=== PATIENT | female | born 1960 | race Caucasian/White ===

== ENCOUNTER 2016-12-10 00:23 | Inpatient (IN) | payer OTHER ==
[2016-12-10] MEDS ORDERED: MORPHINE SULFATE 4 MG/ML SYRINGE IV STA (00:54)
[2016-12-10] MEDS ORDERED: NITROGLYCERIN OINT 1 INCH/GM PACKET TOPICAL STA (00:54)
[2016-12-10] MEDS ORDERED: ONDANSETRON 4 MG/2 ML VIAL IVP STA (00:54)
[2016-12-10] MEDS ORDERED: RX INFO: IV CONTRAST WAS GIVEN 1 EACH MISC MISCELLANE PRN (00:54)
[2016-12-10] MEDS ORDERED: SODIUM CHLORIDE 0.9% 1,000 ML IV STA (00:54)
[2016-12-10] MEDS ORDERED: LABETALOL SYRINGE 5 MG/ML IVP STA (00:55)
[2016-12-10 01:00] LABS: CH 30.4; CHCM 33.7; HCT 45.7 % (34.0-46.0); HGB 14.8 gm/dL (11.4-16.0); MCH 29.3 pg (25.0-35.0); MCHC 32.4 g/dL (31.0-37.0); MCV 90.4 fL (80.0-100.0); RBC 5.05 m/uL (3.80-5.40); RDW 13.4 % (11.5-15.5); WBC 6.1 k/uL (3.8-10.6); WBC (Perox) 5.93
[2016-12-10] MEDS ORDERED: LABETALOL SYRINGE 5 MG/ML IVP SCH (01:00)
[2016-12-10 01:01] LABS: Basophils % (A) 1 %; Eosinophils # (A) 0.3 k/uL (0-0.7); Eosinophils % (A) 5 %; Luc # (Auto) 0.14; Luc % (Auto) 2; Lymphocytes # (A) 1.1 k/uL (1.0-4.8); Lymphocytes % (A) 18 %; Mean Platelet Volume 8.1; Monocytes # (A) 0.2 k/uL (0-1.0); Monocytes % (A) 4 %; Neutrophils # (A) 4.3 k/uL (1.3-7.7); Neutrophils % (A) 70 %
--- NOTE | 2016-12-10 01:02 | ED ---
Chest Pain HPI - General Chief Complaint: Chest Pain Stated Complaint: chest pain x3 days Time Seen by Provider: 12/10/16 00:45 Source: patient, family Mode of arrival: ambulatory Limitations: no limitations - History of Present Illness Initial Comments: Here for chest pain, she had a chest pain ongoing for 3 days, she has a history of hypertension and high blood pressure is quite high blood pressure is 250 / 150 also complaining about the headache and the chest pain radiates towards her back complaining about shortness of breath and chest pain gets worse with deep breaths no abdominal pain no frequency urgency dysuria no signs or symptoms of TIA or CVA. She stopped taking her blood pressure medication about a week ago she had those medications even in the containers when I examine her medication back. Her pain is in the chest and radiated towards the area between the shoulder blades she stating is 10 over 10 it's also radiating towards the epigastric area. She denies any history of aneurysms ascending or descending, this time she describes the pain as tearing excruciating. She stated that she has only 1 kidney working - Related Data Home Medications Medication Instructions Recorded Confirmed Allopurinol [Zyloprim] 300 mg PO DAILY 06/23/14 12/10/16 Aspirin EC [Ecotrin] 325 mg PO DAILY 06/23/14 12/10/16 Atenolol [Tenormin] 25 mg PO DAILY 06/23/14 12/10/16 Baclofen [Lioresal] 10 mg PO QID 06/23/14 12/10/16 Lisinopril-Hctz 20-12.5 mg 1 each PO BID 06/23/14 12/10/16 [Zestoretic 20-12.5] Pravastatin Sodium [Pravachol] 20 mg PO DAILY 06/23/14 12/10/16 clonazePAM [KlonoPIN] 0.5 mg PO HS 06/23/14 12/10/16 rOPINIRole HCL [Requip] 0.5 mg PO HS 06/23/14 12/10/16 Previous Rx's Medication Instructions Recorded traMADol HCl [Ultram] 50 mg PO Q4H PRN #20 tab 06/23/14 Albuterol Inhaler [Ventolin Hfa 2 puff INHALATION Q4HR PRN #1 02/03/16 Inhaler] inhaler Albuterol Nebulized [Ventolin 2.5 mg INHALATION Q4H #50 nebu 02/03/16 Nebulized] Azithromycin [Zithromax Z-pack] 250 mg PO DIRECTED #6 tab 02/03/16 predniSONE 50 mg PO DAILY #5 tab 02/03/16 Allergies Allergy/AdvReac Type Severity Reaction Status Date / Time No Known Allergies Allergy Verified 12/10/16 00:34 Review of Systems ROS Statement: Those systems with pertinent positive or pertinent negative responses have been documented in the HPI. ROS Other: All systems not noted in ROS Statement are negative. EKG Findings - EKG Comments: EKG Findings:: EKG is a normal sinus rhythm ventricular rate is 65 CT interval is 156 QRS duration is 80 QT/QTc is 460/432 review of this EKG did not reveal any ST elevation or ST depression Past Medical History Past Medical History: Hyperlipidemia, Hypertension Additional Past Medical History / Comment(s): kidney stones History of Any Multi-Drug Resistant Organisms: None Reported Past Surgical History: Section, Hysterectomy, Tonsillectomy Past Psychological History: No Psychological Hx Reported Smoking Status: Never smoker Past Alcohol Use History: Rare Past Drug Use History: None Reported General Exam - General Exam Comments Initial Comments: General: The patient is awake and alert, in no distress, and does not appear acutely ill. GCS is 15 Skin: Skin is warm and dry and no rashes or lesions are noted. Eye: Pupils are equal, round and reactive to light, extra-ocular movements are intact; there is normal conjunctiva bilaterally. Ears, nose, mouth and throat: There are moist mucous membranes and no oral lesions. Neck: The neck is supple, there is no tenderness or JVD. Cardiovascular: There is a regular rate and rhythm. No murmur, rub or gallop is appreciated. Respiratory: To auscultation bilateral, no wheezing no rhonchi no distress respiratory mack noticed Gastrointestinal: Soft, non-distended, non-tender abdomen without masses or organomegaly noted. There is no rebound or guarding present. Bowel sounds are unremarkable. Back: There is no tenderness to palpation in the midline. There is no obvious deformity. Musculoskeletal: Normal ROM, no tenderness, There is no pedal edema. There is no calf tenderness or swelling. No cords were appreciated. Neurological: CN II-XII intact, Cranial nerves III through XII are intact. There are no obvious motor or sensory deficits. Coordination appears grossly intact. Speech is normal. Psychiatric: Cooperative, appropriate mood & affect, normal judgment. Limitations: no limitations Course Vital Signs 12/10/16 12/10/16 12/10/16 00:29 00:51 01:30 Temperature 97.7 F Pulse Rate 74 45 L Pulse Rate [ 58 L [employer] ] Respiratory 18 18 Rate Blood Pressure 259/150 201/110 O2 Sat by Pulse 97 98 Oximetry 12/10/16 12/10/16 02:02 03:00 Temperature Pulse Rate 61 54 L Pulse Rate [ [employer] ] Respiratory 18 16 Rate Blood Pressure 215/110 151/89 O2 Sat by Pulse 97 Oximetry Critical Care Time Total Critical Care Time: 40 Critical Care Time: He came in with a very high blood pressure, it was 259/150, chest pain was 10 over 10 radiating towards the back towards the shoulders and then she had this pain radiating down to the epigastric area. She was given labetalol 20 mg milligram IV blood pressure stayed high but then she developed bradycardia, morphine and nitro were given in the L4 to address see her blood pressure as well as chest pain. It took almost 45 minutes to get the blood pressure down to [address] brain was done to rule out any bleed considering blood pressure was very high and she had a headache and CT angiogram chest was done to rule out any PE since she had a history of pleuritic chest pain and the same time since pain was going towards the back ,to rule out aortic dissection. I am aware that she has only one functioning kidney and creatinine was 1.20. His creatinine she had the done in our ER that was 1.26 but wanted make sure that if there is a daily dissection or aortic pathology that could be addressed in a timely manner Disposition Clinical Impression: Hypertension, Chest pain, Headache Disposition: ADMITTED IP TO THIS HOSP Condition: Good
[2016-12-10 01:13] LABS: Calcium 9.7 mg/dL (8.4-10.2); Potassium 4.2 mmol/L (3.5-5.1); Total Bilirubin 0.6 mg/dL (0.2-1.3); Total Protein 6.9 g/dL (6.3-8.2)
[2016-12-10 01:16] LABS: INR 0.9 (<1.1); Partial Thromboplastin Time 23.3 sec (22.0-30.0); Prothrombin Time 9.4 sec (9.0-12.0)
[2016-12-10 01:24] LABS: Creatine Kinase 47 U/L (30-135)
[2016-12-10 01:37] LABS: Creatine Kinase MB 0.7 ng/mL (0.0-2.4); Troponin I <0.012 ng/mL (0.000-0.034)
[2016-12-10] MEDS ORDERED: MORPHINE SULFATE 4 MG/ML SYRINGE IVP STA (01:43)
--- NOTE | 2016-12-10 02:41 | CT ---
EXAMINATION TYPE: CT angio chest DATE OF EXAM: 12/10/2016 2:24 AM COMPARISON: NONE HISTORY: Chest pain, R/O PE, Hypertension CT DLP: 3660 mGycm Automated exposure control for dose reduction was used. CONTRAST: CTA scan of the thorax is performed with IV Contrast, patient injected with 80 mL of Visipaque 320, p ulmonary embolism protocol. MIP images are created and reviewed. 3D reconstructed images are create d on an independent workstation and reviewed. FINDINGS: There is subpleural groundglass interstitial infiltrate in the mid and lower lung pickard. There is no evidence of a pulmonary mass. There is no pericardial effusion. There is no pleural effusion. There is normal contrast opacification of the pulmonary arteries. I see no filling defects. There is no evidence of aortic aneurysm or dissection. There is no mediastinal adenopathy. There are no hilar masses. IMPRESSION: NO EVIDENCE OF PULMONARY EMBOLISM. MILD INTERSTITIAL INFILTRATES COULD RELATE TO PULMONARY FIBROSIS.
--- NOTE | 2016-12-10 02:43 | CT ---
EXAMINATION TYPE: CT brain wo con DATE OF EXAM: 12/10/2016 2:24 AM COMPARISON: 06/23/2014 HISTORY: Headache CT DLP: 3660 mGycm Automated exposure control for dose reduction was used. FINDINGS: Ventricles have normal size. There is no mass effect nor midline shift. There is no sign of intracran ial hemorrhage. The calvarium is intact. IMPRESSION: Negative unenhanced head CT scan. No change.
--- NOTE | 2016-12-10 02:49 | CT ---
EXAMINATION TYPE: CT abdomen pelvis w con DATE OF EXAM: 12/10/2016 2:24 AM COMPARISON: NONE HISTORY: Hypertension, R/O AAA CT DLP: 3660 mGycm Automated exposure control for dose reduction was used. TECHNIQUE: Helical acquisition of images was performed from the lung bases through the pelvis. CONTRAST: Performed without Oral Contrast and with IV Contrast, patient injected with 80 mL of Visipaque 320. FINDINGS: Lung bases are clear of consolidation. There is no pleural effusion. Liver spleen pancreas appear normal. There are clips from cholecystectomy. Bile ducts are not dilated . There is no adrenal mass. There are numerous left renal parapelvic cysts. The right kidney is very small. There is no hydronephrosis. Ureters are not dilated. There is no retroperitoneal adenopathy. There is no ascites. There is no evidence of appendicitis. I see no intestinal wall thickening. There are no dilated loops. There is no ascites. Bladder distends smoothly. Abdominal aorta appears normal. The celiac artery and superior mesenteric artery are widely patent. T he renal arteries are patent. Iliac arteries are widely patent. Bony structures are intact. IMPRESSION: HYPOPLASTIC RIGHT KIDNEY. NUMEROUS LEFT RENAL PARAPELVIC CYSTS. NO VASCULAR ABNORMALITY SEEN. NO RACHAEL DENCE OF AORTIC ANEURYSM OR DISSECTION.
[2016-12-10] MEDS ORDERED: amLODIPine 5 MG TAB PO STA (03:32)
[2016-12-10] MEDS ORDERED: ACETAMINOPHEN TAB 325 MG TAB PO PRN (03:34)
[2016-12-10] MEDS ORDERED: HEPARIN SODIUM,PORCINE 5,000 UNIT/ML 1 ML VIAL IV ONE (03:34)
[2016-12-10] MEDS ORDERED: NITROGLYCERIN SL TABS 0.4 MG TAB SUBLINGUAL PRN (03:34)
[2016-12-10] MEDS ORDERED: MORPHINE SULFATE 4 MG/ML SYRINGE IV PRN (03:34)
[2016-12-10] MEDS ORDERED: traMADol 50 MG TAB PO PRN (03:41)
[2016-12-10] MEDS ORDERED: ALBUTEROL NEBULIZED 2.5 MG/3 ML INHALATION PRN (03:41)
[2016-12-10] MEDS: HEPARIN SODIUM,PORCINE/D5W PMX 25,000 UNIT in DEXTROSE/WATER 1 500ML.BAG IV SCH ×2 (04:59→23:40)
[2016-12-10] MEDS ORDERED: ONDANSETRON 4 MG/2 ML VIAL IVP PRN (07:29)
[2016-12-10] MEDS ORDERED: ALBUTEROL NEBULIZED 2.5 MG/3 ML INHALATION SCH (08:00)
[2016-12-10 08:05] LABS: Creatine Kinase 37 U/L (30-135)
[2016-12-10 08:18] LABS: Creatine Kinase MB 0.6 ng/mL (0.0-2.4); Troponin I <0.012 ng/mL (0.000-0.034)
[2016-12-10] MEDS ORDERED: NON-FORMULARY DRUG (Aspirin Ec 325 MG) PO SCH (09:00)
--- NOTE | 2016-12-10 10:01 | P.CRDCN ---
History of Present Illness Consult date: 12/10/16 Chief complaint: Chest pain History of present illness: This is a pleasant 56-year-old female patient who sees Dr. VC Sepulveda as an outpatient with a past medical history significant for hypertension and dyslipidemia and obesity presented to the emergency room complaining of chest discomfort. She describes intermittent episodes of chest discomfort, as a pressure across the chest, with radiation to the back and without any associated symptoms. Unfortunately the patient stopped taking her blood pressure medications. Upon presentation to the ER her pressure was more than 200 mmHg systolic and the patient was restarted on her home medications with significant improvement in the blood pressure and significant improvement of the chest pain as well. The EKG showed sinus mechanism without any significant ST or T-wave abnormalities. The cardiac enzymes came in to be unremarkable. I will continue the current medical treatment. Obtaining an echocardiogram was Doppler. The patient need to have a stress test done either as inpatient or outpatient. The chest discomfort is likely secondary to the hypertension emergency. Past Medical History Past Medical History: Asthma, Cancer, Chest Pain / Angina, Hyperlipidemia, Hypertension, Osteoarthritis (OA), Renal Disease Additional Past Medical History / Comment(s): kidney stones-only one kidney functions (pt unsure laterallity), R breast cancer with surgery, migraines, RLS , gout bilateral feet, chronic back pain History of Any Multi-Drug Resistant Organisms: None Reported Past Surgical History: Breast Surgery, Section, Heart Catheterization, Hysterectomy, Orthopedic Surgery, Tonsillectomy Additional Past Surgical History / Comment(s): R breast lumpectomy, R foot spurs removed Past Anesthesia/Blood Transfusion Reactions: Postoperative Nausea & Vomiting ( PONV) Past Psychological History: Anxiety, Depression Additional Psychological History / Comment(s): PT resides with sone and daughter. Pt uses no devices. She drives. She has a nebulizer. Smoking Status: Never smoker Past Alcohol Use History: Rare Past Drug Use History: None Reported - Past Family History Father Family Medical History: CVA/TIA, Renal Disease Additional Family Medical History / Comment(s): Father had a CVA then went into kidney failure and . Mother Family Medical History: Hypertension Medications and Allergies Home Medications Medication Instructions Recorded Confirmed Type Allopurinol [Zyloprim] 300 mg PO DAILY 06/23/14 12/10/16 History Aspirin EC [Ecotrin] 325 mg PO DAILY 06/23/14 12/10/16 History Atenolol [Tenormin] 25 mg PO DAILY 06/23/14 12/10/16 History Baclofen [Lioresal] 10 mg PO QID 06/23/14 12/10/16 History Lisinopril-Hctz 20-12.5 mg 1 tab PO BID 06/23/14 12/10/16 History [Zestoretic 20-12.5] Pravastatin Sodium [Pravachol] 20 mg PO DAILY 06/23/14 12/10/16 History clonazePAM [KlonoPIN] 0.5 mg PO HS 06/23/14 12/10/16 History rOPINIRole HCL [Requip] 0.5 mg PO HS 06/23/14 12/10/16 History Albuterol Inhaler [Ventolin Hfa 2 puff INHALATION RT-Q6H PRN 12/10/16 12/10/16 History Inhaler] Albuterol Nebulized [Ventolin 2.5 mg INHALATION RT-Q4H PRN 12/10/16 12/10/16 History Nebulized] Nitroglycerin Sl Tabs [Nitrostat] 0.4 mg SUBLINGUAL Q5M PRN 12/10/16 12/10/16 History Allergies Allergy/AdvReac Type Severity Reaction Status Date / Time No Known Allergies Allergy Verified 12/10/16 00:34 Physical Exam Vitals: Vital Signs Pulse Resp BP Pulse Ox 12/10/16 08:50 56 L 18 140/70 96 12/10/16 08:00 59 L 17 164/79 97 12/10/16 07:00 61 17 121/72 96 12/10/16 06:47 57 L 16 121/72 94 L 12/10/16 05:36 64 16 129/67 97 12/10/16 04:41 58 L 16 145/86 97 - Constitutional General appearance: no acute distress - Respiratory Respiratory: bilateral: CTA - Cardiovascular Rhythm: regular Heart sounds: normal: S1, S2 Results 12/10/16 00:51 12/10/16 00:51 Cardiac Enzymes 12/10/16 Range/Units 07:10 CK-MB (CK-2) 0.6 (0.0-2.4) ng/mL Troponin I <0.012 (0.000-0.034) ng/mL Current Medications Generic Name Dose Route Start Last Admin Trade Name Freq PRN Reason Stop Dose Admin Acetaminophen 650 mg 12/10/16 03:34 Tylenol Tab PO Q4HR PRN Mild Pain Albuterol Sulfate 2.5 mg 12/10/16 03:41 Ventolin Nebulized INHALATION Q4HR PRN Wheezing Aspirin 325 mg 12/11/16 09:00 Aspirin PO DAILY [facility] Atorvastatin Calcium 40 mg 12/10/16 21:00 Lipitor PO HS [facility] Clonazepam 0.5 mg 12/10/16 21:00 Klonopin PO HS THIERRY Sodium Chloride 1,000 mls @ 50 mls/hr 12/10/16 00:54 12/10/16 01:12 Saline 0.9% IV 12/10/16 20:53 50 mls/hr .Q20H STA Administration Heparin Sodium/Dextrose 25,000 500 mls @ 20.13 mls/hr 12/10/16 03:45 04:59 unit/ IV Solution IV 11.1 units/kg/hr .Q24H THIERRY 20.13 mls/hr Protocol Administration 11.1 UNITS/KG/HR Lisinopril 10 mg 12/10/16 09:00 Zestril PO DAILY [facility] Metoprolol Tartrate 50 mg 12/10/16 09:00 Lopressor PO BID [facility] Miscellaneous Information 1 each 12/10/16 00:54 12/10/16 02:15 Rx Info: Iv Contrast Was Given MISCELLANE 12/12/16 00:54 1 each DAILY PRN Administration Per Protocol Morphine Sulfate 4 mg 12/10/16 03:34 Morphine Sulfate (Inj) IV Q5M PRN Chest Pain Nitroglycerin 0.4 mg 12/10/16 03:34 Nitrostat SUBLINGUAL Q5M PRN Chest Pain Ondansetron HCl 4 mg 12/10/16 07:29 Zofran IVP Q6HR PRN Nausea And Vomiting Ropinirole HCl 0.5 mg 12/10/16 21:00 Requip PO HS [facility] Tramadol HCl 50 mg 12/10/16 03:41 Ultram PO Q4H PRN Moderate Pain Assessment and Plan Plan: Assessment #1 hypertension emergency #2 noncompliance with medication #3 systemic hypertension #4 obesity pneumograph Plan #1 the patient was restarted on the blood pressure medications #2 I will obtain an echocardiogram with Doppler #3 follow-up with the patient
[2016-12-10] MEDS: LISINOPRIL 10 MG TAB PO SCH (12:37)
[2016-12-10] MEDS: METOPROLOL TARTRATE 50 MG TAB PO SCH ×2 (12:37→21:52)
--- NOTE | 2016-12-10 13:15 | ECHOF ---
Referral Reason:chest pain MEASUREMENTS -------- HEIGHT: 127.0 cm WEIGHT: 90.7 kg BP: 158/85 RVIDd: 2.8 cm (< 3.3) IVSd: 1.6 cm (0.6 - 1.1) LVIDd: 4.1 cm (3.9 - 5.3) LVPWd: 1.3 cm (0.6 - 1.1) IVSs: 1.7 cm LVIDs: 2.7 cm LVPWs: 1.1 cm LA Diam: 4.2 cm (2.7 - 3.8) LAESV Index (A-L): 51.81 ml/m Ao Diam: 3.1 cm (2.0 - 3.7) AV Cusp: 1.2 cm (1.5 - 2.6) LA Diam: 4.5 cm (2.7 - 3.8) MV EXCURSION: 11.800 mm (> 18.000) MV EF SLOPE: 20 mm/s (70 - 150) EPSS: 0.0 cm MV E [place]: 0.48 m/s MV DecT: 506 ms MV A [place]: 0.82 m/s MV E/A Ratio: 0.58 RAP: 5.00 mmHg RVSP: 35.32 mmHg FINDINGS -------- Sinus rhythm. This was a technically adequate study. There is moderate concentric left ventricular hypertrophy. Overall left ventricular systolic function is normal with, an EF between 55 - 60 %. The right ventricle is normal in size. LA is severely dilated >40 ml/m2 The right atrial size is normal. There is mild aortic valve sclerosis. There is no evidence of aortic regurgitation. Mild mitral annular calcification present. Mild mitral regurgitation is present. Mild tricuspid regurgitation present. There is no evidence of pulmonary hypertension. The right ventricular systolic pressure, as measured by Doppler, is 35.32mmHg. There is no pulmonic regurgitation present. The aortic root size is normal. There is no pericardial effusion. CONCLUSIONS -------- 1. There is moderate concentric left ventricular hypertrophy. 2. Overall left ventricular systolic function is normal with, an EF between 55 - 60 %. 3. LA is severely dilated >40 ml/m2 4. There is mild aortic valve sclerosis. 5. Mild mitral annular calcification present. 6. Mild mitral regurgitation is present. 7. Mild tricuspid regurgitation present. 8. There is no evidence of pulmonary hypertension. 9. The right ventricular systolic pressure, as measured by Doppler, is 35.32mmHg. [employer] CHAIR: Cuca Merida RDCS
[2016-12-10 14:00] LABS: Creatine Kinase 44 U/L (30-135)
[2016-12-10 14:12] LABS: Creatine Kinase MB 0.6 ng/mL (0.0-2.4); Troponin I <0.012 ng/mL (0.000-0.034)
[2016-12-10] MEDS ORDERED: HEPARIN SODIUM,PORCINE 5,000 UNIT/ML 1 ML VIAL IV STA (16:15)
--- NOTE | 2016-12-10 18:33 | P.HPIM ---
History of Present Illness H&P Date: 12/10/16 Chief Complaint: Chest pain Patient is a 56-year-old female was known history of hypertension hyperlipidemia and morbid obesity, patient stopped taking all her medications she was experiencing some chest pain she came to emergency room she had evidence of hypertensive emergency with systolic blood pressure in excess of 200 admitted to telemetry floor she was restarted on blood pressure medication cardiology consultation was requested Past Medical History Past Medical History: Asthma, Cancer, Chest Pain / Angina, Hyperlipidemia, Hypertension, Osteoarthritis (OA), Renal Disease Additional Past Medical History / Comment(s): kidney stones-only one kidney functions (pt unsure laterallity), R breast cancer with surgery, migraines, RLS , gout bilateral feet, chronic back pain History of Any Multi-Drug Resistant Organisms: None Reported Past Surgical History: Breast Surgery, Section, Heart Catheterization, Hysterectomy, Orthopedic Surgery, Tonsillectomy Additional Past Surgical History / Comment(s): R breast lumpectomy, R foot spurs removed Past Anesthesia/Blood Transfusion Reactions: Postoperative Nausea & Vomiting ( PONV) Past Psychological History: Anxiety, Depression Additional Psychological History / Comment(s): PT resides with sone and daughter. Pt uses no devices. She drives. She has a nebulizer. Smoking Status: Never smoker Past Alcohol Use History: Rare Past Drug Use History: None Reported - Past Family History Father Family Medical History: CVA/TIA, Renal Disease Additional Family Medical History / Comment(s): Father had a CVA then went into kidney failure and . Mother Family Medical History: Hypertension Medications and Allergies Home Medications Medication Instructions Recorded Confirmed Type Allopurinol [Zyloprim] 300 mg PO DAILY 06/23/14 12/10/16 History Aspirin EC [Ecotrin] 325 mg PO DAILY 06/23/14 12/10/16 History Atenolol [Tenormin] 25 mg PO DAILY 06/23/14 12/10/16 History Baclofen [Lioresal] 10 mg PO QID 06/23/14 12/10/16 History Lisinopril-Hctz 20-12.5 mg 1 tab PO BID 06/23/14 12/10/16 History [Zestoretic 20-12.5] Pravastatin Sodium [Pravachol] 20 mg PO DAILY 06/23/14 12/10/16 History clonazePAM [KlonoPIN] 0.5 mg PO HS 06/23/14 12/10/16 History rOPINIRole HCL [Requip] 0.5 mg PO HS 06/23/14 12/10/16 History Albuterol Inhaler [Ventolin Hfa 2 puff INHALATION RT-Q6H PRN 12/10/16 12/10/16 History Inhaler] Albuterol Nebulized [Ventolin 2.5 mg INHALATION RT-Q4H PRN 12/10/16 12/10/16 History Nebulized] Nitroglycerin Sl Tabs [Nitrostat] 0.4 mg SUBLINGUAL Q5M PRN 12/10/16 12/10/16 History Allergies Allergy/AdvReac Type Severity Reaction Status Date / Time No Known Allergies Allergy Verified 12/10/16 00:34 Physical Exam Vitals: Vital Signs Temp Pulse Pulse Resp BP BP Pulse Ox 12/10/16 14:57 66 17 12/10/16 14:56 97 F L 66 17 160/90 12/10/16 12:00 64 148/100 12/10/16 11:19 58 L 18 113/57 96 12/10/16 09:50 55 L 18 158/85 97 12/10/16 08:50 56 L 18 140/70 96 12/10/16 08:00 59 L 17 164/79 97 12/10/16 07:00 61 17 121/72 96 12/10/16 06:47 57 L 16 121/72 94 L 12/10/16 05:36 64 16 129/67 97 12/10/16 04:41 58 L 16 145/86 97 Intake and Output 12/10/16 12/10/16 12/10/16 06:59 14:59 22:59 Intake Total 227.133 Balance 227.133 Intake: Intake, IV Titration 227.133 Amount Heparin Sodium,Porcine/ 227.133 D5w Pmx 25,000 unit In Dextrose/Water 1 500ml. bag @ 11.1 UNITS/KG/HR 20 .13 mls/hr IV .Q24H [facility] Rx#:[id number] In general patient is alert and oriented 3 in no apparent distress HEENT head normocephalic and atraumatic Neck is supple no JVD no goiter no lymphadenopathy Chest exam reveals a few scattered crackles no wheezing Cardiac exam reveals regular heart sounds no gallops no murmurs Abdomen is soft nontender no organomegaly Extremity exam reveals no edema no cyanosis or clubbing Results CBC & Chem 7: 12/10/16 00:51 12/10/16 00:51 Thrombosis Risk Factor Assmnt - Choose All That Apply Any of the Below Risk Factors Present?: Yes Each Factor Represents 1 point: Age 41-60 years, Obesity (BMI >25) Other Risk Factors: Yes Each Risk Factor Represents 2 Points: Malignancy Other congenital or acquired thrombophilia - If yes, enter type in comment: No Thrombosis Risk Factor Assessment Total Risk Factor Score: 4 Thrombosis Risk Factor Assessment Level: Moderate Risk Assessment and Plan Plan: #1 episode of chest pain likely related to severe hypertensive emergency, cardiac enzymes are negative cardiology consult was requested #2 hypertensive emergency blood pressure is better controlled at this time will monitor #3 medication noncompliance patient was counseled in length in regard of taking medication regularly #4 underlying history of hyperlipidemia #5 acute versus chronic renal failure will review office data reactive and at this time is 1.2 Will monitor
[2016-12-10] MEDS: clonazePAM 0.5 MG TAB PO SCH (21:52)
[2016-12-10] MEDS: ATORVASTATIN 40 MG TAB PO SCH (21:53)
[2016-12-10 23:29] VITALS: RESP 18
[2016-12-11 07:46] LABS: Cholesterol 205 mg/dL (<200); HDL Cholesterol 70 mg/dL (40-60); Triglycerides 123 mg/dL (<150)
[2016-12-11] MEDS ORDERED: ASPIRIN 325 MG TAB PO SCH (09:00)
[2016-12-11] MEDS: LISINOPRIL 10 MG TAB PO SCH (09:43)
[2016-12-11] MEDS: METOPROLOL TARTRATE 50 MG TAB PO SCH (09:43)
--- NOTE | 2016-12-11 12:15 | P.PN ---
Subjective Principal diagnosis: Hypertensive urgency This is a pleasant 56-year-old female patient who sees Dr. VC Sepulveda as an outpatient with a past medical history significant for hypertension and dyslipidemia and obesity presented to the emergency room complaining of chest discomfort.She describes intermittent episodes of chest discomfort, as a pressure across the chest, with radiation to the back and without any associated symptoms. Unfortunately the patient stopped taking her blood pressure medications. Upon presentation to the ER her pressure was more than 200 mmHg systolic and the patient was restarted on her home medications with significant improvement in the blood pressure and significant improvement of the chest pain as well.The EKG showed sinus mechanism without any significant ST or T-wave abnormalities. The cardiac enzymes came in to be unremarkable. Blood pressure today 132/86, echocardiogram with Doppler study was performed which revealed an ejection fraction of 50-55%. Patient denies any further chest discomfort. Objective - Vital Signs Vital signs: Vital Signs Temp 97.1 F L 12/11/16 08:00 Pulse 66 12/11/16 08:00 Resp 18 12/11/16 08:00 BP 124/68 12/11/16 08:00 Pulse Ox 91 L 12/11/16 08:00 Intake & Output 12/10/16 12/11/16 12/11/16 18:59 06:59 18:59 Intake Total 227.133 439.292 218.101 Balance 227.133 439.292 218.101 Weight 101.7 kg Intake: Intake, IV Titration 227.133 189.292 218.101 Amount Heparin Sodium,Porcine/ 227.133 189.292 218.101 D5w Pmx 25,000 unit In Dextrose/Water 1 500ml. bag @ 11.1 UNITS/KG/HR 20 .13 mls/hr IV .Q24H THIERRY Rx#:[id number] Oral 250 Other: Voiding Method Toilet # Voids 1 - Exam PHYSICAL EXAMINATION: HEENT: Head is atraumatic, normocephalic. Pupils equal, round. Neck is supple. There is no elevated jugular venous pressure. HEART EXAMINATION: Heart S1, S2 normal. No murmur or gallop heard. CHEST EXAMINATION: Lungs are clear to auscultation and precussion. No chest wall tenderness is noted on palpation or with deep breathing. ABDOMEN: Soft, nontender. Bowel sounds are heard. No organomegaly noted. EXTREMITIES: 2+ peripheral pulses with no evidence of peripheral edema and no calf tenderness noted. NEUROLOGIC patient is awake, alert and oriented -3. . - Labs CBC & Chem 7: 12/10/16 00:51 12/10/16 00:51 Labs: Abnormal Lab Results - Last 24 Hours (Table) 12/10/16 12/11/16 12/11/16 Range/Units 22:13 06:06 06:06 APTT 44.3 H 45.1 H (22.0-30.0) sec Cholesterol 205 H (<200) mg/dL LDL Cholesterol, Calc 110 H (0-99) mg/dL HDL Cholesterol 70 H (40-60) mg/dL Assessment and Plan (1) Hypertensive urgency Status: Acute (2) Hypertensive urgency Status: Acute (3) Atypical chest pain Status: Acute (4) Hyperlipemia Status: Acute (5) Hypertension Status: Acute Plan: From cardiology's perspective, we will decrease the aspirin 81 mg, continue Lipitor, lisinopril 10 mg daily, metoprolol tartrate 50 mg one tablet by mouth twice a day, patient has been encouraged regarding the importance of taking her medications regularly. We will also discontinue the IV heparin. As an outpatient, patient will be scheduled for stress test. Consider discharge within the next 24 hours. A follow-up appointment will be made with Dr. VC Sepulveda in the office at that time. DNP note has been reviewed, I agree with a documented findings and plan of care. Patient was seen and examined.
--- NOTE | 2016-12-11 17:23 | P.PN ---
Subjective Principal diagnosis: Hypertensive emergency and chest pain Patient is a 56-year-old female admitted with chest pain patient had stopped all her medications at home she had a hypertensive emergency on presentation blood pressure was controlled in the emergency room and she was admitted to telemetry floor currently blood pressure is well-controlled and she is chest pain-free she was evaluated by cardiology during this admission cardiac enzymes are negative Objective - Vital Signs Vital signs: Vital Signs Temp 97.1 F L 12/11/16 08:00 Pulse 66 12/11/16 15:44 Resp 18 12/11/16 15:44 BP 127/72 12/11/16 15:44 Pulse Ox 96 12/11/16 15:44 Intake & Output 12/10/16 12/11/16 12/11/16 18:59 06:59 18:59 Intake Total 227.133 439.292 718.101 Output Total 360 Balance 227.133 439.292 358.101 Weight 101.7 kg Intake: Intake, IV Titration 227.133 189.292 218.101 Amount Heparin Sodium,Porcine/ 227.133 189.292 218.101 D5w Pmx 25,000 unit In Dextrose/Water 1 500ml. bag @ 11.1 UNITS/KG/HR 20 .13 mls/hr IV .Q24H [facility] Rx#:[id number] Oral 250 500 Output: Urine 360 Other: Voiding Method Toilet # Voids 1 - Exam HEENT head normocephalic and atraumatic Neck is supple no JVD no goiter no lymphadenopathy Chest exam is clear to auscultation no wheezing Cardiac exam reveals regular heart sounds no murmurs abdomen is soft nontender no organomegaly Extremity exam reveals no edema no cyanosis or clubbing - Labs CBC & Chem 7: 12/10/16 00:51 12/10/16 00:51 Labs: Abnormal Lab Results - Last 24 Hours (Table) 12/10/16 12/11/16 12/11/16 Range/Units 22:13 06:06 06:06 APTT 44.3 H 45.1 H (22.0-30.0) sec Cholesterol 205 H (<200) mg/dL LDL Cholesterol, Calc 110 H (0-99) mg/dL HDL Cholesterol 70 H (40-60) mg/dL 12/11/16 Range/Units 12:42 APTT 47.5 H (22.0-30.0) sec Cholesterol (<200) mg/dL LDL Cholesterol, Calc (0-99) mg/dL HDL Cholesterol (40-60) mg/dL Assessment and Plan Plan: #1 episode of chest pain likely related to severe hypertensive emergency, cardiac enzymes are negative cardiology consult was requested #2 hypertensive emergency blood pressure is better controlled at this time will monitor #3 medication noncompliance patient was counseled in length in regard of taking medication regularly #4 underlying history of hyperlipidemia #5 acute versus chronic renal failure will review office data reactive and at this time is 1.2 Will monitor Patient had prolonged counseling again in regard to taking all her medication on a regular basis Plan for discharge tomorrow in a.m. if stable
[2016-12-11] MEDS: ATORVASTATIN 40 MG TAB PO SCH (21:00)
[2016-12-11] MEDS: clonazePAM 0.5 MG TAB PO SCH (21:00)
[2016-12-12] MEDS: METOPROLOL TARTRATE 50 MG TAB PO SCH ×2 (01:55→11:17)
[2016-12-12] MEDS ORDERED: ASPIRIN 81 MG CHEW PO SCH (09:00)
[2016-12-12] MEDS: LISINOPRIL 10 MG TAB PO SCH (09:21)
[2016-12-12 09:22] VITALS: PULSE 65; TEMP 97.4
[2016-12-12 09:27] LABS: Basophils % (A) 1 %; CH 29.8; CHCM 32.1; Eosinophils # (A) 0.2 k/uL (0-0.7); Eosinophils % (A) 5 %; HCT 39.4 % (34.0-46.0); HGB 12.7 gm/dL (11.4-16.0); Luc # (Auto) 0.09; Luc % (Auto) 2; Lymphocytes # (A) 0.6 k/uL (1.0-4.8); Lymphocytes % (A) 13 %; MCHC 32.2 g/dL (31.0-37.0); MCV 93.3 fL (80.0-100.0); Mean Platelet Volume 8.1; Monocytes # (A) 0.2 k/uL (0-1.0); Monocytes % (A) 5 %; Neutrophils # (A) 3.4 k/uL (1.3-7.7); Neutrophils % (A) 74 %; RBC 4.23 m/uL (3.80-5.40); RDW 13.2 % (11.5-15.5); WBC 4.6 k/uL (3.8-10.6); WBC (Perox) 5.08
[2016-12-12 09:40] LABS: Calcium 9.4 mg/dL (8.4-10.2); Potassium 4.1 mmol/L (3.5-5.1); Total Bilirubin 0.6 mg/dL (0.2-1.3); Total Protein 5.6 g/dL (6.3-8.2)
[2016-12-12 12:57] VITALS: BP 140/80
--- NOTE | 2016-12-12 14:07 | P.DS ---
Providers Date of admission: 12/10/16 03:33 Expected date of discharge: 12/12/16 Attending physician: Brian Chanel Consults: 12/10/16 03:34 Consult Physician Urgent Consulting Provider: Kriss Herring Consult Reason/Comments: Chest pain Do you want consulting provider notified?: Yes Primary care physician: Brian Chanel Hospital Course: Discharge diagnosis #1 episode of chest pain likely related to severe hypertensive emergency, cardiac enzymes are negative cardiology evaluated patient and adjusted blood pressure medications #2 hypertensive emergency blood pressure is better controlled at this time will monitor #3 medication noncompliance patient was counseled in length in regard of taking medication regularly #4 underlying history of hyperlipidemia #5 acute versus chronic renal failure will review office data and have patient follow-up in the office. Hospital course Patient is a 56-year-old female admitted with chest pain patient had stopped all her medications at home she had a hypertensive emergency on presentation blood pressure was controlled in the emergency room and she was admitted to telemetry floor currently blood pressure is well-controlled and she is chest pain-free she was evaluated by cardiology during this admission cardiac enzymes are negative. Cardiology had increased her metoprolol to 50 mg twice a day and she had some bradycardia with a heart rate in the 40s yesterday. Her evening dose of metoprolol was held. Heart rate has improved. Cardiology is recommending to continue the metoprolol 50 mg twice a day and Zestril 10 mg daily. They've also written a prescription for Lipitor 40 mg daily. They have cleared her for discharge. And recommending that she follows up with Dr. Sepulveda in 1 week. Patient has been educated to take her medications as prescribed. And will have her follow-up with Dr. Chanel in 1 week. Patient did have a computed tomography scan of the chest which was negative for PE. Computed tomography scan of the brain was negative. Echo shows an EF of 55-60% . Patient medical stable for discharge. Please refer to chart for any further details. Patient Condition at Discharge: Stable Plan - Discharge Summary Discharge Medication List Allopurinol [Zyloprim] 300 mg PO DAILY 06/23/14 [History] Aspirin EC [Ecotrin] 325 mg PO DAILY 06/23/14 [History] Atenolol [Tenormin] 25 mg PO DAILY 06/23/14 [History] Baclofen [Lioresal] 10 mg PO QID 06/23/14 [History] Lisinopril-Hctz 20-12.5 mg [Zestoretic 20-12.5] 1 tab PO BID 06/23/14 [History] Pravastatin Sodium [Pravachol] 20 mg PO DAILY 06/23/14 [History] clonazePAM [KlonoPIN] 0.5 mg PO HS 06/23/14 [History] rOPINIRole HCL [Requip] 0.5 mg PO HS 06/23/14 [History] traMADol HCl [Ultram] 50 mg PO Q4H PRN #20 tab 06/23/14 [Rx] predniSONE 50 mg PO DAILY #5 tab 02/03/16 [Rx] Albuterol Inhaler [Ventolin Hfa Inhaler] 2 puff INHALATION RT-Q6H PRN 12/10/16 [ History] Albuterol Nebulized [Ventolin Nebulized] 2.5 mg INHALATION RT-Q4H PRN 12/10/16 [ History] Nitroglycerin Sl Tabs [Nitrostat] 0.4 mg SUBLINGUAL Q5M PRN 12/10/16 [History] Follow up Appointment(s)/Referral(s): Brian Chanel MD [Primary Care Provider] - 1-2 days
--- NOTE | 2016-12-12 15:12 | P.PN ---
Subjective Principal diagnosis: Hypertensive urgency This is a pleasant 56-year-old female patient who sees Dr. VC Sepulveda as an outpatient with a past medical history significant for hypertension and dyslipidemia and obesity presented to the emergency room complaining of chest discomfort.She describes intermittent episodes of chest discomfort, as a pressure across the chest, with radiation to the back and without any associated symptoms. Unfortunately the patient stopped taking her blood pressure medications. Upon presentation to the ER her pressure was more than 200 mmHg systolic and the patient was restarted on her home medications with significant improvement in the blood pressure and significant improvement of the chest pain as well.The EKG showed sinus mechanism without any significant ST or T-wave abnormalities. The cardiac enzymes came in to be unremarkable. Blood pressure today 132/86, echocardiogram with Doppler study was performed which revealed an ejection fraction of 50-55%. Patient denies any further chest discomfort. Heart rate in the low. 12/12/16.... Patient seen and examined today, feels well overall. We will decrease her dose of beta duke. She should be able to be discharged home today to follow-up with Dr. Sepulveda the office post discharge. She has been instructed regarding the importance of taking her medications on a regular basis. Objective - Vital Signs Vital signs: Vital Signs Temp 97.4 F L 12/12/16 08:00 Pulse 65 12/12/16 12:00 Resp 18 12/12/16 12:00 BP 140/80 12/12/16 12:00 Pulse Ox 98 12/12/16 12:00 Intake & Output 12/11/16 12/12/16 12/12/16 18:59 06:59 18:59 Intake Total 954.101 360 0 Output Total 360 500 Balance 594.101 -140 0 Weight 101.1 kg Intake: Intake, IV Titration 218.101 Amount Heparin Sodium,Porcine/ 218.101 D5w Pmx 25,000 unit In Dextrose/Water 1 500ml. bag @ 11.1 UNITS/KG/HR 20 .13 mls/hr IV .Q24H [facility] Rx#:[id number] Oral 736 360 0 Output: Urine 360 500 Other: Voiding Method Toilet # Voids 1 - Exam PHYSICAL EXAMINATION: HEENT: Head is atraumatic, normocephalic. Pupils equal, round. Neck is supple. There is no elevated jugular venous pressure. HEART EXAMINATION: Heart S1, S2 normal. No murmur or gallop heard. CHEST EXAMINATION: Lungs are clear to auscultation and precussion. No chest wall tenderness is noted on palpation or with deep breathing. ABDOMEN: Soft, nontender. Bowel sounds are heard. No organomegaly noted. EXTREMITIES: 2+ peripheral pulses with no evidence of peripheral edema and no calf tenderness noted. NEUROLOGIC patient is awake, alert and oriented -3. . - Labs CBC & Chem 7: 12/12/16 09:07 12/12/16 09:05 Labs: Abnormal Lab Results - Last 24 Hours (Table) 12/12/16 12/12/16 Range/Units 09:05 09:07 Lymphocytes # 0.6 L (1.0-4.8) k/uL Chloride 108 H (98-107) mmol/L Creatinine 1.24 H (0.52-1.04) mg/dL Glucose 115 H (74-99) mg/dL Total Protein 5.6 L (6.3-8.2) g/dL Albumin 3.0 L (3.5-5.0) g/dL Assessment and Plan (1) Hypertensive urgency Status: Acute (2) Hypertensive urgency Status: Acute (3) Atypical chest pain Status: Acute (4) Hyperlipemia Status: Acute (5) Hypertension Status: Acute Plan: From cardiology's perspective, we will decrease the aspirin 81 mg, continue Lipitor, lisinopril 10 mg daily, metoprolol tartrate 25 mg one tablet by mouth twice a day, patient has been encouraged regarding the importance of taking her medications regularly. As an outpatient, patient will be scheduled for stress test. Discharged home today. A follow-up appointment will be made with Dr. VC Sepulveda in the office at that time. DNP note has been reviewed, I agree with a documented findings and plan of care. Patient was seen and examined.
[2016-12-12] MEDS ORDERED: METOPROLOL TARTRATE 25 MG TAB PO SCH (21:00)
== END 2016-12-12 14:36 | disposition home or self-care (01) | DRG 305 ==
LOC: EC 00:23 → 6SEL 03:33
PROVIDERS: ADMIT Internal Medicine; ATTEND Internal Medicine
DX: I16.1 Hypertensive emergency (principal); N17.8 Other acute kidney failure; R00.1 Bradycardia, unspecified; T46.5X6A Underdosing of other antihypertensive drugs, initial encounter; T44.7X5A Adverse effect of beta-adrenoreceptor antagonists, initial encounter; J45.909 Unspecified asthma, uncomplicated; I16.0 Hypertensive urgency; N28.9 Disorder of kidney and ureter, unspecified; I10 Essential (primary) hypertension; R07.89 Other chest pain; G43.909 Migraine, unspecified, not intractable, without status migrainosus; E78.5 Hyperlipidemia, unspecified; G25.81 Restless legs syndrome; M10.9 Gout, unspecified; F32.9 Major depressive disorder, single episode, unspecified; F41.9 Anxiety disorder, unspecified; G89.29 Other chronic pain; M54.9 Dorsalgia, unspecified; R06.02 Shortness of breath; M19.90 Unspecified osteoarthritis, unspecified site; Z82.49 Family history of ischemic heart disease and other diseases of the circulatory system; Z87.442 Personal history of urinary calculi; Z91.14 Patient's other noncompliance with medication regimen; Z90.11 Acquired absence of right breast and nipple; Z90.710 Acquired absence of both cervix and uterus; Z79.899 Other long term (current) drug therapy; Z79.82 Long term (current) use of aspirin; Z82.3 Family history of stroke; Z85.3 Personal history of malignant neoplasm of breast; Z84.1 Family history of disorders of kidney and ureter
CPT/HCPCS: 36415; 70450; 71275; 74177; 80053; 80061; 82550; 82553; 83735; 83880; 84484; 85025; 85379; 85610; 85730; 93005; 93306; 99291

== ENCOUNTER → 2017-03-19 | Outpatient (CLI) | payer OTHER ==
--- NOTE | 2017-03-19 17:21 | XR ---
EXAMINATION TYPE: XR lumbosacral spine min 4V DATE OF EXAM: 03/19/2017 4:58 PM COMPARISON: NONE HISTORY: Pain TECHNIQUE: 5 views FINDINGS: The lumbar vertebra have normal spacing and alignment. Posterior elements are intact. Sacro iliac joints are normal. There is no compression fracture. IMPRESSION: Normal lumbar spine exam.
== END | disposition home or self-care (01) ==
LOC: RADXRMAIN 16:38
PROVIDERS: ATTEND Internal Medicine
DX: M54.5 Low back pain (principal)
CPT/HCPCS: 72110

== ENCOUNTER 2018-02-03 18:29 | Observation (INO) | payer OTHER ==
[2018-02-03] MEDS ORDERED: ASPIRIN 81 MG PO STA (18:44)
[2018-02-03] MEDS ORDERED: ONDANSETRON 4 MG/2 ML VIAL IVP STA (19:00)
[2018-02-03] MEDS ORDERED: MORPHINE SULFATE 4 MG/ML SYRINGE IVP STA (19:00)
[2018-02-03] MEDS ORDERED: hydrALAZINE HCL 20 MG/ML 1 ML VIAL IVP STA (19:00)
[2018-02-03 19:03] LABS: Basophils % (A) 1 %; Eosinophils # (A) 0.2 k/uL (0-0.7); Eosinophils % (A) 3 %; HCT 43.7 % (34.0-46.0); HGB 14.9 gm/dL (11.4-16.0); Lymphocytes # (A) 0.8 k/uL (1.0-4.8); Lymphocytes % (A) 12 %; MCH 30.5 pg (25.0-35.0); MCHC 34.1 g/dL (31.0-37.0); MCV 89.3 fL (80.0-100.0); Mean Platelet Volume 7.8; Monocytes # (A) 0.2 k/uL (0-1.0); Monocytes % (A) 3 %; Neutrophils # (A) 5.3 k/uL (1.3-7.7); Neutrophils % (A) 82 %; Platelet Count 197 k/uL (150-450); RDW 13.4 % (11.5-15.5); WBC 6.5 k/uL (3.8-10.6)
--- NOTE | 2018-02-03 19:05 | ED ---
Chest Pain HPI - General Source: patient, RN notes reviewed Mode of arrival: wheelchair Limitations: no limitations <Nick Martin - Last Filed: 02/03/18 22:06> <Jack Rodriguez - Last Filed: 02/05/18 06:05> - General Chief Complaint: Chest Pain Stated Complaint: Chest pain Time Seen by Provider: 02/03/18 18:44 - History of Present Illness Initial Comments: 57-year-old female presents emergency Department with chief complaint of chest pressure, shortness of breath. Patient states his symptoms and worsening over the last 1 week. She states that she's having exertional shortness of breath. Patient states that she does have some underlying asthma. Patient states that last week she did have some nausea vomiting type symptoms. She has minimal cough this time no recent fever no chills. She denies headache, dizziness, blurred vision, chest wall trauma. She states taken deep inspiration does make her symptoms worse also. Patient states her primary care physician is Dr. rai. Patient has not taken any of her medications recently because she of her nausea vomiting. (Nick Martin) - Related Data Home Medications Medication Instructions Recorded Confirmed Allopurinol [Zyloprim] 300 mg PO DAILY 06/23/14 02/03/18 Albuterol Inhaler [Ventolin Hfa 2 puff INHALATION RT-Q6H PRN 12/10/16 02/03/18 Inhaler] Albuterol Nebulized [Ventolin 2.5 mg INHALATION RT-Q4H PRN 12/10/16 02/03/18 Nebulized] Nitroglycerin Sl Tabs [Nitrostat] 0.4 mg SUBLINGUAL Q5M PRN 12/10/16 02/03/18 Atenolol [Tenormin] 25 mg PO DAILY 02/03/18 02/03/18 Atorvastatin [Lipitor] 40 mg PO DAILY 02/03/18 02/03/18 Lisinopril-Hctz 20-25 mg 1 tab PO DAILY 02/03/18 02/03/18 [Zestoretic 20-25] Previous Rx's Medication Instructions Recorded Aspirin 325 mg PO DAILY tab 02/04/18 Pantoprazole [Protonix] 40 mg PO AC-[id number] tablet. 02/04/18 Allergies Allergy/AdvReac Type Severity Reaction Status Date / Time No Known Allergies Allergy Verified 02/03/18 19:37 Review of Systems ROS Other: All systems not noted in ROS Statement are negative. <Nick Martin - Last Filed: 02/03/18 22:06> ROS Other: All systems not noted in ROS Statement are negative. <JenniferJack - Last Filed: 02/05/18 06:05> ROS Statement: Those systems with pertinent positive or pertinent negative responses have been documented in the HPI. EKG Findings - EKG Comments: EKG Findings:: EKG performed at 18:46 sinus rhythm with sinus arrhythmia rate of 96 VA 158 QRS 76 QT/QTC 374/472 <Nick Martin - Last Filed: 02/03/18 22:06> Past Medical History Past Medical History: Asthma, Cancer, Chest Pain / Angina, Hyperlipidemia, Hypertension, Osteoarthritis (OA), Renal Disease Additional Past Medical History / Comment(s): kidney stones-only one kidney functions (pt unsure laterallity), R breast cancer with surgery, migraines, RLS , gout bilateral feet, chronic back pain History of Any Multi-Drug Resistant Organisms: None Reported Past Surgical History: Breast Surgery, Section, Heart Catheterization, Hysterectomy, Orthopedic Surgery, Tonsillectomy Additional Past Surgical History / Comment(s): R breast lumpectomy, R foot spurs removed Past Anesthesia/Blood Transfusion Reactions: Postoperative Nausea & Vomiting ( PONV) Past Psychological History: Anxiety, Depression Smoking Status: Never smoker Past Alcohol Use History: Rare Past Drug Use History: None Reported - Past Family History Father Family Medical History: CVA/TIA, Renal Disease Additional Family Medical History / Comment(s): Father had a CVA then went into kidney failure and . Mother Family Medical History: Hypertension <Nick Martin - Last Filed: 02/03/18 22:06> General Exam Limitations: no limitations General appearance: alert, in no apparent distress Head exam: Present: atraumatic, normocephalic, normal inspection ENT exam: Present: normal exam, normal oropharynx, mucous membranes moist, TM's normal bilaterally Neck exam: Present: normal inspection. Absent: tenderness, meningismus, lymphadenopathy Respiratory exam: Present: normal lung sounds bilaterally. Absent: respiratory distress, wheezes, rales, rhonchi, stridor, chest wall tenderness Cardiovascular Exam: Present: regular rate, normal rhythm, normal heart sounds. Absent: systolic murmur, diastolic murmur, rubs, gallop, clicks GI/Abdominal exam: Present: soft, normal bowel sounds. Absent: distended, tenderness, guarding, rebound, rigid Neurological exam: Present: alert, oriented X3, CN II-XII intact Skin exam: Present: warm, dry, intact, normal color. Absent: rash <Nick Martin - Last Filed: 02/03/18 22:06> Vital Signs 02/03/18 02/03/18 02/03/18 18:39 18:58 19:40 Temperature 99.4 F Pulse Rate 97 80 97 Respiratory 20 18 20 Rate Blood Pressure 195/108 204/119 188/98 O2 Sat by Pulse 98 96 98 Oximetry 02/03/18 02/03/18 02/03/18 20:16 21:30 22:40 Temperature 98.8 F Pulse Rate 97 93 88 Respiratory 20 18 18 Rate Blood Pressure 183/90 157/89 169/90 O2 Sat by Pulse 97 98 97 Oximetry Chest Pain MDM <Nick Martin - Last Filed: 02/03/18 22:06> <Jack Rodriguez - Last Filed: 02/05/18 06:05> - MDM I saw this patient in conjunction with the physician executive sales assistant. I performed independent history and physical exam. Agree with case management. (Jack Rodriguez) Disposition <Nick Martin - Last Filed: 02/03/18 22:06> <Jack Rodriguez - Last Filed: 02/05/18 06:05> Clinical Impression: Chest pain, Dyspnea Disposition: ADMITTED IP TO THIS [facility] Condition: Stable
[2018-02-03 19:15] LABS: Albumin 3.6 g/dL (3.5-5.0); Calcium 9.5 mg/dL (8.4-10.2); Magnesium 1.7 mg/dL (1.6-2.3); Potassium 4.3 mmol/L (3.5-5.1); Total Bilirubin 0.5 mg/dL (0.2-1.3); Total Protein 6.6 g/dL (6.3-8.2)
[2018-02-03 19:26] LABS: Creatine Kinase 55 U/L (30-135)
[2018-02-03 19:39] LABS: Creatine Kinase MB 0.7 ng/mL (0.0-2.4); INR 0.9 (<1.2); Troponin I <0.012 ng/mL (0.000-0.034)
[2018-02-03 19:40] LABS: D-Dimer 0.97 mg/L FEU (<0.60); Partial Thromboplastin Time 22.8 sec (22.0-30.0); Prothrombin Time 9.5 sec (9.0-12.0)
--- NOTE | 2018-02-03 20:00 | XR ---
EXAMINATION: XR chest 2V DATE AND TIME: 02/03/2018 7:22 PM ORDERING PROVIDER: Nick Martin CLINICAL INDICATION: Chest Pain TECHNIQUE: AP and lateral COMPARISON: 02/03/2016 DESCRIPTION: The lungs are clear. The pleural spaces are negative. The cardiac silhouette is not enlarged. The mediastinal and pleural silhouettes are unremarkable. The skeletal structures are intact without focal findings. The soft tissues are prominent. IMPRESSION: NO ACUTE PROCESS.
[2018-02-03] MEDS ORDERED: RX INFO: IV CONTRAST WAS GIVEN 1 EACH MISC MISCELLANE PRN (20:02)
--- NOTE | 2018-02-03 21:47 | CT ---
EXAMINATION TYPE: CT angio chest with contrast and with 3-D rendering DATE OF EXAM: 02/03/2018 9:00 PM COMPARISON: NONE HISTORY: Patient complains of chest pain and difficulty breathing. CT DLP: 428.3 mGycm Automated exposure control for dose reduction was used. CONTRAST: CTA scan of the thorax is performed with IV Contrast, patient injected with 65 mL of Visipa que 320, pulmonary embolism protocol. Multiple 3-D renderings were obtained.. FINDINGS: LUNGS: The lungs are grossly clear, there is no concerning parenchymal mass or nodule identified. T here is no pleural effusion or pneumothorax seen. The tracheobronchial tree is patent. MEDIASTINUM: There is satisfactory enhancement of the pulmonary artery and its branches, there is no CT evidence for pulmonary embolism. There are no greater than 1 cm hilar or mediastinal lymph nodes. No pericardial effusion is seen. OTHER: No additional significant abnormality is seen. IMPRESSION: NO ACUTE PROCESS.
[2018-02-03] MEDS ORDERED: HEPARIN SODIUM,PORCINE 5,000 UNIT/ML 1 ML VIAL IV ONE (22:06)
[2018-02-03] MEDS ORDERED: NITROGLYCERIN SL TABS 0.4 MG TAB SUBLINGUAL PRN ×2 (22:06→22:08)
[2018-02-03] MEDS ORDERED: ALBUTEROL NEBULIZED 2.5 MG/3 ML INHALATION PRN (22:08)
[2018-02-03] MEDS ORDERED: ALBUTEROL INHALER 60 PUFF/8 GM INHALER INHALATION PRN (22:08)
[2018-02-03] MEDS ORDERED: HEPARIN SOD,PORK IN 0.45% NACL 25,000 UNIT in 0.45% NACL 1 500ML.BAG IV SCH (22:15)
[2018-02-04 00:30] VITALS: BMI 47.8
[2018-02-04] MEDS ORDERED: ATENOLOL 25 MG TAB PO STA (00:52)
[2018-02-04] MEDS ORDERED: LISINOPRIL-HCTZ 20-25 MG 1 EACH TAB PO STA (00:53)
[2018-02-04] MEDS ORDERED: ACETAMINOPHEN TAB 325 MG TAB PO PRN (00:54)
[2018-02-04 02:20] LABS: Creatine Kinase MB 0.7 ng/mL (0.0-2.4); Troponin I 0.015 ng/mL (0.000-0.034)
[2018-02-04 08:07] LABS: Cholesterol 189 mg/dL (<200); HDL Cholesterol 61 mg/dL (40-60); LDL Cholesterol,Calculated 102 mg/dL (0-99); Triglycerides 130 mg/dL (<150)
[2018-02-04 08:28] LABS: Creatine Kinase MB 0.8 ng/mL (0.0-2.4); Troponin I 0.023 ng/mL (0.000-0.034)
[2018-02-04] MEDS ORDERED: LISINOPRIL-HCTZ 20-25 MG 1 EACH TAB PO SCH (09:00)
[2018-02-04] MEDS ORDERED: METOPROLOL SUCCINATE (ER) 25 MG TAB.ER.24H PO SCH (09:00)
[2018-02-04] MEDS ORDERED: ATENOLOL 25 MG TAB PO SCH (09:00)
[2018-02-04] MEDS ORDERED: ASPIRIN 325 MG TAB PO SCH (09:00)
[2018-02-04] MEDS ORDERED: ALLOPURINOL 300 MG TAB PO SCH (09:00)
[2018-02-04] MEDS ORDERED: ATORVASTATIN 40 MG TAB PO SCH (09:00)
--- NOTE | 2018-02-04 10:05 | P.HPIM ---
History of Present Illness H&P Date: 02/04/18 Chief Complaint: Chest pain Cheryl Zamorano is a 57-year-old female well known to my practice who presented to [facility] emergency room with a chief complaint of chest pain. Patient states that about 1 week prior to presentation she started having symptoms of upset stomach nausea and vomiting she stopped taking her blood pressure medications she started having episodes of chest pain and shortness of breath she was feeling tired. Patient thought that she had the flu she tried to take home remedies however her condition continued to worsen and she decided to come to emergency room. Patient was evaluated in the emergency room her blood pressure on presentation was elevated at 195/108 d-dimer was mildly elevated, she underwent CT angiogram of the chest which failed to reveal any evidence of pulmonary embolism. She underwent an EKG that did not reveal any evidence of acute ischemic changes. First troponin was 0.012. Patient was admitted to 24-hour observation for further evaluation and treatment. Cardiology consultation was requested in the emergency room. Past Medical History Past Medical History: Asthma, Cancer, Chest Pain / Angina, Hyperlipidemia, Hypertension, Osteoarthritis (OA), Renal Disease Additional Past Medical History / Comment(s): kidney stones-only one kidney functions (pt unsure laterallity), R breast cancer with surgery, migraines, RLS , gout bilateral feet, chronic back pain History of Any Multi-Drug Resistant Organisms: None Reported Past Surgical History: Breast Surgery, Section, Heart Catheterization, Hysterectomy, Orthopedic Surgery, Tonsillectomy Additional Past Surgical History / Comment(s): R breast lumpectomy, R foot spurs removed Past Anesthesia/Blood Transfusion Reactions: Postoperative Nausea & Vomiting ( PONV) Past Psychological History: Anxiety, Depression Additional Psychological History / Comment(s): PT resides with sone and daughter. Pt uses no devices. She drives. She has a nebulizer. Smoking Status: Never smoker Past Alcohol Use History: Rare Past Drug Use History: None Reported - Past Family History Father Family Medical History: CVA/TIA, Renal Disease Additional Family Medical History / Comment(s): Father had a CVA then went into kidney failure and . Mother Family Medical History: Hypertension Medications and Allergies Home Medications Medication Instructions Recorded Confirmed Type Allopurinol [Zyloprim] 300 mg PO DAILY 06/23/14 02/03/18 History Albuterol Inhaler [Ventolin Hfa 2 puff INHALATION RT-Q6H PRN 12/10/16 02/03/18 History Inhaler] Albuterol Nebulized [Ventolin 2.5 mg INHALATION RT-Q4H PRN 12/10/16 02/03/18 History Nebulized] Nitroglycerin Sl Tabs [Nitrostat] 0.4 mg SUBLINGUAL Q5M PRN 12/10/16 02/03/18 History Atenolol [Tenormin] 25 mg PO DAILY 02/03/18 02/03/18 History Atorvastatin [Lipitor] 40 mg PO DAILY 02/03/18 02/03/18 History Lisinopril-Hctz 20-25 mg 1 tab PO DAILY 02/03/18 02/03/18 History [Zestoretic 20-25] Metoprolol Succinate (ER) [Toprol 25 mg PO DAILY 02/03/18 02/03/18 History Xl] Allergies Allergy/AdvReac Type Severity Reaction Status Date / Time No Known Allergies Allergy Verified 02/03/18 19:37 Physical Exam Vitals: Vital Signs Temp Pulse Pulse Resp BP BP Pulse Ox 02/04/18 08:00 97.5 F L 51 L 18 103/65 92 L 02/04/18 04:47 97.9 F 16 109/63 94 L 02/04/18 04:00 16 02/04/18 00:01 98.0 F 16 185/123 96 02/04/18 00:00 16 02/03/18 22:40 88 18 169/90 97 02/03/18 21:30 98.8 F 93 18 157/89 98 02/03/18 20:16 97 20 183/90 97 02/03/18 19:40 97 20 188/98 98 02/03/18 18:58 80 18 204/119 96 02/03/18 18:39 99.4 F 97 20 195/108 98 Intake and Output 02/03/18 02/04/18 02/04/18 22:59 06:59 14:59 Other: Voiding Method Toilet # Voids 1 Weight 103.8 kg 103.8 kg In general patient is alert and oriented 3 in no apparent distress HEENT head normocephalic and atraumatic Neck is supple no JVD no goiter no lymphadenopathy Chest exam reveals a few scattered crackles no wheezing Cardiac exam reveals regular heart sounds no gallops no murmurs Abdomen is soft nontender no organomegaly with normal bowel sounds, there is minimal tenderness in the left groin area Extremity exam reveals minimal edema no cyanosis or clubbing Results CBC & Chem 7: 02/03/18 18:58 02/03/18 18:58 Labs: Abnormal Lab Results - Last 24 Hours (Table) 02/03/18 02/03/18 02/03/18 Range/Units 18:58 18:58 18:58 Lymphocytes # 0.8 L (1.0-4.8) k/uL APTT (22.0-30.0) sec D-Dimer 0.97 H (<0.60) mg/L FEU Chloride 109 H (98-107) mmol/L BUN 18 H (7-17) mg/dL Creatinine 1.34 H (0.52-1.04) mg/dL Glucose 140 H (74-99) mg/dL LDL Cholesterol, Calc (0-99) mg/dL HDL Cholesterol (40-60) mg/dL 02/04/18 02/04/18 Range/Units 06:53 06:53 Lymphocytes # (1.0-4.8) k/uL APTT 35.5 H (22.0-30.0) sec D-Dimer (<0.60) mg/L FEU Chloride (98-107) mmol/L BUN (7-17) mg/dL Creatinine (0.52-1.04) mg/dL Glucose (74-99) mg/dL LDL Cholesterol, Calc 102 H (0-99) mg/dL HDL Cholesterol 61 H (40-60) mg/dL Thrombosis Risk Factor Assmnt - Choose All That Apply Each Factor Represents 1 point: Age 41-60 years, Obesity (BMI >25) Thrombosis Risk Factor Assessment Total Risk Factor Score: 2 Thrombosis Risk Factor Assessment Level: Low Risk Assessment and Plan Plan: #1 episodes of chest pain serial EKG and cardiac enzymes were ordered cardiology consultation was requested. Patient had previous cardiac catheterization, will try to obtain records. #2 nausea and vomiting for the last week, cause is unclear will check gallbladder ultrasound, will add Protonix to her regimen #3 underlying history of hypertension, with hypertensive emergency on presentation, patient was resumed on her home medications including atenolol and Zestoretic, blood pressure is well-controlled at this time. #4 underlying history of gout patient was resumed on allopurinol #5 previous history of kidney stones, will check urine analysis and abdomen ultrasound #6 previous history of right breast cancer with surgery with lumpectomy #7 previous history of migraine headache
[2018-02-04] MEDS ORDERED: PANTOPRAZOLE 40 MG TABLET PO SCH (10:15)
[2018-02-04 10:46] LABS: Appearance,Urine Cloudy (Clear); Bacteria,Urine Occasional /hpf; Bilirubin,Urine Negative (Negative); Blood,Urine Negative (Negative); Color,Urine Yellow; Glucose,Urine (UA) Negative (Negative); Hyaline Casts,Urine 1 /lpf (0-2); Ketones,Urine Negative (Negative); Leukocyte Esterase,Urine Trace (Negative); Nitrite,Urine Negative (Negative); PH, Urine 5.5 (5.0-8.0); Protein,Urine 1+ (Negative); RBC,Urine 2 /hpf (0-5); Specific Gravity,Urine 1.036 (1.001-1.035); Squamous Epithelial Cell,Urine 4 /hpf (0-4); Urobilinogen,Urine <2.0 mg/dL (<2.0); WBC,Urine 5 /hpf (0-5)
[2018-02-04] MEDS ORDERED: DOBUTamine DRIP for NUC MED 250 MG in DEXTROSE/WATER 1 250ML.BAG IV ONE (10:57)
--- NOTE | 2018-02-04 11:01 | P.CRDCN ---
History of Present Illness Consult date: 02/04/18 History of present illness: This is a 57-year-old female with history of hypertension, dyslipidemia and obesity who has been having some flulike symptoms. Patient came mainly to the hospital with complaints of midsternal, heavy feeling as if somebody sitting on her chest. Patient has had the symptoms in the past. Apparently had a last stress test about a year ago which was negative. Since admission patient has been feeling better. Her EKGs did not show any acute changes. Her cardiac enzymes are negative. We are going to proceed with a dobutamine echocardiogram. If that is negative patient could be discharged home. Follow- up with Dr. VC Sepulevda Past Medical History Past Medical History: Asthma, Cancer, Chest Pain / Angina, Hyperlipidemia, Hypertension, Osteoarthritis (OA), Renal Disease Additional Past Medical History / Comment(s): kidney stones-only one kidney functions (pt unsure laterallity), R breast cancer with surgery, migraines, RLS , gout bilateral feet, chronic back pain History of Any Multi-Drug Resistant Organisms: None Reported Past Surgical History: Breast Surgery, Section, Heart Catheterization, Hysterectomy, Orthopedic Surgery, Tonsillectomy Additional Past Surgical History / Comment(s): R breast lumpectomy, R foot spurs removed Past Anesthesia/Blood Transfusion Reactions: Postoperative Nausea & Vomiting ( PONV) Past Psychological History: Anxiety, Depression Additional Psychological History / Comment(s): PT resides with sone and daughter. Pt uses no devices. She drives. She has a nebulizer. Smoking Status: Never smoker Past Alcohol Use History: Rare Past Drug Use History: None Reported - Past Family History Father Family Medical History: CVA/TIA, Renal Disease Additional Family Medical History / Comment(s): Father had a CVA then went into kidney failure and . Mother Family Medical History: Hypertension Medications and Allergies Home Medications Medication Instructions Recorded Confirmed Type Allopurinol [Zyloprim] 300 mg PO DAILY 06/23/14 02/03/18 History Albuterol Inhaler [Ventolin Hfa 2 puff INHALATION RT-Q6H PRN 12/10/16 02/03/18 History Inhaler] Albuterol Nebulized [Ventolin 2.5 mg INHALATION RT-Q4H PRN 12/10/16 02/03/18 History Nebulized] Nitroglycerin Sl Tabs [Nitrostat] 0.4 mg SUBLINGUAL Q5M PRN 12/10/16 02/03/18 History Atenolol [Tenormin] 25 mg PO DAILY 02/03/18 02/03/18 History Atorvastatin [Lipitor] 40 mg PO DAILY 02/03/18 02/03/18 History Lisinopril-Hctz 20-25 mg 1 tab PO DAILY 02/03/18 02/03/18 History [Zestoretic 20-25] Metoprolol Succinate (ER) [Toprol 25 mg PO DAILY 02/03/18 02/03/18 History Xl] Allergies Allergy/AdvReac Type Severity Reaction Status Date / Time No Known Allergies Allergy Verified 02/03/18 19:37 Physical Exam Vitals: Vital Signs Temp Pulse Pulse Resp BP BP Pulse Ox 02/04/18 08:00 97.5 F L 51 L 18 103/65 92 L 02/04/18 04:47 97.9 F 16 109/63 94 L 02/04/18 04:00 16 02/04/18 00:01 98.0 F 16 185/123 96 02/04/18 00:00 16 02/03/18 22:40 88 18 169/90 97 02/03/18 21:30 98.8 F 93 18 157/89 98 02/03/18 20:16 97 20 183/90 97 02/03/18 19:40 97 20 188/98 98 02/03/18 18:58 80 18 204/119 96 02/03/18 18:39 99.4 F 97 20 195/108 98 Intake and Output 02/03/18 02/04/18 02/04/18 22:59 06:59 14:59 Other: Voiding Method Toilet Toilet # Voids 1 Weight 103.8 kg 103.8 kg GENERAL EXAM: Patient is alert and oriented and doesn't appear to be in any acute distress HEENT: Normocephalic. Normal reaction of pupils, equal size, normal range of extraocular motion. No erythema or exudates in the throat. NECK: No masses, no nuchal rigidity. CHEST: No chest wall deformity. LUNGS: Equal air entry with no crackles or wheeze. HEART: S1 and S2 normal with no audible mumurs or gallops. Regular rhythm, femorals equal on both sides.. ABDOMEN: No hepatosplenomegaly, normal bowel sounds, no guarding or rigidity. SKIN: No rashes CENTRAL NERVOUS SYSTEM: No focal deficits. EXTREMITIES: No cyanosis, clubbing or edema. Results 02/03/18 18:58 02/03/18 18:58 Cardiac Enzymes 02/03/18 02/03/18 02/04/18 Range/Units 18:58 18:58 01:07 AST 31 (14-36) U/L CK-MB (CK-2) 0.7 0.7 (0.0-2.4) ng/mL Troponin I <0.012 0.015 (0.000-0.034) ng/mL 02/04/18 Range/Units 06:53 AST (14-36) U/L CK-MB (CK-2) 0.8 (0.0-2.4) ng/mL Troponin I 0.023 (0.000-0.034) ng/mL Coagulation 18 03 Range/Units 18:58 06:53 PT 9.5 (9.0-12.0) sec APTT 22.8 35.5 H (22.0-30.0) sec Lipids 02/04/18 Range/Units 06:53 Triglycerides 130 (<150) mg/dL Cholesterol 189 (<200) mg/dL HDL Cholesterol 61 H (40-60) mg/dL CBC 02/03/18 Range/Units 18:58 WBC 6.5 (3.8-10.6) k/uL RBC 4.90 (3.80-5.40) m/uL Hgb 14.9 (11.4-16.0) gm/dL Hct 43.7 (34.0-46.0) % Plt Count 197 (150-450) k/uL Comprehensive Metabolic Panel 02/03/18 Range/Units 18:58 Sodium 140 (137-145) mmol/L Potassium 4.3 (3.5-5.1) mmol/L Chloride 109 H (98-107) mmol/L Carbon Dioxide 22 (22-30) mmol/L BUN 18 H (7-17) mg/dL Creatinine 1.34 H (0.52-1.04) mg/dL Glucose 140 H (74-99) mg/dL Calcium 9.5 (8.4-10.2) mg/dL AST 31 (14-36) U/L ALT 38 (9-52) U/L Alkaline Phosphatase 109 (38-126) U/L Total Protein 6.6 (6.3-8.2) g/dL Albumin 3.6 (3.5-5.0) g/dL Current Medications Generic Name Dose Route Start Last Admin Trade Name Freq PRN Reason Stop Dose Admin Acetaminophen 650 mg 02/04/18 00:54 02/04/18 02:32 Tylenol Tab PO 650 mg Q6HR PRN Administration Fever and/ or Pain Albuterol Sulfate 2.5 mg 02/03/18 22:08 Ventolin Nebulized INHALATION RT-Q4H PRN Shortness Of Breath Allopurinol 300 mg 02/04/18 09:00 Zyloprim PO DAILY [facility] Aspirin 325 mg 02/04/18 09:00 Aspirin PO DAILY [facility] Atenolol 25 mg 02/04/18 09:00 Tenormin PO DAILY [facility] Atorvastatin Calcium 40 mg 02/04/18 09:00 Lipitor PO DAILY [facility] Lisinopril/HCTZ 1 each 02/04/18 09:00 Zestoretic 20-25 PO DAILY [facility] Heparin Sodium/Sodium Chloride 500 mls @ 19.99 mls/hr 02/03/18 22:15 23:01 25,000 unit/ Sodium Chloride IV 11.02 units/kg/hr .Q24H THIERRY 19.99 mls/hr Protocol Administration 11.02 UNITS/KG/HR Miscellaneous Information 1 each 02/03/18 20:02 Rx Info: Iv Contrast Was Given MISCELLANE 02/05/18 20:02 DAILY PRN Per Protocol Nitroglycerin 0.4 mg 02/03/18 22:06 Nitrostat SUBLINGUAL Q5M PRN Chest Pain Pantoprazole Sodium 40 mg 02/04/18 10:15 Protonix PO AC-BRKFST THIERRY Intake and Output 02/03/18 02/04/18 02/04/18 22:59 06:59 14:59 Other: Voiding Method Toilet Toilet # Voids 1 Weight 103.8 kg 103.8 kg 02/03/18 18:58 02/03/18 18:58 EKG Interpretations (text) Sinus rhythm Assessment and Plan (1) Chest pain Current Visit: Yes Status: Acute Code(s): R07.9 - CHEST PAIN, UNSPECIFIED SNOMED Code(s): 73615174 (2) Hyperlipemia Current Visit: No Status: Acute Code(s): E78.5 - HYPERLIPIDEMIA, UNSPECIFIED SNOMED Code(s): 43618165 (3) Hypertension Current Visit: No Status: Acute Code(s): I10 - ESSENTIAL (PRIMARY) HYPERTENSION SNOMED Code(s): 19493596 Plan: Patient is admitted with atypical chest pains. Enzymes and EKGs are normal. We will proceed with a dobutamine echo. If that is negative patient will be discharged home.
[2018-02-04] MEDS ORDERED: ATROPINE SULFATE 0.1 MG/ML 10ML SYRINGE ONE (12:15)
[2018-02-04 13:02] VITALS: BP 123/92; PULSE 71; RESP 14; TEMP 98.1
--- NOTE | 2018-02-04 13:04 | US ---
EXAMINATION TYPE: US abdomen complete DATE OF EXAM: 02/04/2018 COMPARISON: CLINICAL HISTORY: vomiting. Chest pain. Nausea. Per CT, GB removed. EXAM MEASUREMENTS: Liver Length: 14.9 cm CHD: 0.4 cm Spleen: 11.6 cm Right Kidney: 6.8 x 3.1 x 3.4 cm Left Kidney: 12.3 x 5.4 x 5.6 cm Limited exam due to patient body habitus Pancreas: Obscured by bowel gas Liver: Heterogenous Gallbladder: Surgically absent Evidence for sonographic Nance's sign: neg CBD: Obscured by overlying bowel gas CHD: wnl Spleen: wnl Right Kidney: Appears small in size. Possible cortical thinning. Limited visualization due to patie nt body habitus and size. Left Kidney: Moderate hydronephrosis seen. Possible microcalcifications seen throughout kidney. Upper IVC: wnl Abd Aorta: No AAA identified with portions seen IMPRESSION: 1. Heterogenous liver could be related to some mild fatty infiltration. On 2. Atrophic right kidney 3. Exam has limitation due to body habitus
--- NOTE | 2018-02-04 16:23 | P.STRESS ---
- Stress Test Note Stress Test Results/Findings: Exam Performed: dobutamine stress echo with con Exam Date: 02/04/18 Reason for Exam: cp Height: 4 ft 10 in Weight: 103.419 kg Protocol: dse Stage: IV Duration of Exercise: 12:15 Resting Heart Rate: 60 Resting Blood Pressure: 154/76 Maximum Achieved Heart Rate: 161 Maximum Achieved Blood Pressure: 162/78 85% PMHR: 100 100% PMHR: 162 METS: Technologist Comment: Stress Test Results/Findings: This is a 57-year-old female with history of hypertension, hypercholesterolemia and family history being evaluated for symptoms of chest pain and palpitations.. Baseline EKG showed a sinus rhythm with normal SD interval and QRS duration with nonspecific ST-T abnormalities. Blood pressure at rest is 154 /76 with pulse rate of 60. A standard dose of dobutamine was initiated at 10 mics and was titrated to 40 mics, achieving a maximal heart rate of 161 with blood pressure 129/53. Patient also has received atropine. EKGs taken during and after the dobutamine infusion did not reveal any changes to suggest ischemia. Patient did not experience any chest pain. Echo data: This study is done with contrast. Baseline echo images show normal wall motion and thickening. Exercise the images at low dose and high dose of dobutamine showed progressive augmentation of wall motion and thickening. Final impression: #1. Negative dobutamine stress test #2. Negative dobutamine stress echo with contrast.
--- NOTE | 2018-02-04 17:51 | P.DS ---
Providers Date of admission: 02/03/18 22:06 Expected date of discharge: 02/04/18 Attending physician: Brian Chanel Consults: 02/03/18 22:07 Consult Physician Urgent Consulting Provider: [facility] Consult Reason/Comments: chest pain Do you want consulting provider notified?: Yes Primary care physician: Brian Darío [facility] Course: Cheryl Zamorano is a 57-year-old female well known to my practice who presented to [facility] emergency room with a chief complaint of chest pain. Patient states that about 1 week prior to presentation she started having symptoms of upset stomach nausea and vomiting she stopped taking her blood pressure medications she started having episodes of chest pain and shortness of breath she was feeling tired. Patient thought that she had the flu she tried to take home remedies however her condition continued to worsen and she decided to come to emergency room. Patient was evaluated in the emergency room her blood pressure on presentation was elevated at 195/108 d-dimer was mildly elevated, she underwent CT angiogram of the chest which failed to reveal any evidence of pulmonary embolism. She underwent an EKG that did not reveal any evidence of acute ischemic changes. First troponin was 0.012. Patient was admitted to 24-hour observation for further evaluation and treatment. Cardiology consultation was requested in the emergency room. Serial EKGs and cardiac enzymes were negative patient underwent a stress test which was negative, she was evaluated by cardiology and cleared for discharge. Patient also went ultrasound of the abdomen which revealed fatty infiltration of the liver and an atrophic right kidney which is chronic otherwise no acute findings Patient was started on Protonix 40 mg by mouth daily she improved she was able to tolerate diet well there was no new episodes of vomiting patient was stable she was discharged home she will be followed in our office within 1 week. Patient Condition at Discharge: Stable Plan - Discharge Summary New Discharge Prescriptions: New Aspirin 325 mg PO DAILY tab Pantoprazole [Protonix] 40 mg PO AC-BRKFST tablet. Continue Allopurinol [Zyloprim] 300 mg PO DAILY Albuterol Inhaler [Ventolin Hfa Inhaler] 2 puff INHALATION RT-Q6H PRN PRN Reason: Shortness Of Breath Albuterol Nebulized [Ventolin Nebulized] 2.5 mg INHALATION RT-Q4H PRN PRN Reason: Shortness Of Breath Nitroglycerin Sl Tabs [Nitrostat] 0.4 mg SUBLINGUAL Q5M PRN PRN Reason: Angina Lisinopril-Hctz 20-25 mg [Zestoretic 20-25] 1 tab PO DAILY Atenolol [Tenormin] 25 mg PO DAILY Atorvastatin [Lipitor] 40 mg PO DAILY Discontinued Metoprolol Succinate (ER) [Toprol Xl] 25 mg PO DAILY Discharge Medication List Allopurinol [Zyloprim] 300 mg PO DAILY 06/23/14 [History] Albuterol Inhaler [Ventolin Hfa Inhaler] 2 puff INHALATION RT-Q6H PRN 12/10/16 [ History] Albuterol Nebulized [Ventolin Nebulized] 2.5 mg INHALATION RT-Q4H PRN 12/10/16 [ History] Nitroglycerin Sl Tabs [Nitrostat] 0.4 mg SUBLINGUAL Q5M PRN 12/10/16 [History] Atenolol [Tenormin] 25 mg PO DAILY 02/03/18 [History] Atorvastatin [Lipitor] 40 mg PO DAILY 02/03/18 [History] Lisinopril-Hctz 20-25 mg [Zestoretic 20-25] 1 tab PO DAILY 02/03/18 [History] Aspirin 325 mg PO DAILY tab 02/04/18 [Rx] Pantoprazole [Protonix] 40 mg PO AC-BRKFST tablet. 02/04/18 [Rx] Follow up Appointment(s)/Referral(s): Brian Chanel MD [Primary Care Provider] - 1-2 days
--- NOTE | 2018-02-10 10:23 | ECHOS ---
- Stress Test Note Stress Test Results/Findings: Exam Performed: dobutamine stress echo with con Exam Date: 02/04/18 Reason for Exam: cp Height: 4 ft 10 in Weight: 103.419 kg Protocol: dse Stage: IV Duration of Exercise: 12:15 Resting Heart Rate: 60 Resting Blood Pressure: 154/76 Maximum Achieved Heart Rate: 161 Maximum Achieved Blood Pressure: 162/78 85% PMHR: 100 100% PMHR: 162 METS: Technologist Comment: Stress Test Results/Findings: This is a 57-year-old female with history of hypertension, hypercholesterolemia and family history being evaluated for symptoms of chest pain and palpitations.. Baseline EKG showed a sinus rhythm with normal [place] interval and QRS duration with nonspecific ST-T abnormalities. Blood pressure at rest is 154 /76 with pulse rate of 60. A standard dose of dobutamine was initiated at 10 mics and was titrated to 40 mics, achieving a maximal heart rate of 161 with blood pressure 129/53. Patient also has received atropine. EKGs taken during and after the dobutamine infusion did not reveal any changes to suggest ischemia. Patient did not experience any chest pain. Echo data: This study is done with contrast. Baseline echo images show normal wall motion and thickening. Exercise the images at low dose and high dose of dobutamine showed progressive augmentation of wall motion and thickening. Final impression: #1. Negative dobutamine stress test #2. Negative dobutamine stress echo with contrast. [facility]
== END 2018-02-04 18:20 | disposition home or self-care (01) ==
LOC: EC 18:29 → 3OBS 22:06
PROVIDERS: ADMIT Internal Medicine; ATTEND Internal Medicine
DX: R07.89 Other chest pain (principal); I16.1 Hypertensive emergency; I12.9 Hypertensive chronic kidney disease with stage 1 through stage 4 chronic kidney disease, or unspecified chronic kidney disease; N18.9 Chronic kidney disease, unspecified; J45.909 Unspecified asthma, uncomplicated; M10.9 Gout, unspecified; G43.909 Migraine, unspecified, not intractable, without status migrainosus; E78.5 Hyperlipidemia, unspecified; R79.89 Other specified abnormal findings of blood chemistry; R11.2 Nausea with vomiting, unspecified; M19.90 Unspecified osteoarthritis, unspecified site; K76.0 Fatty (change of) liver, not elsewhere classified; G89.29 Other chronic pain; M54.9 Dorsalgia, unspecified; E66.9 Obesity, unspecified; Z68.25 Body mass index [BMI] 25.0-25.9, adult; G25.81 Restless legs syndrome; F41.9 Anxiety disorder, unspecified; F32.9 Major depressive disorder, single episode, unspecified; Z87.442 Personal history of urinary calculi; Z85.3 Personal history of malignant neoplasm of breast; Z79.899 Other long term (current) drug therapy; Z82.3 Family history of stroke; Z84.2 Family history of other diseases of the genitourinary system; Z82.49 Family history of ischemic heart disease and other diseases of the circulatory system
CPT/HCPCS: 99285 ×2; 96365 ×2; 96375 ×4; 96376 ×2; 96366; 36415; 93005; 93017; 85379; 83880; 80061; 80053; 82550 ×2; 82553 ×2; 83735; 84484 ×2; 85025; 85610; 85730 ×2; 81001; 71046; 76700; 71275; G0378 ×2; C8928; J2270; J0360; J1644 ×2; Q9967; J2405; J0461; Q9950; J1250; 93350

== ENCOUNTER → 2018-07-16 | Outpatient (CLI) | payer OTHER ==
--- NOTE | 2018-07-16 12:45 | XR ---
EXAM TYPE: LUMBAR SPINE X RAY SERIES COMPARISON: NONE HISTORY: Low back pain TECHNIQUE: 3 views are submitted. FINDINGS: Alignment is anatomic. The pedicles are intact. The transverse processes are intact. There is surg ical clips in the gallbladder fossa. There is multilevel mild to moderate degenerative change. There is a grade 1 anterolisthesis of L5 on S1 with facet arthropathy. IMPRESSION: 1. Multilevel degenerative disc disease with grade 1 anterolisthesis L5 on S1.
== END | disposition home or self-care (01) ==
LOC: RADXRMAIN 11:52
PROVIDERS: ATTEND Internal Medicine
DX: M51.36 Other intervertebral disc degeneration, lumbar region (principal); M43.17 Spondylolisthesis, lumbosacral region
CPT/HCPCS: 72100

== ENCOUNTER → 2018-12-15 | Outpatient (CLI) | payer OTHER ==
--- NOTE | 2018-12-15 15:01 | US ---
EXAMINATION TYPE: US kidneys/renal and bladder DATE OF EXAM: 12/15/2018 COMPARISON: US 2018. CT 2017. CLINICAL HISTORY: M54.59 Back Pain. Intermittent lower back pain x 1 year EXAM MEASUREMENTS: Right Kidney: 7.2 x 3.9 x 3.7 cm Left Kidney: 12.2 x 5.6 x 5.5 cm Difficult and limited study due to patient body habitus Right Kidney: small in size, no hydronephrosis or masses seen Left Kidney: moderate fullness centrally left kidney Bladder: not fully distended, appears wnl as seen Bilateral Jets seen: left jet seen, right jet not seen There is no evidence for hydronephrosis at this point in time. No nephrolithiasis is seen. No mayte s are identified. The urinary bladder is anechoic. Bilateral ureteral jets are seen. Suboptimal study due to patient's large body habitus. IMPRESSION: End-stage atrophy to right kidney redemonstrated. Favor parapelvic cysts left kidney, les s likely stable moderate to severe hydronephrosis with UPJ stricture or stenosis. Correlate clinicall y. No significant change from prior CT.
== END | disposition home or self-care (01) ==
LOC: RADUSWWP 14:08
PROVIDERS: ATTEND Internal Medicine
DX: N26.1 Atrophy of kidney (terminal) (principal)
CPT/HCPCS: 76770

== ENCOUNTER 2019-02-07 10:10 | Emergency (ER) | payer OTHER ==
[2019-02-07 10:24] VITALS: TEMP 99.1
[2019-02-07] MEDS ORDERED: SODIUM CHLORIDE 0.9% 500 ML 500 ML IV ONE (10:34)
[2019-02-07] MEDS ORDERED: LISINOPRIL-HCTZ 20-25 MG 1 EACH TAB PO STA (11:04)
--- NOTE | 2019-02-07 11:05 | ED ---
Abdominal Pain HPI - General Chief Complaint: Abdominal Pain Stated Complaint: fever Time Seen by Provider: 02/07/19 10:32 Source: patient Mode of arrival: ambulatory Limitations: no limitations - History of Present Illness Initial Comments: 58yo female with past medical history of 1 kidney, hyperlipidemia, hypertension, breast cancer in remission, asthma presents today for multiple complaints. Patient states that last night she began to develop fever chills congestion and cough. She states that there are multiple people in her home with the same symptoms. Her family member has influenza A. Patient states she also noted for the past day increased frequency of urination as well as mild dysuria. She states she also has left-sided flank pain. Patient states she has not been taking her blood pressure medications, she states people in her home or taking her medications which she hit them and didn't take them. Patient denies a chest pain, dyspnea, dyspnea or exertional, nausea, vomiting, upper abdominal pain, epigastric pain, indigestion, arm pain, jaw pain, upper extremity paresthesias, upper back pain, hematuria, oliguria or anuria. Patient states that she thinks she has what her family member has. Remaining ROS (-), upon arrival patient appears well, nontoxic. Febrile. Pt has not taken her BP medications in a week and her BP is elevated upon arrival. - Related Data Home Medications Medication Instructions Recorded Confirmed Allopurinol [Zyloprim] 300 mg PO DAILY 06/23/14 02/03/18 Albuterol Inhaler [Ventolin Hfa 2 puff INHALATION RT-Q6H PRN 12/10/16 02/03/18 Inhaler] Albuterol Nebulized [Ventolin 2.5 mg INHALATION RT-Q4H PRN 12/10/16 02/03/18 Nebulized] Nitroglycerin Sl Tabs [Nitrostat] 0.4 mg SUBLINGUAL Q5M PRN 12/10/16 02/03/18 Atenolol [Tenormin] 25 mg PO DAILY 02/03/18 02/03/18 Atorvastatin [Lipitor] 40 mg PO DAILY 02/03/18 02/03/18 Lisinopril-Hctz 20-25 mg 1 tab PO DAILY 02/03/18 02/03/18 [Zestoretic 20-25] Previous Rx's Medication Instructions Recorded Aspirin 325 mg PO DAILY tab 02/04/18 Pantoprazole [Protonix] 40 mg PO AC-[id number] tablet. 02/04/18 Allergies Allergy/AdvReac Type Severity Reaction Status Date / Time shellfish derived [Shellfish] Allergy Swelling Verified 02/07/19 10:25 sea salt Allergy Swelling Uncoded 02/07/19 10:25 seafood Allergy Swelling Uncoded 02/07/19 10:25 Review of Systems ROS Statement: Those systems with pertinent positive or pertinent negative responses have been documented in the HPI. ROS Other: All systems not noted in ROS Statement are negative. Past Medical History Past Medical History: Asthma, Cancer, Chest Pain / Angina, Hyperlipidemia, Hypertension, Osteoarthritis (OA), Renal Disease Additional Past Medical History / Comment(s): kidney stones-only one kidney functions (pt unsure laterallity), R breast cancer with surgery, migraines, RLS, gout bilateral feet, chronic back pain History of Any Multi-Drug Resistant Organisms: None Reported Past Surgical History: Breast Surgery, Section, Heart Catheterization, Hysterectomy, Orthopedic Surgery, Tonsillectomy Additional Past Surgical History / Comment(s): R breast lumpectomy, R foot spurs removed Past Anesthesia/Blood Transfusion Reactions: Postoperative Nausea & Vomiting (PONV) Past Psychological History: Anxiety, Depression Smoking Status: Never smoker Past Alcohol Use History: Rare Past Drug Use History: None Reported - Past Family History Father Family Medical History: CVA/TIA, Renal Disease Additional Family Medical History / Comment(s): Father had a CVA then went into kidney failure and . Mother Family Medical History: Hypertension General Exam - General Exam Comments Initial Comments: General: The patient is awake and alert, in no distress, and does not appear acutely ill. Eye: Pupils are equal, round and reactive to light, extra-ocular movements are intact. No nystagmus. There is normal conjunctiva bilaterally. No signs of icterus. Ears, nose, mouth and throat: There are moist mucous membranes and no oral lesions. Oropharynx nonerythematous of tonsillar enlargement or exudates or lesions. Tympanic membranes within normal limits.EAC WNL. Neck: The neck is supple, there is no tenderness or JVD. No anterior cervical lymphadenopathy Cardiovascular: There is a regular rate and rhythm. No murmur, rub or gallop is appreciated. Respiratory: Lungs are clear to auscultation, respirations are non-labored, breath sounds are equal. No wheezes, stridor, rales, or rhonchi. Gastrointestinal: No noted diaphoresis, jaundice, pallor, protecting postures or squirming. Symmetrical pigmentation of abdomen without signs of inflammation. Umbilicus mildline, inverted without swelling. No dilated veins. Abdomen contour obese, no noted abdominal distention. No visible masses. No peristalsis, aortic pulsations, or ventral hernia. Bowel sounds audible in all 4 quadrants, unremarkable. Patient has very mild tenderness to left lower quadrant on abdominal exam Liver edge, not palpable. Spleen edge, right and left kidney not palpable. Superior bladder margin non-tender. Special Testing: Negative [place], [place], [place], [place], cutaneous hyperesthesia. Negative Heel Jar test. No CVA tenderness. Digital rectal exam deferred. Negative rosas turners or cullens sign Musculoskeletal: Normal ROM, no tenderness. Strength 5/5. Sensation intact. Pulses equal bilaterally 2+. Neurological: A&O x 3. CN II-XII intact, There are no obvious motor or sensory deficits. Coordination appears grossly intact. Speech is normal. Skin: Skin is warm and dry and no rashes or lesions are noted. Psychiatric: Cooperative, appropriate mood & affect, normal judgment. Limitations: no limitations Course Vital Signs 02/07/19 02/07/19 02/07/19 10:20 12:00 13:05 Temperature 99.1 F Pulse Rate 103 H 60 Respiratory 20 20 Rate Blood Pressure 202/135 190/112 173/105 O2 Sat by Pulse 94 L 97 97 Oximetry 02/07/19 02/07/19 02/07/19 13:15 13:30 13:45 Temperature Pulse Rate 66 Respiratory 18 Rate Blood Pressure 173/105 157/102 142/84 O2 Sat by Pulse 98 98 98 Oximetry 02/07/19 02/07/19 14:00 14:31 Temperature Pulse Rate 87 Respiratory 18 Rate Blood Pressure 124/81 120/85 O2 Sat by Pulse 98 98 Oximetry Medical Decision Making - Medical Decision Making Well appearing 58-year-old female with multiple complaints. Patient is complaining of upper respiratory symptoms as well as left lower quadrant abdominal pain. Patient denies any melena hematochezia. Abdominal exam revealed mild tenderness. No rigidity or guarding no concern for acute abdomen. Patient admits to left-sided flank pain, patient does have history of [address] of abdomen wo contrast obtained for flank pain reveal no acute abnormalities. Laboratory studies unremarkable. Creatinine near baseline. Leukocyte esterase and nitrate negative. Pending culture. Patient influenza a positive. CXR (-). I feel this correlates the patient's symptoms. Patient blood pressure managed in the ER with home meds and IV hydralazine. At this time is unclear at the exact etiology patient left-sided abdominal pain however patient has benign abdominal exam with unremarkable laboratory studies. Patient be discharged with a symptomatic treatment for influenza A. patient edu cated on return parameters. Discussed the case with attending by Dr. Lay is agreeable patient's discharge and plan of care. - Lab Data Result diagrams: 02/07/19 11:12 02/07/19 11:12 Lab Results 02/07/19 02/07/19 02/07/19 Range/Units 11:12 11:12 11:12 WBC 5.3 (3.8-10.6) k/uL RBC 5.18 (3.80-5.40) m/uL Hgb 14.9 (11.4-16.0) gm/dL Hct 46.5 H (34.0-46.0) % MCV 89.9 (80.0-100.0) fL MCH 28.8 (25.0-35.0) pg MCHC 32.0 (31.0-37.0) g/dL RDW 13.8 (11.5-15.5) % Plt Count 213 (150-450) k/uL Neutrophils % 84 % Lymphocytes % 6 % Monocytes % 6 % Eosinophils % 2 % Basophils % 1 % Neutrophils # 4.4 (1.3-7.7) k/uL Lymphocytes # 0.3 L (1.0-4.8) k/uL Monocytes # 0.3 (0-1.0) k/uL Eosinophils # 0.1 (0-0.7) k/uL Basophils # 0.0 (0-0.2) k/uL Sodium 138 (137-145) mmol/L Potassium 4.6 (3.5-5.1) mmol/L Chloride 104 (98-107) mmol/L Carbon Dioxide 29 (22-30) mmol/L Anion Gap 5 mmol/L BUN 17 (7-17) mg/dL Creatinine 1.37 H (0.52-1.04) mg/dL Est GFR (CKD-EPI)AfAm 49 (>60 ml/min/1.73 sqM) Est GFR (CKD-EPI)NonAf 42 (>60 ml/min/1.73 sqM) Glucose 101 H (74-99) mg/dL Calcium 9.6 (8.4-10.2) mg/dL Total Bilirubin 0.9 (0.2-1.3) mg/dL AST 29 (14-36) U/L ALT 39 (9-52) U/L Alkaline Phosphatase 116 (38-126) U/L Total Protein 7.0 (6.3-8.2) g/dL Albumin 3.9 (3.5-5.0) g/dL Amylase 61 (30-110) U/L Lipase 61 (23-300) U/L Urine Color Yellow Urine Appearance Clear (Clear) Urine pH 7.0 (5.0-8.0) Ur Specific [place] 1.013 (1.001-1.035) Urine Protein 2+ H (Negative) Urine Glucose (UA) Negative (Negative) Urine Ketones Negative (Negative) Urine Blood Negative (Negative) Urine Nitrite Negative (Negative) Urine Bilirubin Negative (Negative) Urine Urobilinogen <2.0 (<2.0) mg/dL Ur Leukocyte Esterase Negative (Negative) Urine RBC 1 (0-5) /hpf Urine WBC 1 (0-5) /hpf Ur Squamous Epith Cells 1 (0-4) /hpf Urine Bacteria Occasional H (None) /hpf Urine Mucus Rare H (None) /hpf Influenza Type A RNA (Not Detectd) Influenza Type B (PCR) (Not Detectd) 02/07/19 Range/Units 11:12 WBC (3.8-10.6) k/uL RBC (3.80-5.40) m/uL Hgb (11.4-16.0) gm/dL Hct (34.0-46.0) % MCV (80.0-100.0) fL MCH (25.0-35.0) pg MCHC (31.0-37.0) g/dL RDW (11.5-15.5) % Plt Count (150-450) k/uL Neutrophils % % Lymphocytes % % Monocytes % % Eosinophils % % Basophils % % Neutrophils # (1.3-7.7) k/uL Lymphocytes # (1.0-4.8) k/uL Monocytes # (0-1.0) k/uL Eosinophils # (0-0.7) k/uL Basophils # (0-0.2) k/uL Sodium (137-145) mmol/L Potassium (3.5-5.1) mmol/L Chloride (98-107) mmol/L Carbon Dioxide (22-30) mmol/L Anion Gap mmol/L BUN (7-17) mg/dL Creatinine (0.52-1.04) mg/dL Est GFR (CKD-EPI)AfAm (>60 ml/min/1.73 sqM) Est GFR (CKD-EPI)NonAf (>60 ml/min/1.73 sqM) Glucose (74-99) mg/dL Calcium (8.4-10.2) mg/dL Total Bilirubin (0.2-1.3) mg/dL AST (14-36) U/L ALT (9-52) U/L Alkaline Phosphatase (38-126) U/L Total Protein (6.3-8.2) g/dL Albumin (3.5-5.0) g/dL Amylase (30-110) U/L Lipase (23-300) U/L Urine Color Urine Appearance (Clear) Urine pH (5.0-8.0) Ur Specific [place] (1.001-1.035) Urine Protein (Negative) Urine Glucose (UA) (Negative) Urine Ketones (Negative) Urine Blood (Negative) Urine Nitrite (Negative) Urine Bilirubin (Negative) Urine Urobilinogen (<2.0) mg/dL Ur Leukocyte Esterase (Negative) Urine RBC (0-5) /hpf Urine WBC (0-5) /hpf Ur Squamous Epith Cells (0-4) /hpf Urine Bacteria (None) /hpf Urine Mucus (None) /hpf Influenza Type A RNA Detected H (Not Detectd) Influenza Type B (PCR) Not Detected (Not Detectd) Disposition Clinical Impression: Influenza A, Urine frequency, Abdominal discomfort Disposition: HOME SELF-CARE Condition: Good Instructions (If sedation given, give patient instructions): Influenza (ED) Additional Instructions: Please use medication as discussed. Please follow-up with family doctor in the next 2 days. Please return to emergency room if the symptoms increase or worsen or for any other concerns. Is patient prescribed a controlled substance at d/c from ED?: No Referrals: Brian Chanel MD [Primary Care Provider] - 1-2 days Time of Disposition: 14:11
[2019-02-07 11:42] LABS: Basophils % (A) 1 %; Eosinophils # (A) 0.1 k/uL (0-0.7); Eosinophils % (A) 2 %; HCT 46.5 % (34.0-46.0); HGB 14.9 gm/dL (11.4-16.0); Lymphocytes # (A) 0.3 k/uL (1.0-4.8); Lymphocytes % (A) 6 %; MCH 28.8 pg (25.0-35.0); MCV 89.9 fL (80.0-100.0); Mean Platelet Volume 7.4; Monocytes # (A) 0.3 k/uL (0-1.0); Monocytes % (A) 6 %; Neutrophils # (A) 4.4 k/uL (1.3-7.7); Neutrophils % (A) 84 %; Platelet Count 213 k/uL (150-450); RBC 5.18 m/uL (3.80-5.40); RDW 13.8 % (11.5-15.5); WBC 5.3 k/uL (3.8-10.6)
[2019-02-07 11:45] LABS: Appearance,Urine Clear (Clear); Bacteria,Urine Occasional /hpf; Bilirubin,Urine Negative (Negative); Blood,Urine Negative (Negative); Color,Urine Yellow; Glucose,Urine (UA) Negative (Negative); Ketones,Urine Negative (Negative); Leukocyte Esterase,Urine Negative (Negative); Mucus,Urine Rare /hpf; Nitrite,Urine Negative (Negative); Protein,Urine 2+ (Negative); RBC,Urine 1 /hpf (0-5); Specific Gravity,Urine 1.013 (1.001-1.035); Squamous Epithelial Cell,Urine 1 /hpf (0-4); Urobilinogen,Urine <2.0 mg/dL (<2.0); WBC,Urine 1 /hpf (0-5)
[2019-02-07 11:50] LABS: Albumin 3.9 g/dL (3.5-5.0); Calcium 9.6 mg/dL (8.4-10.2); Potassium 4.6 mmol/L (3.5-5.1); Total Bilirubin 0.9 mg/dL (0.2-1.3)
--- NOTE | 2019-02-07 11:52 | CT ---
EXAMINATION TYPE: CT abdomen pelvis wo con DATE OF EXAM: 02/07/2019 COMPARISON: CT 12/10/2016 HISTORY: Polyuria. Difficulty holding urine CT DLP: 894.4 mGycm Automated exposure control for dose reduction was used. TECHNIQUE: Helical acquisition of images from the lung bases through the pelvis. FINDINGS: Lack of intravenous contrast could compromise sensitivity. Small pericardial effusion is no marika. Small hiatal hernia is present. There is an umbilical hernia containing fat LUNG BASES: Some peripheral areas of groundglass opacity are noted bilaterally changed somewhat in co nfiguration on prior exam. AORTA: No significant abnormality is appreciated. LIVER/GB: No significant interval change is appreciated. Patient is post cholecystectomy. Liver shows low attenuation PANCREAS: No significant abnormality is seen. SPLEEN: No significant interval change in the splenic enlargement is seen. ADRENALS: No significant abnormality is seen. KIDNEYS: No significant interval change is seen. Right kidney is atrophic. Multiple parapelvic cysts noted on the left. REPRODUCTIVE ORGANS: Uterus is not seen. Cystic change associated with the left ovary is stable. URINARY BLADDER: No significant abnormality is seen. BOWEL: No significant abnormality is seen. FREE AIR: No Free Air is visible. ASCITES: None visible. PELVIC ADENOPATHY: None visualized. RETROPERITONEAL ADENOPATHY: No Retroperitoneal Adenopathy visible. OSSEOUS STRUCTURES: No significant interval change is seen. Degenerative disc changes, facet arthrop athy noted. Curvature as on prior exam IMPRESSION: NONCONTRAST EXAM. POSTOP CHANGES. SPLENOMEGALY. Changing peripheral areas of alveolitis, consider eos inophilic pneumonia
--- NOTE | 2019-02-07 11:58 | XR ---
EXAMINATION TYPE: XR chest 2V DATE OF EXAM: 02/07/2019 COMPARISON: Prior chest x-ray 02/03/2018 HISTORY: Cough and congestion TECHNIQUE: Frontal and lateral views of the chest are obtained. FINDINGS: There is no focal air space opacity, pleural effusion, or pneumothorax seen. The cardiac silhouette size is within normal limits. The osseous structures are intact. IMPRESSION: No acute cardiopulmonary process.
[2019-02-07] MEDS ORDERED: hydrALAZINE HCL 20 MG/ML 1 ML VIAL IVP STA (12:35)
[2019-02-07 14:11] VITALS: RESP 18
[2019-02-07 14:33] VITALS: BP 120/85; PULSE 87
== END 2019-02-07 14:33 | disposition home or self-care (01) ==
LOC: EC 10:10
DX: J10.1 Influenza due to other identified influenza virus with other respiratory manifestations (principal); R35.0 Frequency of micturition; R10.32 Left lower quadrant pain; J45.909 Unspecified asthma, uncomplicated; I10 Essential (primary) hypertension; E78.5 Hyperlipidemia, unspecified; M10.9 Gout, unspecified; Z79.899 Other long term (current) drug therapy; Z91.013 Allergy to seafood; Z86.79 Personal history of other diseases of the circulatory system; Z87.442 Personal history of urinary calculi; Z85.3 Personal history of malignant neoplasm of breast; Z95.818 Presence of other cardiac implants and grafts
CPT/HCPCS: 36415; 80053; 82150; 83690; 85025; 81001; 87086; 87502; 71046; 74176; 99284; 96374; 96361 ×3; J0360

== ENCOUNTER → 2019-08-23 | Outpatient (CLI) | payer OTHER ==
--- NOTE | 2019-08-25 07:40 | MM ---
Reason for exam: screening (asymptomatic). Last mammogram was performed 3 years and 1 month ago. History: Patient is postmenopausal and has history of bilateral breast cancer at age 52. Family history of breast cancer. Malignant right breast needle localzation of both breasts, August 23, 2013. Malignant US RT VAD breast biopsy of the right breast, August 05, 2013. Physical Findings: A clinical breast exam by your physician is recommended on an annual basis and results should be correlated with mammographic findings. MG Screening Mammo w CAD Bilateral CC and MLO view(s) were taken. Prior study comparison: July 12, 2016, bilateral MG screening mammo w CAD. There are scattered fibroglandular densities. Post surgical and post therapy changes right breast. New calcifications in a linear distribution subareolar right breast. On prior CC, there seems to have been an oil cyst here. ASSESSMENT: Incomplete: need additional imaging evaluation, BI-RAD 0 RECOMMENDATION: Special view mammogram of the right breast. [facility] will attempt to contact patient to return for supplemental views.
== END | disposition home or self-care (01) ==
LOC: RADMAMWWP 13:35
PROVIDERS: ATTEND Internal Medicine
DX: Z12.31 Encounter for screening mammogram for malignant neoplasm of breast (principal)
CPT/HCPCS: 77067

== ENCOUNTER → 2019-09-02 | Outpatient (CLI) | payer OTHER ==
--- NOTE | 2019-09-03 09:13 | MM ---
Reason for exam: additional evaluation requested from abnormal screening. Last mammogram was performed less than 1 month ago. History: Patient is postmenopausal and has history of bilateral breast cancer at age 52. Family history of breast cancer. Malignant right breast needle localzation of both breasts, August 23, 2013. Malignant US RT VAD breast biopsy of the right breast, August 05, 2013. Physical Findings: Nurse did not find any significant physical abnormalities on exam. MG Work Up Mamm w CAD RT CC with magnification, LM with magnification, and LM view(s) were taken of the right breast. Prior study comparison: August 23, 2019, bilateral MG screening mammo w CAD. July 12, 2016, bilateral MG screening mammo w CAD. The breast tissue is heterogeneously dense. This may lower the sensitivity of mammography. There is a new 6mm group of calcifications in the lower outer quadrant at anterior depth. Post therapy change on the right. These results were verbally communicated with the patient and result sheet given to the patient on 09/02/19. ASSESSMENT: Suspicious, BI-RAD 4 RECOMMENDATION: Stereotactic core biopsy of the right breast. Called Dr. Chanel with mammographic findings and has scheduled an appointment for the patient for 10/18/19 at 10:[address] Phillips. Biopsy scheduled for 10/07/19 at 10:20. PRELIMINARY REPORT CALLED AND FAXED TO DR. PHILLIPS ON 09/02/19.
== END | disposition home or self-care (01) ==
LOC: RADMAMWWP 13:55
PROVIDERS: ATTEND Internal Medicine
DX: R92.8 Other abnormal and inconclusive findings on diagnostic imaging of breast (principal)
CPT/HCPCS: 77065

== ENCOUNTER → 2019-10-07 | Day surgery (SDC) | payer OTHER ==
[2019-10-07 09:54] VITALS: BP 185/105; PULSE 67; RESP 16; TEMP 97.6; BMI 39.4
== END ==
LOC: RADMAMWWP 09:17
PROVIDERS: ATTEND Student in an Organized Health Care Education/Training Program
DX: R92.8 Other abnormal and inconclusive findings on diagnostic imaging of breast (principal); Z53.8 Procedure and treatment not carried out for other reasons

== ENCOUNTER 2019-12-24 11:26 | Emergency (ER) | payer OTHER ==
[2019-12-24 11:32] VITALS: TEMP 98.2
[2019-12-24] MEDS ORDERED: ORPHENADRINE 30 MG/ML 2 ML VIAL IM STA (12:25)
[2019-12-24] MEDS ORDERED: KETOROLAC 60 MG/2 ML VIAL IM STA (12:25)
[2019-12-24] MEDS ORDERED: methylPREDNISolone SOD SUCCI 125 MG/2 ML VIAL IM ONE (12:25)
--- NOTE | 2019-12-24 12:43 | XR ---
EXAM TYPE: LUMBAR SPINE X RAY SERIES COMPARISON: NONE HISTORY: Pain TECHNIQUE: 4 views are submitted. FINDINGS: Alignment is anatomic. The pedicles are intact. The transverse processes are intact. There is surg ical clips in the right upper quadrant. Diffuse osteopenia. Arthropathy of the SI joints. Multilevel degenerative disc disease with most marked findings at L4-5 and L5-S1 with multilevel facet arthropat hy. Slight curvature the spine could be positional. IMPRESSION: 1. Diffuse osteopenia with multilevel degenerative disc disease and facet arthropathy most marked at L4-5 and L5-S1.
[2019-12-24 13:38] LABS: Appearance,Urine Cloudy (Clear); Bacteria,Urine Rare /hpf; Bilirubin,Urine Negative (Negative); Blood,Urine Negative (Negative); Color,Urine Yellow; Glucose,Urine (UA) Negative (Negative); Hyaline Casts,Urine 16 /lpf (0-2); Ketones,Urine Trace (Negative); Leukocyte Esterase,Urine Moderate (Negative); Mucus,Urine Rare /hpf; Nitrite,Urine Negative (Negative); PH, Urine 5.5 (5.0-8.0); Protein,Urine 2+ (Negative); RBC,Urine 1 /hpf (0-5); Specific Gravity,Urine 1.022 (1.001-1.035); Squamous Epithelial Cell,Urine 11 /hpf (0-4); Urobilinogen,Urine <2.0 mg/dL (<2.0); WBC,Urine 24 /hpf (0-5)
[2019-12-24 14:11] VITALS: BP 168/92; PULSE 64; RESP 20
[2019-12-24] MEDS ORDERED: CEPHALEXIN 500MG STARTER PACK 4 CAP BTL PO STA (14:11)
[2019-12-24] MEDS ORDERED: ACET/COD 300 MG/30 MG STARTER PACK 6 TAB BTL PO STA (14:11)
--- NOTE | 2019-12-24 14:12 | ED ---
Lower Extremity Injury HPI - General Chief Complaint: Extremity Injury, Lower Stated Complaint: Back and leg and pain Time Seen by Provider: 12/24/19 11:45 Source: patient, RN notes reviewed, old records reviewed Mode of arrival: ambulatory Limitations: no limitations - History of Present Illness Initial Comments: 59 year old female with CC of acute exacerbation of chronic lower back pain. Patient reports she has had worsening lower back pain and pain radiating down R leg. She also reports recent Dysuria, and concern for UTI. She denies saddle anesthesia. She reports no recent fall or trauma. She denies imaging studies on her back at this time. - Related Data Home Medications Medication Instructions Recorded Confirmed Allopurinol [Zyloprim] 300 mg PO DAILY 06/23/14 10/07/19 Albuterol Inhaler [Ventolin Hfa 2 puff INHALATION RT-Q6H PRN 12/10/16 10/07/19 Inhaler] Albuterol Nebulized [Ventolin 2.5 mg INHALATION RT-Q4H PRN 12/10/16 10/07/19 Nebulized] Nitroglycerin Sl Tabs [Nitrostat] 0.4 mg SUBLINGUAL Q5M PRN 12/10/16 10/07/19 Atenolol [Tenormin] 25 mg PO DAILY 02/03/18 10/07/19 Atorvastatin [Lipitor] 40 mg PO DAILY 02/03/18 10/07/19 Lisinopril-Hctz 20-25 mg 1 tab PO DAILY 02/03/18 10/07/19 [Zestoretic 20-25] Baclofen [Lioresal] 10 mg PO HS 09/21/19 10/07/19 rOPINIRole HCL [Requip] 0.5 mg PO HS 09/21/19 10/07/19 Previous Rx's Medication Instructions Recorded Cephalexin [Keflex] 500 mg PO Q8HR #21 cap 12/24/19 methylPREDNISolone Dose Pack 4 mg PO DIRECTED #21 package 12/24/19 [Medrol Dose Pack] Allergies Allergy/AdvReac Type Severity Reaction Status Date / Time shellfish derived [Shellfish] Allergy Swelling Verified 12/24/19 11:28 sea salt Allergy Swelling Uncoded 10/07/19 09:38 seafood Allergy Swelling Uncoded 10/07/19 09:38 Review of Systems ROS Statement: Those systems with pertinent positive or pertinent negative responses have been documented in the HPI. ROS Other: All systems not noted in ROS Statement are negative. Past Medical History Past Medical History: Asthma, Cancer, Chest Pain / Angina, Hyperlipidemia, Hypertension, Osteoarthritis (OA), Renal Disease Additional Past Medical History / Comment(s): kidney stones-only one kidney functions (pt unsure laterallity), R breast cancer with surgery, migraines, Restless Leg Syndrome, gout bilateral feet, chronic back pain History of Any Multi-Drug Resistant Organisms: None Reported Past Surgical History: Breast Surgery, Section, Heart Catheterization, Hysterectomy, Orthopedic Surgery, Tonsillectomy Additional Past Surgical History / Comment(s): R breast lumpectomy 2005? R foot bone spurs removed, total hysterectomy with bilateral oopherectomy, x2, Past Anesthesia/Blood Transfusion Reactions: Postoperative Nausea & Vomiting (PONV) Additional Past Anesthesia/Blood Transfusion Reaction / Comment(s): No blood transfusion to date Past Psychological History: Anxiety, Depression Smoking Status: Never smoker Past Alcohol Use History: Rare Past Drug Use History: None Reported - Past Family History Father Family Medical History: CVA/TIA, Renal Disease Additional Family Medical History / Comment(s): Father had a CVA then went into kidney failure and . Mother Family Medical History: Hypertension General Exam Limitations: no limitations General appearance: alert, in no apparent distress Head exam: Present: atraumatic, normocephalic, normal inspection Eye exam: Present: normal appearance, PERRL, EOMI. Absent: scleral icterus, conjunctival injection, periorbital swelling ENT exam: Present: normal exam, mucous membranes moist Neck exam: Present: normal inspection. Absent: tenderness, meningismus, lymphadenopathy Respiratory exam: Present: normal lung sounds bilaterally. Absent: respiratory distress, wheezes, rales, rhonchi, stridor Cardiovascular Exam: Present: regular rate, normal rhythm, normal heart sounds. Absent: systolic murmur, diastolic murmur, rubs, gallop, clicks GI/Abdominal exam: Present: soft, normal bowel sounds. Absent: distended, tenderness, guarding, rebound, rigid Extremities exam: Present: normal inspection, full ROM, normal capillary refill. Absent: tenderness, pedal edema, joint swelling, calf tenderness Back exam: Present: normal inspection, vertebral tenderness (lumbar vertebral tenderness) Neurological exam: Present: alert, oriented X3, CN II-XII intact Psychiatric exam: Present: normal affect Skin exam: Present: warm, dry, intact, normal color. Absent: rash Course Vital Signs 12/24/19 12/24/19 11:28 14:00 Temperature 98.2 F Pulse Rate 81 64 Respiratory 18 20 Rate Blood Pressure 213/132 168/92 O2 Sat by Pulse 96 99 Oximetry Medical Decision Making - Medical Decision Making 59 year old female with acute exacerbation of chronic lower back pain, and radiation down R leg consistent withsciatica. Given IM pain medication, toradol, norflex, and solumedrol. She also has UTI, will treat with keflex. Lumbar spine xray shows DDD and no fracture, informed patient xray shows osteopenia. Discussed follow up with PCP and ortho spine. Patient blood pressure was noted to be elevated on arrival but came down after pain medication. Discussed she needs to follow up with PCP for BP management. - Lab Data Lab Results 12/24/19 Range/Units 12:30 Urine Color Yellow Urine Appearance Cloudy H (Clear) Urine pH 5.5 (5.0-8.0) Ur Specific [place] 1.022 (1.001-1.035) Urine Protein 2+ H (Negative) Urine Glucose (UA) Negative (Negative) Urine Ketones Trace H (Negative) Urine Blood Negative (Negative) Urine Nitrite Negative (Negative) Urine Bilirubin Negative (Negative) Urine Urobilinogen <2.0 (<2.0) mg/dL Ur Leukocyte Esterase Moderate H (Negative) Urine RBC 1 (0-5) /hpf Urine WBC 24 H (0-5) /hpf Ur Squamous Epith Cells 11 H (0-4) /hpf Urine Bacteria Rare H (None) /hpf Hyaline Casts 16 H (0-2) /lpf Urine Mucus Rare H (None) /hpf - Radiology Data Radiology results: report reviewed diffuse osteopenia with multilevel dengenerative disc disease and facet arthropathy, at L4-L5 and L5- S1. Disposition Clinical Impression: UTI (urinary tract infection), DDD (degenerative disc disease), Episode of hypertension Disposition: HOME SELF-CARE Condition: Good Instructions (If sedation given, give patient instructions): Urinary Tract Infection in Women (DC), Degenerative Disc Disease (ED) Additional Instructions: Please use medication as discussed. Please follow up with family doctor if symptoms have not improved over the next two days. Please return to the emergency room if your symptoms increase or worsen or for any other concerns. Prescriptions: Cephalexin [Keflex] 500 mg PO Q8HR #21 cap methylPREDNISolone Dose Pack [Medrol Dose Pack] 4 mg PO DIRECTED #21 package Is patient prescribed a controlled substance at d/c from ED?: No Referrals: Brian Chanel MD [Primary Care Provider] - 1-2 days Time of Disposition: 14:03
== END 2019-12-24 14:20 | disposition home or self-care (01) ==
LOC: EC 11:26
DX: M51.37 Other intervertebral disc degeneration, lumbosacral region (principal); N39.0 Urinary tract infection, site not specified; I10 Essential (primary) hypertension; M85.88 Other specified disorders of bone density and structure, other site; J45.909 Unspecified asthma, uncomplicated; E78.5 Hyperlipidemia, unspecified; G25.81 Restless legs syndrome; M10.9 Gout, unspecified; Z91.013 Allergy to seafood; Z91.018 Allergy to other foods; Z79.899 Other long term (current) drug therapy; Z85.3 Personal history of malignant neoplasm of breast; Z87.448 Personal history of other diseases of urinary system; Z98.890 Other specified postprocedural states; Z82.49 Family history of ischemic heart disease and other diseases of the circulatory system
CPT/HCPCS: 81001; 87086; 72100; 99284; 96372 ×3; J2360; J2930; J1885

== ENCOUNTER → 2020-01-06 | Day surgery (SDC) | payer OTHER ==
[2020-01-06 09:50] VITALS: RESP 16
[2020-01-06 10:52] VITALS: BP 150/90; PULSE 56; TEMP 98.1
--- NOTE | 2020-01-06 11:28 | MM ---
EXAMINATION TYPE: MG stereo VAD BX RT DATE OF EXAM: 01/06/2020 COMPARISON: 09/02/2019 mammogram CLINICAL HISTORY: Right breast calcifications for which stereotactic guided biopsy was recommended TECHNIQUE: Stereotactic guided core biopsy of right breast. FINDINGS: The procedure of stereotactic guided core biopsy was explained to the patient. Benefits, alternatives, and risks were discussed. An informed consent was then obtained. The most suitable pathway for biopsy was chosen. Pathway chosen was CC from below. Preprocedural localization images were obtained and a 6 mm group of calcifications in the lower outer quadrant of the right breast were demonstrated. Coordinates were calculated. Subsequently 10 cc of lidocaine without epinephrine was utilized to anesthetize the skin and deeper subcutaneous soft tissues. The needle was advanced to the appropriate depth. Prefire images were obtained ensuring appropriate location. Postfire injection of 10 cc of lidocaine with epinephrine was utilized to anesthetize the site of biopsy. A vacuum assisted biopsy gun was used to obtain 8 core samples. The patient tolerated the procedure well without any immediate complication. The patient was kept in the radiology department for short stay after the procedure and then discharged home in stable condition. Targeted calcifications are identified in specimen mammogram. Post biopsy mammogram shows the T-shaped biopsy marker to appear in satisfactory position relative to the targeted area of concern on the preprocedure images without migration. IMPRESSION: SUCCESSFUL, UNCOMPLICATED STEREOTACTIC GUIDED CORE BIOPSY OF A 6 MM GROUP OF CALCIFICATIONS IN THE LOWER OUTER QUADRANT OF THE RIGHT BREAST WITHIN THE UPPER CENTRAL RIGHT BREAST, FULL PATHOLOGY RESULTS TO FOLLOW. Pathology Results: Benign RIGHT BREAST, CORE BIOPSY: Fat necrosis with focal fibrosis and dystrophic calcification (negative for tumor). Recommendation Follow up mammogram of the right breast in 6 months. BRYNN
== END ==
LOC: RADMAMWWP 09:00
PROVIDERS: ATTEND Internal Medicine
DX: N60.31 Fibrosclerosis of right breast (principal); N64.1 Fat necrosis of breast
CPT/HCPCS: 88305; 19081; A4648; J2001

== ENCOUNTER 2020-03-21 14:38 | Emergency (ER) | payer OTHER ==
[2020-03-21 14:49] VITALS: RESP 20; TEMP 97.8
[2020-03-21] MEDS ORDERED: CYCLOBENZAPRINE 10MG STARTER 3 TAB BTL PO STA (15:20)
[2020-03-21] MEDS ORDERED: MORPHINE SULFATE 4 MG/ML SYRINGE IM STA (15:20)
--- NOTE | 2020-03-21 15:36 | XR ---
EXAMINATION TYPE: XR lumbar spine 2 or 3V DATE OF EXAM: 03/21/2020 CLINICAL HISTORY: Low back pain for 3 weeks with no known injury TECHNIQUE: Frontal, lateral, and oblique images of the lumbar spine are obtained. COMPARISON: 12/24/2019 FINDINGS: Again there is mild diffuse osseous lesion. Mild facet arthropathy at L4-L5 and L5-S1 with intervertebral disc space narrowing. Alignment is stable and anatomic. Vertebral body heights are als o stable from the prior. No new compression deformity. Minimal dextroscoliosis of the lumbar spine ma y be positional. Sacroiliac joint sclerosis again is likely degenerative. Cholecystectomy clips are s een. IMPRESSION: No acute fracture or dislocation is seen in the lumbar spine. Mild multilevel degenerati ve disc disease also seen on the exam of 12/24/2019.
--- NOTE | 2020-03-21 15:45 | ED ---
Back Pain HPI - General Chief Complaint: Back Pain/Injury Stated Complaint: low back pain Time Seen by Provider: 03/21/20 14:55 Source: patient Limitations: no limitations - History of Present Illness Initial Comments: 59-year-old female presenting today for chief complaint of bilateral low back pain. She states this is been ongoing for 3 weeks she sutures history of chronic back pain as the previous CT. Patient states it actually has been getting better for the past few days however is instructed since she could not get into primary care office to come to the hospital if it did not subside. Patient denies any leg numbness she states the pain radiates down towards her groin and the anterior leg. Patient denies any coolness and numbness or pallor of the lower extremities as a pain with ambulation in the legs. Patient denies any swelling of the lower extremities. Patient denies any IV drug use history of cancer or recent fevers. Patient denies any falls or direct trauma to the low back. Patient denies any urinary retention loss of bowel control. - Related Data Allergies Allergy/AdvReac Type Severity Reaction Status Date / Time No Known Allergies Allergy Verified 03/21/20 14:49 Review of Systems ROS Statement: Those systems with pertinent positive or pertinent negative responses have been documented in the HPI. ROS Other: All systems not noted in ROS Statement are negative. Past Medical History Past Medical History: No Reported History History of Any Multi-Drug Resistant Organisms: None Reported Past Surgical History: Section, Hysterectomy, Orthopedic Surgery Past Psychological History: No Psychological Hx Reported Smoking Status: Never smoker Past Alcohol Use History: None Reported Past Drug Use History: None Reported General Exam - General Exam Comments Initial Comments: General: The patient is awake and alert, in no distress, ambulatory Eye: Pupils are equal, round and reactive to light, extra-ocular movements are intact. No nystagmus. There is normal conjunctiva bilaterally. No signs of icterus. Ears, nose, mouth and throat: There are moist mucous membranes and no oral lesions. Neck: The neck is supple, there is no tenderness or JVD. Cardiovascular: There is a regular rate and rhythm. No murmur, rub or gallop is appreciated. Respiratory: Lungs are clear to auscultation, respirations are non-labored, breath sounds are equal. No wheezes, stridor, rales, or rhonchi. Gastrointestinal: Soft, non-distended, non-tender abdomen without masses or organomegaly noted. There is no rebound or guarding present. Musculoskeletal: Some mild midline and paravertebral tenderness of the lumbar spine. No skin changes. Normal inspection of the cervicothoracic and lumbar spine as well as the buttocks bilaterally. Normal inspection of the groins. With strong femoral and dorsalis pedis pulses bilaterally, +2. Normal ROM, no tenderness of the LE. Strength 5/5 of the LE bilaterally. Sensation intact of the LE bilaterally including the saddle region. Radial pulses equal bilaterally 2+. Digital rectal exam: Normal sphinctor tone Neurological: A&O x 3. CN II-XII intact grossly, There are no obvious motor or sensory deficits. Coordination appears grossly intact. Speech is normal. Skin: Skin is warm and dry and no rashes or lesions are noted. Psychiatric: Cooperative, appropriate mood & affect, normal judgment. Limitations: no limitations Course Vital Signs 03/21/20 03/21/20 03/21/20 14:46 14:49 15:49 Temperature 97.8 F Pulse Rate 65 Respiratory 20 20 20 Rate Blood Pressure 175/99 O2 Sat by Pulse 99 Oximetry 03/21/20 03/21/20 16:49 17:12 Temperature Pulse Rate 69 69 Respiratory 20 20 Rate Blood Pressure 175/98 175/98 O2 Sat by Pulse 96 96 Oximetry Medical Decision Making - Medical Decision Making 59-year-old female obsese female presenting today for chief complaint of low back pain history of chronic back pain. Increasing 3 weeks with improvement over last 3 days. Patient has no physical exam findings consistent with cauda equina. No fevers no IV drug use no history of active cancer. Patient is ambulatory, patient's vascular exam is within normal limits. No leg swelling s yelena dorsalis pedis pulses. Return parameters importance of primary care follow up with discussed symptomatically treatment was discussed and patient was discharged appearing well after discussing case with attending provider. - Lab Data Lab Results 03/21/20 Range/Units 16:33 Urine Color Yellow Urine Appearance Cloudy H (Clear) Urine pH 5.5 (5.0-8.0) Ur Specific [place] 1.016 (1.001-1.035) Urine Protein 2+ H (Negative) Urine Glucose (UA) Negative (Negative) Urine Ketones Negative (Negative) Urine Blood Negative (Negative) Urine Nitrite Negative (Negative) Urine Bilirubin Negative (Negative) Urine Urobilinogen <2.0 (<2.0) mg/dL Ur Leukocyte Esterase Small H (Negative) Urine RBC 2 (0-5) /hpf Urine WBC 7 H (0-5) /hpf Ur Squamous Epith Cells 9 H (0-4) /hpf Urine Bacteria Rare H (None) /hpf Hyaline Casts 9 H (0-2) /lpf Urine Mucus Rare H (None) /hpf Urine Yeast (Budding) Occasional H (None) /hpf Disposition Clinical Impression: Lumbar radiculopathy, Chronic low back pain Disposition: HOME SELF-CARE Condition: Good Instructions (If sedation given, give patient instructions): Chronic Back Pain (DC), Lower Back Exercises (ED) Additional Instructions: Please use medication as discussed. Please follow-up with family doctor in the next 2 days. Please return to emergency room if the symptoms increase or worsen or for any other concerns. Is patient prescribed a controlled substance at d/c from ED?: No Referrals: Brian Chanel MD [Primary Care Provider] - 1-2 days Time of Disposition: 15:56
[2020-03-21 16:54] LABS: Appearance,Urine Cloudy (Clear); Bacteria,Urine Rare /hpf; Bilirubin,Urine Negative (Negative); Blood,Urine Negative (Negative); Budding Yeast,Urine Occasional /hpf; Color,Urine Yellow; Glucose,Urine (UA) Negative (Negative); Hyaline Casts,Urine 9 /lpf (0-2); Ketones,Urine Negative (Negative); Leukocyte Esterase,Urine Small (Negative); Mucus,Urine Rare /hpf; Nitrite,Urine Negative (Negative); PH, Urine 5.5 (5.0-8.0); Protein,Urine 2+ (Negative); RBC,Urine 2 /hpf (0-5); Specific Gravity,Urine 1.016 (1.001-1.035); Squamous Epithelial Cell,Urine 9 /hpf (0-4); Urobilinogen,Urine <2.0 mg/dL (<2.0); WBC,Urine 7 /hpf (0-5)
[2020-03-21 17:12] VITALS: BP 175/98; PULSE 69
== END 2020-03-21 17:13 | disposition home or self-care (01) ==
LOC: MERGE 14:38 → EC 14:38
DX: M54.16 Radiculopathy, lumbar region (principal); G89.29 Other chronic pain
CPT/HCPCS: 51798; 81001; 72100; 99284; 96372; J2270

== ENCOUNTER 2020-03-30 07:52 | Inpatient (IN) | payer OTHER ==
[2020-03-30] MEDS ORDERED: SODIUM CHLORIDE 0.9% 500 ML 500 ML IV STA (08:04)
[2020-03-30] MEDS ORDERED: KETOROLAC 30 MG/ML 1 ML VIAL IVP STA (08:04)
[2020-03-30] MEDS ORDERED: HYDROmorphone 0.5 MG/0.5 ML SYRINGE IVP STA (08:04)
--- NOTE | 2020-03-30 08:11 | ED ---
General Adult HPI - General Chief complaint: Back Pain/Injury Stated complaint: Back pain Source: patient, EMS, RN notes reviewed, old records reviewed Mode of arrival: EMS Limitations: no limitations - History of Present Illness Initial comments: This is a 59-year-old female presents emergency Department complaining of back pain radiating to her right hip. Patient states it's been ongoing for 2 weeks. Patient states she seen her primary medical care doctor. Patient states movement makes it considerably worse per patient states she was unable to get out of bed this morning the pain was so bad. Patient denies any abdominal pain she denies nausea vomiting diarrhea per patient denies any recent injury that she knows of. Patient denies any fever chills. Patient denies any pain running down her leg it just runs into the right hip and right groin area. Patient is unable currently to sit up or while onto her side. Patient denies any chest pain difficulty breathing shortness of breath. Patient denies any dysuria hematuria urinary frequency. - Related Data Home Medications Medication Instructions Recorded Confirmed Allopurinol [Zyloprim] 300 mg PO DAILY 06/23/14 01/06/20 Albuterol Inhaler (Mhu) [Ventolin 2 puff INHALATION RT-Q6H PRN 12/10/16 01/06/20 Hfa Inhaler (Mhu)] Albuterol Nebulized [Ventolin 2.5 mg INHALATION RT-Q4H PRN 12/10/16 01/06/20 Nebulized] Nitroglycerin Sl Tabs [Nitrostat] 0.4 mg SUBLINGUAL Q5M PRN 12/10/16 01/06/20 Atenolol [Tenormin] 25 mg PO DAILY 02/03/18 01/06/20 Atorvastatin [Lipitor] 40 mg PO DAILY 02/03/18 01/06/20 Lisinopril-Hctz 20-25 mg 1 tab PO DAILY 02/03/18 01/06/20 [Zestoretic 20-25] Baclofen [Lioresal] 10 mg PO HS 09/21/19 01/06/20 rOPINIRole HCL [Requip] 0.5 mg PO HS 09/21/19 01/06/20 Acetaminophen-Codeine 300-30mg 1 tab PO TID PRN 12/30/19 01/06/20 [Tylenol w/codeine #3] Chlorthalidone 50 mg PO DAILY 12/30/19 01/06/20 clonazePAM [KlonoPIN] 0.5 mg PO HS 12/30/19 01/06/20 Allergies Allergy/AdvReac Type Severity Reaction Status Date / Time shellfish derived [Shellfish] Allergy Severe Anaphylaxis Verified 03/22/20 10:08 sea salt Allergy Severe Anaphylaxis Uncoded 03/22/20 10:08 seafood Allergy Severe Anaphylaxis Uncoded 03/22/20 10:08 Review of Systems ROS Statement: Those systems with pertinent positive or pertinent negative responses have been documented in the HPI. ROS Other: All systems not noted in ROS Statement are negative. Past Medical History Past Medical History: Asthma, Cancer, Chest Pain / Angina, Hyperlipidemia, Hypertension, No Reported History, Osteoarthritis (OA), Renal Disease Additional Past Medical History / Comment(s): kidney stones-only one kidney functions (pt unsure laterallity), R breast cancer with surgery, migraines, Restless Leg Syndrome, gout bilateral feet, chronic back pain History of Any Multi-Drug Resistant Organisms: None Reported Past Surgical History: Breast Surgery, Section, Heart Catheterization, Hysterectomy, Orthopedic Surgery, Tonsillectomy Additional Past Surgical History / Comment(s): R breast lumpectomy 2005? R foot bone spurs removed, total hysterectomy with bilateral oopherectomy, x2, Past Anesthesia/Blood Transfusion Reactions: Postoperative Nausea & Vomiting (PONV) Additional Past Anesthesia/Blood Transfusion Reaction / Comment(s): No blood transfusion to date Past Psychological History: Anxiety, Depression, No Psychological Hx Reported Smoking Status: Never smoker Past Alcohol Use History: None Reported Past Drug Use History: None Reported - Past Family History Father Family Medical History: CVA/TIA, Renal Disease Additional Family Medical History / Comment(s): Father had a CVA then went into kidney failure and . Mother Family Medical History: Hypertension General Exam - General Exam Comments Initial Comments: GENERAL: Patient is well-developed and well-nourished. Patient is nontoxic and well- hydrated and is in moderate distress. Patient is much more distress if she tries to move. ENT: Neck is soft and supple. No significant lymphadenopathy is noted. Oropharynx is clear. Moist mucous membranes. Neck has full range of motion without elicit ing any pain. EYES: The sclera were anicteric and conjunctiva were pink and moist. Extraocular mo vements were intact and pupils were equal round and reactive to light. Eyelids were unremarkable. PULMONARY: Unlabored respirations. Good breath sounds bilaterally. No audible rales rhonchi or wheezing was noted. CARDIOVASCULAR: There is a regular rate and rhythm without any murmurs gallops or rubs. ABDOMEN: Soft and nontender with normal bowel sounds. SKIN: Skin is clear with no lesions or rashes and otherwise unremarkable. NEUROLOGIC: Patient is alert and oriented x3. Cranial nerves II through XII are grossly intact. Motor and sensory are also intact. Normal speech, volume and content. Symmetrical smile. MUSCULOSKELETAL: Normal extremities with adequate strength and full range of motion. No lower extremity swelling or edema. No calf tenderness. Pain is not reproducible with palpation but if I have the patient rolled or try to sit up the pain is excruciating. LYMPHATICS: No significant lymphadenopathy is noted PSYCHIATRIC: Normal psychiatric evaluation. Limitations: no limitations Course Vital Signs 03/30/20 03/30/20 03/30/20 07:55 08:03 09:03 Temperature 98.1 F Pulse Rate 61 63 Respiratory 20 20 20 Rate Blood Pressure 188/113 152/90 O2 Sat by Pulse 97 98 Oximetry Medical Decision Making - Medical Decision Making Lumbar sacral spine showed no acute abnormality. I did a CT abdomen pelvis the patient because she was unable to even sit up in bed. It showed no acute abnormality. I could not appreciate any neurologic deficit with the patient. Patient was unable to sit up or roll over in bed so she was unable to get out of bed and at this point time I spoke with Dr. Chanel he agreed to admit the patient admitted the patient wrote admitting orders - Lab Data Result diagrams: 03/30/20 08:08 03/30/20 08:08 Lab Results 03/30/20 03/30/20 03/30/20 Range/Units 08:08 08:08 08:35 WBC 6.9 (3.8-10.6) k/uL RBC 5.28 (3.80-5.40) m/uL Hgb 16.1 H (11.4-16.0) gm/dL Hct 48.8 H (34.0-46.0) % MCV 92.5 (80.0-100.0) fL MCH 30.5 (25.0-35.0) pg MCHC 33.0 (31.0-37.0) g/dL RDW 13.6 (11.5-15.5) % Plt Count 224 (150-450) k/uL Neutrophils % 69 % Lymphocytes % 21 % Monocytes % 4 % Eosinophils % 4 % Basophils % 1 % Neutrophils # 4.7 (1.3-7.7) k/uL Lymphocytes # 1.4 (1.0-4.8) k/uL Monocytes # 0.3 (0-1.0) k/uL Eosinophils # 0.3 (0-0.7) k/uL Basophils # 0.1 (0-0.2) k/uL Sodium 137 (137-145) mmol/L Potassium 4.8 (3.5-5.1) mmol/L Chloride 104 (98-107) mmol/L Carbon Dioxide 25 (22-30) mmol/L Anion Gap 8 mmol/L BUN 27 H (7-17) mg/dL Creatinine 1.45 H (0.52-1.04) mg/dL Est GFR (CKD-EPI)AfAm 45 (>60 ml/min/1.73 sqM) Est GFR (CKD-EPI)NonAf 39 (>60 ml/min/1.73 sqM) Glucose 93 (74-99) mg/dL Calcium 9.8 (8.4-10.2) mg/dL Total Bilirubin 0.6 (0.2-1.3) mg/dL AST 48 H (14-36) U/L ALT 34 (4-34) U/L Alkaline Phosphatase 128 H (38-126) U/L Total Protein 7.2 (6.3-8.2) g/dL Albumin 4.0 (3.5-5.0) g/dL Amylase 73 (30-110) U/L Lipase 98 (23-300) U/L Urine Color Yellow Urine Appearance Cloudy H (Clear) Urine pH 6.0 (5.0-8.0) Ur Specific [place] 1.020 (1.001-1.035) Urine Protein 3+ H (Negative) Urine Glucose (UA) Negative (Negative) Urine Ketones Negative (Negative) Urine Blood Negative (Negative) Urine Nitrite Negative (Negative) Urine Bilirubin Negative (Negative) Urine Urobilinogen <2.0 (<2.0) mg/dL Ur Leukocyte Esterase Moderate H (Negative) Urine WBC 28 H (0-5) /hpf Ur Squamous Epith Cells 17 H (0-4) /hpf Amorphous Sediment Rare H (None) /hpf Urine Bacteria Occasional H (None) /hpf Hyaline Casts 7 H (0-2) /lpf Urine Mucus Rare H (None) /hpf Disposition Clinical Impression: Intractable back pain Disposition: ADMITTED IP TO THIS HOSP Referrals: Brian Chanel MD [Primary Care Provider] - 1-2 days Time of Disposition: 10:58
[2020-03-30 08:29] LABS: Basophils # (A) 0.1 k/uL (0-0.2); Basophils % (A) 1 %; Eosinophils # (A) 0.3 k/uL (0-0.7); Eosinophils % (A) 4 %; HCT 48.8 % (34.0-46.0); HGB 16.1 gm/dL (11.4-16.0); Lymphocytes # (A) 1.4 k/uL (1.0-4.8); Lymphocytes % (A) 21 %; MCH 30.5 pg (25.0-35.0); MCV 92.5 fL (80.0-100.0); Mean Platelet Volume 8.7; Monocytes # (A) 0.3 k/uL (0-1.0); Monocytes % (A) 4 %; Neutrophils # (A) 4.7 k/uL (1.3-7.7); Neutrophils % (A) 69 %; Platelet Count 224 k/uL (150-450); RBC 5.28 m/uL (3.80-5.40); RDW 13.6 % (11.5-15.5); WBC 6.9 k/uL (3.8-10.6)
[2020-03-30 08:52] LABS: Calcium 9.8 mg/dL (8.4-10.2); Potassium 4.8 mmol/L (3.5-5.1); Total Bilirubin 0.6 mg/dL (0.2-1.3); Total Protein 7.2 g/dL (6.3-8.2)
--- NOTE | 2020-03-30 09:01 | XR ---
EXAMINATION TYPE: XR lumbosacral spine min 4V DATE OF EXAM: 03/30/2020 CLINICAL HISTORY: Back pain for 2 days. TECHNIQUE: Frontal, lateral, and oblique images of the lumbar spine are obtained. COMPARISON: Lumbar spine x-ray 9 days ago. FINDINGS: There are 5 lumbar type vertebral bodies redemonstrated. The lumbar spine shows satisfact ory alignment without evidence of acute fracture or dislocation. Vertebral body heights remain within normal limits. Mild disc space narrowing L4-L5 level redemonstrated. The oblique images appear with in normal limits. Facet arthropathy lower lumbar levels is present. Cholecystectomy clips overlying s oft tissue again seen. IMPRESSION: As above. No significant change from recent prior.
[2020-03-30 09:02] LABS: Amorphous Sediment,Urine Rare /hpf; Appearance,Urine Cloudy (Clear); Bacteria,Urine Occasional /hpf; Bilirubin,Urine Negative (Negative); Blood,Urine Negative (Negative); Color,Urine Yellow; Glucose,Urine (UA) Negative (Negative); Hyaline Casts,Urine 7 /lpf (0-2); Ketones,Urine Negative (Negative); Leukocyte Esterase,Urine Moderate (Negative); Mucus,Urine Rare /hpf; Nitrite,Urine Negative (Negative); Protein,Urine 3+ (Negative); Squamous Epithelial Cell,Urine 17 /hpf (0-4); Urobilinogen,Urine <2.0 mg/dL (<2.0); WBC,Urine 28 /hpf (0-5)
[2020-03-30] MEDS ORDERED: DIAZEPAM 5 MG/ML 2 ML INJ IVP STA ×2 (09:16→09:36)
--- NOTE | 2020-03-30 09:42 | CT ---
EXAMINATION TYPE: CT abdomen pelvis wo con DATE OF EXAM: 03/30/2020 HISTORY: bilateral pelvic pain CT DLP: 1263 mGycm. Automated Exposure Control for Dose Reduction was Utilized. TECHNIQUE: CT scan of the abdomen and pelvis is performed without oral or IV contrast. COMPARISON: CT abdomen and pelvis February 07, 2019 FINDINGS: Within the limitations of a non-contrast study, the following observations are made. LUNG BASES: Elevated right hemidiaphragm redemonstrated. Trace pericardial effusion diminished from p rior. Surgical clip right breast upper axial images redemonstrated. Micronodularity right lateral low er lung again seen. LIVER/GB: Cholecystectomy clips are redemonstrated. PANCREAS: No significant abnormality is seen. SPLEEN: No significant abnormality is seen. ADRENALS: Stable slightly low dense thickening to both adrenal glands favoring benign lipid rich hype rplasia. KIDNEYS: Asymmetric atrophy and diminished size to right kidney. Prominent central parapelvic cysts i n the left kidney redemonstrated. No left-sided renal calculi or hydronephrosis. Poorly distended herman dder without intraluminal calculi. BOWEL: Stomach suboptimally evaluated due to poor distention. No suspicious bowel dilatation. GENITAL ORGANS: Uterus surgically absent or markedly atrophic. Thin-walled Cystic change in the anter ior position left ovary axial image 113 is stable. LYMPH NODES: No greater than 1cm abdominal or pelvic lymph nodes are appreciated. OSSEOUS STRUCTURES: No significant abnormality is seen. OTHER: Small fat-containing umbilical hernia. Small fat-containing bilateral inguinal hernias. IMPRESSION: No significant new or acute finding on current study to account for patient's symptoms of bilateral pelvic pain.
[2020-03-30] MEDS ORDERED: SODIUM CHLORIDE 0.9% 1,000 ML IV ONE (10:58)
[2020-03-30] MEDS ORDERED: HYDROmorphone 1 MG/ML 1 ML SYRINGE IVP STA (11:00)
[2020-03-30] MEDS ORDERED: ALBUTEROL HFA INHALER INHALATION PRN (17:17)
[2020-03-30] MEDS ORDERED: NITROGLYCERIN SL TABS 0.4 MG TAB SUBLINGUAL PRN (17:17)
[2020-03-30] MEDS ORDERED: BACLOFEN 10 MG TAB PO PRN (17:17)
[2020-03-30] MEDS ORDERED: clonazePAM 0.5 MG TAB PO PRN (17:17)
[2020-03-30] MEDS: LISINOPRIL 20 MG TAB PO SCH (17:49)
[2020-03-30] MEDS: ATORVASTATIN 40 MG TAB PO SCH (17:49)
[2020-03-30] MEDS: HYDROmorphone 0.5 MG/0.5 ML SYRINGE IVP PRN (17:53)
[2020-03-30] MEDS: ATENOLOL 25 MG TAB PO SCH (21:11)
[2020-03-31] MEDS: LISINOPRIL 20 MG TAB PO SCH (07:57)
[2020-03-31] MEDS: ATENOLOL 25 MG TAB PO SCH ×2 (07:57→21:19)
[2020-03-31] MEDS: CHLORTHALIDONE 25 MG TAB PO SCH (07:57)
[2020-03-31] MEDS: ATORVASTATIN 40 MG TAB PO SCH (07:57)
[2020-03-31] MEDS: ALLOPURINOL 300 MG TAB PO SCH (07:57)
[2020-03-31] MEDS: HYDROmorphone 0.5 MG/0.5 ML SYRINGE IVP PRN ×3 (08:00→22:49)
--- NOTE | 2020-03-31 12:58 | MR ---
EXAMINATION TYPE: MR lumbar spine wo con DATE OF EXAM: 03/31/2020 COMPARISON: CT dated 03/30/[address] dated 12/10/2016 HISTORY: Intractable back pain TECHNIQUE: Multiplanar, multisequence images of the lumbar spine were acquired. FINDINGS: Numerous left renal sinus cysts are redemonstrated as seen on multiple prior exams includin g the exam of 12/10/2016. Right renal atrophy and multifocal cortical scarring are also redemonstrated . Vertebral body heights and alignment are maintained in the lumbar spine. T2/T1 hyperintense scatter ed vertebral body hemangiomas are seen. There is multilevel disc desiccation. Limited evaluation for cauda equina syndrome without contrast. L1-L2: Disc desiccation without focal disc herniation. No neural foraminal narrowing or spinal canal stenosis. L2-L3: Broad-based disc bulge and mild facet arthropathy with ligamentum flavum buckling. Minimal vu ateral neural foraminal narrowing without spinal canal stenosis. L3-L4: Facet arthropathy and ligamentum flavum buckling as well as a broad-based disc bulge are seen. Minimal bilateral neural foraminal narrowing. No significant spinal canal stenosis. L4-L5: There is a central disc herniation with 1 mm cranial subligamentous disc extrusion. There is a lso facet arthropathy and ligamentum flavum buckling resulting in mild to moderate spinal canal steno sis, mild left neural foraminal narrowing and [id number] right neural foraminal narrowing. L5-S1: Broad-based disc bulge and posterior projecting osteophytes resulting in minimal bilateral enedina ral foraminal narrowing without spinal canal stenosis. Mild facet arthropathy. IMPRESSION: 1. Central disc herniation at L4-L5 with 1 mm cranial subligamentous extrusion resulting in mild to m oderate spinal canal stenosis and right neural foraminal narrowing as well as mild left neural forami nal narrowing. 2. Mild multilevel degenerative disc disease of the remainder the lumbar spine as detailed above. 3. Chronic right renal atrophy and numerous left renal sinus cysts seen on multiple prior exams such as 2017.
--- NOTE | 2020-03-31 17:12 | P.HPIM ---
History of Present Illness H&P Date: 03/31/20 Chief Complaint: Intractable back pain Cheryl Zamorano is a 59-year-old female who presented to [facility] emergency room with a chief complaint of severe intractable back pain she stated that she was having difficulty ambulating at home. She fell at home due to severe pain and feeling that her legs buckling underneath her, she was evaluated in the emergency room, she had evidence of urinary tract infection, and had evidence of degenerative disc disease, due to her inability to stand and walk despite several hours of treatment in the emergency room, decision was made to proceed with admitting her to the medical floor. Patient was started on IV Rocephin for management of urinary tract infection, she was started on IV pain management, MRI of the lumbar spine was ordered, and consultation for pain clinic was initiated. MRI of the lumbar spine was done on 03/31/2020 and revealed multiple disc bulges, and also revealed evidence of L4-L5 central disc herniation. Past Medical History Past Medical History: Asthma, Cancer, Chest Pain / Angina, Hyperlipidemia, Hypertension, Osteoarthritis (OA), Renal Disease, Respiratory Disorder Additional Past Medical History / Comment(s): kidney stones-only one kidney functions (pt unsure laterallity), R breast cancer with surgery, migraines, Res tless Leg Syndrome, gout bilateral feet, chronic back pain History of Any Multi-Drug Resistant Organisms: None Reported Past Surgical History: Breast Surgery, Section, Heart Catheterization, Hysterectomy, Orthopedic Surgery, Tonsillectomy Additional Past Surgical History / Comment(s): R breast lumpectomy 2005? R foot bone spurs removed, total hysterectomy with bilateral oopherectomy, x2, Past Anesthesia/Blood Transfusion Reactions: Postoperative Nausea & Vomiting (PONV) Additional Past Anesthesia/Blood Transfusion Reaction / Comment(s): No blood tra nsfusion to date Smoking Status: Never smoker - Past Family History Father Family Medical History: CVA/TIA, Renal Disease Additional Family Medical History / Comment(s): Father had a CVA then went into kidney failure and . Mother Family Medical History: Hypertension Medications and Allergies Home Medications Medication Instructions Recorded Confirmed Type Allopurinol [Zyloprim] 300 mg PO DAILY 06/23/14 03/30/20 History Albuterol Inhaler (Mhu) [Ventolin 2 puff INHALATION RT-Q6H PRN 12/10/16 03/30/20 History Hfa Inhaler (Mhu)] Nitroglycerin Sl Tabs [Nitrostat] 0.4 mg SUBLINGUAL Q5M PRN 12/10/16 03/30/20 History Atenolol [Tenormin] 25 mg PO BID 02/03/18 03/30/20 History Atorvastatin [Lipitor] 40 mg PO DAILY 02/03/18 03/30/20 History Baclofen [Lioresal] 10 mg PO HS PRN 09/21/19 03/30/20 History rOPINIRole HCL [Requip] 0.5 mg PO HS PRN 09/21/19 03/30/20 History Chlorthalidone 50 mg PO DAILY 12/30/19 03/30/20 History clonazePAM [KlonoPIN] 0.5 mg PO HS PRN 12/30/19 03/30/20 History Lisinopril 40 mg PO DAILY 03/30/20 03/30/20 History Allergies Allergy/AdvReac Type Severity Reaction Status Date / Time shellfish derived [Shellfish] Allergy Severe Anaphylaxis Verified 03/30/20 11:08 sea salt Allergy Severe Anaphylaxis Uncoded 03/22/20 10:08 seafood Allergy Severe Anaphylaxis Uncoded 03/22/20 10:08 Physical Exam Vitals: Vital Signs Temp Pulse Pulse Resp BP BP Pulse Ox 03/31/20 16:40 58 L 165/92 03/31/20 12:37 98.6 F 60 18 182/106 164/125 94 L 03/31/20 04:25 98.3 F 59 L 19 178/109 92 L 03/30/20 21:00 97.9 F 62 16 140/97 95 Intake and Output 03/31/20 03/31/20 03/31/20 06:59 14:59 22:59 Intake Total 600 600 Balance 600 600 Intake: Intake, IV Titration 600 600 Amount Sodium Chloride 0.9% 1, 600 600 000 ml @ 75 mls/hr IV . [id number] ONE Rx#:[id number] Other: Voiding Method Toilet Toilet # Voids 2 In general patient is alert and oriented 3 in no apparent distress HEENT head normocephalic and atraumatic Neck is supple no JVD no goiter no lymphadenopathy Chest exam reveals a few scattered crackles no wheezing Cardiac exam reveals regular heart sounds no gallops no murmurs Abdomen is soft nontender no organomegaly Extremity exam reveals no edema no cyanosis or clubbing Results CBC & Chem 7: 03/30/20 08:08 03/30/20 08:08 Labs: Microbiology - Last 24 Hours (Table) 03/30/20 08:35 Urine Culture - Final Urine,Voided Thrombosis Risk Factor Assmnt - Choose All That Apply Each Factor Represents 1 point: Age 41-60 years, Obesity (BMI >25) Other congenital or acquired thrombophilia - If yes, enter type in comment: No Thrombosis Risk Factor Assessment Total Risk Factor Score: 2 Thrombosis Risk Factor Assessment Level: Low Risk Assessment and Plan Plan: #1 L4-L5 disc herniation #2 intractable back pain with gait disturbance #3 underlying history of hypertension #4 underlying history of hyperlipidemia. #5 underlying history of gout #6 evidence of urinary tract infection #7 underlying history of restless leg syndrome At this time patient is admitted to medical floor she was started on IV pain management and oral muscle relaxers Consultation for neurosurgery and Anesthesia for pain management were initiated Will follow closely
[2020-03-31] MEDS ORDERED: BACLOFEN 10 MG TAB PO PRN (17:14)
[2020-03-31] MEDS: GABAPENTIN 100 MG CAP PO SCH (21:19)
--- NOTE | 2020-03-31 21:32 | P.PAINCN ---
History of Present Illness - Reason for Consult Consult date: 03/31/20 - History of Present Illness This is 59 years old female with a chronic history of low back pain started 3 years ago, and she was managed as an outpatient with pain medication Tylenol 3 which was helping to some degree, over the last 3 weeks she started complaining of severe intractable low back pain with radiation to the lower extremity, associated with some numbness and tingling sensation, the pain intensity was so severe that she was not able to ambulate, and in the emergency room patient found out that she had urinary tract infection, patient reported that the pain is very severe interferes with her ability to ambulate, facial is currently on IV Dilaudid, which is providing her with some relief, Past Medical History Past Medical History: Asthma, Cancer, Chest Pain / Angina, Hyperlipidemia, Hypertension, Osteoarthritis (OA), Renal Disease, Respiratory Disorder Additional Past Medical History / Comment(s): kidney stones-only one kidney functions (pt unsure laterallity), R breast cancer with surgery, migraines, Restless Leg Syndrome, gout bilateral feet, chronic back pain History of Any Multi-Drug Resistant Organisms: None Reported Past Surgical History: Breast Surgery, Section, Heart Catheterization, Hysterectomy, Orthopedic Surgery, Tonsillectomy Additional Past Surgical History / Comment(s): R breast lumpectomy 2005? R foot bone spurs removed, total hysterectomy with bilateral oopherectomy, x2, Past Anesthesia/Blood Transfusion Reactions: Postoperative Nausea & Vomiting (PONV) Additional Past Anesthesia/Blood Transfusion Reaction / Comm: No blood transfusion to date Smoking Status: Never smoker - Past Family History Father Family Medical History: CVA/TIA, Renal Disease Additional Family Medical History / Comment(s): Father had a CVA then went into kidney failure and . Mother Family Medical History: Hypertension Medications and Allergies Home Medications Medication Instructions Recorded Confirmed Type Allopurinol [Zyloprim] 300 mg PO DAILY 06/23/14 03/30/20 History Albuterol Inhaler (Mhu) [Ventolin 2 puff INHALATION RT-Q6H PRN 12/10/16 03/30/20 History Hfa Inhaler (Mhu)] Nitroglycerin Sl Tabs [Nitrostat] 0.4 mg SUBLINGUAL Q5M PRN 12/10/16 03/30/20 History Atenolol [Tenormin] 25 mg PO BID 02/03/18 03/30/20 History Atorvastatin [Lipitor] 40 mg PO DAILY 02/03/18 03/30/20 History Baclofen [Lioresal] 10 mg PO HS PRN 09/21/19 03/30/20 History rOPINIRole HCL [Requip] 0.5 mg PO HS PRN 09/21/19 03/30/20 History Chlorthalidone 50 mg PO DAILY 12/30/19 03/30/20 History clonazePAM [KlonoPIN] 0.5 mg PO HS PRN 12/30/19 03/30/20 History Lisinopril 40 mg PO DAILY 03/30/20 03/30/20 History Allergies Allergy/AdvReac Type Severity Reaction Status Date / Time shellfish derived [Shellfish] Allergy Severe Anaphylaxis Verified 03/30/20 11:08 sea salt Allergy Severe Anaphylaxis Uncoded 03/22/20 10:08 seafood Allergy Severe Anaphylaxis Uncoded 03/22/20 10:08 Physical Exam Vitals: Vital Signs Temp Pulse Pulse Resp BP BP Pulse Ox 03/31/20 16:40 58 L 165/92 03/31/20 12:37 98.6 F 60 18 182/106 164/125 94 L 03/31/20 04:25 98.3 F 59 L 19 178/109 92 L 03/30/20 21:00 97.9 F 62 16 140/97 95 Intake and Output 03/31/20 03/31/20 03/31/20 06:59 14:59 22:59 Intake Total 600 600 Balance 600 600 Intake: Intake, IV Titration 600 600 Amount Sodium Chloride 0.9% 1, 600 600 000 ml @ 75 mls/hr IV . [id number] ONE Rx#:[id number] Other: Voiding Method Toilet Toilet # Voids 2 Physical Examinations : -Constitutiona : Cooperative , not in acute distress . -HEENT : nech : supple , no Lymphadenopathy , normal thyroid size . : eyes : no ptosis , no icterus, no photophobia . : ENT : normal of hearing , normal oropharynx , no Thrush . - Respiratory : Chest clear to auscultations Bilaterally , no wheezing , no Rhonchi . - Cardiovascula : regular rate and rhythem , S1 , S2 , no S3 , no S4. - Gastrointestina : abdomen soft no tenderness , bowel sounds , no organomegally . - Genitourinary : Defferred . - neurologic : Cranial nerve II to XII intact , no focal neurological deffecit . -psychatric : alert , oriented X 3 , appropriate affect , intact judgment and insight . -Lymphatic : no Lymphadenopathy . - musculoskeltal : Lumber spine moter stegnth lower extremities ,thigh and legs 4/5 Right side , 4/5 Left side Positive allodynia at the lower extremi ty bilaterally lumber facet Loading Test =positive Right , positive Left Range of motion of the lumbar spine Flexion 30 degrees, extension 10 degrees strait leg raising test = positive at 45 degree bilaterally Fabere test= positive Right , and positive LT . Sever tenderness over the Sacroiliac joint on the Right side , negative left side Gaenslen test= positive right ,and negative left . Seated flexion test= positive right ,and negative Left side. Results CBC & Chem 7: 03/30/20 08:08 03/30/20 08:08 Labs: Microbiology - Last 24 Hours (Table) 03/30/20 08:35 Urine Culture - Final Urine,Voided Comments: MRI of the lumbar spine done at [facility]= L2-3 and L3 4 L4 5 and L5-S1 lumbar facet arthropathy, L3 4 lumbar bulging disc disease Izzy 45 disc herniation, L5-S1 bulging disc and spinal canal stenosis at L4 5 Assessment and Plan Plan: Assessment and plan= intractable low back pain with gait disturbance secondary to multifactorial causes, lumbar herniated disc disease, lumbar degenerative disc disease and lumbar spinal stenosis, and lumbar spondylosis with lumbar facet arthropathy, and right sacroiliitis Patient currently had evidence of urinary tract infection, will try medication management recommended to continue baclofen 10 mg 3 times a day, started patient on Neurontin 200 mg 3 times a day, started patient on [place] 5/325 every 6 hours when necessary, in the future patient will be good candidate to have lumbar epidural steroid injection, and diagnostic medial branch block and possible radiofrequency ablation of the medial branch, this procedure can be done as an outpatient Time with Patient: Greater than 30 PQRS Measure Charge Sheet PQRS Narrative: Smoking Status Never smoker Do You Want the Pneumonia No Vaccine AT THIS TIME? Blood Pressure [Right Arm] 165/92 Blood Pressure [Left Arm] 182/106 Blood Pressure 129/89 Pain Intensity [Back] 9 Pain Intensity 6 Pain Scale Used Numeric (1 - 10) Scale Used Numeric (1 - 10) Home Medications: Ambulatory Orders Allopurinol [Zyloprim] 300 mg PO DAILY 06/23/14 Albuterol Inhaler (Mhu) [Ventolin Hfa Inhaler (Mhu)] 2 puff INHALATION RT-Q6H PRN 12/10/16 Nitroglycerin Sl Tabs [Nitrostat] 0.4 mg SUBLINGUAL Q5M PRN 12/10/16 Atenolol [Tenormin] 25 mg PO BID 02/03/18 Atorvastatin [Lipitor] 40 mg PO DAILY 02/03/18 Baclofen [Lioresal] 10 mg PO HS PRN 09/21/19 rOPINIRole HCL [Requip] 0.5 mg PO HS PRN 09/21/19 Chlorthalidone 50 mg PO DAILY 12/30/19 clonazePAM [KlonoPIN] 0.5 mg PO HS PRN 12/30/19 Lisinopril 40 mg PO DAILY 03/30/20
[2020-04-01] MEDS: HYDROmorphone 0.5 MG/0.5 ML SYRINGE IVP PRN (04:01)
[2020-04-01 06:44] LABS: Basophils # (A) 0.1 k/uL (0-0.2); Basophils % (A) 1 %; Eosinophils # (A) 0.3 k/uL (0-0.7); Eosinophils % (A) 5 %; HCT 45.8 % (34.0-46.0); HGB 13.9 gm/dL (11.4-16.0); Hypochromasia Slight; Lymphocytes % (A) 16 %; MCH 29.1 pg (25.0-35.0); MCHC 30.4 g/dL (31.0-37.0); MCV 95.6 fL (80.0-100.0); Mean Platelet Volume 8.7; Monocytes # (A) 0.3 k/uL (0-1.0); Monocytes % (A) 5 %; Neutrophils # (A) 4.5 k/uL (1.3-7.7); Neutrophils % (A) 71 %; Platelet Count 207 k/uL (150-450); RBC 4.79 m/uL (3.80-5.40); RDW 13.7 % (11.5-15.5); WBC 6.4 k/uL (3.8-10.6)
[2020-04-01 06:57] LABS: Albumin 3.5 g/dL (3.5-5.0); Calcium 9.3 mg/dL (8.4-10.2); Potassium 4.8 mmol/L (3.5-5.1); Total Bilirubin 0.9 mg/dL (0.2-1.3); Total Protein 6.3 g/dL (6.3-8.2)
[2020-04-01] MEDS: ALLOPURINOL 300 MG TAB PO SCH (08:50)
[2020-04-01] MEDS: LISINOPRIL 20 MG TAB PO SCH (08:50)
[2020-04-01] MEDS: ATORVASTATIN 40 MG TAB PO SCH (08:50)
[2020-04-01] MEDS: ATENOLOL 25 MG TAB PO SCH ×2 (08:50→21:17)
[2020-04-01] MEDS: GABAPENTIN 100 MG CAP PO SCH ×3 (08:50→21:18)
[2020-04-01] MEDS: CHLORTHALIDONE 25 MG TAB PO SCH (08:53)
--- NOTE | 2020-04-01 12:12 | P.CNOR ---
History of Present Illness - [facility] Consult date: 04/01/20 Requesting physician: Brian Chanel Consult reason: low back pain, other (bilateral lower extremity radiculopathy) History of present illness: Patient is a very pleasant 59-year-old female who is seen him bedside for further evaluation for low back pain and lower extremity radiculopathy. She denies any recent injuries. She states she is known have chronic low back pain over the past 3 years and has been following with her primary care provider Dr. Chanel. She states over the past couple weeks she has had increased pain with pain radiating over the hips and down the lateral and anterior thighs bilaterally stopping at the knees. She is having difficulty with pain control and ambulation at the time of her presentation to the emergency department. She states her symptoms have improved during her admission. She currently denies any lower extremity weakness bilaterally. She is able to ambulate the restroom without difficulty. She denies any change in voiding. She has been seen and examined by pain management who have adjusted medications for pain control. They have added baclofen, Neurontin, and Wells. Patient states her pain has been better controlled to change these medications. She has had some increased nausea since starting these medications. Patient is currently being treated for urinary tract infection. She denies any burning sensation with urination. Pain management may plan for injections in the outpatient setting following completion of treatment for urinary tract infection. Patient denies any surgery at her lumbar spine previously. Patient will like to work to conservative treatment options at this time. Since her admission she's had multiple imaging modalities in regards to her lumbar spine including x-ray and MRI imaging. Tommy potts has a past medical history which includes hyperlipidemia, hypertension, renal disease, cancer, asthma, and obesity. Past Medical History Past Medical History: Asthma, Cancer, Chest Pain / Angina, Hyperlipidemia, Hypertension, Osteoarthritis (OA), Renal Disease, Respiratory Disorder Additional Past Medical History / Comment(s): kidney stones-only one kidney functions (pt unsure laterallity), R breast cancer with surgery, migraines, Restless Leg Syndrome, gout bilateral feet, chronic back pain History of Any Multi-Drug Resistant Organisms: None Reported Past Surgical History: Breast Surgery, Section, Heart Catheterization, Hysterectomy, Orthopedic Surgery, Tonsillectomy Additional Past Surgical History / Comment(s): R breast lumpectomy 2005? R foot bone spurs removed, total hysterectomy with bilateral oopherectomy, x2, Past Anesthesia/Blood Transfusion Reactions: Postoperative Nausea & Vomiting (PONV) Additional Past Anesthesia/Blood Transfusion Reaction / Comm: No blood transfusion to date Smoking Status: Never smoker - Past Family History Father Family Medical History: CVA/TIA, Renal Disease Additional Family Medical History / Comment(s): Father had a CVA then went into kidney failure and . Mother Family Medical History: Hypertension Medications and Allergies Home Medications Medication Instructions Recorded Confirmed Type Allopurinol [Zyloprim] 300 mg PO DAILY 06/23/14 03/30/20 History Albuterol Inhaler (Mhu) [Ventolin 2 puff INHALATION RT-Q6H PRN 12/10/16 03/30/20 History Hfa Inhaler (Mhu)] Nitroglycerin Sl Tabs [Nitrostat] 0.4 mg SUBLINGUAL Q5M PRN 12/10/16 03/30/20 History Atenolol [Tenormin] 25 mg PO BID 02/03/18 03/30/20 History Atorvastatin [Lipitor] 40 mg PO DAILY 02/03/18 03/30/20 History Baclofen [Lioresal] 10 mg PO HS PRN 09/21/19 03/30/20 History rOPINIRole HCL [Requip] 0.5 mg PO HS PRN 09/21/19 03/30/20 History Chlorthalidone 50 mg PO DAILY 12/30/19 03/30/20 History clonazePAM [KlonoPIN] 0.5 mg PO HS PRN 12/30/19 03/30/20 History Lisinopril 40 mg PO DAILY 03/30/20 03/30/20 History Allergies Allergy/AdvReac Type Severity Reaction Status Date / Time shellfish derived [Shellfish] Allergy Severe Anaphylaxis Verified 03/30/20 11:08 sea salt Allergy Severe Anaphylaxis Uncoded 03/22/20 10:08 seafood Allergy Severe Anaphylaxis Uncoded 03/22/20 10:08 Physical Examination Physical exam: Patient is awake, alert, and oriented 3 Vital signs stable Good chest excursion with deep inspiration and expiration Abdomen soft nontender Examination of lumbar spine reveals skin is intact with no abrasions, restorations, or bruises; no erythema, purulence or signs of infection Pain with palpation along the midline of the lower lumbar spine and lumbosacral junction Dorsiflexion, plantarflexion, and extensor hallucis longus positive sustained bilaterally Lower extremity strength 5/5 bilaterally Patellar reflex 2+ bilaterally and Achilles reflexes 1+ bilaterally No lower extremity hyperreflexia bilaterally Straight leg test negative bilateral lower extremities Negative Lasegue's test bilaterally No signs or symptoms of DVT; no calf pain No pain with internal and external rotation of the hips bilaterally Neurovascularly intact Results Pertinent studies: X-rays of the lumbosacral spine taken on 03/30/2020: Overall alignment is adequately maintained; no evidence of vertebral body compression fracture; L4-5 mild degenerative disc disease; evidence of facet arthropathy lower lumbar spine MRI of the lumbar spine taken on 03/31/2020: L4-5 degenerative disease and central disc herniation resulting in mild to moderate spinal canal stenosis with mild neural foraminal narrowing; mild multilevel degenerative disc disease; L2- 3, L3-4, and L4-5 broad-based disc bulge and mild facet arthropathy without evidence of spinal stenosis - Labs Labs: Abnormal Lab Results - Last 24 Hours (Table) 04/01/20 04/01/20 Range/Units 05:26 05:26 MCHC 30.4 L (31.0-37.0) g/dL BUN 24 H (7-17) mg/dL Creatinine 1.40 H (0.52-1.04) mg/dL AST 51 H (14-36) U/L ALT 42 H (4-34) U/L Microbiology - Last 24 Hours (Table) 03/30/20 08:35 Urine Culture - Final Urine,Voided H & H 03/30/20 04/01/20 Range/Units 08:08 05:26 Hgb 16.1 H 13.9 (11.4-16.0) gm/dL Hct 48.8 H 45.8 (34.0-46.0) % Result Diagrams: 04/01/20 05:26 04/01/20 05:26 Assessment and Plan Assessment: Assessment: Acute on chronic low back pain Bilateral lower extremity radiculopathy L4-5 mild degenerative disc disease L4-5 moderate spinal canal stenosis Multilevel mild lumbar degenerative disc disease Multilevel mild lumbar facet arthropathy Urinary tract infection History of hyperlipidemia History of hypertension History of renal disease History of cancer History of asthma Obesity (1) Acute exacerbation of chronic low back pain Current Visit: Yes Status: Acute Code(s): M54.5 - LOW BACK PAIN; G89.29 - OTHER CHRONIC PAIN SNOMED Code(s): 915468543 (2) Radiculopathy with lower extremity symptoms Current Visit: Yes Status: Acute Code(s): M54.10 - RADICULOPATHY, SITE UNSPECIFIED SNOMED Code(s): 48933220 (3) Spinal stenosis at L4-L5 level Current Visit: Yes Status: Acute Code(s): M48.061 - SPINAL STENOSIS, LUMBAR REGION WITHOUT NEUROGENIC MAYLIN SNOMED Code(s): 26361778 (4) Lumbar facet arthropathy Current Visit: Yes Status: Acute Code(s): M47.816 - SPONDYLOSIS W/O MYELOPATHY OR RADICULOPATHY, LUMBAR REGION SNOMED Code(s): 572960373 (5) Lumbar degenerative disc disease Current Visit: Yes Status: Acute Code(s): M51.36 - OTHER INTERVERTEBRAL DISC DEGENERATION, LUMBAR REGION SNOMED Code(s): 88998240 (6) UTI (urinary tract infection) Current Visit: Yes Status: Acute Code(s): N39.0 - URINARY TRACT INFECTION, SITE NOT SPECIFIED SNOMED Code(s): 37801470 (7) History of renal disease Current Visit: Yes Status: Acute Code(s): Z87.448 - PERSONAL HISTORY OF OTHER DISEASES OF URINARY SYSTEM SNOMED Code(s): 226792444 (8) History of cancer Current Visit: Yes Status: Acute Code(s): Z85.9 - PERSONAL HISTORY OF MALIGNANT NEOPLASM, UNSPECIFIED SNOMED Code(s): 729558784 (9) History of asthma Current Visit: Yes Status: Acute Code(s): Z87.09 - PERSONAL HISTORY OF OTHER DISEASES OF THE RESPIRATORY SYSTEM SNOMED Code(s): 807088461 (10) Obesity Current Visit: Yes Status: Acute Code(s): E66.9 - OBESITY, UNSPECIFIED SNOMED Code(s): 736512840 (11) Hyperlipemia Current Visit: No Status: Acute Code(s): E78.5 - HYPERLIPIDEMIA, UNSPECIFIED SNOMED Code(s): 14271962 (12) Hypertension Current Visit: No Status: Acute Code(s): I10 - ESSENTIAL (PRIMARY) HYPERTENSION SNOMED Code(s): 05572918 Plan: Plan: 1. After physical examination of the patient, reviewing of imaging, and further discussion with the patient, we will plan to continue conservative treatment at this time. Reviewing of multiple imaging modalities show degenerative changes at her lumbar spine most significant at L4-5. Patient has experiencing increased low back pain with pain radiating over the hips down the lateral and anterior thighs to the knees over the past couple weeks without injury. She does admit that her symptoms have improved during this admission after the addition of medication by pain management. She is planning to follow-up pain management and outpatient setting. She is not expressing any lower extremity weakness. She has been able to ambulate to the restroom without difficulty. She is voiding without difficulty. She is being treated for urinary tract infection at this time, patient was cleared for discharge from orthopedic spine standpoint. We plan to have her follow-up in approximately 3-4 weeks for further evaluation. If her symptoms are not improving at that time, we will discuss further treatment options. Patient feels this is a good plan of care and would like to continue with conservative treatment at this time while avoiding surgical intervention. 2. Patient will continue to be seeing him by multiple other medical providers including medicine and pain management Time with Patient: Greater than 30 (Including obtaining history, physical examination, reviewing of imaging, and dictation.)
--- NOTE | 2020-04-01 16:29 | P.PN ---
Subjective Progress Note Date: 04/01/20 Cheryl Zamorano is a 59-year-old female who presented to [facility] emergency room with a chief complaint of severe intractable back pain she stated that she was having difficulty ambulating at home. She fell at home due to severe pain and feeling that her legs buckling underneath her, she was evaluated in the emergency room, she had evidence of urinary tract infection, and had evidence of degenerative disc disease, due to her inability to stand and walk despite several hours of treatment in the emergency room, decision was made to proceed with admitting her to the medical floor. Patient was started on IV Rocephin for management of urinary tract infection, she was started on IV pain management, MRI of the lumbar spine was ordered, and consultation for pain clinic was initiated. MRI of the lumbar spine was done on 03/31/2020 and revealed multiple disc bulges, and also revealed evidence of L4-L5 central disc herniation. On 04/01/2020 patient was seen and examined on the medical floor she is still having severe back pain and still complaining of difficulty was ambulating o therwise she denies any complaints there is no fever or chills no headache or dizziness no chest pain no shortness of breath no cough no nausea or vomiting no abdominal pain no diarrhea and no urinary symptoms Objective - Vital Signs Vital signs: Vital Signs Temp 98.2 F 04/01/20 11:48 Pulse 51 L 04/01/20 11:48 Resp 17 04/01/20 11:48 BP 188/98 04/01/20 11:48 Pulse Ox 93 L 04/01/20 11:48 Intake & Output 03/31/20 04/01/20 04/01/20 18:59 06:59 18:59 Intake Total 600 290 Balance 600 290 Intake: Intake, IV Titration 600 50 Amount Sodium Chloride 0.9% 1, 600 000 ml @ 75 mls/hr IV . [id number] ONE Rx#:[id number] cefTRIAXone 1 gm In 50 Sodium Chloride 0.9% 50 ml @ 100 mls/hr IVPB Q24HR [facility] Rx#:[id number] Oral 240 Other: Voiding Method Toilet Toilet Toilet # Voids 2 2 3 - Exam In general patient is alert and oriented 3 in no apparent distress HEENT head normocephalic and atraumatic Neck is supple no JVD no goiter no lymphadenopathy Chest exam reveals a few scattered crackles no wheezing Cardiac exam reveals regular heart sounds no gallops no murmurs Abdomen is soft nontender no organomegaly Extremity exam reveals no edema no cyanosis or clubbing - Labs CBC & Chem 7: 04/01/20 05:26 04/01/20 05:26 Labs: Abnormal Lab Results - Last 24 Hours (Table) 04/01/20 04/01/20 Range/Units 05:26 05:26 MCHC 30.4 L (31.0-37.0) g/dL BUN 24 H (7-17) mg/dL Creatinine 1.40 H (0.52-1.04) mg/dL AST 51 H (14-36) U/L ALT 42 H (4-34) U/L Microbiology - Last 24 Hours (Table) 03/30/20 08:35 Urine Culture - Final Urine,Voided Assessment and Plan Plan: #1 L4-L5 disc herniation #2 intractable back pain with gait disturbance #3 underlying history of hypertension #4 underlying history of hyperlipidemia. #5 underlying history of gout #6 evidence of urinary tract infection. Started on IV Rocephin #7 underlying history of restless leg syndrome At this time patient is admitted to medical floor she was started on IV pain management and oral muscle relaxers Consultation for neurosurgery and Anesthesia for pain management were initiated Will follow closely
[2020-04-01] MEDS: HYDROcodone/APAP 5-325MG 1 EACH TAB PO PRN (20:54)
[2020-04-02] MEDS: CHLORTHALIDONE 25 MG TAB PO SCH (07:35)
[2020-04-02] MEDS: ALLOPURINOL 300 MG TAB PO SCH (07:36)
[2020-04-02] MEDS: LISINOPRIL 20 MG TAB PO SCH (07:36)
[2020-04-02] MEDS: ATORVASTATIN 40 MG TAB PO SCH (07:36)
[2020-04-02] MEDS: ATENOLOL 25 MG TAB PO SCH ×2 (07:36→21:07)
[2020-04-02] MEDS: GABAPENTIN 100 MG CAP PO SCH ×3 (07:36→21:07)
[2020-04-02 12:02] VITALS: RESP 17
--- NOTE | 2020-04-02 14:14 | P.PN ---
Subjective Progress Note Date: 04/02/20 Cheryl Zamorano is a 59-year-old female who presented to [facility] emergency room with a chief complaint of severe intractable back pain she stated that she was having difficulty ambulating at home. She fell at home due to severe pain and feeling that her legs buckling underneath her, she was evaluated in the emergency room, she had evidence of urinary tract infection, and had evidence of degenerative disc disease, due to her inability to stand and walk despite several hours of treatment in the emergency room, decision was made to proceed with admitting her to the medical floor. Patient was started on IV Rocephin for management of urinary tract infection, she was started on IV pain management, MRI of the lumbar spine was ordered, and consultation for pain clinic was initiated. MRI of the lumbar spine was done on 03/31/2020 and revealed multiple disc bulges, and also revealed evidence of L4-L5 central disc herniation. On 04/01/2020 patient was seen and examined on the medical floor she is still having severe back pain and still complaining of difficulty was ambulating o therwise she denies any complaints there is no fever or chills no headache or dizziness no chest pain no shortness of breath no cough no nausea or vomiting no abdominal pain no diarrhea and no urinary symptoms On 04/02/2020 patient was seen and examined on the medical floor she is alert and oriented 3 in no apparent distress she is still complaining of low back pain and difficulty with ambulation otherwise she denies any complaints there is no fever or chills no headache or dizziness no chest pain no shortness of breath no cough no nausea or vomiting no abdominal pain no diarrhea and no urinary symptoms Objective - Vital Signs Vital signs: Vital Signs Temp 97.8 F 04/02/20 12:01 Pulse 49 L 04/02/20 12:01 Resp 17 04/02/20 12:01 BP 189/99 04/02/20 12:01 Pulse Ox 94 L 04/02/20 12:01 Intake & Output 04/01/20 04/02/20 04/02/20 18:59 06:59 18:59 Intake Total 290 240 Balance 290 240 Intake: Intake, IV Titration 50 Amount cefTRIAXone 1 gm In 50 Sodium Chloride 0.9% 50 ml @ 100 mls/hr IVPB Q24HR [facility] Rx#:[id number] Oral 240 240 Other: Voiding Method Toilet Toilet Toilet # Voids 3 2 3 - Exam In general patient is alert and oriented 3 in no apparent distress HEENT head normocephalic and atraumatic Neck is supple no JVD no goiter no lymphadenopathy Chest exam reveals a few scattered crackles no wheezing Cardiac exam reveals regular heart sounds no gallops no murmurs Abdomen is soft nontender no organomegaly Extremity exam reveals no edema no cyanosis or clubbing - Labs CBC & Chem 7: 04/01/20 05:26 04/01/20 05:26 Assessment and Plan Plan: #1 L4-L5 disc herniation #2 intractable back pain with gait disturbance #3 underlying history of hypertension #4 underlying history of hyperlipidemia. #5 underlying history of gout #6 evidence of urinary tract infection. Started on IV Rocephin #7 underlying history of restless leg syndrome At this time patient is admitted to medical floor she was started on IV pain management and oral muscle relaxers Consultation for neurosurgery and Anesthesia for pain management were initiated Input from neurosurgery reviewed, possible discharge to home tomorrow Will follow closely
[2020-04-02] MEDS: HYDROcodone/APAP 5-325MG 1 EACH TAB PO PRN (14:38)
[2020-04-02] MEDS: ENOXAPARIN 40 MG/0.4 ML SYRINGE SQ SCH (14:38)
[2020-04-02 21:10] VITALS: TEMP 97.9
[2020-04-03 04:40] VITALS: BP 174/99; PULSE 49
[2020-04-03 06:51] LABS: Basophils % (A) 1 %; Eosinophils # (A) 0.3 k/uL (0-0.7); Eosinophils % (A) 5 %; HGB 13.8 gm/dL (11.4-16.0); Lymphocytes % (A) 18 %; MCH 29.3 pg (25.0-35.0); MCHC 31.3 g/dL (31.0-37.0); MCV 93.7 fL (80.0-100.0); Mean Platelet Volume 8.9; Monocytes # (A) 0.2 k/uL (0-1.0); Monocytes % (A) 4 %; Neutrophils # (A) 4.1 k/uL (1.3-7.7); Neutrophils % (A) 70 %; Platelet Count 191 k/uL (150-450); RDW 13.6 % (11.5-15.5); WBC 5.8 k/uL (3.8-10.6)
[2020-04-03 07:16] LABS: Albumin 3.3 g/dL (3.5-5.0); Calcium 9.5 mg/dL (8.4-10.2); Potassium 4.9 mmol/L (3.5-5.1); Total Bilirubin 0.5 mg/dL (0.2-1.3); Total Protein 6.2 g/dL (6.3-8.2)
[2020-04-03] MEDS: CHLORTHALIDONE 25 MG TAB PO SCH (08:54)
[2020-04-03] MEDS: ENOXAPARIN 40 MG/0.4 ML SYRINGE SQ SCH (08:54)
[2020-04-03] MEDS: ATENOLOL 25 MG TAB PO SCH (08:55)
[2020-04-03] MEDS: GABAPENTIN 100 MG CAP PO SCH (08:55)
[2020-04-03] MEDS: ALLOPURINOL 300 MG TAB PO SCH (08:56)
[2020-04-03] MEDS: LISINOPRIL 20 MG TAB PO SCH (08:56)
--- NOTE | 2020-04-03 14:27 | P.DS ---
Providers Date of admission: 04/01/20 08:29 Expected date of discharge: 04/03/20 Attending physician: Brian Chanel Consults: 03/30/20 17:19 Consult Physician Routine Consulting Provider: Rosalind Freeman Consult Reason/Comments: intractable back pain Do you want consulting provider notified?: Yes 03/31/20 17:12 Consult Physician Routine Consulting Provider: Joe Louise Consult Reason/Comments: intractable back pain, L4-5 herniated disc Do you want consulting provider notified?: Yes Primary care physician: Brian Darío [facility] Course: Diagnosis on discharge: #1 L4-L5 disc herniation #2 intractable back pain with gait disturbance #3 underlying history of hypertension #4 underlying history of hyperlipidemia. #5 underlying history of gout #6 urinary tract infection. Started on IV Rocephin #7 underlying history of restless leg syndrome Hospital course: Cheryl Zamorano is a 59-year-old female who presented to [facility] emergency room with a chief complaint of severe intractable back pain she stated that she was having difficulty ambulating at home. She fell at home due to severe pain and feeling that her legs buckling underneath her, she was evaluated in the emergency room, she had evidence of urinary tract infection, and had evidence of degenerative disc disease, due to her inability to stand and walk despite several hours of treatment in the emergency room, decision was made to proceed with admitting her to the medical floor. Patient was started on IV Rocephin for management of urinary tract infection, she was started on IV pain management, MRI of the lumbar spine was ordered, and consultation for pain clinic was initiated. MRI of the lumbar spine was done on 03/31/2020 and revealed multiple disc bulges, and also revealed evidence of L4-L5 central disc herniation. On 04/01/2020 patient was seen and examined on the medical floor she is still having severe back pain and still complaining of difficulty was ambulating otherwise she denies any complaints there is no fever or chills no headache or dizziness no chest pain no shortness of breath no cough no nausea or vomiting no abdominal pain no diarrhea and no urinary symptoms On 04/02/2020 patient was seen and examined on the medical floor she is alert and oriented 3 in no apparent distress she is still complaining of low back pain and difficulty with ambulation otherwise she denies any complaints there is no fever or chills no headache or dizziness no chest pain no shortness of breath no cough no nausea or vomiting no abdominal pain no diarrhea and no urinary symptoms On 04/03/2020 patient was seen and examined on the medical floor she is still complaining of some back pain, however improved significantly since admission, she is able to ambulate, urinary tract infection is being treated with IV Rocephin, patient will be discharged home, she will be switched to oral Ceftin for 5 more days, she will also receive Wilmot when necessary for pain management, she will be followed in our office in 2-3 days for further evaluation and treatment Plan - Discharge Summary Discharge Rx Participant: Yes New Discharge Prescriptions: New Cefuroxime Axetil [Ceftin] 500 mg PO BID 5 Days #10 tab Gabapentin [Neurontin] 200 mg PO TID cap HYDROcodone/APAP 5-325MG [Wilmot 5-325] 1 each PO Q4HR PRN tab PRN Reason: Moderate Pain Continue Allopurinol [Zyloprim] 300 mg PO DAILY Albuterol Inhaler (Mhu) [Ventolin Hfa Inhaler (Mhu)] 2 puff INHALATION RT-Q6H PRN PRN Reason: Shortness Of Breath Nitroglycerin Sl Tabs [Nitrostat] 0.4 mg SUBLINGUAL Q5M PRN PRN Reason: Angina Atenolol [Tenormin] 25 mg PO BID Atorvastatin [Lipitor] 40 mg PO DAILY Baclofen [Lioresal] 10 mg PO HS PRN PRN Reason: Muscle Spasm rOPINIRole HCL [Requip] 0.5 mg PO HS PRN PRN Reason: restless legs clonazePAM [KlonoPIN] 0.5 mg PO HS PRN PRN Reason: Anxiety Chlorthalidone 50 mg PO DAILY Lisinopril 40 mg PO DAILY Discharge Medication List Allopurinol [Zyloprim] 300 mg PO DAILY 06/23/14 [History] Albuterol Inhaler (Mhu) [Ventolin Hfa Inhaler (Mhu)] 2 puff INHALATION RT-Q6H PRN 12/10/16 [History] Nitroglycerin Sl Tabs [Nitrostat] 0.4 mg SUBLINGUAL Q5M PRN 12/10/16 [History] Atenolol [Tenormin] 25 mg PO BID 02/03/18 [History] Atorvastatin [Lipitor] 40 mg PO DAILY 02/03/18 [History] Baclofen [Lioresal] 10 mg PO HS PRN 09/21/19 [History] rOPINIRole HCL [Requip] 0.5 mg PO HS PRN 09/21/19 [History] Chlorthalidone 50 mg PO DAILY 12/30/19 [History] clonazePAM [KlonoPIN] 0.5 mg PO HS PRN 12/30/19 [History] Lisinopril 40 mg PO DAILY 03/30/20 [History] Cefuroxime Axetil [Ceftin] 500 mg PO BID 5 Days #10 tab 04/03/20 [Rx] Gabapentin [Neurontin] 200 mg PO TID cap 04/03/20 [Rx] HYDROcodone/APAP 5-325MG [Wilmot 5-325] 1 each PO Q4HR PRN tab 04/03/20 [Rx] Follow up Appointment(s)/Referral(s): Paolo Stark PAC [PHYSICIAN [employer]] - 04/28/20 9:30 am () [facility], [NON-STAFF] - 1 Week Brian Chanel MD [Primary Care Provider] - 1-2 days (Office closed at time of discharge. Please call to schedule follow-up appt. ) Patient Instructions/Handouts: Cefuroxime (By mouth), Hydrocodone/Acetaminophen (By mouth), Gabapentin (By mouth), Chronic Back Pain (DC), Degenerative Disc Disease (GEN) Activity/Diet/Wound Care/Special Instructions: Activity as tolerated. Diet as tolerated.
--- NOTE | 2020-04-03 14:39 | CDI ---
Documentation Clarification Form Date: 04/03/2020 02:32:34 PM From: Julia Larsen RN, CCDS Admit Date: 04/01/2020 08:29:00 AM Patient Name: Cheryl Zamorano Visit Number: [id number] ATTENTION: The Clinical Documentation Specialists (CDI) and [facility] Coding Staff appreciate your assistance in clarifying documentation. Please respond to the clarification below the line at the bottom and electronically sign. The CDI & [facility] Coding staff will review the response and follow-up if needed. Please note: Queries are made part of the Legal Health Record. If you have any questions, please contact the author of this message via ITS. Dr. Brian Chanel All patients screened for Coronavirus require documentation of screening results in medical record. Patient history/risk factors: Asthma, Right breast cancer, HTN, Renal disease Clinical Indicators 03/30 Coronavirus (PCR) not detected 03/30/2020 0755 Vital Signs: Temp 98.1, HR 61, RR 20, B/P 188/113, Spo2 97% RA Treatment: 500 cc fluid bolus followed by 75 cc/hr Ceftriaxone 1gm IVPB q 24 hrs In order to capture the severity of condition, please clarify if the above treatment/clinical indicators signify: COVID-19 ruled out Other, please specify (Last Form Revision: January 2020) Patient had UTI documented in daily notes that is why she received Rocephin COVID 19 ruled out MTDD
--- NOTE | 2020-04-03 14:49 | CDI ---
Documentation Clarification Form Date: 04/03/2020 02:41:24 PM From: Julia Larsen RN, CCDS Admit Date: 04/01/2020 08:29:00 AM Patient Name: Cheryl Zamorano Visit Number: [id number] ATTENTION: The Clinical Documentation Specialists (CDI) and [facility] Coding Staff appreciate your assistance in clarifying documentation. Please respond to the clarification below the line at the bottom and electronically sign. The CDI & [facility] Coding staff will review the response and follow-up if needed. Please note: Queries are made part of the Legal Health Record. If you have any questions, please contact the author of this message via ITS. Dr. Brian Chanel Renal disease is documented in a patient with elevated BUN and Creatinine and requires greater specificity. History/Risk Factors: Renal disease, HTN 02/07/2019 Patients baseline BUN/CR/GFR: 17/1.37/42 Clinical Indicators: 03/30-/ Current BUN Cr: 1.45/1.4/1.35 GFR: 39/41/43 Treatment: 03/30 500 CC 0.9% NS IVF bolus In order to capture the severity of condition, please clarify if the condition signifies: Acute renal failure, Please specify etiology (if known): Cortical Necrosis Medullary Necrosis Tubular Necrosis Acute kidney injury Acute on chronic renal failure CKD Stage 1 GFR >90 CKD Stage 2 GFR 60-89 CKD Stage 3 GFR 30-59 CKD Stage 4 GFR 15-29 CKD Stage 5 GFR <15 Chronic renal failure/Chronic Kidney disease (CKD) please stage (if known): CKD Stage 1 GFR >90 CKD Stage 2 GFR 60-89 CKD Stage 3 GFR 30-59 CKD Stage 4 GFR 15-29 CKD Stage 5 GFR <15 ESRD Other, please specify Unable to determine (Last Revision: March 2018) unable to determine MTDD
== END 2020-04-03 17:31 | disposition home or self-care (01) | DRG 552 ==
LOC: EC 07:52 → 5NMEDONC 11:00 → OBSVTOIN 04-01 08:29
PROVIDERS: ADMIT Internal Medicine; ATTEND Internal Medicine
DX: M47.26 Other spondylosis with radiculopathy, lumbar region (principal); Z68.41 Body mass index [BMI] 40.0-44.9, adult; N39.0 Urinary tract infection, site not specified; M51.16 Intervertebral disc disorders with radiculopathy, lumbar region; J45.909 Unspecified asthma, uncomplicated; E78.5 Hyperlipidemia, unspecified; E66.9 Obesity, unspecified; M19.90 Unspecified osteoarthritis, unspecified site; F32.9 Major depressive disorder, single episode, unspecified; F41.9 Anxiety disorder, unspecified; M10.9 Gout, unspecified; M48.061 Spinal stenosis, lumbar region without neurogenic claudication; W19.XXXA Unspecified fall, initial encounter; G25.81 Restless legs syndrome; Z20.828 Contact with and (suspected) exposure to other viral communicable diseases; G89.29 Other chronic pain; I10 Essential (primary) hypertension; Z82.3 Family history of stroke; Z79.899 Other long term (current) drug therapy; Z85.3 Personal history of malignant neoplasm of breast; Z91.013 Allergy to seafood; Z91.09 Other allergy status, other than to drugs and biological substances; Z82.49 Family history of ischemic heart disease and other diseases of the circulatory system; Y92.009 Unspecified place in unspecified non-institutional (private) residence as the place of occurrence of the external cause; Z87.442 Personal history of urinary calculi; Z90.710 Acquired absence of both cervix and uterus; Z98.891 History of uterine scar from previous surgery; Z90.89 Acquired absence of other organs; Z98.890 Other specified postprocedural states
CPT/HCPCS: 36415; 72110; 72148; 74176; 80053; 81001; 82150; 83690; 85025; 87086; 87635; 96361; 96374; 96375; 96376; 99285

== ENCOUNTER 2020-06-08 07:06 | Emergency (ER) | payer OTHER ==
--- NOTE | 2020-06-08 07:39 | ED ---
Lower Extremity Injury HPI - General Chief Complaint: Extremity Injury, Lower Stated Complaint: Toe pain Time Seen by Provider: 06/08/20 07:20 Source: patient Mode of arrival: ambulatory Limitations: no limitations - History of Present Illness Initial Comments: Patient is a 59-year-old female presenting to the emergency Department with complaints of pain in her left great toe since this morning. Patient states yesterday she did hit it on a doorway and although it didn't hurt that bad at first it is now throbbing. She also found a spider near her toe this morning and will wanted to make sure it was not a spider bite. She denies any fever, chills, history of gout. She denies any previous injuries or surgeries to her left foot. She has no further complaints at this time. - Related Data Home Medications Medication Instructions Recorded Confirmed Allopurinol [Zyloprim] 300 mg PO DAILY 06/23/14 06/08/20 Nitroglycerin Sl Tabs [Nitrostat] 0.4 mg SUBLINGUAL Q5M PRN 12/10/16 06/08/20 Atenolol [Tenormin] 25 mg PO BID 02/03/18 06/08/20 Atorvastatin [Lipitor] 40 mg PO DAILY 02/03/18 06/08/20 Lisinopril 40 mg PO DAILY 03/30/20 06/08/20 Previous Rx's Medication Instructions Recorded Gabapentin [Neurontin] 200 mg PO TID cap 04/03/20 Allergies Allergy/AdvReac Type Severity Reaction Status Date / Time shellfish derived [Shellfish] Allergy Severe Anaphylaxis Verified 06/08/20 08:22 sea salt Allergy Severe Anaphylaxis Uncoded 06/08/20 07:20 seafood Allergy Severe Anaphylaxis Uncoded 06/08/20 07:20 Review of Systems ROS Statement: Those systems with pertinent positive or pertinent negative responses have been documented in the HPI. ROS Other: All systems not noted in ROS Statement are negative. Past Medical History Past Medical History: Asthma, Cancer, Chest Pain / Angina, Hyperlipidemia, Hypertension, Osteoarthritis (OA), Renal Disease, Respiratory Disorder Additional Past Medical History / Comment(s): kidney stones-only one kidney functions (pt unsure laterallity), R breast cancer with surgery, migraines, Restless Leg Syndrome, gout bilateral feet, chronic back pain History of Any Multi-Drug Resistant Organisms: None Reported Past Surgical History: Breast Surgery, Section, Heart Catheterization, Hysterectomy, Orthopedic Surgery, Tonsillectomy Additional Past Surgical History / Comment(s): R breast lumpectomy 2006? R foot bone spurs removed, total hysterectomy with bilateral oopherectomy, x2, Past Anesthesia/Blood Transfusion Reactions: Postoperative Nausea & Vomiting (PONV) Additional Past Anesthesia/Blood Transfusion Reaction / Comment(s): No blood transfusion to date Past Psychological History: Anxiety, Depression, No Psychological Hx Reported Smoking Status: Never smoker - Past Family History Father Family Medical History: CVA/TIA, Renal Disease Additional Family Medical History / Comment(s): Father had a CVA then went into kidney failure and . Mother Family Medical History: Hypertension General Exam - General Exam Comments Initial Comments: GENERAL: Well-appearing, well-nourished and in no acute distress. HEAD: Atraumatic, normocephalic. EYES: Pupils equal round and reactive to light, extraocular movements intact, sclera anicteric, conjunctiva are normal. ENT: TMs normal, nares patent, oropharynx clear without exudates. Moist mucous membr anes. NECK: Normal range of motion, supple without lymphadenopathy or JVD. LUNGS: Breath sounds clear to auscultation bilaterally and equal. No wheezes rales or rhonchi. HEART: Regular rate and rhythm without murmurs, rubs or gallops. ABDOMEN: Soft, nontender, normoactive bowel sounds. No guarding, no rebound. No masses appreciated. : Deferred EXTREMITIES: Patient has mild pain with palpation of the medial aspect of the left great toe, no apparent swelling or overlying erythema. She is neurovascularly intact. She does have pain with great toe range of motion. No clubbing or cyanosis. NEUROLOGICAL: Normal speech, normal gait. PSYCH: Normal mood, normal affect. SKIN: Warm, Dry, normal turgor, no rashes or lesions noted. Limitations: no limitations Course Vital Signs 06/08/20 06/08/20 06/08/20 07:19 07:20 08:20 Temperature 98.3 F Pulse Rate 63 Respiratory 18 18 18 Rate Blood Pressure 199/117 O2 Sat by Pulse 100 Oximetry Medical Decision Making - Medical Decision Making Patient is a 59-year-old female here for left great toe pain since this morning after stubbing her toe yesterday. X-rays reveal no acute fractures dislocations. I discussed with patient this is most likely a strain of the ligaments or some irritation of the bone spur. Patient can do ice, ibuprofen for discomfort. She is stable for discharge. She'll follow with her PCP as symptoms persist. Patient is in agreement with this plan of care. Case discussed with Dr. Lay. Disposition Clinical Impression: Pain of left great toe Disposition: HOME SELF-CARE Condition: Stable Instructions (If sedation given, give patient instructions): Arthralgia (ED) Additional Instructions: Please return to the Emergency Department if symptoms worsen or any other concerns. Use ice to the area as well as ibuprofen for discomfort. Follow-up with PCP if symptoms persist. Is patient prescribed a controlled substance at d/c from ED?: No Referrals: Brian Chanel MD [Primary Care Provider] - 1-2 days
--- NOTE | 2020-06-08 08:50 | XR ---
EXAMINATION TYPE: XR foot complete LT DATE OF EXAM: 06/08/2020 COMPARISON: NONE HISTORY: 59-year-old female great toe pain TECHNIQUE: 3 views FINDINGS: Mild marginal spurring at the first MTP joint. There seems to be some dorsal soft tissue swelling whi ch may in part relate to patient body habitus. No acute fracture, subluxation, dislocation. Small pos terior and plantar calcaneal spurs. IMPRESSION: Dorsal soft tissue swelling which may in part relate to patient body habitus. Mild degenerative spurr ing at the first MTP joint. No acute osseous abnormality seen.
[2020-06-09 09:54] VITALS: BP 202/111; PULSE 62; RESP 18; TEMP 98.4
== END 2020-06-08 09:13 | disposition home or self-care (01) ==
LOC: EC 07:06
DX: M79.675 Pain in left toe(s) (principal); M10.9 Gout, unspecified; E78.5 Hyperlipidemia, unspecified; I10 Essential (primary) hypertension; I25.2 Old myocardial infarction; Z79.899 Other long term (current) drug therapy; Z91.013 Allergy to seafood; Z91.018 Allergy to other foods; Z85.3 Personal history of malignant neoplasm of breast; Z95.5 Presence of coronary angioplasty implant and graft; Z90.11 Acquired absence of right breast and nipple
CPT/HCPCS: 99283

== ENCOUNTER 2020-06-22 11:06 | Inpatient (IN) | payer OTHER ==
[2020-06-22] MEDS ORDERED: ONDANSETRON 4 MG/2 ML VIAL IVP STA (11:58)
[2020-06-22] MEDS ORDERED: SODIUM CHLORIDE 0.9% 1,000 ML IV STA (11:58)
[2020-06-22] MEDS ORDERED: PANTOPRAZOLE 40 MG/10 ML VIAL IVP STA (11:58)
[2020-06-22 12:18] LABS: Basophils # (A) 0.1 k/uL (0-0.2); Basophils % (A) 1 %; Eosinophils # (A) 0.4 k/uL (0-0.7); Eosinophils % (A) 5 %; HCT 42.7 % (34.0-46.0); HGB 13.6 gm/dL (11.4-16.0); Lymphocytes # (A) 1.1 k/uL (1.0-4.8); Lymphocytes % (A) 17 %; MCH 29.7 pg (25.0-35.0); MCHC 31.9 g/dL (31.0-37.0); MCV 93.3 fL (80.0-100.0); Mean Platelet Volume 8.9; Monocytes # (A) 0.4 k/uL (0-1.0); Monocytes % (A) 6 %; Neutrophils # (A) 4.6 k/uL (1.3-7.7); Neutrophils % (A) 69 %; Platelet Count 214 k/uL (150-450); RBC 4.58 m/uL (3.80-5.40); RDW 14.2 % (11.5-15.5); WBC 6.7 k/uL (3.8-10.6)
[2020-06-22 12:28] LABS: INR 0.9 (<1.2); Partial Thromboplastin Time 22.6 sec (22.0-30.0); Prothrombin Time 9.4 sec (9.0-12.0)
[2020-06-22 12:31] LABS: Albumin 3.6 g/dL (3.5-5.0); Calcium 9.5 mg/dL (8.4-10.2); Potassium 4.3 mmol/L (3.5-5.1); Total Bilirubin 0.6 mg/dL (0.2-1.3); Total Protein 6.2 g/dL (6.3-8.2)
--- NOTE | 2020-06-22 12:57 | XR ---
EXAMINATION TYPE: XR chest 2V DATE OF EXAM: 06/22/2020 COMPARISON: Chest x-ray February 07, 2019. CTA chest February 03, 2018. HISTORY: Chest pain. TECHNIQUE: Frontal and lateral views of the chest are obtained. FINDINGS: Low lung volumes redemonstrated. Overlying EKG leads are seen. There is some chronic parenc hymal change without suspicious new focal air space opacity, pleural effusion, or pneumothorax seen. The cardiac silhouette size is stable and mildly enlarged. The osseous structures are intact. Chol ecystectomy clips are redemonstrated. IMPRESSION: Mild cardiomegaly and chronic changes without acute pulmonary process.
--- NOTE | 2020-06-22 13:00 | XR ---
EXAMINATION TYPE: XR KUB DATE OF EXAM: 06/22/2020 12:44 PM CLINICAL HISTORY: Abdominal pain. Pain and diarrhea for 4 days. TECHNIQUE: Upright KUB image of the abdomen and pelvis were obtained COMPARISON: None. FINDINGS: Scattered gas is seen in non-distended small bowel loops. Gas and fecal material is seen in non-distended colon. There is no visceromegaly. The left lung base is clear. The right lung base is not visualized. Right upper quadrant surgical clips. Surgical clips overlying the right breast soft t issue. The osseous structures are intact. IMPRESSION: Nonobstructive bowel gas pattern.
[2020-06-22 13:14] LABS: Appearance,Urine Clear (Clear); Bacteria,Urine Moderate /hpf; Bilirubin,Urine Negative (Negative); Blood,Urine Negative (Negative); Color,Urine Light Yellow; Glucose,Urine (UA) Negative (Negative); Hyaline Casts,Urine 7 /lpf (0-2); Ketones,Urine Negative (Negative); Leukocyte Esterase,Urine Small (Negative); Mucus,Urine Rare /hpf; Nitrite,Urine Negative (Negative); Protein,Urine Trace (Negative); RBC,Urine 1 /hpf (0-5); Specific Gravity,Urine 1.013 (1.001-1.035); Squamous Epithelial Cell,Urine 9 /hpf (0-4); Urobilinogen,Urine <2.0 mg/dL (<2.0); WBC,Urine 1 /hpf (0-5)
--- NOTE | 2020-06-22 13:28 | ED ---
Abdominal Pain HPI - General Chief Complaint: Abdominal Pain Stated Complaint: abd pain Time Seen by Provider: 06/22/20 11:37 Source: patient, RN notes reviewed, old records reviewed Mode of arrival: ambulatory Limitations: no limitations - History of Present Illness Initial Comments: This is a 59-year-old female presents emergency arm today with 3 days of nausea so diarrhea for the past 4 days. Patient's diarrhea subsided after taking that up as well. Denies fevers or chills. She is also been short of breath and generally more fatigued. She denies any localized chest pain. She reports that she was started on blood pressure medications and since that time to be more fatigued. Patient denies any changes of urination or bloody stools. - Related Data Home Medications Medication Instructions Recorded Confirmed allopurinoL [Zyloprim] 300 mg PO DAILY 06/23/14 06/22/20 Nitroglycerin Sl Tabs [Nitrostat] 0.4 mg SUBLINGUAL Q5M PRN 12/10/16 06/22/20 Atorvastatin [Lipitor] 40 mg PO DAILY 02/03/18 06/22/20 atenoloL [Tenormin] 25 mg PO BID 02/03/18 06/22/20 lisinopriL 40 mg PO DAILY 03/30/20 06/22/20 Previous Rx's Medication Instructions Recorded Gabapentin [Neurontin] 200 mg PO TID cap 04/03/20 Allergies Allergy/AdvReac Type Severity Reaction Status Date / Time shellfish derived [Shellfish] Allergy Severe Anaphylaxis Verified 06/22/20 14:00 sea salt Allergy Severe Anaphylaxis Uncoded 06/22/20 14:00 seafood Allergy Severe Anaphylaxis Uncoded 06/22/20 14:00 Review of Systems ROS Statement: Those systems with pertinent positive or pertinent negative responses have been documented in the HPI. ROS Other: All systems not noted in ROS Statement are negative. Past Medical History Past Medical History: Asthma, Cancer, Chest Pain / Angina, Hyperlipidemia, Hypertension, Osteoarthritis (OA), Renal Disease, Respiratory Disorder Additional Past Medical History / Comment(s): kidney stones-only one kidney functions (pt unsure laterallity), R breast cancer with surgery, migraines, Restless Leg Syndrome, gout bilateral feet, chronic back pain History of Any Multi-Drug Resistant Organisms: None Reported Past Surgical History: Breast Surgery, Section, Heart Catheterization, Hysterectomy, Orthopedic Surgery, Tonsillectomy Additional Past Surgical History / Comment(s): R breast lumpectomy 2006? R foot bone spurs removed, total hysterectomy with bilateral oopherectomy, x2, Past Anesthesia/Blood Transfusion Reactions: Postoperative Nausea & Vomiting (PONV) Additional Past Anesthesia/Blood Transfusion Reaction / Comment(s): No blood transfusion to date Past Psychological History: Anxiety, Depression Smoking Status: Never smoker Past Alcohol Use History: None Reported Past Drug Use History: None Reported - Past Family History Father Family Medical History: CVA/TIA, Renal Disease Additional Family Medical History / Comment(s): Father had a CVA then went into kidney failure and . Mother Family Medical History: Hypertension General Exam - General Exam Comments Initial Comments: 5-year-old female. Alert and oriented no significant distress. Patient is on be bradycardic heart rate of 40 bpm. Limitations: no limitations General appearance: alert, in no apparent distress Head exam: Present: atraumatic, normocephalic, normal inspection Eye exam: Present: normal appearance, PERRL, EOMI. Absent: scleral icterus, conjunctival injection, periorbital swelling ENT exam: Present: normal exam, mucous membranes moist Neck exam: Present: normal inspection. Absent: tenderness, meningismus, lympha denopathy Respiratory exam: Present: normal lung sounds bilaterally. Absent: respiratory distress, wheezes, rales, rhonchi, stridor Cardiovascular Exam: Present: normal rhythm, bradycardia, normal heart sounds. Absent: regular rate, systolic murmur, diastolic murmur, rubs, gallop, clicks GI/Abdominal exam: Present: soft, normal bowel sounds. Absent: distended, tenderness, guarding, rebound, rigid Extremities exam: Present: normal inspection, full ROM, normal capillary refill. Absent: tenderness, pedal edema, joint swelling, calf tenderness Back exam: Present: normal inspection Psychiatric exam: Present: normal affect, normal mood Skin exam: Present: warm, dry, intact, normal color. Absent: rash Course Vital Signs 06/22/20 06/22/20 06/22/20 11:22 12:28 13:00 Temperature 98.1 F Pulse Rate 43 L 41 L Respiratory 18 18 18 Rate Blood Pressure 145/92 154/109 O2 Sat by Pulse 94 L 95 95 Oximetry 06/22/20 14:00 Temperature Pulse Rate 45 L Respiratory 18 Rate Blood Pressure 158/95 O2 Sat by Pulse 95 Oximetry Medical Decision Making - Medical Decision Making 59-year-old male presents emergency Department today with complaints of nausea vomiting the past 4 days and also some episodes of diarrhea. She reports the diarrhea somewhat subsiding. Patient arrived she also mentioned she's been short of breath more fatigued. She is slightly bradycardic heart rate of 40 bpm. Denies any localized chest pain. Patient labs reviewed relatively unremarkable. EKG continued to show bradycardia. Troponin is negative. Discusses could likely be attributed to her atenolol. Discussed Case with Dr. Tarango. Discussed case with patient's primary care physician Dr. Chanel, whom request consult from cardiology. - Lab Data Result diagrams: 06/22/20 12:04 06/22/20 12:04 Lab Results 06/22/20 06/22/20 06/22/20 Range/Units 12:04 12:04 12:04 WBC 6.7 (3.8-10.6) k/uL RBC 4.58 (3.80-5.40) m/uL Hgb 13.6 (11.4-16.0) gm/dL Hct 42.7 (34.0-46.0) % MCV 93.3 (80.0-100.0) fL MCH 29.7 (25.0-35.0) pg MCHC 31.9 (31.0-37.0) g/dL RDW 14.2 (11.5-15.5) % Plt Count 214 (150-450) k/uL Neutrophils % 69 % Lymphocytes % 17 % Monocytes % 6 % Eosinophils % 5 % Basophils % 1 % Neutrophils # 4.6 (1.3-7.7) k/uL Lymphocytes # 1.1 (1.0-4.8) k/uL Monocytes # 0.4 (0-1.0) k/uL Eosinophils # 0.4 (0-0.7) k/uL Basophils # 0.1 (0-0.2) k/uL PT 9.4 (9.0-12.0) sec INR 0.9 (<1.2) APTT 22.6 (22.0-30.0) sec Sodium 137 (137-145) mmol/L Potassium 4.3 (3.5-5.1) mmol/L Chloride 105 (98-107) mmol/L Carbon Dioxide 25 (22-30) mmol/L Anion Gap 7 mmol/L BUN 35 H (7-17) mg/dL Creatinine 1.42 H (0.52-1.04) mg/dL Est GFR (CKD-EPI)AfAm 47 (>60 ml/min/1.73 sqM) Est GFR (CKD-EPI)NonAf 40 (>60 ml/min/1.73 sqM) Glucose 93 (74-99) mg/dL Calcium 9.5 (8.4-10.2) mg/dL Total Bilirubin 0.6 (0.2-1.3) mg/dL AST 34 (14-36) U/L ALT 32 (4-34) U/L Alkaline Phosphatase 100 (38-126) U/L Troponin I (0.000-0.034) ng/mL NT-Pro-B Natriuret Pep pg/mL Total Protein 6.2 L (6.3-8.2) g/dL Albumin 3.6 (3.5-5.0) g/dL Amylase 62 (30-110) U/L Lipase 92 (23-300) U/L Urine Color Urine Appearance (Clear) Urine pH (5.0-8.0) Ur Specific [place] (1.001-1.035) Urine Protein (Negative) Urine Glucose (UA) (Negative) Urine Ketones (Negative) Urine Blood (Negative) Urine Nitrite (Negative) Urine Bilirubin (Negative) Urine Urobilinogen (<2.0) mg/dL Ur Leukocyte Esterase (Negative) Urine RBC (0-5) /hpf Urine WBC (0-5) /hpf Ur Squamous Epith Cells (0-4) /hpf Urine Bacteria (None) /hpf Hyaline Casts (0-2) /lpf Urine Mucus (None) /hpf 06/22/20 06/22/20 06/22/20 Range/Units 12:13 12:13 12:23 WBC (3.8-10.6) k/uL RBC (3.80-5.40) m/uL Hgb (11.4-16.0) gm/dL Hct (34.0-46.0) % MCV (80.0-100.0) fL MCH (25.0-35.0) pg MCHC (31.0-37.0) g/dL RDW (11.5-15.5) % Plt Count (150-450) k/uL Neutrophils % % Lymphocytes % % Monocytes % % Eosinophils % % Basophils % % Neutrophils # (1.3-7.7) k/uL Lymphocytes # (1.0-4.8) k/uL Monocytes # (0-1.0) k/uL Eosinophils # (0-0.7) k/uL Basophils # (0-0.2) k/uL PT (9.0-12.0) sec INR (<1.2) APTT (22.0-30.0) sec Sodium (137-145) mmol/L Potassium (3.5-5.1) mmol/L Chloride (98-107) mmol/L Carbon Dioxide (22-30) mmol/L Anion Gap mmol/L BUN (7-17) mg/dL Creatinine (0.52-1.04) mg/dL Est GFR (CKD-EPI)AfAm (>60 ml/min/1.73 sqM) Est GFR (CKD-EPI)NonAf (>60 ml/min/1.73 sqM) Glucose (74-99) mg/dL Calcium (8.4-10.2) mg/dL Total Bilirubin (0.2-1.3) mg/dL AST (14-36) U/L ALT (4-34) U/L Alkaline Phosphatase (38-126) U/L Troponin I <0.012 (0.000-0.034) ng/mL NT-Pro-B Natriuret Pep 279 pg/mL Total Protein (6.3-8.2) g/dL Albumin (3.5-5.0) g/dL Amylase (30-110) U/L Lipase (23-300) U/L Urine Color Light Yellow Urine Appearance Clear (Clear) Urine pH 6.0 (5.0-8.0) Ur Specific [place] 1.013 (1.001-1.035) Urine Protein Trace H (Negative) Urine Glucose (UA) Negative (Negative) Urine Ketones Negative (Negative) Urine Blood Negative (Negative) Urine Nitrite Negative (Negative) Urine Bilirubin Negative (Negative) Urine Urobilinogen <2.0 (<2.0) mg/dL Ur Leukocyte Esterase Small H (Negative) Urine RBC 1 (0-5) /hpf Urine WBC 1 (0-5) /hpf Ur Squamous Epith Cells 9 H (0-4) /hpf Urine Bacteria Moderate H (None) /hpf Hyaline Casts 7 H (0-2) /lpf Urine Mucus Rare H (None) /hpf - Radiology Data Radiology results: report reviewed Nonobstructive bowel gas pattern on KUB. Chest x-ray shows mild cardiomegaly, chronic changes without acute pulmonary process. Disposition Clinical Impression: Bradycardia, Diarrhea Disposition: ADMITTED IP TO THIS HOSP Condition: Good Is patient prescribed a controlled substance at d/c from ED?: No Referrals: Brian Chanel MD [Primary Care Provider] - 1-2 days Time of Disposition: 14:59
[2020-06-22] MEDS ORDERED: ACETAMINOPHEN TAB 325 MG TAB PO PRN (15:01)
[2020-06-22] MEDS ORDERED: NALOXONE 0.4 MG/ML 1 ML VIAL IV PRN (15:01)
[2020-06-22] MEDS ORDERED: IBUPROFEN 400 MG TAB PO PRN (15:01)
[2020-06-22] MEDS ORDERED: NITROGLYCERIN SL TABS 0.4 MG TAB SUBLINGUAL PRN (15:03)
[2020-06-22] MEDS: SODIUM CHLORIDE 0.9% 1,000 ML IV SCH (16:04)
[2020-06-22] MEDS: GABAPENTIN 100 MG CAP PO SCH ×2 (18:08→22:59)
[2020-06-22] MEDS ORDERED: atenoloL 25 MG TAB PO SCH (21:00)
[2020-06-22] MEDS: KETOROLAC 30 MG/ML 1 ML VIAL IVP PRN (22:59)
[2020-06-23] MEDS: KETOROLAC 30 MG/ML 1 ML VIAL IVP PRN (05:32)
[2020-06-23] MEDS: ATORVASTATIN 40 MG TAB PO SCH (08:56)
[2020-06-23] MEDS: allopurinoL 300 MG TAB PO SCH (08:56)
[2020-06-23] MEDS: GABAPENTIN 100 MG CAP PO SCH ×3 (08:56→21:27)
[2020-06-23 11:22] LABS: Basophils # (A) 0.1 k/uL (0-0.2); Basophils % (A) 1 %; Eosinophils # (A) 0.3 k/uL (0-0.7); Eosinophils % (A) 5 %; HCT 43.2 % (34.0-46.0); HGB 13.7 gm/dL (11.4-16.0); Lymphocytes % (A) 15 %; MCH 29.9 pg (25.0-35.0); MCHC 31.6 g/dL (31.0-37.0); MCV 94.7 fL (80.0-100.0); Mean Platelet Volume 9.1; Monocytes # (A) 0.3 k/uL (0-1.0); Monocytes % (A) 5 %; Neutrophils # (A) 4.8 k/uL (1.3-7.7); Neutrophils % (A) 72 %; Platelet Count 208 k/uL (150-450); RBC 4.57 m/uL (3.80-5.40); RDW 14.2 % (11.5-15.5); WBC 6.6 k/uL (3.8-10.6)
[2020-06-23] MEDS: lisinopriL 20 MG TAB PO SCH (11:23)
[2020-06-23 11:44] LABS: Albumin 3.4 g/dL (3.5-5.0); Calcium 9.3 mg/dL (8.4-10.2); Potassium 4.7 mmol/L (3.5-5.1); Total Bilirubin 0.7 mg/dL (0.2-1.3)
[2020-06-23] MEDS ORDERED: SODIUM CHLORIDE 0.9% 1,000 ML IV STA (13:15)
[2020-06-23] MEDS ORDERED: LACTULOSE 20 GM/30 ML CUP PO ONE (13:15)
--- NOTE | 2020-06-23 13:21 | P.HPIM ---
History of Present Illness H&P Date: 06/23/20 Chief Complaint: Abdominal pain Cheryl Zamorano, he is a 59-year-old female who presented to [facility] emergency room with a chief complaint of abdominal pain, she was evaluated in the emergency room labs including amylase and lipase were within normal limits, patient was noticed to have significant bradycardia with a heart rate of 40 she was admitted to telemetry floor cardiology consultation was requested in that regard. Abdomen ultrasound was ordered to assess cause of her abdominal pain. On review of system patient denies any fever or chills no headache or dizziness no chest pain no shortness of breath no cough no nausea or vomiting she has moderate to severe abdominal pain in all 4 quadrants mostly in the periumbilical area, no diarrhea she had constipation for 2 days, no blood in the stools no burning with urination no frequency or urgency and no hematuria Past Medical History Past Medical History: Asthma, Cancer, Chest Pain / Angina, Hyperlipidemia, Hypertension, Osteoarthritis (OA), Renal Disease, Respiratory Disorder Additional Past Medical History / Comment(s): kidney stones-only one kidney functions (pt unsure laterallity), R breast cancer with surgery, migraines, Restless Leg Syndrome, gout bilateral feet, chronic back pain History of Any Multi-Drug Resistant Organisms: None Reported Past Surgical History: Breast Surgery, Section, Heart Catheterization, Hysterectomy, Orthopedic Surgery, Tonsillectomy Additional Past Surgical History / Comment(s): R breast lumpectomy 2005? R foot bone spurs removed, total hysterectomy with bilateral oopherectomy, x2, Past Anesthesia/Blood Transfusion Reactions: Postoperative Nausea & Vomiting (PONV) Additional Past Anesthesia/Blood Transfusion Reaction / Comment(s): No blood transfusion to date Past Psychological History: Anxiety, Depression Additional Psychological History / Comment(s): PT resides with son and daughter. Pt uses no devices. She drives. She has a nebulizer. Smoking Status: Never smoker Past Alcohol Use History: None Reported Past Drug Use History: None Reported - Past Family History Father Family Medical History: CVA/TIA, Renal Disease Additional Family Medical History / Comment(s): Father had a CVA then went into kidney failure and . Mother Family Medical History: Hypertension Medications and Allergies Home Medications Medication Instructions Recorded Confirmed Type allopurinoL [Zyloprim] 300 mg PO DAILY 06/23/14 06/22/20 History Nitroglycerin Sl Tabs [Nitrostat] 0.4 mg SUBLINGUAL Q5M PRN 12/10/16 06/22/20 History Atorvastatin [Lipitor] 40 mg PO DAILY 02/03/18 06/22/20 History atenoloL [Tenormin] 25 mg PO BID 02/03/18 06/22/20 History lisinopriL 40 mg PO DAILY 03/30/20 06/22/20 History Gabapentin [Neurontin] 200 mg PO TID cap 04/03/20 06/22/20 Rx Allergies Allergy/AdvReac Type Severity Reaction Status Date / Time shellfish derived [Shellfish] Allergy Severe Anaphylaxis Verified 06/22/20 14:00 sea salt Allergy Severe Anaphylaxis Uncoded 06/22/20 14:00 seafood Allergy Severe Anaphylaxis Uncoded 06/22/20 14:00 Physical Exam Vitals: Vital Signs Temp Pulse Pulse Resp BP BP Pulse Ox 06/23/20 08:00 98.2 F 48 L 17 125/71 94 L 06/23/20 04:00 97.8 F 45 L 18 108/61 96 06/22/20 23:40 97.9 F 42 L 18 177/82 96 06/22/20 20:00 97.3 F L 43 L 17 139/65 93 L 06/22/20 17:42 41 L 20 172/93 97 06/22/20 17:21 45 L 18 141/89 95 06/22/20 17:00 45 L 18 141/89 95 06/22/20 16:00 45 L 41 L 18 95 06/22/20 15:00 18 95 06/22/20 14:00 45 L 18 158/95 95 Intake and Output 06/22/20 06/23/20 06/23/20 22:59 06:59 14:59 Intake Total 240 Balance 240 Intake: Oral 240 Other: # Voids 0 1 Weight 85.729 kg 102.9 kg In general patient is alert and oriented 3 in no distress HEENT head normocephalic and atraumatic Neck is supple no JVD no goiter no lymphadenopathy Chest exam reveals a few scattered rhonchi no wheezing Cardiac exam reveals regular heart sounds S1 and S2 no gallops no murmurs Abdomen is soft with mild diffuse tenderness no rigidity no rebound no palpable masses normal bowel sounds no organomegaly Extremity exam reveals minimal edema no cyanosis or clubbing Neurological examination reveals no gross deficit Results CBC & Chem 7: 06/23/20 11:07 06/23/20 11:07 Labs: Abnormal Lab Results - Last 24 Hours (Table) 06/23/20 Range/Units 11:07 Sodium 136 L (137-145) mmol/L BUN 34 H (7-17) mg/dL Creatinine 1.91 H (0.52-1.04) mg/dL Total Protein 6.0 L (6.3-8.2) g/dL Albumin 3.4 L (3.5-5.0) g/dL Thrombosis Risk Factor Assmnt - Choose All That Apply Each Factor Represents 1 point: Age 41-60 years, Obesity (BMI >25) Each Risk Factor Represents 2 Points: Patient confined to bed Other congenital or acquired thrombophilia - If yes, enter type in comment: No Thrombosis Risk Factor Assessment Total Risk Factor Score: 4 Thrombosis Risk Factor Assessment Level: Moderate Risk Assessment and Plan Plan: 1. Abdominal pain cause is unclear, will check abdomen ultrasound 2. Evidence of dehydration with acute renal failure due to prerenal azotemia Will start on normal saline at 80 mL an hour and monitor closely 3. Bradycardia heart rate of 40 patient was maintained on atenolol 25 mg once daily this was discontinued on presentation consultation for cardiology was requested 4. Underlying history of coronary artery disease 5. Underlying history of hypertension 6. Underlying history of hyperlipidemia At this time continue with current management with IV fluid awaiting gastroenterology and cardiology input awaiting ultrasound of the abdomen would follow closely
--- NOTE | 2020-06-23 14:29 | US ---
EXAMINATION TYPE: US abdomen complete DATE OF EXAM: 06/23/2020 COMPARISON: CT & US CLINICAL HISTORY: abdominal pain. generalized abdominal pain EXAM MEASUREMENTS: Liver Length: 11.9 cm Gallbladder Wall: Surgically absent CBD: 0.6 cm Spleen: 12.1 cm Right Kidney: not identified Left Kidney: 12.3 x 5.7 x 5.9 cm Technically difficult study due to extensive midline bowel gas and body habitus. Pancreas: Obscured by bowel gas Liver: Increased in echo pattern Gallbladder: Surgically absent CBD: wnl Spleen: wnl Right Kidney: not seen, atrophied per CT report Left Kidney: moderate hydro noted Upper IVC: wnl Abd Aorta: not well visualized due to bowel gas IMPRESSION: 1. Moderate left hydronephrosis. Right kidney not visualized. Previous CT scan suggested marked atrop hy of the right kidney. 2. Liver is somewhat increased in echo pattern which is a nonspecific finding could be seen with hepa tic steatosis. Correlate clinically to exclude hepatitis.
[2020-06-23] MEDS: SODIUM CHLORIDE 0.9% 1,000 ML IV SCH (15:13)
--- NOTE | 2020-06-23 15:26 | P.CRDCN ---
History of Present Illness History of present illness: This is Kecia Phillips PA-C dictating a consult on this patient The patient was interviewed and examined by me as well as by Dr. Glover Case discussed with Dr. Glover and he agrees with the plan of care HPI Patient is a 59-year-old female with a history of hypertension who presented with complaints of abdominal pain. She does not follow with a correspondence coordinator. She states that for the last 4 days she has been having left lower quadrant abdominal pain. Yesterday she had some diarrhea. Denies nausea or vomiting. She states she was recently started on antihypertensive medications and states that after that she has been feeling weak. Denies dizziness or syncope. She has also had some intermittent shortness of breath. She describes this as she" can't get enough air and feels like she is suffocating" and she put the fan on her self and the symptoms resolved. Denies any chest pain. Upon arrival to the emergency department she was noted to be bradycardic in the 40s. EKG shows sinus bradycardia. Nonspecific T-wave changes laterally. Potassium was normal. Her atenolol has been held and her heart rates remain in the high 40s to 50s. Patient seen and examined resting in bed. States she is still having left lower quadrant abdominal pain. No further diarrhea. Still fatigued and tired. No dizziness or syncope. ROS: No fevers, chills or rigors, no cough, phlegm or expectoration, Positive for diarrhea no hematuria, dysuria, no musculoskeletal complaints, no strokes or seizures, no skin lesions. EXAMINATION: Patient is afebrile, pulse in the high 40s, respirations 12, blood pressure 93/54, oxygen saturation 92% on room air Patient seen and examined resting in bed in no acute distress Lungs are clear to auscultation bilaterally Heart is regular, no audible murmurs Mild tenderness to palpation in the left lower quadrant No lower extremity edema REVIEW OF LABS, ECG & MEDICAL DATA WBC 6.6, hemoglobin 13.7, platelets 208, potassium 4.7, BUN 34, creatinine 1.91 IMPRESSION / ASSESSMENT: #1 symptomatic sinus bradycardia, possibly vagally mediated and exacerbated by beta blockers, patient was on atenolol 25 mg twice a day which is currently be ing held, last dose was yesterday #2 symptoms of abdominal pain and diarrhea #3 hypertension, blood pressure controlled on lisinopril #4 acute kidney injury #5 intermittent shortness of breath #6 dyslipidemia PLAN: Continue holding atenolol and continue to monitor heart rates Check TSH Obtain 2-D echocardiogram and Doppler studies to assess cardiac structure and function Management of diarrhea and abdominal pain per primary care team Past Medical History Past Medical History: Asthma, Cancer, Chest Pain / Angina, Hyperlipidemia, Hypertension, Osteoarthritis (OA), Renal Disease, Respiratory Disorder Additional Past Medical History / Comment(s): kidney stones-only one kidney functions (pt unsure laterallity), R breast cancer with surgery, migraines, Restless Leg Syndrome, gout bilateral feet, chronic back pain History of Any Multi-Drug Resistant Organisms: None Reported Past Surgical History: Breast Surgery, Section, Heart Catheterization, Hysterectomy, Orthopedic Surgery, Tonsillectomy Additional Past Surgical History / Comment(s): R breast lumpectomy 2005? R foot bone spurs removed, total hysterectomy with bilateral oopherectomy, x2, Past Anesthesia/Blood Transfusion Reactions: Postoperative Nausea & Vomiting (PONV) Additional Past Anesthesia/Blood Transfusion Reaction / Comment(s): No blood transfusion to date Past Psychological History: Anxiety, Depression Additional Psychological History / Comment(s): PT resides with son and daughter. Pt uses no devices. She drives. She has a nebulizer. Smoking Status: Never smoker Past Alcohol Use History: None Reported Past Drug Use History: None Reported - Past Family History Father Family Medical History: CVA/TIA, Renal Disease Additional Family Medical History / Comment(s): Father had a CVA then went into kidney failure and . Mother Family Medical History: Hypertension Medications and Allergies Home Medications Medication Instructions Recorded Confirmed Type allopurinoL [Zyloprim] 300 mg PO DAILY 06/23/14 06/22/20 History Nitroglycerin Sl Tabs [Nitrostat] 0.4 mg SUBLINGUAL Q5M PRN 12/10/16 06/22/20 History Atorvastatin [Lipitor] 40 mg PO DAILY 02/03/18 06/22/20 History atenoloL [Tenormin] 25 mg PO BID 02/03/18 06/22/20 History lisinopriL 40 mg PO DAILY 03/30/20 06/22/20 History Gabapentin [Neurontin] 200 mg PO TID cap 04/03/20 06/22/20 Rx Allergies Allergy/AdvReac Type Severity Reaction Status Date / Time shellfish derived [Shellfish] Allergy Severe Anaphylaxis Verified 06/22/20 14:00 sea salt Allergy Severe Anaphylaxis Uncoded 06/22/20 14:00 seafood Allergy Severe Anaphylaxis Uncoded 06/22/20 14:00 Physical Exam Vitals: Vital Signs Temp Pulse Pulse Resp BP BP Pulse Ox 06/23/20 12:00 47 L 12 93/54 92 L 06/23/20 08:00 98.2 F 48 L 17 125/71 94 L 06/23/20 04:00 97.8 F 45 L 18 108/61 96 06/22/20 23:40 97.9 F 42 L 18 177/82 96 06/22/20 20:00 97.3 F L 43 L 17 139/65 93 L 06/22/20 17:42 41 L 20 172/93 97 06/22/20 17:21 45 L 18 141/89 95 06/22/20 17:00 45 L 18 141/89 95 06/22/20 16:00 45 L 41 L 18 95 Intake and Output 06/23/20 06/23/20 06/23/20 06:59 14:59 22:59 Intake Total 480 Balance 480 Intake: Oral 480 Other: # Voids 1 Weight 102.9 kg Results 06/23/20 11:07 06/23/20 11:07 Cardiac Enzymes 06/23/20 Range/Units 11:07 AST 25 (14-36) U/L CBC 06/23/20 Range/Units 11:07 WBC 6.6 (3.8-10.6) k/uL RBC 4.57 (3.80-5.40) m/uL Hgb 13.7 (11.4-16.0) gm/dL Hct 43.2 (34.0-46.0) % Plt Count 208 (150-450) k/uL Comprehensive Metabolic Panel 06/23/20 Range/Units 11:07 Sodium 136 L (137-145) mmol/L Potassium 4.7 (3.5-5.1) mmol/L Chloride 105 (98-107) mmol/L Carbon Dioxide 26 (22-30) mmol/L BUN 34 H (7-17) mg/dL Creatinine 1.91 H (0.52-1.04) mg/dL Glucose 98 (74-99) mg/dL Calcium 9.3 (8.4-10.2) mg/dL AST 25 (14-36) U/L ALT 26 (4-34) U/L Alkaline Phosphatase 90 (38-126) U/L Total Protein 6.0 L (6.3-8.2) g/dL Albumin 3.4 L (3.5-5.0) g/dL Current Medications Generic Name Dose Route Start Last Admin Trade Name Freq PRN Reason Stop Dose Admin Acetaminophen 650 mg 06/22/20 15:01 Tylenol Tab PO Q6HR PRN Mild Pain or Fever > 100.5 Allopurinol 300 mg 06/23/20 09:00 06/23/20 08:56 Zyloprim PO 300 mg DAILY THIERRY Administration Atorvastatin Calcium 40 mg 06/23/20 09:00 06/23/20 08:56 Lipitor PO 40 mg DAILY THIERRY Administration Gabapentin 200 mg 06/22/20 16:00 06/23/20 15:20 Neurontin PO 200 mg TID THIERRY Administration Sodium Chloride 1,000 mls @ 20 mls/hr 06/22/20 15:15 06/23/20 15:13 Saline 0.9% IV Not Given .Q24H THIERRY Sodium Chloride 1,000 mls @ 80 mls/hr 06/23/20 13:15 06/23/20 15:13 Saline 0.9% IV 06/24/20 01:44 80 mls/hr .[id number] STA Administration Lisinopril 40 mg 06/23/20 09:00 06/23/20 11:23 Zestril PO Not Given DAILY THIERRY Naloxone HCl 0.2 mg 06/22/20 15:01 Narcan IV Q2M PRN Opioid Reversal Nitroglycerin 0.4 mg 06/22/20 15:03 Nitrostat SUBLINGUAL Q5M PRN Angina Intake and Output 06/23/20 06/23/20 06/23/20 06:59 14:59 22:59 Intake Total 480 Balance 480 Intake: Oral 480 Other: # Voids 1 Weight 102.9 kg 06/23/20 11:07 06/23/20 11:07
[2020-06-24 07:43] LABS: Basophils # (A) 0.1 k/uL (0-0.2); Basophils % (A) 1 %; Eosinophils # (A) 0.3 k/uL (0-0.7); Eosinophils % (A) 4 %; HCT 47.3 % (34.0-46.0); Lymphocytes # (A) 1.3 k/uL (1.0-4.8); Lymphocytes % (A) 18 %; MCHC 31.8 g/dL (31.0-37.0); MCV 94.3 fL (80.0-100.0); Mean Platelet Volume 8.8; Monocytes # (A) 0.3 k/uL (0-1.0); Monocytes % (A) 4 %; Neutrophils # (A) 5.1 k/uL (1.3-7.7); Neutrophils % (A) 72 %; Platelet Count 225 k/uL (150-450); RBC 5.02 m/uL (3.80-5.40); WBC 7.1 k/uL (3.8-10.6)
[2020-06-24 08:00] LABS: Albumin 3.7 g/dL (3.5-5.0); Calcium 9.5 mg/dL (8.4-10.2); Total Bilirubin 0.7 mg/dL (0.2-1.3); Total Protein 6.5 g/dL (6.3-8.2)
[2020-06-24] MEDS: lisinopriL 20 MG TAB PO SCH (08:53)
[2020-06-24] MEDS: allopurinoL 300 MG TAB PO SCH (08:53)
[2020-06-24] MEDS: GABAPENTIN 100 MG CAP PO SCH ×3 (08:53→21:09)
[2020-06-24] MEDS: ATORVASTATIN 40 MG TAB PO SCH (08:53)
--- NOTE | 2020-06-24 09:30 | CONS ---
CONSULTATION DATE OF SERVICE: 06/24/2020 REASON FOR CONSULTATION: Abdominal pain. HISTORY OF PRESENT ILLNESS: The patient is a 59-year-old pleasant white female who came into the emergency room complaining of abdominal pain for the last 3-4 days duration. The pain is mostly in the left lower quadrant area radiating to the back associated with some nausea but no emesis. Initially in the first two days she had some diarrhea with bowel movements anywhere from 3-4 a day and subsequently she became constipated. She denies any rectal bleeding. She had a similar episode about 3 or 4 months ago and was admitted to the hospital briefly and was discharged home. During this hospitalization she did have an abdominal ultrasound done that showed some left-sided hydronephrosis and fatty infiltration of the liver, but otherwise it was unremarkable. This morning she still has the pain and last night it was very intense. No fever, chills, or night sweats. No history of colonoscopy in the past. PAST MEDICAL HISTORY: Significant for asthma, hypertension, hyperlipidemia, morbid obesity, chronic kidney disease. PAST SURGICAL HISTORY: Kidney stones, cardiac catheterization , breast biopsy, hysterectomy, tonsillectomy. MEDICATIONS: Medications at home include zyloprim, Nitrostat, Lipitor Tenormin, lisinopril, and Neurontin. ALLERGIES: SHELLFISH, SEAFOOD. FAMILY HISTORY: Father had CVA and renal disease. Mother had hypertension. REVIEW OF SYSTEMS: CARDIOPULMONARY: No chest pain, no shortness of breath. GENITOURINARY: No dysuria hematuria. MUSCULOSKELETAL: Unremarkable. SKIN: Unremarkable. ENDOCRINE: Unremarkable. PSYCHIATRIC: Unremarkable. NEUROLOGY: Unremarkable. ENT/VISION: Unremarkable. CONSTITUTIONAL: No recent weight loss. No fever, chills, night sweats. PHYSICAL EXAMINATION: Appears comfortable, no apparent distress. Vital signs stable. Blood pressure is 132/86, pulse rate 45, temperature 97.9 HEENT examination unremarkable. Conjunctivae pink. Sclerae anicteric. Oral cavity no lesions. NECK: No JVD or lymph node enlargement. CHEST: Clear to auscultation. HEART: Regular rate and rhythm. ABDOMEN: Soft. There was very minimal tenderness in the left side of the abdomen. No rebound or rigidity. No organomegaly. Obese abdomen. EXTREMITIES: No pedal edema. NEURO: She is alert and oriented x3. No focal deficits. LABS: WBC 6.7, hemoglobin 13.6, platelets normal. BUN is 35, creatinine 1.42. Lipase is normal. Urinalysis is negative. IMPRESSION: 1. This lady presented to the hospital with lower abdominal pain that started about 5 days ago. The pain is more in the left lower quadrant area radiating to the left flank area associated with some nausea, vomiting. Initially had some diarrhea that subsequently resolved and now has constipation. Ultrasound of the abdomen showed left-sided hydronephrosis, but otherwise unremarkable. The etiology of abdominal pain is unclear, but possibility of colonic pathology/colitis/gastroenteritis needs to be considered. Overall she is doing much better. 2. Elevated BUN and creatinine, questionable chronic kidney disease versus acute kidney injury. 3. Left-sided hydronephrosis on ultrasound of the abdomen. 4. Bradycardia. Cardiology following the patient closely. RECOMMENDATIONS: In regard to the lower abdominal pain, I recommended for her to have an EGD and colonoscopy done either as an inpatient or an outpatient. She wants to discuss with Dr. Chanel. If she is in the hospital we will proceed with these endoscopic procedures on Friday. I will re-evaluate her tomorrow and discuss this further. In the meantime, continue with symptomatic and supportive care. We will follow with you closely. Thank you for this consultation. MMODL / IJN: [id number] /
--- NOTE | 2020-06-24 13:36 | P.PN ---
Subjective Progress Note Date: 06/24/20 Cheryl Zamorano, he is a 59-year-old female who presented to [facility] emergency room with a chief complaint of abdominal pain, she was evaluated in the emergency room labs including amylase and lipase were within normal limits, patient was noticed to have significant bradycardia with a heart rate of 40 she was admitted to telemetry floor cardiology consultation was requested in that regard. Abdomen ultrasound was ordered to assess cause of her abdominal pain. On review of system patient denies any fever or chills no headache or dizziness no chest pain no shortness of breath no cough no nausea or vomiting she has moderate to severe abdominal pain in all 4 quadrants mostly in the periumbilical area, no diarrhea she had constipation for 2 days, no blood in the stools no burning with urination no frequency or urgency and no hematuria On 06/24/2020 patient was seen and examined on the medical floor she is alert and oriented 3 in no apparent distress she is still complaining of left flank pain, and abdominal pain no new episodes of vomiting today there is no fever or chills no headache or dizziness no chest pain no shortness of breath no cough no nausea or vomiting no diarrhea no burning with urination no frequency or urgency and no hematuria Objective - Vital Signs Vital signs: Vital Signs Temp 98 F 06/24/20 12:00 Pulse 49 L 06/24/20 12:00 Resp 16 06/24/20 12:00 BP 152/86 06/24/20 12:00 Pulse Ox 96 06/24/20 12:00 Intake & Output 06/23/20 06/24/20 06/24/20 18:59 06:59 18:59 Intake Total 480 240 385 Balance 480 240 385 Weight 103.1 kg Intake: Intake, IV Titration 160 Amount Sodium Chloride 0.9% 1, 160 000 ml @ 20 mls/hr IV . Q24H [facility] Rx#:[id number] Oral 480 240 225 Other: # Voids 3 1 # Bowel Movements 0 - Exam In general patient is alert and oriented 3 in no distress HEENT head normocephalic and atraumatic Neck is supple no JVD no goiter no lymphadenopathy Chest exam reveals a few scattered rhonchi no wheezing Cardiac exam reveals regular heart sounds S1 and S2 no gallops no murmurs Abdomen is soft with mild diffuse tenderness no rigidity no rebound no palpable masses normal bowel sounds no organomegaly Extremity exam reveals minimal edema no cyanosis or clubbing Neurological examination reveals no gross deficit - Labs CBC & Chem 7: 06/24/20 07:24 06/24/20 07:24 Labs: Abnormal Lab Results - Last 24 Hours (Table) 06/24/20 06/24/20 Range/Units 07:24 07:24 Hct 47.3 H (34.0-46.0) % Chloride 108 H (98-107) mmol/L BUN 30 H (7-17) mg/dL Creatinine 1.57 H (0.52-1.04) mg/dL Assessment and Plan Plan: 1. Abdominal pain abdomen ultrasound revealing evidence of left sided hydronephrosis, and the right kidney atrophy, urology consultation requested 2. Evidence of dehydration with acute renal failure due to prerenal azotemia Will start on normal saline at 80 mL an hour and monitor closely, kidney func tion is improving gradually with IV hydration 3. Bradycardia heart rate of 40 patient was maintained on atenolol 25 mg once daily this was discontinued on presentation consultation for cardiology was requested 4. Underlying history of coronary artery disease 5. Underlying history of hypertension 6. Underlying history of hyperlipidemia At this time continue with current management with IV fluid awaiting gastroenterology and cardiology input awaiting ultrasound of the abdomen would follow closely
[2020-06-24] MEDS: SODIUM CHLORIDE 0.9% 1,000 ML IV SCH (15:11)
--- NOTE | 2020-06-24 16:52 | P.PN ---
Subjective This is Kecai Phillips PA-C dictating a progress note on this patient The patient was interviewed and examined by me as well as by Dr. Glover Case discussed with Dr. Glover and he agrees with the plan of care HPI/interval history Patient is a 59-year-old female with a history of hypertension who presented with complaints of abdominal pain. She was found to be bradycardic and her atenolol was discontinued. Patient remains in sinus bradycardia with rates in the 50s. She did drop to the 30s overnight while sleeping. Patient seen and examined resting in bed. Continues to complain of left lower quadrant abdominal pain and fatigue. She had some dizziness when she got up out of bed in the middle of the night to use the bathroom. No syncope. Denies any chest pain or shortness of breath. EXAMINATION She is afebrile, pulse in the 50s, respirations 16, blood pressure in the 130s over 70s, oxygen saturation 94% on room air Patient seen and examined resting in bed in no acute distress Lungs are clear to auscultation bilaterally Heart is regular no audible murmurs Extremities warm no edema REVIEW OF LABS, ECG CBC 7.1, hemoglobin 15, platelets 225, potassium 5.0, BUN 30, creatinine 1.57 TSH normal IMPRESSION / ASSESSMENT: #1 symptomatic sinus bradycardia, possibly vagally mediated and exacerbated by beta blockers, patient was on atenolol 25 mg twice a day which has been discontinued, currently in sinus bradycardia with rates in the 50s #2 symptoms of abdominal pain and diarrhea, gastroenterology following #3 hypertension, blood pressure controlled on lisinopril #4 acute kidney injury, BUN and creatinine improving #5 intermittent shortness of breath #6 dyslipidemia PLAN: Echocardiogram has been performed, awaiting results 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 Q24H [facility] Rx#:[id number] Oral 480 240 225 Other: # Voids 3 1 # Bowel Movements 0 - Labs CBC & Chem 7: 06/24/20 07:24 06/24/20 07:24 Labs: Abnormal Lab Results - Last 24 Hours (Table) 06/24/20 06/24/20 Range/Units 07:24 07:24 Hct 47.3 H (34.0-46.0) % Chloride 108 H (98-107) mmol/L BUN 30 H (7-17) mg/dL Creatinine 1.57 H (0.52-1.04) mg/dL
--- NOTE | 2020-06-24 18:56 | P.GSCN ---
History of Present Illness Consult date: 06/24/20 History of present illness: The patient is a 59-year-old female admitted to the hospital for abdominal pain for the last [address] Chanel. She had severe diffuse abdominal pain that in the last 24 hours has localized to the left upper quadrant and left flank. The patient had an ultrasound of the abdomen that suggested hydronephrosis on the left. Her creatinine on admission was 1.4. I do not know the previous level of creatinine. She has a known atrophic right kidney. Whether this is congenital or acquired is unknown. The patient was in the hospital in March and March for the same pain. According to the patient this pain was due to her back. She had a computed tomography scan of the abdomen that identified parapelvic cysts on the left side not hydronephrosis. She had a computed tomography scan in 2016 that was compared to the computed tomography scan in March that again showed left parapelvic cysts and not left hydronephrosis. Her only urologic history is that of a kidney stone removed 8 years ago. She does not remember how or who did it. It was done here at this hospital. She denies infection. She denies blood in the urine. There is no other urologic history. Review of Systems All systems: negative Past Medical History Past Medical History: Asthma, Cancer, Chest Pain / Angina, Hyperlipidemia, Hypertension, Osteoarthritis (OA), Renal Disease, Respiratory Disorder Additional Past Medical History / Comment(s): kidney stones-only one kidney functions (pt unsure laterallity), R breast cancer with surgery, migraines, Restless Leg Syndrome, gout bilateral feet, chronic back pain History of Any Multi-Drug Resistant Organisms: None Reported Past Surgical History: Breast Surgery, Section, Heart Catheterization, Hysterectomy, Orthopedic Surgery, Tonsillectomy Additional Past Surgical History / Comment(s): R breast lumpectomy 2006? R foot bone spurs removed, total hysterectomy with bilateral oopherectomy, x2, Past Anesthesia/Blood Transfusion Reactions: Postoperative Nausea & Vomiting (PONV) Additional Past Anesthesia/Blood Transfusion Reaction / Comm: No blood transfusion to date Past Psychological History: Anxiety, Depression Additional Psychological History / Comment(s): PT resides with son and daughter. Pt uses no devices. She drives. She has a nebulizer. Smoking Status: Never smoker Past Alcohol Use History: None Reported Past Drug Use History: None Reported - Past Family History Father Family Medical History: CVA/TIA, Renal Disease Additional Family Medical History / Comment(s): Father had a CVA then went into kidney failure and . Mother Family Medical History: Hypertension Medications and Allergies Home Medications Medication Instructions Recorded Confirmed Type allopurinoL [Zyloprim] 300 mg PO DAILY 06/23/14 06/22/20 History Nitroglycerin Sl Tabs [Nitrostat] 0.4 mg SUBLINGUAL Q5M PRN 12/10/16 06/22/20 History Atorvastatin [Lipitor] 40 mg PO DAILY 02/03/18 06/22/20 History atenoloL [Tenormin] 25 mg PO BID 02/03/18 06/22/20 History lisinopriL 40 mg PO DAILY 03/30/20 06/22/20 History Gabapentin [Neurontin] 200 mg PO TID cap 04/03/20 06/22/20 Rx Allergies Allergy/AdvReac Type Severity Reaction Status Date / Time shellfish derived [Shellfish] Allergy Severe Anaphylaxis Verified 06/22/20 14:00 sea salt Allergy Severe Anaphylaxis Uncoded 06/22/20 14:00 seafood Allergy Severe Anaphylaxis Uncoded 06/22/20 14:00 Surgical - Exam Vital Signs Temp Pulse Resp BP Pulse Ox 98.1 F 43 L 18 145/92 94 L 06/22/20 11:22 06/22/20 11:22 06/22/20 11:22 06/22/20 11:22 06/22/20 11:22 - General well developed, well nourished, no distress, obese - Eyes PERRL - ENT no hearing loss - Neck trachea midline - Respiratory normal expansion, normal respiratory effort - Cardiovascular Rhythm: regular - Abdomen Obese, distended, nontender - Integumentary no rash, no growths - Neurologic normal coordination, normal sensation - Musculoskeletal normal posture - Psychiatric oriented to time, oriented to person, oriented to place, speech is normal, memory intact Results - Labs 06/24/20 07:24 06/24/20 07:24 Abnormal Lab Results - Last 24 Hours (Table) 06/24/20 06/24/20 Range/Units 07:24 07:24 Hct 47.3 H (34.0-46.0) % Chloride 108 H (98-107) mmol/L BUN 30 H (7-17) mg/dL Creatinine 1.57 H (0.52-1.04) mg/dL Diabetes panel 06/24/20 Range/Units 07:24 Sodium 140 (137-145) mmol/L Potassium 5.0 (3.5-5.1) mmol/L Chloride 108 H (98-107) mmol/L Carbon Dioxide 26 (22-30) mmol/L BUN 30 H (7-17) mg/dL Creatinine 1.57 H (0.52-1.04) mg/dL Glucose 89 (74-99) mg/dL Calcium 9.5 (8.4-10.2) mg/dL AST 20 (14-36) U/L ALT 25 (4-34) U/L Alkaline Phosphatase 99 (38-126) U/L Total Protein 6.5 (6.3-8.2) g/dL Albumin 3.7 (3.5-5.0) g/dL Calcium panel 06/24/20 Range/Units 07:24 Calcium 9.5 (8.4-10.2) mg/dL Albumin 3.7 (3.5-5.0) g/dL Pituitary panel 06/24/20 Range/Units 07:24 Sodium 140 (137-145) mmol/L Potassium 5.0 (3.5-5.1) mmol/L Chloride 108 H (98-107) mmol/L Carbon Dioxide 26 (22-30) mmol/L BUN 30 H (7-17) mg/dL Creatinine 1.57 H (0.52-1.04) mg/dL Glucose 89 (74-99) mg/dL Calcium 9.5 (8.4-10.2) mg/dL Adrenal panel 06/24/20 Range/Units 07:24 Sodium 140 (137-145) mmol/L Potassium 5.0 (3.5-5.1) mmol/L Chloride 108 H (98-107) mmol/L Carbon Dioxide 26 (22-30) mmol/L BUN 30 H (7-17) mg/dL Creatinine 1.57 H (0.52-1.04) mg/dL Glucose 89 (74-99) mg/dL Calcium 9.5 (8.4-10.2) mg/dL Total Bilirubin 0.7 (0.2-1.3) mg/dL AST 20 (14-36) U/L ALT 25 (4-34) U/L Alkaline Phosphatase 99 (38-126) U/L Total Protein 6.5 (6.3-8.2) g/dL Albumin 3.7 (3.5-5.0) g/dL - Imaging CT scan - abdomen: report reviewed, image reviewed CT scan - pelvis: report reviewed, image reviewed US - abdomen: report reviewed, image reviewed Assessment and Plan Assessment: Impression: Abdominal pain indeterminate etiology. Abnormal left kidney parapelvic cyst versus hydronephrosis. Chronic renal insufficiency versus acute renal insufficiency. Recommendations: Based on the computed tomography scan of 2016 compared to the one in March it appears as if the problem are parapelvic cysts of the left kidney. She has a small right kidney which is probably congenital. If there is hydronephrosis than it is due to a UPJ obstruction as I do not see any evidence of hydroureter but again in reviewing the CAT scan [id number] and 2019 it appears as if the hydronephrosis on the ultrasound was actually parapelvic cyst. I will repeat the computed tomography scan. Depending on that as to further recommendations. Whether a renal scan with Lasix washout or retrograde pyelograms will be indicated will be dependent on the follow-up computed tomography scan. Time with Patient: Greater than 30
--- NOTE | 2020-06-24 20:58 | CT ---
EXAMINATION TYPE: CT abdomen pelvis wo con DATE OF EXAM: 06/24/2020 COMPARISON: 03/30/2020 HISTORY: LLQ pain with bowel changes and history of renal stones. CT DLP: 1162.4 mGycm Automated exposure control for dose reduction was used. Images obtained from the diaphragm to the floor the pelvis without contrast. Lung bases are clear of consolidation. There is no pleural effusion. Liver spleen pancreas appear nor mal. Bilateral are not dilated. There are clips from cholecystectomy. Stomach appears intact. There is no adrenal mass. There is very small right kidney. Left kidney has some apparent general office clerk y hypertrophy. There are numerous left renal parapelvic cysts. I see no definite hydronephrosis. Ther e is no sign of a solid renal mass. There is no retroperitoneal adenopathy. Ureters are not dilated. Bladder distends smoothly. There is no inguinal hernia. There is no free fluid in the pelvis. Appendi x is lateral and posterior and appears normal. There is no mesenteric edema. There is no ascites or free air. There is no bowel obstruction. There i s 2.4 cm septated cystic area on the lateral aspect of the proximal sigmoid colon. This is unchanged compared to old exam and of doubtful clinical significance. This is also unchanged compared to old ex am of 12/10/2016. Lumbar vertebra have normal alignment. Posterior elements are intact. Bony pelvis is intact. There is small umbilical hernia that contains fat. IMPRESSION: Numerous left renal parapelvic cysts. Hypoplastic or atrophic right kidney. Abdomen and pelvis unchan ged compared to old exam. No acute abnormality.
[2020-06-25 06:58] LABS: Basophils % (A) 1 %; Eosinophils # (A) 0.3 k/uL (0-0.7); Eosinophils % (A) 5 %; HCT 42.9 % (34.0-46.0); Lymphocytes % (A) 19 %; MCH 30.9 pg (25.0-35.0); MCHC 32.5 g/dL (31.0-37.0); Mean Platelet Volume 8.7; Monocytes # (A) 0.3 k/uL (0-1.0); Monocytes % (A) 5 %; Neutrophils # (A) 3.8 k/uL (1.3-7.7); Neutrophils % (A) 69 %; Platelet Count 172 k/uL (150-450); RBC 4.52 m/uL (3.80-5.40); WBC 5.5 k/uL (3.8-10.6)
[2020-06-25 07:19] LABS: Albumin 3.4 g/dL (3.5-5.0); Calcium 9.4 mg/dL (8.4-10.2); Potassium 4.7 mmol/L (3.5-5.1); Total Bilirubin 0.7 mg/dL (0.2-1.3); Total Protein 5.9 g/dL (6.3-8.2)
[2020-06-25] MEDS: lisinopriL 20 MG TAB PO SCH (08:24)
[2020-06-25] MEDS: allopurinoL 300 MG TAB PO SCH (08:24)
[2020-06-25] MEDS: ATORVASTATIN 40 MG TAB PO SCH (08:25)
[2020-06-25] MEDS: GABAPENTIN 100 MG CAP PO SCH ×3 (08:25→20:41)
--- NOTE | 2020-06-25 09:00 | ECHOF ---
Referral Reason:sob MEASUREMENTS -------- HEIGHT: 147.3 cm WEIGHT: 102.5 kg BP: 93/54 IVSd: 1.6 cm (0.6 - 1.1) LVIDd: 4.3 cm (3.9 - 5.3) LVPWd: 1.4 cm (0.6 - 1.1) IVSs: 1.7 cm LVIDs: 2.8 cm LVPWs: 1.5 cm LA Diam: 3.4 cm (2.7 - 3.8) RVIDd: 3.2 cm (< 3.3) LAESV Index (A-L): 26.45 ml/m Ao Diam: 3.0 cm (2.0 - 3.7) AV Cusp: 2.0 cm (1.5 - 2.6) EPSS: 0.2 cm MV E [place]: 0.82 m/s MV DecT: 372 ms MV A [place]: 0.82 m/s MV E/A Ratio: 1.00 AV maxP.53 mmHg AV meanP.99 mmHg RAP: 5.00 mmHg RVSP: 35.70 mmHg MV EF SLOPE: 36.11 mm/s (70 - 150) MV EXCURSION: 8.68 mm (> 18.000) FINDINGS -------- Resting bradycardia (HR<60bpm). This was a technically adequate study. The left ventricular size is normal. There is moderate concentric left ventricular hypertrophy. O verall left ventricular systolic function is normal with, an EF between 60 - 65 %. The right ventricle is normal in size. Normal LA size by volume 22+/-6 ml/m2. The right atrium is normal in size. Interatrial and interventricular septum intact. There is mild aortic valve sclerosis. Mild mitral regurgitation is present. Mild tricuspid regurgitation present. There is mild pulmonary hypertension. The right ventricular systolic pressure, as measured by Doppler, is 35.70mmHg. There is no pulmonic regurgitation present. The aortic root size is normal. IVC Not well visulized. There is no pericardial effusion. CONCLUSIONS -------- 1. Resting bradycardia (HR<60bpm). 2. The left ventricular size is normal. 3. There is moderate concentric left ventricular hypertrophy. 4. Overall left ventricular systolic function is normal with, an EF between 60 - 65 %. 5. There is mild aortic valve sclerosis. 6. Mild mitral regurgitation is present. 7. Mild tricuspid regurgitation present. 8. There is mild pulmonary hypertension. 9. The right ventricular systolic pressure, as measured by Doppler, is 35.70mmHg. 10. There is no pericardial effusion. MARKETING BUDGET ANALYST: Shaylee Kate RDCS
--- NOTE | 2020-06-25 14:01 | P.PN ---
Subjective Progress Note Date: 06/25/20 Cheryl Zamorano, he is a 59-year-old female who presented to [facility] emergency room with a chief complaint of abdominal pain, she was evaluated in the emergency room labs including amylase and lipase were within normal limits, patient was noticed to have significant bradycardia with a heart rate of 40 she was admitted to telemetry floor cardiology consultation was requested in that regard. Abdomen ultrasound was ordered to assess cause of her abdominal pain. On review of system patient denies any fever or chills no headache or dizziness no chest pain no shortness of breath no cough no nausea or vomiting she has moderate to severe abdominal pain in all 4 quadrants mostly in the periumbilical area, no diarrhea she had constipation for 2 days, no blood in the stools no burning with urination no frequency or urgency and no hematuria On 06/24/2020 patient was seen and examined on the medical floor she is alert and oriented 3 in no apparent distress she is still complaining of left flank pain, and abdominal pain no new episodes of vomiting today there is no fever or chills no headache or dizziness no chest pain no shortness of breath no cough no nausea or vomiting no diarrhea no burning with urination no frequency or urgency and no hematuria On 06/25/2020, patient was seen and examined on the medical floor she is alert and oriented 3 in no apparent distress her pain in the abdomen has improved there are no new episodes of nausea or vomiting, there is no fever or chills no headache or dizziness no chest pain no shortness of breath no cough no nausea or vomiting no abdominal pain no diarrhea no burning with urination no frequency or urgency and no hematuria, heart rate has improved and it is up in the 50s today, blood pressure however is elevated at 195/94 and 180/93 Objective - Vital Signs Vital signs: Vital Signs Temp 98 F 06/25/20 08:27 Pulse 53 L 06/25/20 08:27 Resp 20 06/25/20 08:27 BP 180/92 06/25/20 08:27 Pulse Ox 96 06/25/20 08:27 Intake & Output 06/24/20 06/25/20 06/25/20 18:59 06:59 18:59 Intake Total 385 440 240 Output Total 540 Balance 385 -100 240 Weight 103.4 kg Intake: Intake, IV Titration 160 Amount Sodium Chloride 0.9% 1, 160 000 ml @ 20 mls/hr IV . Q24H [facility] Rx#:[id number] Oral 225 440 240 Output: Urine 540 Other: Voiding Method Toilet # Voids 2 # Bowel Movements 0 - Exam In general patient is alert and oriented 3 in no distress HEENT head normocephalic and atraumatic Neck is supple no JVD no goiter no lymphadenopathy Chest exam reveals a few scattered rhonchi no wheezing Cardiac exam reveals regular heart sounds S1 and S2 no gallops no murmurs Abdomen is soft with mild diffuse tenderness no rigidity no rebound no palpable masses normal bowel sounds no organomegaly Extremity exam reveals minimal edema no cyanosis or clubbing Neurological examination reveals no gross deficit - Labs CBC & Chem 7: 06/25/20 06:38 06/25/20 06:38 Labs: Abnormal Lab Results - Last 24 Hours (Table) 06/25/20 Range/Units 06:38 BUN 29 H (7-17) mg/dL Creatinine 1.48 H (0.52-1.04) mg/dL Total Protein 5.9 L (6.3-8.2) g/dL Albumin 3.4 L (3.5-5.0) g/dL Assessment and Plan Plan: 1. Abdominal pain abdomen ultrasound revealing evidence of left sided hydronephrosis, and the right kidney atrophy, urology consultation requested 2. Evidence of dehydration with acute renal failure due to prerenal azotemia Will start on normal saline at 80 mL an hour and monitor closely, kidney f unction is improving gradually with IV hydration 3. Bradycardia heart rate of 40 patient was maintained on atenolol 25 mg once daily this was discontinued on presentation consultation for cardiology was requested, at this time due to elevated blood pressure will add Norvasc 2.5 mg once daily 4. Underlying history of coronary artery disease 5. Underlying history of hypertension 6. Underlying history of hyperlipidemia At this time continue with current management with IV fluid awaiting ga stroenterology and cardiology input awaiting ultrasound of the abdomen would follow closely
--- NOTE | 2020-06-25 14:06 | P.PN ---
Subjective Progress Note Date: 06/25/20 We were asked to see this patient for abdominal pain and possible hydronephrosis. Upon reviewing the charts thoroughly it appears as if she has had multiple parapelvic cysts in the left kidney mimicking hydronephrosis. This goes back to computed tomography scan as far back as 2016. She is afebrile. He r abdominal pain is gone. She does have a known atrophic right kidney. I repeated the CAT scan yesterday and it is unchanged from the one in March as well as the one in 2016. At this point there is nothing urologic further that needs to be done if I can be of further assistance please let me know. Side Objective - Vital Signs Vital signs: Vital Signs Temp 98 F 06/25/20 08:27 Pulse 53 L 06/25/20 08:27 Resp 20 06/25/20 08:27 BP 180/92 06/25/20 08:27 Pulse Ox 96 06/25/20 08:27 Intake & Output 06/24/20 06/25/20 06/25/20 18:59 06:59 18:59 Intake Total 385 440 240 Output Total 540 Balance 385 -100 240 Weight 103.4 kg Intake: Intake, IV Titration 160 Amount Sodium Chloride 0.9% 1, 160 000 ml @ 20 mls/hr IV . Q24H [facility] Rx#:[id number] Oral 225 440 240 Output: Urine 540 Other: Voiding Method Toilet # Voids 2 # Bowel Movements 0 - Labs CBC & Chem 7: 06/25/20 06:38 06/25/20 06:38 Labs: Abnormal Lab Results - Last 24 Hours (Table) 06/25/20 Range/Units 06:38 BUN 29 H (7-17) mg/dL Creatinine 1.48 H (0.52-1.04) mg/dL Total Protein 5.9 L (6.3-8.2) g/dL Albumin 3.4 L (3.5-5.0) g/dL
[2020-06-25] MEDS ORDERED: amLODIPine 2.5 MG TAB PO SCH (14:15)
[2020-06-25] MEDS ORDERED: amLODIPine 2.5 MG TAB PO STA (14:38)
--- NOTE | 2020-06-25 14:39 | P.PN ---
Subjective Patient is resting comfortably in bed. Heart rates in the 50s sinus rhythm I made her walk around in the hallways. She tolerated the luciano walk very well. She looks comfortable no shortness of breath no chest discomfort no dizziness lightheadedness We stopped atenolol upon admission Potassium was normal TSH 2.4 Normal heart sounds normal S1 normal S2 Breath sounds are clear no rhonchi no crackles Abdomen soft nontender line she is obese No lower extremity edema Temperature 90.8F, pulse rate in the 50s Blood pressure 137/80 mmHg 180/92 mmHg Suggest Increase amlodipine to 5 mg by mouth daily Continue leeann inhibitors No indication for permanent pacing at this time Objective - Vital Signs Vital signs: Vital Signs Temp 98 F 06/25/20 08:27 Pulse 47 L 06/25/20 12:00 Resp 17 06/25/20 12:00 BP 137/80 06/25/20 12:00 Pulse Ox 96 06/25/20 12:00 Intake & Output 06/24/20 06/25/20 06/25/20 18:59 06:59 18:59 Intake Total 829 944 0278 Output Total 540 Balance 385 -100 1065 Weight 103.4 kg Intake: Intake, IV Titration 160 Amount Sodium Chloride 0.9% 1, 160 000 ml @ 20 mls/hr IV . Q24H [facility] Rx#:[id number] Oral 797 [id number] 1273 Output: Urine 540 Other: Voiding Method Toilet # Voids 2 3 # Bowel Movements 0 - Labs CBC & Chem 7: 06/25/20 06:38 06/25/20 06:38 Labs: Abnormal Lab Results - Last 24 Hours (Table) 06/25/20 Range/Units 06:38 BUN 29 H (7-17) mg/dL Creatinine 1.48 H (0.52-1.04) mg/dL Total Protein 5.9 L (6.3-8.2) g/dL Albumin 3.4 L (3.5-5.0) g/dL
[2020-06-25] MEDS ORDERED: PEG 3350-NA SULF,BICARB,CL/KCL 4,000 ML BOTTLE PO ONE (17:00)
--- NOTE | 2020-06-25 17:03 | PN ---
PROGRESS NOTE DATE OF SERVICE: 06/25/2020 Patient is a 59-year-old pleasant white female admitted to hospital with lower abdominal pain initially started with diarrhea. Subsequently became constipated for the last 5 days duration. She did have a CT of the abdomen done yesterday that showed atrophic right kidney and multiple parapelvic cysts in the left kidney. The patient today states that she continues to have abdominal pain. However, she had a bowel movement today. She reports no nausea, vomiting. No fever, chills, night sweats. No rectal bleeding. PHYSICAL EXAMINATION: She appears comfortable. No apparent distress. Vital signs stable. Blood pressure is 112/70, pulse rate 49, temperature 98.7. HEENT examination unremarkable. Conjunctivae pink. Sclerae anicteric. Oral cavity no lesions. NECK: No JVD or lymph node enlargement. Chest was clear to auscultation. HEART: Regular rate and rhythm. ABDOMEN: Soft. Bowel sounds are positive. Mild tenderness in the left lower quadrant area. EXTREMITIES: No pedal edema. NEUROLOGIC: Alert and oriented x3. No focal deficits. LABS: From today WBC 5.5, hemoglobin 14, platelets normal. Rest of the labs are within normal limits. BUN is 29, creatinine 1.48. IMPRESSION: Lower abdominal pain associated with nausea, vomiting, and some change in bowel habits for the last 4-5 days duration. Her symptoms are improving. Still has mild left lower quadrant abdominal pain. CT scan of the abdomen shows no significant pathology other than parapelvic cyst noted in the left kidney and atrophic appearing right kidney. No prior history of colonoscopy in the past. Etiology of pain remains unclear. RECOMMENDATIONS: Recommended a colonoscopy tomorrow. I discussed with the patient risks, benefits, and complications and she is agreeable to it. In the meantime, continue with symptomatic and supportive care. We will follow with you closely. Thank you for this consultation. MMODL / IJN: [id number] /
[2020-06-26 03:53] VITALS: RESP 16
[2020-06-26 08:23] VITALS: TEMP 97.9
[2020-06-26] MEDS: allopurinoL 300 MG TAB PO SCH (08:24)
[2020-06-26] MEDS: amLODIPine 5 MG TAB PO SCH ×2 (08:25→12:01)
[2020-06-26] MEDS: lisinopriL 20 MG TAB PO SCH (08:25)
[2020-06-26] MEDS: ATORVASTATIN 40 MG TAB PO SCH (08:25)
[2020-06-26] MEDS: GABAPENTIN 100 MG CAP PO SCH ×2 (08:25→16:57)
--- NOTE | 2020-06-26 15:46 | PN ---
PROGRESS NOTE Cheryl is a 59-year-old lady who is admitted to hospital with diarrhea and bradycardia. Remains in sinus rhythm. Heart rate is in the 50s to 60s. She is not symptomatic and does not need a pacemaker. On exam, heart rate is 60 beats per minute, blood pressure is 137/90, respiratory rate is 16, O2 saturation is 97%, 98%. Chest exam reveals good air entry bilaterally. Heart exam reveals first and second heart sounds. No gallop. Abdomen is soft. Exam of extremities did not reveal any edema. Peripheral pulses are felt. LABS: Show a hemoglobin of 14, platelet count is 170, potassium is 4.7, creatinine is 1.4. ASSESSMENT: Asymptomatic bradycardia. No further workup at this time. MMODL / IJN: [id number] /
[2020-06-26 17:01] VITALS: BP 159/88; PULSE 100
--- NOTE | 2020-06-26 17:22 | P.DS ---
Providers Date of admission: 06/24/20 15:35 Expected date of discharge: 06/26/20 Attending physician: Brian Chanel Consults: 06/22/20 15:01 Consult Physician Stat Consulting Provider: Goldie Marley Consult Reason/Comments: bradycardia Do you want consulting provider notified?: Yes 06/23/20 13:14 Consult Physician Routine Consulting Provider: Alis Adams Consult Reason/Comments: abdominal pain Do you want consulting provider notified?: Yes 06/24/20 13:12 Consult Physician Routine Consulting Provider: Solis Stoll Consult Reason/Comments: hydronephrosis Do you want consulting provider notified?: Yes Primary care physician: Brianhailey Chanel [facility] Course: Diagnosis on discharge: 1. Abdominal pain abdomen ultrasound revealing evidence of left sided hydronephrosis, and the right kidney atrophy, urology consultation requested 2. Evidence of dehydration with acute renal failure due to prerenal azotemia Will start on normal saline at 80 mL an hour and monitor closely, kidney function is improving gradually with IV hydration 3. Bradycardia heart rate of 40 patient was maintained on atenolol 25 mg once daily this was discontinued on presentation consultation for cardiology was requested, at this time due to elevated blood pressure will add Norvasc 2.5 mg once daily 4. Underlying history of coronary artery disease 5. Underlying history of hypertension 6. Underlying history of hyperlipidemia Hospital course: Cheryl Zamorano, he is a 59-year-old female who presented to [facility] emergency room with a chief complaint of abdominal pain, she was evaluated in the emergency room labs including amylase and lipase were within normal limits, patient was noticed to have significant bradycardia with a heart rate of 40 she was admitted to telemetry floor cardiology consultation was requested in that regard. Abdomen ultrasound was ordered to assess cause of her abdominal pain. On review of system patient denies any fever or chills no headache or dizziness no chest pain no shortness of breath no cough no nausea or vomiting she has moderate to severe abdominal pain in all 4 quadrants mostly in the periumbilical area, no diarrhea she had constipation for 2 days, no blood in the stools no burning with urination no frequency or urgency and no hematuria On 06/24/2020 patient was seen and examined on the medical floor she is alert and oriented 3 in no apparent distress she is still complaining of left flank pain, and abdominal pain no new episodes of vomiting today there is no fever or chills no headache or dizziness no chest pain no shortness of breath no cough no nausea or vomiting no diarrhea no burning with urination no frequency or urgency and no hematuria On 06/25/2020, patient was seen and examined on the medical floor she is alert and oriented 3 in no apparent distress her pain in the abdomen has improved there are no new episodes of nausea or vomiting, there is no fever or chills no headache or dizziness no chest pain no shortness of breath no cough no nausea or vomiting no abdominal pain no diarrhea no burning with urination no frequency or urgency and no hematuria, heart rate has improved and it is up in the 50s today, blood pressure however is elevated at 195/94 and 180/93 On 06/26/2020 patient was seen and examined on the medical floor she was alert and oriented 3 in no apparent distress bradycardia has improved, heart rate was in the 50s and 60s, patient is off beta duke, she was started on Norvasc 5 mg by mouth daily and is tolerating well, computed tomography scan of the abdomen did not reveal any evidence of hydronephrosis, no further intervention was recommended by urology. Patient was advised to have a colonoscopy by gastroenterology, however she refused. Clinically she was doing well she was discharged home on 06/26/2020, she would be followed in our office in the next 2-3 days. Patient Condition at Discharge: Good Plan - Discharge Summary Discharge Rx Participant: Yes New Discharge Prescriptions: New amLODIPine [Norvasc] 5 mg PO DAILY tab Continue allopurinoL [Zyloprim] 300 mg PO DAILY Nitroglycerin Sl Tabs [Nitrostat] 0.4 mg SUBLINGUAL Q5M PRN PRN Reason: Angina Atorvastatin [Lipitor] 40 mg PO DAILY lisinopriL 40 mg PO DAILY Gabapentin [Neurontin] 200 mg PO TID cap Discontinued atenoloL [Tenormin] 25 mg PO BID Discharge Medication List allopurinoL [Zyloprim] 300 mg PO DAILY 06/23/14 [History] Nitroglycerin Sl Tabs [Nitrostat] 0.4 mg SUBLINGUAL Q5M PRN 12/10/16 [History] Atorvastatin [Lipitor] 40 mg PO DAILY 02/03/18 [History] lisinopriL 40 mg PO DAILY 03/30/20 [History] Gabapentin [Neurontin] 200 mg PO TID cap 04/03/20 [Rx] amLODIPine [Norvasc] 5 mg PO DAILY tab 06/26/20 [Rx] Follow up Appointment(s)/Referral(s): Finn Glover MD [STAFF PHYSICIAN] - 07/11/20 2:00 pm (Friday with Kecia Phillips NP) Brian Chanel MD [Primary Care Provider] - 1-2 days (Unable to get through. Please call the office to schedule a follow up appointment) Serafin Hernandez MD [STAFF PHYSICIAN] - 2 Weeks (Office is closed. Please call to schedule appointment) Patient Instructions/Handouts: Bradycardia (DC)
--- NOTE | 2020-06-27 12:17 | P.PN ---
Subjective Progress Note Date: 06/26/20 Principal diagnosis: Abdominal pain, nausea and vomiting Patient is seen lying in bed reporting that abdominal pain is improved. No further nausea or vomiting. She has tolerated diet and is refusing her bowel prep for a colonoscopy. Objective - Vital Signs Vital signs: Vital Signs Temp 97.9 F 06/26/20 08:00 Pulse 60 06/26/20 11:58 Resp 16 06/26/20 11:58 BP 148/86 06/26/20 11:58 Pulse Ox 97 06/26/20 11:58 Intake & Output 06/25/20 06/26/20 06/26/20 18:59 06:59 18:59 Intake Total 1065 720 240 Balance 1065 720 240 Weight 102.7 kg Intake: Oral 1065 720 240 Other: Voiding Method Toilet Toilet # Voids 3 2 0 - Exam On physical examination, patient appears comfortable in no apparent distress. HEAD: Normocephalic, atraumatic. EYES: No scleral icterus. No conjunctival injection. MOUTH: No lesions, tongue midline. NECK: Trachea midline, no gross abnormalities. ABDOMEN: Soft, obese. Bowel sounds are positive. No organomegaly. No guarding or rigidity. EXTREMITIES: No pedal edema. SKIN: No rashes, no jaundice. NEUROLOGIC: Alert and oriented x3. No focal deficits. - Labs CBC & Chem 7: 06/25/20 06:38 06/25/20 06:38 Assessment and Plan (1) Abdominal pain Narrative/Plan: 59-year-old female who presented with multiple complaints including abdominal pain, nausea, vomiting and change in bowel habits. Computed tomography scan of the abdomen show no significant pathology to explain her symptoms and patient had agreed to colonoscopy, however failed to do the prep last night. Status: Acute Code(s): R10.9 - UNSPECIFIED ABDOMINAL PAIN SNOMED Code(s): 15710384 Plan: Supportive care Okay for diet Follow-up after discharge with recommendation for colonoscopy in the outpatient setting which has been discussed with the patient at length Thank your for allowing us to participate in the care of the patient
== END 2020-06-26 17:44 | disposition home or self-care (01) | DRG 392 ==
LOC: EC 11:06 → 3SCARD 14:59 → OBSVTOIN 06-24 15:35
PROVIDERS: ADMIT Internal Medicine; ATTEND Internal Medicine
DX: R10.32 Left lower quadrant pain (principal); Z68.42 Body mass index [BMI] 45.0-49.9, adult; N17.9 Acute kidney failure, unspecified; K59.00 Constipation, unspecified; I10 Essential (primary) hypertension; I25.10 Atherosclerotic heart disease of native coronary artery without angina pectoris; F41.9 Anxiety disorder, unspecified; G25.81 Restless legs syndrome; F32.9 Major depressive disorder, single episode, unspecified; E86.0 Dehydration; E78.5 Hyperlipidemia, unspecified; M19.90 Unspecified osteoarthritis, unspecified site; J45.909 Unspecified asthma, uncomplicated; Z11.59 Encounter for screening for other viral diseases; R00.1 Bradycardia, unspecified; E66.9 Obesity, unspecified; N26.1 Atrophy of kidney (terminal); N28.1 Cyst of kidney, acquired; K76.0 Fatty (change of) liver, not elsewhere classified; Z79.899 Other long term (current) drug therapy; Z91.013 Allergy to seafood; Z98.891 History of uterine scar from previous surgery; Z98.890 Other specified postprocedural states; Z90.89 Acquired absence of other organs; Z90.710 Acquired absence of both cervix and uterus; Z87.442 Personal history of urinary calculi; Z85.3 Personal history of malignant neoplasm of breast; Z82.49 Family history of ischemic heart disease and other diseases of the circulatory system; Z82.3 Family history of stroke; Z84.1 Family history of disorders of kidney and ureter
CPT/HCPCS: 36415; 71046; 74018; 74176; 76700; 80053; 81001; 82150; 83690; 83880; 84443; 84484; 85025; 85610; 85730; 93005; 93306; 96361; 96374; 96375; 99285

== ENCOUNTER → 2020-09-19 | Outpatient (CLI) | payer OTHER ==
--- NOTE | 2020-09-19 14:51 | US ---
EXAMINATION TYPE: US kidneys/renal and bladder DATE OF EXAM: 09/19/2020 COMPARISON: CT 06/24/2020 CLINICAL HISTORY: 59-year-old female R10.9 Left Flank pain. Atrophic right kidney and left renal pelvic cysts TECHNIQUE: Multiple sonographic images of the kidneys and bladder are obtained. FINDINGS: EXAM MEASUREMENTS: Right Kidney: 6.0 x 2.7 x 2.4 cm Left Kidney: 10.6 x 6.1 x 4.9 cm Right Kidney: small in size. No hydronephrosis. Possible 1.1 cm hypoechoic lesion at the mid to lower pole. Left Kidney: cluster of parapelvic cysts seen = 5.0 x 2.7 x 3.2cm Bladder: Patient just voided, small of amount of fluid seen. Underdistention of the bladder limits it s evaluation. Bilateral Jets seen: no IMPRESSION: 1. Possible 1.1 cm lesion mid to lower pole of the atrophic right kidney. Small size limits assessmen t. 3-6 month follow-up renal ultrasound recommended to reassess. 2. Multiple parapelvic cysts centrally located in the left kidney. 3. Underdistention of the bladder limits its evaluation.
== END | disposition home or self-care (01) ==
LOC: RADUSWWP 12:54
PROVIDERS: ATTEND Internal Medicine
DX: N28.1 Cyst of kidney, acquired (principal); N28.89 Other specified disorders of kidney and ureter
CPT/HCPCS: 76770

== ENCOUNTER 2020-10-08 12:51 | Emergency (ER) | payer OTHER ==
[2020-10-08 13:00] VITALS: RESP 18; TEMP 98.2
--- NOTE | 2020-10-08 13:18 | ED ---
General Adult HPI - General Chief complaint: Extremity Injury, Lower Stated complaint: fall, ankle injury Time Seen by Provider: 10/08/20 13:04 Source: patient, RN notes reviewed Mode of arrival: wheelchair Limitations: no limitations - History of Present Illness Initial comments: 59-year-old female presented to emergency department with chief complaint of left ankle foot injury. Patient states she stepped off the curb after christian. Patient states that she has pain on lateral portion of her foot and ankle she states she's had bad ankles in the past no recent fractures. No paresthesias no other noted injuries. - Related Data Home Medications Medication Instructions Recorded Confirmed allopurinoL [Zyloprim] 300 mg PO DAILY 06/23/14 06/22/20 Nitroglycerin Sl Tabs [Nitrostat] 0.4 mg SUBLINGUAL Q5M PRN 12/10/16 06/22/20 Atorvastatin [Lipitor] 40 mg PO DAILY 02/03/18 06/22/20 lisinopriL 40 mg PO DAILY 03/30/20 06/22/20 Previous Rx's Medication Instructions Recorded Gabapentin [Neurontin] 200 mg PO TID cap 04/03/20 amLODIPine [Norvasc] 5 mg PO DAILY tab 06/26/20 Allergies Allergy/AdvReac Type Severity Reaction Status Date / Time shellfish derived [Shellfish] Allergy Severe Anaphylaxis Verified 10/08/20 13:00 sea salt Allergy Severe Anaphylaxis Uncoded 10/08/20 13:00 seafood Allergy Severe Anaphylaxis Uncoded 10/08/20 13:00 Review of Systems ROS Statement: Those systems with pertinent positive or pertinent negative responses have been documented in the HPI. ROS Other: All systems not noted in ROS Statement are negative. Past Medical History Past Medical History: Asthma, Cancer, Chest Pain / Angina, Hyperlipidemia, Hypertension, Osteoarthritis (OA), Renal Disease, Respiratory Disorder Additional Past Medical History / Comment(s): kidney stones-only one kidney functions (pt unsure laterallity), R breast cancer with surgery, migraines, Restless Leg Syndrome, gout bilateral feet, chronic back pain History of Any Multi-Drug Resistant Organisms: None Reported Past Surgical History: Breast Surgery, Section, Heart Catheterization, Hysterectomy, Orthopedic Surgery, Tonsillectomy Additional Past Surgical History / Comment(s): R breast lumpectomy 2005? R foot bone spurs removed, total hysterectomy with bilateral oopherectomy, x2, Past Anesthesia/Blood Transfusion Reactions: Postoperative Nausea & Vomiting (PONV) Additional Past Anesthesia/Blood Transfusion Reaction / Comment(s): No blood transfusion to date Past Psychological History: Anxiety, Depression Smoking Status: Never smoker Past Alcohol Use History: None Reported Past Drug Use History: None Reported - Past Family History Father Family Medical History: CVA/TIA, Renal Disease Additional Family Medical History / Comment(s): Father had a CVA then went into kidney failure and . Mother Family Medical History: Hypertension General Exam Limitations: no limitations General appearance: alert, in no apparent distress Head exam: Present: atraumatic, normocephalic, normal inspection Eye exam: Present: normal appearance, PERRL, EOMI. Absent: scleral icterus, conjunctival injection, periorbital swelling ENT exam: Present: normal exam, normal oropharynx, mucous membranes moist Neck exam: Present: normal inspection, full ROM. Absent: tenderness, meningismus, lymphadenopathy Respiratory exam: Present: normal lung sounds bilaterally. Absent: respiratory distress, wheezes, rales, rhonchi, stridor Cardiovascular Exam: Present: regular rate, normal rhythm, normal heart sounds. Absent: systolic murmur, diastolic murmur, rubs, gallop, clicks Extremities exam: Present: other (Left ankle there is moderate tenderness on the lateral malleolus region, lateral foot tenderness, neurovascular intact is no proximal tib-fib tenderness) Course Vital Signs 10/08/20 12:57 Temperature 98.2 F Pulse Rate 64 Respiratory 18 Rate Blood Pressure 165/81 O2 Sat by Pulse 100 Oximetry Medical Decision Making - Medical Decision Making X-ray is negative for acute fracture left ankle and foot. Patient has left ankle sprain. Patient we discharged in stable condition return parameters were discussed. Disposition Clinical Impression: Left ankle sprain Disposition: HOME SELF-CARE Condition: Stable Instructions (If sedation given, give patient instructions): Ankle Sprain (ED) Additional Instructions: Please return to the Emergency Department if symptoms worsen or any other concerns. Is patient prescribed a controlled substance at d/c from ED?: No Referrals: Brian Chanel MD [Primary Care Provider] - 1-2 days Time of Disposition: 13:56
--- NOTE | 2020-10-08 13:54 | XR ---
EXAMINATION TYPE: XR ankle complete LT DATE OF EXAM: 10/08/2020 COMPARISON: NONE HISTORY: Pain TECHNIQUE: 3 views of the left ankle are submitted for evaluation. FINDINGS: There is no evidence for fracture or dislocation. Ankle mortise is intact. Soft tissues are within normal limits. IMPRESSION: 1. No evidence for acute fracture.
--- NOTE | 2020-10-08 13:54 | XR ---
EXAMINATION TYPE: XR foot complete LT DATE OF EXAM: 10/08/2020 CLINICAL HISTORY: pain TECHNIQUE: Frontal, lateral and oblique images of the left foot are obtained. COMPARISON: None. FINDINGS: There is no acute fracture/dislocation evident. The joint spaces appear within normal diane its. The overlying soft tissue appears unremarkable. IMPRESSION: There is no acute fracture or dislocation. ICD 10 NO FRACTURE, INITIAL EVALUATION
[2020-10-08 14:17] VITALS: BP 160/80; PULSE 72
== END 2020-10-08 14:17 | disposition home or self-care (01) ==
LOC: EC 12:51
DX: S93.402A Sprain of unspecified ligament of left ankle, initial encounter (principal); I10 Essential (primary) hypertension; M10.9 Gout, unspecified; I20.9 Angina pectoris, unspecified; E78.5 Hyperlipidemia, unspecified; Z79.899 Other long term (current) drug therapy; Z91.018 Allergy to other foods; Z91.013 Allergy to seafood; Z85.3 Personal history of malignant neoplasm of breast; W10.1XXA Fall (on)(from) sidewalk curb, initial encounter; Y93.01 Activity, walking, marching and hiking; Y92.89 Other specified places as the place of occurrence of the external cause
CPT/HCPCS: 73610; 73630; 99283; 29515; L4350

== ENCOUNTER 2020-11-27 16:34 | Observation (INO) | payer OTHER ==
[2020-11-27] MEDS ORDERED: ONDANSETRON 4 MG/2 ML VIAL IVP STA (17:13)
--- NOTE | 2020-11-27 17:25 | ED ---
Nausea/Vomiting/Diarrhea HPI - General Chief complaint: Nausea/Vomiting/Diarrhea Stated complaint: SOB/nausea Time Seen by Provider: 11/27/20 16:56 Source: patient Mode of arrival: ambulatory Limitations: no limitations - History of Present Illness Initial comments: 60-year-old female patient presents to the emergency department today for evaluation of nausea, chest pressure, shortness of breath. Patient states symptoms started 3 days ago. Patient does have history of high blood pressure high cholesterol. Denies any cough or congestion. Denies any fever or chills. Denies any constipation or diarrhea. Denies any family history of heart problem s. States she may been exposed to someone who has COVID-19. Patient denies any recent rash, fever, chills, cough, back pain, numbness, tingling, dizziness, weakness, hematuria, dysuria, urinary urgency, urinary frequency, headache, visual changes, or any other complaints. - Related Data Home Medications Medication Instructions Recorded Confirmed Nitroglycerin Sl Tabs [Nitrostat] 0.4 mg SUBLINGUAL Q5M PRN 12/10/16 11/27/20 Atorvastatin [Lipitor] 40 mg PO DAILY 02/03/18 11/27/20 Albuterol Sulfate [Proair Hfa] 2 puff INHALATION RT-Q4H PRN 11/27/20 11/27/20 Ibuprofen [Motrin] 800 mg PO BID PRN 11/27/20 11/27/20 Previous Rx's Medication Instructions Recorded amLODIPine [Norvasc] 5 mg PO DAILY tab 06/26/20 Allergies Allergy/AdvReac Type Severity Reaction Status Date / Time shellfish derived [Shellfish] Allergy Severe Anaphylaxis Verified 11/27/20 17:49 sea salt Allergy Severe Anaphylaxis Uncoded 11/27/20 16:42 seafood Allergy Severe Anaphylaxis Uncoded 11/27/20 16:42 Review of Systems ROS Statement: Those systems with pertinent positive or pertinent negative responses have been documented in the HPI. ROS Other: All systems not noted in ROS Statement are negative. Past Medical History Past Medical History: Asthma, Cancer, Chest Pain / Angina, Hyperlipidemia, Hypertension, Osteoarthritis (OA), Renal Disease, Respiratory Disorder Additional Past Medical History / Comment(s): kidney stones-only one kidney functions (pt unsure laterallity), R breast cancer with surgery, migraines, Restless Leg Syndrome, gout bilateral feet, chronic back pain History of Any Multi-Drug Resistant Organisms: None Reported Past Surgical History: Breast Surgery, Section, Heart Catheterization, Hysterectomy, Orthopedic Surgery, Tonsillectomy Additional Past Surgical History / Comment(s): R breast lumpectomy 2006? R foot bone spurs removed, total hysterectomy with bilateral oopherectomy, x2, Past Anesthesia/Blood Transfusion Reactions: Postoperative Nausea & Vomiting (PONV) Additional Past Anesthesia/Blood Transfusion Reaction / Comment(s): No blood transfusion to date Past Psychological History: Anxiety, Depression Smoking Status: Never smoker Past Alcohol Use History: None Reported Past Drug Use History: None Reported - Past Family History Father Family Medical History: CVA/TIA, Renal Disease Additional Family Medical History / Comment(s): Father had a CVA then went into kidney failure and . Mother Family Medical History: Hypertension General Exam Limitations: no limitations General appearance: alert, in no apparent distress, other (Physical well- developed, well-nourished adult female patient in no acute distress. Vital signs upon presentation are temperature 98.9F, pulse 91, respirations 20, blood pressure 201/98, pulse ox 96% on room air.) Eye exam: Present: normal appearance, PERRL, EOMI. Absent: scleral icterus, conjunctival injection, periorbital swelling Respiratory exam: Present: normal lung sounds bilaterally. Absent: respiratory distress, wheezes, rales, rhonchi, stridor Cardiovascular Exam: Present: regular rate, normal rhythm, normal heart sounds. Absent: systolic murmur, diastolic murmur, rubs, gallop, clicks GI/Abdominal exam: Present: soft, normal bowel sounds. Absent: distended, tenderness, guarding, rebound, rigid Neurological exam: Present: alert, oriented X3, CN II-XII intact Psychiatric exam: Present: normal affect, normal mood Skin exam: Present: warm, dry, intact, normal color. Absent: rash Course Vital Signs 11/27/20 11/27/20 11/27/20 16:38 18:53 19:43 Temperature 98.9 F Pulse Rate 91 81 104 H Respiratory 20 20 20 Rate Blood Pressure 201/98 202/113 166/111 O2 Sat by Pulse 96 98 99 Oximetry 11/27/20 20:10 Temperature Pulse Rate 104 H Respiratory 20 Rate Blood Pressure 194/111 O2 Sat by Pulse 99 Oximetry Medical Decision Making - Medical Decision Making 60-year-old female patient presents to the emergency department today for evaluation of chest pressure, shortness of breath, nausea. Physical examination did reveal soft nontender abdomen. Lungs are clear to auscultation with good air movement. Labs reviewed and did reveal troponin 0.022. Patient was concerned for Covid with this test was negative. EKG showed no significant ST elevation or depression. She'll be admitted to the hospital for cardiology evaluation and serial troponins. Blood pressures have been quite elevated, we did give a dose of hydralazine and restarted her home Norvasc which she hasn't been taking in quite some time. She is agreeable with this plan. - Lab Data Result diagrams: 11/27/20 17:39 11/27/20 17:39 Lab Results 11/27/20 11/27/20 11/27/20 Range/Units 17:39 17:39 17:39 WBC 7.1 (3.8-10.6) k/uL RBC 4.97 (3.80-5.40) m/uL Hgb 14.7 (11.4-16.0) gm/dL Hct 45.4 (34.0-46.0) % MCV 91.3 (80.0-100.0) fL MCH 29.6 (25.0-35.0) pg MCHC 32.4 (31.0-37.0) g/dL RDW 13.4 (11.5-15.5) % Plt Count 219 (150-450) k/uL MPV 8.9 Neutrophils % 76 % Lymphocytes % 13 % Monocytes % 4 % Eosinophils % 5 % Basophils % 1 % Neutrophils # 5.4 (1.3-7.7) k/uL Lymphocytes # 0.9 L (1.0-4.8) k/uL Monocytes # 0.3 (0-1.0) k/uL Eosinophils # 0.3 (0-0.7) k/uL Basophils # 0.1 (0-0.2) k/uL PT 9.6 (9.0-12.0) sec INR 0.9 (<1.2) APTT 23.5 (22.0-30.0) sec Sodium 140 (137-145) mmol/L Potassium 4.3 (3.5-5.1) mmol/L Chloride 108 H (98-107) mmol/L Carbon Dioxide 29 (22-30) mmol/L Anion Gap 3 mmol/L BUN 26 H (7-17) mg/dL Creatinine 1.60 H (0.52-1.04) mg/dL Est GFR (CKD-EPI)AfAm 40 (>60 ml/min/1.73 sqM) Est GFR (CKD-EPI)NonAf 35 (>60 ml/min/1.73 sqM) Glucose 96 (74-99) mg/dL Calcium 9.5 (8.4-10.2) mg/dL Magnesium 2.0 (1.6-2.3) mg/dL Total Bilirubin 0.7 (0.2-1.3) mg/dL AST 49 H (14-36) U/L ALT 48 H (4-34) U/L Alkaline Phosphatase 128 H (38-126) U/L Troponin I (0.000-0.034) ng/mL Total Protein 7.0 (6.3-8.2) g/dL Albumin 3.9 (3.5-5.0) g/dL Lipase 57 (23-300) U/L Coronavirus (PCR) (Not Detectd) 11/27/20 11/27/20 Range/Units 17:39 17:42 WBC (3.8-10.6) k/uL RBC (3.80-5.40) m/uL Hgb (11.4-16.0) gm/dL Hct (34.0-46.0) % MCV (80.0-100.0) fL MCH (25.0-35.0) pg MCHC (31.0-37.0) g/dL RDW (11.5-15.5) % Plt Count (150-450) k/uL MPV Neutrophils % % Lymphocytes % % Monocytes % % Eosinophils % % Basophils % % Neutrophils # (1.3-7.7) k/uL Lymphocytes # (1.0-4.8) k/uL Monocytes # (0-1.0) k/uL Eosinophils # (0-0.7) k/uL Basophils # (0-0.2) k/uL PT (9.0-12.0) sec INR (<1.2) APTT (22.0-30.0) sec Sodium (137-145) mmol/L Potassium (3.5-5.1) mmol/L Chloride (98-107) mmol/L Carbon Dioxide (22-30) mmol/L Anion Gap mmol/L BUN (7-17) mg/dL Creatinine (0.52-1.04) mg/dL Est GFR (CKD-EPI)AfAm (>60 ml/min/1.73 sqM) Est GFR (CKD-EPI)NonAf (>60 ml/min/1.73 sqM) Glucose (74-99) mg/dL Calcium (8.4-10.2) mg/dL Magnesium (1.6-2.3) mg/dL Total Bilirubin (0.2-1.3) mg/dL AST (14-36) U/L ALT (4-34) U/L Alkaline Phosphatase (38-126) U/L Troponin I 0.022 (0.000-0.034) ng/mL Total Protein (6.3-8.2) g/dL Albumin (3.5-5.0) g/dL Lipase (23-300) U/L Coronavirus (PCR) Not Detected (Not Detectd) - EKG Data -: EKG Interpreted by Ia EKG Comments: EKG obtained at 1731 shows normal sinus rhythm with a ventricular 72, FL interval 164, QRS duration 72, QT 388, QTC 424. No evidence of ST elevation or depression. - Radiology Data Radiology results: report reviewed, image reviewed One view x-ray of the chest is obtained. Report was reviewed in its entirety. Impression by Dr. Tijerina shows normal chest. No change. Disposition Clinical Impression: Chest pain Disposition: ADMITTED IP TO THIS [facility] Condition: Serious Referrals: Brian Chanel MD [Primary Care Provider] - 1-2 days Decision to Admit Reason: Admit from EC Decision Date: 11/27/20 Decision Time: 19:27
[2020-11-27 17:46] LABS: Basophils # (A) 0.1 k/uL (0-0.2); Basophils % (A) 1 %; Eosinophils # (A) 0.3 k/uL (0-0.7); Eosinophils % (A) 5 %; HCT 45.4 % (34.0-46.0); HGB 14.7 gm/dL (11.4-16.0); Lymphocytes # (A) 0.9 k/uL (1.0-4.8); Lymphocytes % (A) 13 %; MCH 29.6 pg (25.0-35.0); MCHC 32.4 g/dL (31.0-37.0); MCV 91.3 fL (80.0-100.0); Mean Platelet Volume 8.9; Monocytes # (A) 0.3 k/uL (0-1.0); Monocytes % (A) 4 %; Neutrophils # (A) 5.4 k/uL (1.3-7.7); Neutrophils % (A) 76 %; Platelet Count 219 k/uL (150-450); RBC 4.97 m/uL (3.80-5.40); RDW 13.4 % (11.5-15.5); WBC 7.1 k/uL (3.8-10.6)
[2020-11-27 17:55] LABS: Albumin 3.9 g/dL (3.5-5.0); Calcium 9.5 mg/dL (8.4-10.2); Potassium 4.3 mmol/L (3.5-5.1); Total Bilirubin 0.7 mg/dL (0.2-1.3)
[2020-11-27 17:56] LABS: INR 0.9 (<1.2); Partial Thromboplastin Time 23.5 sec (22.0-30.0); Prothrombin Time 9.6 sec (9.0-12.0)
--- NOTE | 2020-11-27 18:16 | XR ---
EXAMINATION TYPE: XR chest 1V portable DATE OF EXAM: 11/27/2020 COMPARISON: 06/22/2020 HISTORY: Pain TECHNIQUE: 2 views FINDINGS: Heart and mediastinum are normal. Lungs are clear. Diaphragm is normal. Bony thorax appears normal. There are chest leads. IMPRESSION: Normal chest. No change.
[2020-11-27] MEDS ORDERED: hydrALAZINE HCL 20 MG/ML 1 ML VIAL IVP STA (18:57)
[2020-11-27] MEDS ORDERED: NALOXONE 0.4 MG/ML 1 ML VIAL IV PRN (19:25)
[2020-11-27] MEDS ORDERED: MORPHINE SULFATE 4 MG/ML SYRINGE IV PRN (19:25)
[2020-11-27] MEDS ORDERED: ONDANSETRON 4 MG/2 ML VIAL IVP PRN (19:25)
[2020-11-27] MEDS ORDERED: amLODIPine 5 MG TAB PO STA (19:50)
[2020-11-27] MEDS ORDERED: LABETALOL 5 MG/ML VIAL MDV IVP STA (21:13)
[2020-11-27] MEDS ORDERED: ALPRAZolam 0.25 MG TAB PO PRN (22:43)
[2020-11-28 02:58] VITALS: RESP 16
[2020-11-28] MEDS ORDERED: IBUPROFEN 800 MG TAB PO PRN (09:06)
[2020-11-28] MEDS ORDERED: ALBUTEROL NEBULIZED 2.5 MG/3 ML INHALATION PRN (09:06)
[2020-11-28] MEDS: ASPIRIN 325 MG TAB PO SCH (09:23)
[2020-11-28] MEDS: amLODIPine 5 MG TAB PO SCH (09:23)
[2020-11-28] MEDS: ATORVASTATIN 40 MG TAB PO SCH (09:23)
--- NOTE | 2020-11-28 09:31 | P.CRDCN ---
History of Present Illness Consult date: 11/28/20 Chief complaint: Epigastric discomfort History of present illness: This is a 60-year-old female patient with somewhat poor historian with a past medical history significant for hypertension and dyslipidemia and obesity and chronic pain presented to the hospital for further evaluation. The patient somewhat is a poor historian and she stated that she presented to the hospital not because of any symptoms but because her kids were sick at home. On further questioning the patient described right lower quadrant scar 4. She denies any epigastric discomfort and denies any chest pain or chest discomfort. She does have shortness of breath with exertion but she stated that has been there for long time. No dizziness or lightheadedness and no syncope. Please note that the patient is overweight. She described pain mainly in the lower back as well as in the lower extremities. She also does have chronic kidney disease and according to her she doesn't follow with a skirt maker on regular basis. The EKG showed sinus rhythm without any significant ST or T-wave abnormalities. The cardiac enzymes were checked and the first troponin came in to be unremarkable but the third one came in to be slightly abnormal but her creatinine is elevat ed. Currently the patient is not having any symptoms of chest pain or chest discomfort. She is mainly pointing toward the right lower quadrant area. When she presented to the hospital earlier her pressure was elevated and clearly she stated that she was not compliant with her blood pressure medications. She was admitted to the hospital back in May 2020 with a bradycardia and at that point an echocardiogram was performed and showed normal left ventricle systolic function without any significant valvular abnormalities. Past Medical History Past Medical History: Asthma, Cancer, Chest Pain / Angina, Hyperlipidemia, Hypertension, Osteoarthritis (OA), Renal Disease, Respiratory Disorder Additional Past Medical History / Comment(s): kidney stones-only one kidney functions (pt unsure laterallity), R breast cancer with surgery, migraines, Restless Leg Syndrome, gout bilateral feet, chronic back pain History of Any Multi-Drug Resistant Organisms: None Reported Past Surgical History: Breast Surgery, Section, Heart Catheterization, Hysterectomy, Orthopedic Surgery, Tonsillectomy Additional Past Surgical History / Comment(s): R breast lumpectomy 2005? R foot bone spurs removed, total hysterectomy with bilateral oopherectomy, x2 , Past Anesthesia/Blood Transfusion Reactions: Postoperative Nausea & Vomiting (PONV) Additional Past Anesthesia/Blood Transfusion Reaction / Comment(s): No blood transfusion to date Past Psychological History: Anxiety, Depression Additional Psychological History / Comment(s): PT resides with son and daughter. Pt uses no devices. She drives. She has a nebulizer. Smoking Status: Never smoker Past Alcohol Use History: None Reported Past Drug Use History: None Reported - Past Family History Father Family Medical History: CVA/TIA, Renal Disease Additional Family Medical History / Comment(s): Father had a CVA then went into kidney failure and . Mother Family Medical History: Hypertension Medications and Allergies Home Medications Medication Instructions Recorded Confirmed Type Nitroglycerin Sl Tabs [Nitrostat] 0.4 mg SUBLINGUAL Q5M PRN 12/10/16 11/27/20 History Atorvastatin [Lipitor] 40 mg PO DAILY 02/03/18 11/27/20 History amLODIPine [Norvasc] 5 mg PO DAILY tab 06/26/20 11/27/20 Rx Albuterol Sulfate [Proair Hfa] 2 puff INHALATION RT-Q4H PRN 11/27/20 11/27/20 History Ibuprofen [Motrin] 800 mg PO BID PRN 11/27/20 11/27/20 History Allergies Allergy/AdvReac Type Severity Reaction Status Date / Time shellfish derived [Shellfish] Allergy Severe Anaphylaxis Verified 11/27/20 17:49 sea salt Allergy Severe Anaphylaxis Uncoded 11/27/20 16:42 seafood Allergy Severe Anaphylaxis Uncoded 11/27/20 16:42 Physical Exam Vitals: Vital Signs Temp Pulse Pulse Resp BP BP Pulse Ox 11/28/20 02:58 78 16 11/28/20 02:57 97.8 F 78 16 136/81 98 11/27/20 22:35 98 F 87 17 139/90 97 11/27/20 21:43 98.2 F 85 20 141/99 99 11/27/20 21:10 97 20 171/117 98 11/27/20 20:10 104 H 20 194/111 99 11/27/20 19:43 104 H 20 166/111 99 11/27/20 18:53 81 20 202/113 98 11/27/20 16:38 98.9 F 91 20 201/98 96 Intake and Output 11/27/20 11/28/20 11/28/20 22:59 06:59 14:59 Other: # Voids 1 Weight 89.811 kg 105.6 kg - Constitutional General appearance: no acute distress - Respiratory Respiratory: bilateral: CTA - Cardiovascular Rhythm: regular Heart sounds: normal: S1, S2 Results 11/27/20 17:39 11/27/20 17:39 Cardiac Enzymes 11/27/20 11/27/20 12 Range/Units 17:39 17:39 21:00 AST 49 H (14-36) U/L Troponin I 0.022 0.021 (0.000-0.034) ng/mL 11/28/20 Range/Units 00:00 AST (14-36) U/L Troponin I 0.056 H* (0.000-0.034) ng/mL Coagulation 11/27/20 Range/Units 17:39 PT 9.6 (9.0-12.0) sec APTT 23.5 (22.0-30.0) sec CBC 11/27/20 Range/Units 17:39 WBC 7.1 (3.8-10.6) k/uL RBC 4.97 (3.80-5.40) m/uL Hgb 14.7 (11.4-16.0) gm/dL Hct 45.4 (34.0-46.0) % Plt Count 219 (150-450) k/uL Comprehensive Metabolic Panel 11/27/20 Range/Units 17:39 Sodium 140 (137-145) mmol/L Potassium 4.3 (3.5-5.1) mmol/L Chloride 108 H (98-107) mmol/L Carbon Dioxide 29 (22-30) mmol/L BUN 26 H (7-17) mg/dL Creatinine 1.60 H (0.52-1.04) mg/dL Glucose 96 (74-99) mg/dL Calcium 9.5 (8.4-10.2) mg/dL AST 49 H (14-36) U/L ALT 48 H (4-34) U/L Alkaline Phosphatase 128 H (38-126) U/L Total Protein 7.0 (6.3-8.2) g/dL Albumin 3.9 (3.5-5.0) g/dL Current Medications Generic Name Dose Route Start Last Admin Trade Name Freq PRN Reason Stop Dose Admin Albuterol Sulfate 2.5 mg 11/28/20 09:06 Albuterol Nebulized 2.5 Mg/3 Ml INHALATION RT-Q4H PRN Shortness Of Breath Alprazolam 0.25 mg 11/27/20 22:43 11/27/20 22:45 Alprazolam 0.25 Mg Tab PO 0.25 mg BID PRN Administration Anxiety Amlodipine Besylate 5 mg 11/28/20 09:15 11/28/20 09:23 Amlodipine 5 Mg Tab PO 5 mg DAILY THIERRY Administration Aspirin 325 mg 11/28/20 09:00 11/28/20 09:23 Aspirin 325 Mg Tab PO 325 mg DAILY THIERRY Administration Atorvastatin Calcium 40 mg 11/28/20 09:15 11/28/20 09:23 Atorvastatin 40 Mg Tab PO 40 mg DAILY THIERRY Administration Ibuprofen 800 mg 11/28/20 09:06 Ibuprofen 800 Mg Tab PO BID PRN Pain Morphine Sulfate 4 mg 11/27/20 19:25 Morphine Sulfate 4 Mg/Ml Syringe IV Q4HR PRN Severe Pain Naloxone HCl 0.2 mg 11/27/20 19:25 Naloxone 0.4 Mg/Ml 1 Ml Vial IV Q2M PRN Opioid Reversal Ondansetron HCl 4 mg 11/27/20 19:25 Ondansetron 4 Mg/2 Ml Vial IVP Q8HR PRN Nausea And Vomiting Intake and Output 11/27/20 11/28/20 11/28/20 22:59 06:59 14:59 Other: # Voids 1 Weight 89.811 kg 105.6 kg 11/27/20 17:39 11/27/20 17:39 Assessment and Plan Assessment: Assessment #1 abdominal discomfort #2 chronic kidney disease #3 hypertension #4 obesity #5 chronic pain Plan #1 rule out any intra-abdominal process. I advised obtaining an ultrasound or computed tomography scan without contrast #2 obtain an echocardiogram was Doppler to assess for any wall motion abnormalities #3 continue the aspirin #4 further recommendation to follow
--- NOTE | 2020-11-28 12:00 | ECHOF ---
Referral Reason:abnormal troponin MEASUREMENTS -------- HEIGHT: 147.3 cm WEIGHT: 105.2 kg BP: 136/81 RVIDd: 3.4 cm (< 3.3) IVSd: 1.5 cm (0.6 - 1.1) LVIDd: 4.1 cm (3.9 - 5.3) LVPWd: 1.4 cm (0.6 - 1.1) IVSs: 1.9 cm LVIDs: 2.6 cm LVPWs: 1.7 cm LA Diam: 3.4 cm (2.7 - 3.8) LAESV Index (A-L): 20.39 ml/m Ao Diam: 3.2 cm (2.0 - 3.7) AV Cusp: 1.7 cm (1.5 - 2.6) MV EXCURSION: 15.965 mm (> 18.000) MV EF SLOPE: 202 mm/s (70 - 150) EPSS: 0.3 cm MV E [place]: 0.76 m/s MV DecT: 216 ms MV A [place]: 1.21 m/s MV E/A Ratio: 0.63 AV maxP.29 mmHg AV meanP.50 mmHg RAP: 5.00 mmHg RVSP: 41.55 mmHg FINDINGS -------- Sinus rhythm. This was a technically adequate study. The left ventricular size is normal. There is moderate concentric left ventricular hypertrophy. O verall left ventricular systolic function is normal with, an EF between 65 - 70 %. The right ventricle is mildly enlarged. Normal LA size by volume 22+/-6 ml/m2. The right atrium is normal in size. Interatrial and interventricular septum intact. Aortic valve is trileaflet and is mildly thickened. Peak/mean gradient across the Aortic Valve is 2 6.29mmHg / 12.50mmHg. The mitral valve is normal. There is trace to mild mitral regurgitation. Mild tricuspid regurgitation present. There is mild pulmonary hypertension. The right ventricular systolic pressure, as measured by Doppler, is 41.55mmHg. The pulmonic valve was not well visualized. The aortic root size is normal. IVC Not well visulized. There is no pericardial effusion. CONCLUSIONS -------- 1. The left ventricular size is normal. 2. There is moderate concentric left ventricular hypertrophy. 3. Overall left ventricular systolic function is normal with, an EF between 65 - 70 %. 4. The right ventricle is mildly enlarged. 5. Normal LA size by volume 22+/-6 ml/m2. 6. Aortic valve is trileaflet and is mildly thickened. 7. Peak/mean gradient across the Aortic Valve is 26.29mmHg / 12.50mmHg. 8. There is trace to mild mitral regurgitation. 9. Mild tricuspid regurgitation present. 10. There is mild pulmonary hypertension. 11. The right ventricular systolic pressure, as measured by Doppler, is 41.55mmHg. 12. There is no pericardial effusion. TEACHING YOUNG: Shaylee Kate RDCS
--- NOTE | 2020-11-29 00:50 | P.HPIM ---
History of Present Illness H&P Date: 11/28/20 Chief Complaint: Chest pressure Patient is a 60-year-old female with a known history of asthma, hypertension, hyperlipidemia, history of right breast cancer with surgery and migraine headaches and restless leg syndrome and chronic back pain, anxiety/depression presents to ER with complaints of chest pressure and shortness of breath along with nausea. No complaints of radiation of pain. No associated palpitations or diaphoresis. Patient has been having symptoms for the past 3 days. Patient is somewhat poor historian. Patient is also complaining of lower abdominal discomfort and sometimes right upper quadrant pain. Denied any complaints of fever or chills. No cough or sputum production. Denied any recent illnesses. No diarrhea or abdominal pain. No headache or dizziness or lightheadedness. Chest x-ray showed no change. Normal chest. EKG showed normal sinus rhythm Laboratory data showed WBC 7.1, hemoglobin 14.7 platelets 219, lymphocytes 0.9 Sodium 140, potassium 4.3, BUN 26 and creatinine 1.6 AST 49, ALT 48, alk phos 128 and troponin 0 0.22, 0.021 and 0.056 COVID-19 PCR negative. Patient has been afebrile and currently at 96% on room air Review of Systems Constitutional: Patient denies any fever or chills . No generalized weakness or weight loss. Abdomen: Patient denied nausea vomiting and diarrhea. Patient does have lower abdominal pain.n. Cardiovascular: Patient denies any chest pain or short of breath no palpitations. Respiratory: patient denied any cough or sputum production. No shortness of breath Neurologic: Patient denied any numbness or tingling headache. Musculoskeletal: Patient denies any complaints of joint swelling or deformity. Skin: Negative Psychiatric: Negative Endocrine: No heat or cold intolerance. No recent weight gain. Genitourinary: No dysuria or hematuria. All other 14 point ROS negative except the above Past Medical History Past Medical History: Asthma, Cancer, Chest Pain / Angina, Hyperlipidemia, Hypertension, Osteoarthritis (OA), Renal Disease, Respiratory Disorder Additional Past Medical History / Comment(s): kidney stones-only one kidney functions (pt unsure laterallity), R breast cancer with surgery, migraines, Restless Leg Syndrome, gout bilateral feet, chronic back pain History of Any Multi-Drug Resistant Organisms: None Reported Past Surgical History: Breast Surgery, Section, Heart Catheterization, Hysterectomy, Orthopedic Surgery, Tonsillectomy Additional Past Surgical History / Comment(s): R breast lumpectomy 2006? R foot bone spurs removed, total hysterectomy with bilateral oopherectomy, x2, Past Anesthesia/Blood Transfusion Reactions: Postoperative Nausea & Vomiting (PONV) Additional Past Anesthesia/Blood Transfusion Reaction / Comment(s): No blood transfusion to date Past Psychological History: Anxiety, Depression Additional Psychological History / Comment(s): PT resides with son and daughter. Pt uses no devices. She drives. She has a nebulizer. Smoking Status: Never smoker Past Alcohol Use History: None Reported Past Drug Use History: None Reported - Past Family History Father Family Medical History: CVA/TIA, Renal Disease Additional Family Medical History / Comment(s): Father had a CVA then went into kidney failure and . Mother Family Medical History: Hypertension Medications and Allergies Home Medications Medication Instructions Recorded Confirmed Type Nitroglycerin Sl Tabs [Nitrostat] 0.4 mg SUBLINGUAL Q5M PRN 12/10/16 11/27/20 History Atorvastatin [Lipitor] 40 mg PO DAILY 02/03/18 11/27/20 History amLODIPine [Norvasc] 5 mg PO DAILY tab 06/26/20 11/27/20 Rx Albuterol Sulfate [Proair Hfa] 2 puff INHALATION RT-Q4H PRN 11/27/20 11/27/20 History Ibuprofen [Motrin] 800 mg PO BID PRN 11/27/20 11/27/20 History Allergies Allergy/AdvReac Type Severity Reaction Status Date / Time shellfish derived [Shellfish] Allergy Severe Anaphylaxis Verified 11/27/20 17:49 sea salt Allergy Severe Anaphylaxis Uncoded 11/27/20 16:42 seafood Allergy Severe Anaphylaxis Uncoded 11/27/20 16:42 Physical Exam Vitals: Vital Signs Temp Pulse Pulse Resp BP BP Pulse Ox 11/28/20 09:00 97.8 F 87 194/98 94 L 11/28/20 02:58 78 16 11/28/20 02:57 97.8 F 78 16 136/81 98 11/27/20 22:35 98 F 87 17 139/90 97 11/27/20 21:43 98.2 F 85 20 141/99 99 11/27/20 21:10 97 20 171/117 98 11/27/20 20:10 104 H 20 194/111 99 11/27/20 19:43 104 H 20 166/111 99 11/27/20 18:53 81 20 202/113 98 11/27/20 16:38 98.9 F 91 20 201/98 96 Intake and Output 11/27/20 11/28/20 11/28/20 22:59 06:59 14:59 Other: # Voids 1 Weight 89.811 kg 105.6 kg PHYSICAL EXAMINATION: Patient is lying in the bed comfortably, no acute distress, awake alert and oriented.. HEENT: Normocephalic. Neck is supple. Pupils reactive. Nostrils clear. Oral cavity is moist. Ears reveal no drainage. Neck reveals no JVD, carotid bruits, or thyromegaly. CHEST EXAMINATION: Trachea is central. Symmetrical expansion. Lung pickard clear to auscultation and percussion. CARDIAC: Normal S1, S2 with no gallops. No murmurs ABDOMEN: Soft. Mild lower abdominal tenderness. Bowel sounds normal. No organomegaly. No abdominal bruits. Extremities: reveal no edema. No clubbing or cyanosis Neurologically awake, alert, oriented x2-3 with well-coordinated movements. No focal deficits noted Skin: No rash or skin lesions. Psychiatric: Coperative. Nonsuicidal Musculoskeletal: No joint swelling or deformity. Normal range of motion. Results CBC & Chem 7: 11/27/20 17:39 11/27/20 17:39 Labs: Abnormal Lab Results - Last 24 Hours (Table) 11/27/20 11/27/20 11/28/20 Range/Units 17:39 17:39 00:00 Lymphocytes # 0.9 L (1.0-4.8) k/uL Chloride 108 H (98-107) mmol/L BUN 26 H (7-17) mg/dL Creatinine 1.60 H (0.52-1.04) mg/dL AST 49 H (14-36) U/L ALT 48 H (4-34) U/L Alkaline Phosphatase 128 H (38-126) U/L Troponin I 0.056 H* (0.000-0.034) ng/mL Thrombosis Risk Factor Assmnt - DVT/VTE Prophylaxis DVT/VTE Prophylaxis: Pharmacologic Prophylaxis ordered - Choose All That Apply Any of the Below Risk Factors Present?: Yes Each Factor Represents 1 point: Obesity (BMI >25), Swollen legs (current) Other Risk Factors: Yes Each Risk Factor Represents 2 Points: Age 61-74 years Other congenital or acquired thrombophilia - If yes, enter type in comment: No Thrombosis Risk Factor Assessment Total Risk Factor Score: 4 Thrombosis Risk Factor Assessment Level: Moderate Risk Assessment and Plan Assessment: Lower abdominal discomfort. Rule out infection vs other etiology. Chest pressure with mild troponin elevation. Possible NSTEMI cannot be excluded. Mild transaminitis Previous history of cardiac catheterization Morbid obesity with a BMI 48.7 Chronic low back pain Acute on chronic renal disease stage III Anxiety/depression History of solitary kidney History of renal stones Right breast cancer with surgery Migraine headaches Restless leg syndrome Gout bilateral feet. Asthma not in exacerbation DVT prophylaxis with Lovenox subcu daily. Plan: Patient will be continued on gentle IV hydration. Continue with aspirin. Trend troponin level. Cardiology is on board and 2D echocardiogram was ordered. Due to complaints of lower abdominal pain CT of the abdomen pelvis without c ontrast was ordered due to elevated creatinine level.Urinalysis was ordered. Monitor renal function. Continue the pain management and follow-up closely. Further recommendations based on clinical course. Time with Patient: Greater than 30
[2020-11-29] MEDS: SODIUM CHLORIDE 0.9% 1,000 ML IV SCH ×2 (02:26→11:58)
[2020-11-29 06:01] LABS: Appearance,Urine Clear (Clear); Bacteria,Urine Rare /hpf; Bilirubin,Urine Negative (Negative); Blood,Urine Negative (Negative); Color,Urine Yellow; Glucose,Urine (UA) Negative (Negative); Ketones,Urine Negative (Negative); Leukocyte Esterase,Urine Negative (Negative); Mucus,Urine Rare /hpf; Nitrite,Urine Negative (Negative); PH, Urine 5.5 (5.0-8.0); Protein,Urine 2+ (Negative); RBC,Urine <1 /hpf (0-5); Specific Gravity,Urine 1.019 (1.001-1.035); Squamous Epithelial Cell,Urine 2 /hpf (0-4); Urobilinogen,Urine <2.0 mg/dL (<2.0); WBC,Urine 4 /hpf (0-5)
--- NOTE | 2020-11-29 07:41 | US ---
EXAMINATION TYPE: US abdomen limited DATE OF EXAM: 11/29/2020 COMPARISON: Ultrasound kidneys 09/19/2020, CT 06/24/2020 CLINICAL HISTORY: abdominal pain. abdominal pain, cholecystectomy EXAM MEASUREMENTS: Liver Length: 16.0 cm Gallbladder Wall: Surgically absent Right Kidney: 5.1 x 3.2 x 2.2 cm Technical limitations due to patient's body habitus and large amount of overlying bowel content Pancreas: Obscured by bowel gas Liver: limited evaluation, attenuating Gallbladder: Surgically absent Evidence for sonographic Nance's sign: no CBD: Obscured by overlying bowel gas Right Kidney: atrophic, difficult to visualize IMPRESSION: Limited exam. There may be underlying hepatic steatosis versus hepatocellular disease. Po stcholecystectomy change. Stable atrophy right kidney.
--- NOTE | 2020-11-29 08:25 | CT ---
EXAMINATION TYPE: CT abdomen pelvis wo con DATE OF EXAM: 11/29/2020 COMPARISON: 06/24/2020 INDICATION: Lower abdominal and flank pain DLP: 1067.2 mGycm, Automated exposure control for dose reduction was used. CONTRAST: 0 mL of Isovue 300. Study performed without Oral Contrast TECHNIQUE: Axial images were obtained from above the diaphragm to the pubic rami in the axial plane a t 5 mm thick sections. Reconstructed images are reviewed on the computer in the coronal plane. FINDINGS: Limited CT sections are obtained the lung bases. The lung bases are clear. Minimal pericardial effu brain may be present. CT ABDOMEN: Liver: Normal Spleen: Normal Pancreas: Normal Adrenal glands: The adrenal glands are normal. Gallbladder: Surgically absent Kidneys: Right kidney is atrophic. No masses are evident. No hydronephrosis is present. Peripelvic cysts are present on the left. No renal stones are identified. No hydroureter is evident. Aorta: Normal Inferior vena cava: Normal. CT PELVIS: Loops of bowel within the abdomen and pelvis are normal. The study is without oral contrast limit ing bowel evaluation. Appendix: Normal as visualized. Urinary bladder: Normal. Genitourinary structures: Uterus and ovaries are not identified. Osseous structures: No suspicious lytic or sclerotic lesions. IMPRESSIONS: 1. Stable left peripelvic cysts. No evidence of obstructing renal stones or ureteral stones. Finding s appear similar to May 2020 exam.
[2020-11-29] MEDS: ASPIRIN 325 MG TAB PO SCH (08:53)
[2020-11-29] MEDS: ATORVASTATIN 40 MG TAB PO SCH (08:53)
[2020-11-29] MEDS: amLODIPine 5 MG TAB PO SCH (08:53)
[2020-11-29 08:55] LABS: Basophils % (A) 1 %; Eosinophils # (A) 0.3 k/uL (0-0.7); Eosinophils % (A) 5 %; HCT 45.9 % (34.0-46.0); Lymphocytes # (A) 0.9 k/uL (1.0-4.8); Lymphocytes % (A) 17 %; MCH 29.1 pg (25.0-35.0); MCHC 30.5 g/dL (31.0-37.0); MCV 95.2 fL (80.0-100.0); Mean Platelet Volume 8.9; Monocytes # (A) 0.3 k/uL (0-1.0); Monocytes % (A) 5 %; Neutrophils # (A) 3.8 k/uL (1.3-7.7); Neutrophils % (A) 70 %; Platelet Count 193 k/uL (150-450); RBC 4.82 m/uL (3.80-5.40); RDW 13.4 % (11.5-15.5); WBC 5.4 k/uL (3.8-10.6)
[2020-11-29] MEDS ORDERED: ENOXAPARIN 40 MG/0.4 ML SYRINGE SQ SCH (09:00)
[2020-11-29 09:08] LABS: Albumin 3.3 g/dL (3.5-5.0); Calcium 9.1 mg/dL (8.4-10.2); Potassium 4.7 mmol/L (3.5-5.1); Total Bilirubin 0.9 mg/dL (0.2-1.3); Total Protein 6.2 g/dL (6.3-8.2)
--- NOTE | 2020-11-29 09:41 | P.PN ---
Subjective Progress Note Date: 11/29/20 Principal diagnosis: Abdominal discomfort This is a 60-year-old female patient with hypertension and chronic pain who we consulted to see for abnormal cardiac enzymes and a chest discomfort. The patient was seen yesterday and she did not have any symptoms of chest pain or epigastric pain and she was pointing towards her right lower quadrant. An ultrasound and computed tomography scan of the abdomen performed and showed only mild abnormalities with non-obstructing gallstone. The patient was seen this morning and she is feeling much better beach she would like to go home. She denies any symptoms of chest pain or chest discomfort or shortness of breath. I advised the patient to undergo a stress test with myocardial perfusion imaging and the patient confused and she would like to go home. She underwent an echocardiogram which revealed normal left ventricular systolic function with mild aortic stenosis Objective - Vital Signs Vital signs: Vital Signs Temp 98.2 F 11/29/20 03:00 Pulse 60 11/29/20 03:00 Resp 16 11/29/20 03:00 BP 154/84 11/29/20 03:00 Pulse Ox 93 L 11/29/20 03:00 Intake & Output 11/28/20 11/29/20 11/29/20 18:59 06:59 18:59 Intake Total 465 1020 Balance 465 1020 Intake: Oral 465 1020 Other: # Voids 3 - Constitutional General appearance: Present: no acute distress - Respiratory Respiratory: bilateral: CTA - Cardiovascular Rhythm: regular Heart sounds: normal: S1, S2 Abnormal Heart Sounds: Present: systolic murmur - Labs CBC & Chem 7: 11/29/20 07:30 11/29/20 07:30 Labs: Abnormal Lab Results - Last 24 Hours (Table) 11/29/20 11/29/20 11/29/20 Range/Units 03:55 07:30 07:30 MCHC 30.5 L (31.0-37.0) g/dL Lymphocytes # 0.9 L (1.0-4.8) k/uL Chloride 110 H (98-107) mmol/L BUN 24 H (7-17) mg/dL Creatinine 1.38 H (0.52-1.04) mg/dL Total Protein 6.2 L (6.3-8.2) g/dL Albumin 3.3 L (3.5-5.0) g/dL Urine Protein 2+ H (Negative) Urine Bacteria Rare H (None) /hpf Urine Mucus Rare H (None) /hpf Assessment and Plan Assessment: Assessment #1 abdominal discomfort #2 chronic kidney disease #3 hypertension #4 obesity #5 chronic pain Plan #1 continue current medical regimen #2 the patient would like to go home even that she was advised to undergo a stress test Namrata
[2020-11-29 10:26] VITALS: TEMP 97.7
[2020-11-29 12:10] VITALS: BP 184/105; PULSE 65
--- NOTE | 2020-11-29 13:48 | CONS ---
CONSULTATION REASON FOR CONSULT: Renal failure. HISTORY OF PRESENT ILLNESS: Patient is a 60-year-old female with history of solitary kidney with atrophy of the right kidney, possibly since . The patient was admitted to the hospital with complaints of shortness of breath. She had some cough as well. Her COVID-19 PCR was negative. Serum creatinine was 1.6 on admission. Patient is maintained on IV fluids. It is down to 1.38 today. Previous creatinine documented at 1.4-1.5 in May and March of [address] back to 2013 we have a creatinine of about 1.2 and 1.3 mg/dL. The patient denies any urinary symptoms. She denies having seen a vat tender previously. Patient did admit to use of nonsteroidal anti-inflammatory agents, ibuprofen for pain. Blood pressure has been elevated since admission. PAST MEDICAL HISTORY: Past medical history significant for: 1. Hypertension. 2. Obesity. 3. Asthma. 4. Hyperlipidemia. 5. History of right breast cancer with surgery. 6. History of migraine headaches. 7. History of kidney stones/cysts. 8. Restless legs syndrome. 9. Gout. 10.Chronic back pain. PAST SURGICAL HISTORY: , cardiac catheterization, right breast lumpectomy, hysterectomy, tonsillectomy, right foot surgery, bilateral oophorectomy, total hysterectomy, C- section x2. SOCIAL HISTORY: Negative for smoking, drug abuse or alcohol abuse. MEDICATIONS: Medications prior to admission include Lipitor, Norvasc, Motrin, albuterol, Nitrostat. ALLERGIES: Allergies include SHELLFISH, SEA SALT, SEAFOOD, all of which cause anaphylaxis. REVIEW OF SYSTEMS: As per HPI. Other systems negative. PHYSICAL EXAMINATION: Patient is comfortable, awake. She is not in any acute distress. Blood pressure was elevated 184/105, heart rate 65 per minute. She is afebrile. EXAMINATION OF THE HEART: S1, S2. EXAMINATION OF LUNGS: Decreased breath sounds at bases. Abdomen is soft, nontender. Examination of lower extremities shows no significant edema. HEALTH SCREENER exam is grossly intact. LABS: Labs show sodium 139, potassium 4.7, chloride 110, CO2 is 25, BUN 24, creatinine 1.38, hemoglobin 14.0 g/dL. A troponin was 0.056. UA shows 2+ protein, no blood or cells were seen. Coronavirus PCR negative. ASSESSMENT: 1. Acute kidney injury secondary to NSAIDs and possibly a prerenal component as well. The patient is advised to discontinue the use of Motrin/ibuprofen and she has received IV fluids. I will discontinue the IV fluids now since her blood pressure is elevated and her renal function has improved significantly. No evidence of obstruction. UA is fairly benign. However, patient does have proteinuria which could be related to the NSAIDs as well. 2. Chronic kidney disease with solitary kidney and right renal atrophy stage 3, previous creatinine 1.3-1.[address] back to 2018. There is proteinuria on the UA. However, this could be related to recent use of NSAIDs. This will need to be monitored down the road. 3. Hypertension, currently uncontrolled. Patient is maintained on Norvasc. I will discontinue the saline. We can increase the Norvasc to 5 mg b.i.d. if needed. 4. Right renal atrophy. 5. History of right breast cancer. 6. Chest pressure with borderline troponins. 7. History of gout, currently asymptomatic. 8. Left renal cyst, most likely benign. PLAN: Discontinue IV fluids. Increase Norvasc to 5 mg b.i.d. Patient will need followup as outpatient for CKD. Consider adding MOHIT inhibitors when renal function is stable. Thank you for this consultation. Will continue to follow the patient with you during her hospitalization. MMBROOKEL / IJN: [id number] /
[2020-11-29] MEDS ORDERED: amLODIPine 5 MG TAB PO SCH (21:00)
== END 2020-11-29 15:00 | disposition home or self-care (01) ==
LOC: EC 16:34 → 1SOBS 19:40 → 3SCARD 21:54
PROVIDERS: ADMIT Hospitalist; ATTEND Hospitalist
DX: R07.89 Other chest pain (principal); R11.0 Nausea; R06.02 Shortness of breath; R10.30 Lower abdominal pain, unspecified; R10.31 Right lower quadrant pain; R77.8 Other specified abnormalities of plasma proteins; R74.01 Elevation of levels of liver transaminase levels; R05 Cough; E66.01 Morbid (severe) obesity due to excess calories; G89.29 Other chronic pain; M54.5 Low back pain; I12.9 Hypertensive chronic kidney disease with stage 1 through stage 4 chronic kidney disease, or unspecified chronic kidney disease; N18.30 Chronic kidney disease, stage 3 unspecified; N17.9 Acute kidney failure, unspecified; N14.1 Nephropathy induced by other drugs, medicaments and biological substances; T39.395A Adverse effect of other nonsteroidal anti-inflammatory drugs [NSAID], initial encounter; F41.9 Anxiety disorder, unspecified; F32.9 Major depressive disorder, single episode, unspecified; G25.81 Restless legs syndrome; M10.9 Gout, unspecified; J45.909 Unspecified asthma, uncomplicated; E78.00 Pure hypercholesterolemia, unspecified; E78.5 Hyperlipidemia, unspecified; M19.90 Unspecified osteoarthritis, unspecified site; Z20.828 Contact with and (suspected) exposure to other viral communicable diseases; Z79.899 Other long term (current) drug therapy; Z90.5 Acquired absence of kidney; Z87.442 Personal history of urinary calculi; Z85.3 Personal history of malignant neoplasm of breast; Z86.69 Personal history of other diseases of the nervous system and sense organs; Z79.1 Long term (current) use of non-steroidal anti-inflammatories (NSAID); Z91.013 Allergy to seafood; Z91.02 Food additives allergy status; Z87.09 Personal history of other diseases of the respiratory system; Z98.890 Other specified postprocedural states; Z90.710 Acquired absence of both cervix and uterus; Z90.89 Acquired absence of other organs; Z87.39 Personal history of other diseases of the musculoskeletal system and connective tissue; Z90.722 Acquired absence of ovaries, bilateral; Z91.89 Other specified personal risk factors, not elsewhere classified; Z68.42 Body mass index [BMI] 45.0-49.9, adult; Z82.3 Family history of stroke; Z84.1 Family history of disorders of kidney and ureter; Z82.49 Family history of ischemic heart disease and other diseases of the circulatory system
CPT/HCPCS: 96361; 96372; 96374; 96375; 99285; 36415; 93005; 93306; 80053 ×2; 83690; 83735; 84484 ×2; 85025 ×2; 85610; 85730; 81001; 87635; 71045; 76705; 74176; G0378 ×4; J0360; J2405; J1650

== ENCOUNTER 2020-12-23 19:43 | Emergency (ER) | payer OTHER ==
[2020-12-23 19:48] VITALS: BP 162/80; PULSE 78; RESP 19; TEMP 98.7
--- NOTE | 2020-12-23 19:55 | ED ---
Extremity Problem HPI - General Chief complaint: Extremity Problem,Nontraumatic Stated complaint: Knee Pain, Abd Pain Time Seen by Provider: 12/23/20 19:50 Source: patient Mode of arrival: wheelchair - History of Present Illness Initial comments: 50-year-old female presenting to the emergency department with a chief complaint of knee pain. Due to symptoms of been ongoing for almost a year. Patient states she saw her primary care physician who told her that she has arthritis and she was supposed to undergo bilateral knee replacement. However, this was delayed due to the covid pandemic. Patient reports the pain is located throughout the whole knee, bilaterally. States the pain is exacerbated with ambulation and alleviated at rest. Just reports some pain in the left hip that seems to be radiating distally to the knee. She does report taking [id number] 400 mg ibuprofen with no significant improvement in symptoms. She denies any injury. Denies any numbness or tingling. - Related Data Home Medications Medication Instructions Recorded Confirmed Nitroglycerin Sl Tabs [Nitrostat] 0.4 mg SUBLINGUAL Q5M PRN 12/10/16 11/27/20 Atorvastatin [Lipitor] 40 mg PO DAILY 02/03/18 11/27/20 Albuterol Sulfate [Proair Hfa] 2 puff INHALATION RT-Q4H PRN 11/27/20 11/27/20 Previous Rx's Medication Instructions Recorded amLODIPine [Norvasc] 5 mg PO DAILY tab 06/26/20 Aspirin 325 mg PO DAILY 30 Days #30 tab 11/29/20 Allergies Allergy/AdvReac Type Severity Reaction Status Date / Time shellfish derived [Shellfish] Allergy Severe Anaphylaxis Verified 12/23/20 19:49 sea salt Allergy Severe Anaphylaxis Uncoded 12/23/20 19:49 seafood Allergy Severe Anaphylaxis Uncoded 12/23/20 19:49 Review of Systems ROS Statement: Those systems with pertinent positive or pertinent negative responses have been documented in the HPI. ROS Other: All systems not noted in ROS Statement are negative. Past Medical History Past Medical History: Asthma, Cancer, Chest Pain / Angina, Hyperlipidemia, Hypertension, Osteoarthritis (OA), Renal Disease, Respiratory Disorder Additional Past Medical History / Comment(s): kidney stones-only one kidney functions (pt unsure laterallity), R breast cancer with surgery, migraines, Restless Leg Syndrome, gout bilateral feet, chronic back pain History of Any Multi-Drug Resistant Organisms: None Reported Past Surgical History: Breast Surgery, Section, Heart Catheterization, Hysterectomy, Orthopedic Surgery, Tonsillectomy Additional Past Surgical History / Comment(s): R breast lumpectomy 2006? R foot bone spurs removed, total hysterectomy with bilateral oopherectomy, x2, Past Anesthesia/Blood Transfusion Reactions: Postoperative Nausea & Vomiting (PONV) Additional Past Anesthesia/Blood Transfusion Reaction / Comment(s): No blood transfusion to date Past Psychological History: Anxiety, Depression Smoking Status: Never smoker Past Alcohol Use History: None Reported Past Drug Use History: None Reported - Past Family History Father Family Medical History: CVA/TIA, Renal Disease Additional Family Medical History / Comment(s): Father had a CVA then went into kidney failure and . Mother Family Medical History: Hypertension General Exam Limitations: no limitations General appearance: alert, in no apparent distress, obese Head exam: Present: atraumatic, normocephalic, normal inspection Eye exam: Present: normal appearance, PERRL, EOMI Pupils: Present: normal accommodation ENT exam: Present: normal exam, normal oropharynx, mucous membranes moist, TM's normal bilaterally, normal external ear exam Neck exam: Present: normal inspection, full ROM. Absent: tenderness Respiratory exam: Present: normal lung sounds bilaterally. Absent: respiratory distress, wheezes, rales, rhonchi, stridor Cardiovascular Exam: Present: regular rate, normal rhythm, normal heart sounds Extremities exam: Present: normal inspection, full ROM (Tenderness with full flexion bilaterally.), tenderness, normal capillary refill, other (Palpable DP and PT bilaterally. Negative anterior drawer test. Negative Huseyin bilateral. Negative Homans bilaterally.). Absent: pedal edema, joint swelling, calf tenderness Back exam: Present: normal inspection, full ROM. Absent: tenderness, CVA tenderness (R), CVA tenderness (L) Neurological exam: Present: alert, oriented X3, normal gait Psychiatric exam: Present: normal affect, normal mood Skin exam: Present: warm, dry, intact, normal color Course Vital Signs 12/23/20 19:47 Temperature 98.7 F Pulse Rate 78 Respiratory 19 Rate Blood Pressure 162/80 O2 Sat by Pulse 98 Oximetry Medical Decision Making - Medical Decision Making 60-year-old female presenting to the emergency department with chief complaint of knee and hip pain. On physical examination, patient has full range of motion in bilateral knees, the pain is worse with full flexion. She is otherwise neurovascularly intact. Similar pain seems to be present in her left hip with some radiation of pain to the knee. Patient was given Tylenol 3 for pain. X- rays are unremarkable. Patient was advised to follow with blood bank specialist. Strict return parameters were thoroughly discussed the patient was understanding and agreeable. Case discussed physician. Disposition Clinical Impression: Bilateral knee pain, Left hip pain Disposition: HOME SELF-CARE Condition: Stable Instructions (If sedation given, give patient instructions): Knee Pain (ED), Arthralgia (ED) Additional Instructions: Follow-up with blood bank specialist. Alternate between Tylenol and Motrin for pain control. Return to emergency department if symptoms worsen. Is patient prescribed a controlled substance at d/c from ED?: No Referrals: Brian Chanel MD [Primary Care Provider] - 1-2 days Burke Nance MD [STAFF PHYSICIAN] - 1-2 days Time of Disposition: 21:21
--- NOTE | 2020-12-23 20:26 | XR ---
EXAMINATION TYPE: XR Hip Complete LT DATE OF EXAM: 12/23/2020 COMPARISON: NONE HISTORY: Hip pain TECHNIQUE: 2 views FINDINGS: No fracture nor dislocation. Hip joint space is fairly normal. There is no sign of hip dysp lasia. IMPRESSION: Negative left hip exam
--- NOTE | 2020-12-23 20:55 | XR ---
EXAMINATION TYPE: XR knee complete bilateral DATE OF EXAM: 12/23/2020 COMPARISON: None HISTORY: Lateral pain. TECHNIQUE: 3 views each knee FINDINGS: I see no fracture nor dislocation. Joint spaces are normal. There is no sign of joint effus ion. There are no pathologic calcifications. IMPRESSION: Negative bilateral knee exam.
[2020-12-23] MEDS ORDERED: ACET/COD 300 MG/30 MG STARTER PACK 6 TAB BTL PO STA (21:21)
== END 2020-12-23 21:32 | disposition home or self-care (01) ==
LOC: EC 19:43
DX: M25.562 Pain in left knee (principal); M25.561 Pain in right knee; M25.552 Pain in left hip; I10 Essential (primary) hypertension; J45.909 Unspecified asthma, uncomplicated; I20.9 Angina pectoris, unspecified; E78.5 Hyperlipidemia, unspecified; Z79.899 Other long term (current) drug therapy; Z91.013 Allergy to seafood; Z85.3 Personal history of malignant neoplasm of breast
CPT/HCPCS: 73502; 99283

== ENCOUNTER 2021-02-16 16:57 | Emergency (ER) | payer OTHER ==
[2021-02-16 17:17] VITALS: BP 169/104; PULSE 78; RESP 18; TEMP 98.4
--- NOTE | 2021-02-16 17:38 | ED ---
General Adult HPI - General Chief complaint: Recheck/Abnormal Lab/Rx Stated complaint: Covid test Time Seen by Provider: 02/16/21 17:22 Source: patient Mode of arrival: ambulatory Limitations: no limitations - History of Present Illness Initial comments: 60-year-old female presents to the emergency room for a chief complaint of covid test. States that a friend came over to the house who was exposed yesterday. Friend is currently asymptomatic and has not had any testing. Patient was just exposed today with family members. Patient has not developed any symptoms at all. They called their PCP who recommended they get tested. Patient has no other complaints at this time including shortness of breath, chest pain, abdominal pain, nausea or vomiting, headache, or visual changes. - Related Data Home Medications Medication Instructions Recorded Confirmed Nitroglycerin Sl Tabs [Nitrostat] 0.4 mg SUBLINGUAL Q5M PRN 12/10/16 11/27/20 Atorvastatin [Lipitor] 40 mg PO DAILY 02/03/18 11/27/20 Albuterol Sulfate [Proair Hfa] 2 puff INHALATION RT-Q4H PRN 11/27/20 11/27/20 Previous Rx's Medication Instructions Recorded amLODIPine [Norvasc] 5 mg PO DAILY tab 06/26/20 Aspirin 325 mg PO DAILY 30 Days #30 tab 11/29/20 Allergies Allergy/AdvReac Type Severity Reaction Status Date / Time shellfish derived [Shellfish] Allergy Severe Anaphylaxis Verified 12/23/20 19:49 sea salt Allergy Severe Anaphylaxis Uncoded 12/23/20 19:49 seafood Allergy Severe Anaphylaxis Uncoded 12/23/20 19:49 Review of Systems ROS Statement: Those systems with pertinent positive or pertinent negative responses have been documented in the HPI. ROS Other: All systems not noted in ROS Statement are negative. Past Medical History Past Medical History: Asthma, Cancer, Chest Pain / Angina, Hyperlipidemia, Hypertension, Osteoarthritis (OA), Renal Disease, Respiratory Disorder Additional Past Medical History / Comment(s): kidney stones-only one kidney functions (pt unsure laterallity), R breast cancer with surgery, migraines, Restless Leg Syndrome, gout bilateral feet, chronic back pain History of Any Multi-Drug Resistant Organisms: None Reported Past Surgical History: Breast Surgery, Section, Heart Catheterization, Hysterectomy, Orthopedic Surgery, Tonsillectomy Additional Past Surgical History / Comment(s): R breast lumpectomy 2006? R foot bone spurs removed, total hysterectomy with bilateral oopherectomy, x2, Past Anesthesia/Blood Transfusion Reactions: Postoperative Nausea & Vomiting (PONV) Additional Past Anesthesia/Blood Transfusion Reaction / Comment(s): No blood transfusion to date Past Psychological History: Anxiety, Depression Smoking Status: Never smoker Past Alcohol Use History: None Reported Past Drug Use History: None Reported - Past Family History Father Family Medical History: CVA/TIA, Renal Disease Additional Family Medical History / Comment(s): Father had a CVA then went into kidney failure and . Mother Family Medical History: Hypertension General Exam Limitations: no limitations General appearance: alert, in no apparent distress Head exam: Present: atraumatic, normocephalic, normal inspection Eye exam: Present: normal appearance, PERRL, EOMI. Absent: scleral icterus, conjunctival injection, periorbital swelling ENT exam: Present: normal exam, mucous membranes moist Neck exam: Present: normal inspection, full ROM. Absent: tenderness, meningismus, lymphadenopathy Respiratory exam: Present: normal lung sounds bilaterally. Absent: respiratory distress, wheezes, rales, rhonchi, stridor Cardiovascular Exam: Present: regular rate, normal rhythm, normal heart sounds. Absent: systolic murmur, diastolic murmur, rubs, gallop, clicks GI/Abdominal exam: Present: soft, normal bowel sounds. Absent: distended, tenderness, guarding, rebound, rigid Course Vital Signs 02/16/21 17:14 Temperature 98.4 F Pulse Rate 78 Respiratory 18 Rate Blood Pressure 169/104 O2 Sat by Pulse 98 Oximetry Medical Decision Making - Medical Decision Making Vitals stable. Patient hypertensive, has a history of this, no symptoms. Patient is asymptomatic for COVID, was just exposed today. Covid test was ordered as PCR. Recommended to quarantine until testing results. Disposition Clinical Impression: COVID-19 virus test result unknown Disposition: HOME SELF-CARE Condition: Good Instructions (If sedation given, give patient instructions): Coronavirus Disease 2019 (COVID-19) Additional Instructions: Please quarantine until your test results. At that point talk to your doctor about how long you need to quarantine for. Follow-up with primary care. Return to the emergency room for any worsening symptoms including shortness of breath. Is patient prescribed a controlled substance at d/c from ED?: No Referrals: Brian Chanel MD [Primary Care Provider] - 1-2 days Time of Disposition: 17:37
== END 2021-02-16 18:00 | disposition home or self-care (01) ==
LOC: EC 16:57
DX: Z20.822 Contact with and (suspected) exposure to COVID-19 (principal); E78.5 Hyperlipidemia, unspecified; I10 Essential (primary) hypertension; F41.9 Anxiety disorder, unspecified; F32.9 Major depressive disorder, single episode, unspecified; Z79.82 Long term (current) use of aspirin; Z85.3 Personal history of malignant neoplasm of breast; J45.909 Unspecified asthma, uncomplicated; M19.90 Unspecified osteoarthritis, unspecified site
CPT/HCPCS: 99282; U0003; U0005

== ENCOUNTER → 2021-04-04 | Outpatient (CLI) | payer OTHER ==
--- NOTE | 2021-04-04 11:48 | US ---
EXAMINATION TYPE: US venous doppler duplex LE LT DATE OF EXAM: 04/04/2021 11:29 AM COMPARISON: NONE CLINICAL HISTORY: M79.662 pain left lower limb. pain left leg SIDE PERFORMED: left TECHNIQUE: The lower extremity deep venous system is examined utilizing real time linear array sonog kelle with graded compression, doppler sonography and color-flow sonography. VESSELS IMAGED: Common Femoral Vein Deep Femoral Vein Greater Saphenous Vein * Femoral Vein Popliteal Vein Small Saphenous Vein * Proximal Calf Veins (* superficial vessels) Left Leg: Technical limitations due to patient's body habitus. no evidence of DVT as visualized IMPRESSION: No DVT seen
== END | disposition home or self-care (01) ==
LOC: RADUSWWP 11:05
PROVIDERS: ATTEND Internal Medicine
DX: M79.662 Pain in left lower leg (principal)

== ENCOUNTER → 2021-04-18 | Outpatient (CLI) | payer OTHER ==
--- NOTE | 2021-04-19 07:17 | US ---
EXAMINATION TYPE: US kidneys/renal and bladder DATE OF EXAM: 04/18/2021 COMPARISON: CT, US 11/29/2020 CLINICAL HISTORY: R10.12 Left upper quadrant pain. Patient stated has left pelvic pain x 2 months EXAM MEASUREMENTS: Right Kidney: 7.8 x 3.2 x 4.2 cm Left Kidney: 10.1 x 6.0 x 4.5 cm Post Void Residual Volume: 0.9 mL Right Kidney: atrophic, no hydronephrosis or shadowing renal calculi. Left Kidney: appearance of multiple parapelvic cysts. The; largest parapelvic cyst = 2.4 x 2.5 x 2.2c m . There may be a component of mild underlying hydronephrosis. Bladder: moderately distended Bilateral Jets seen: only left ureteral jet was seen within 3 minute observation Normal Post Void Residual: yes IMPRESSION: 1. Tiny amount of postvoid urinary bladder residual. 2. The right kidney is atrophic. No hydronephrosis or shadowing renal calculi. 3. Multiple left parapelvic cysts. There may be a component of mild underlying hydronephrosis.
== END | disposition home or self-care (01) ==
LOC: RADUSWWP 16:06
PROVIDERS: ATTEND Internal Medicine
DX: N26.1 Atrophy of kidney (terminal) (principal); N28.1 Cyst of kidney, acquired
CPT/HCPCS: 76770

== ENCOUNTER 2021-11-13 11:09 | Emergency (ER) | payer OTHER ==
[2021-11-13 11:34] VITALS: BP 160/96; PULSE 83; RESP 18; TEMP 98.3
[2021-11-13] MEDS ORDERED: ACETAMINOPHEN TAB 500 MG TAB PO STA (11:50)
--- NOTE | 2021-11-13 11:51 | ED ---
General Adult HPI - General Chief complaint: Headache Stated complaint: Covid+/BAM Time Seen by Provider: 11/13/21 11:36 Source: patient Mode of arrival: ambulatory Limitations: no limitations - History of Present Illness Initial comments: 60-year-old female with a past medical history of asthma, hyperlipidemia, hypertension, renal disease presents to the emergency room for a chief complaint of antibody infusion. Patient states she tested positive for COVID-19 yesterday and had symptoms start 3 days ago. Patient states her symptoms include body ac hes headache and fatigue. Denies shortness of breath or chest pain. Patient is not vaccinated.Patient has no other complaints at this time including shortness of breath, chest pain, abdominal pain, nausea or vomiting, or visual changes. - Related Data Home Medications Medication Instructions Recorded Confirmed Nitroglycerin Sl Tabs [Nitrostat] 0.4 mg SUBLINGUAL Q5M PRN 12/10/16 11/27/20 Atorvastatin [Lipitor] 40 mg PO DAILY 02/03/18 11/27/20 Albuterol Sulfate [Proair Hfa] 2 puff INHALATION RT-Q4H PRN 11/27/20 11/27/20 Previous Rx's Medication Instructions Recorded amLODIPine [Norvasc] 5 mg PO DAILY tab 06/26/20 Aspirin 325 mg PO DAILY 30 Days #30 tab 11/29/20 Allergies Allergy/AdvReac Type Severity Reaction Status Date / Time shellfish derived [Shellfish] Allergy Severe Anaphylaxis Verified 11/13/21 11:35 sea salt Allergy Severe Anaphylaxis Uncoded 12/23/20 19:49 seafood Allergy Severe Anaphylaxis Uncoded 12/23/20 19:49 Review of Systems ROS Statement: Those systems with pertinent positive or pertinent negative responses have been documented in the HPI. ROS Other: All systems not noted in ROS Statement are negative. Past Medical History Past Medical History: Asthma, Cancer, Chest Pain / Angina, Hyperlipidemia, Hypertension, Osteoarthritis (OA), Renal Disease, Respiratory Disorder Additional Past Medical History / Comment(s): kidney stones-only one kidney functions (pt unsure laterallity), R breast cancer with surgery, migraines, Restless Leg Syndrome, gout bilateral feet, chronic back pain History of Any Multi-Drug Resistant Organisms: None Reported Past Surgical History: Breast Surgery, Section, Heart Catheterization, Hysterectomy, Orthopedic Surgery, Tonsillectomy Additional Past Surgical History / Comment(s): R breast lumpectomy 2006? R foot bone spurs removed, total hysterectomy with bilateral oopherectomy, x2, Past Anesthesia/Blood Transfusion Reactions: Postoperative Nausea & Vomiting (PONV) Additional Past Anesthesia/Blood Transfusion Reaction / Comment(s): No blood transfusion to date Past Psychological History: Anxiety, Depression Smoking Status: Never smoker Past Alcohol Use History: None Reported Past Drug Use History: None Reported - Past Family History Father Family Medical History: CVA/TIA, Renal Disease Additional Family Medical History / Comment(s): Father had a CVA then went into kidney failure and . Mother Family Medical History: Hypertension General Exam Limitations: no limitations General appearance: alert, in no apparent distress Head exam: Present: atraumatic Eye exam: Present: normal appearance, PERRL, EOMI. Absent: scleral icterus, conjunctival injection ENT exam: Present: normal exam, mucous membranes moist, TM's normal bilaterally, normal external ear exam Neck exam: Present: normal inspection, full ROM. Absent: tenderness Respiratory exam: Present: normal lung sounds bilaterally. Absent: respiratory distress, wheezes Cardiovascular Exam: Present: regular rate, normal rhythm, normal heart sounds GI/Abdominal exam: Present: soft, normal bowel sounds. Absent: distended, tenderness Course Vital Signs 11/13/21 11:30 Temperature 98.3 F Pulse Rate 83 Respiratory 18 Rate Blood Pressure 160/96 O2 Sat by Pulse 95 Oximetry Medical Decision Making - Medical Decision Making Vitals are stable. Patient is well-appearing. Patient will be given Tylenol for her headache and body aches. She cannot take Motrin. Patient does qualify for antibody infusion. She did bring a paper COVID-19 positive result with her for verification. Patient was given infusion and monitored for an hour afterwards. She is stable for outpatient follow-up. She will return here for any worsening symptoms. Disposition Clinical Impression: COVID Disposition: HOME SELF-CARE Condition: Good Instructions (If sedation given, give patient instructions): Coronavirus Disease 2019 (COVID-19) Additional Instructions: Please follow up with your doctor in 1-2 days. Return to the ER for any worsening symptoms. Is patient prescribed a controlled substance at d/c from ED?: No Referrals: Brian Chanel MD [Primary Care Provider] - 1-2 days Time of Disposition: 11:50
[2021-11-13] MEDS ORDERED: SODIUM CHLORIDE 0.9% 50 ML IVPB ONE (12:15)
[2021-11-13] MEDS ORDERED: BAMLANIVIMAB (EUA) 700 MG, ETESEVIMAB (EUA) 1,400 MG in SODIUM CHLORIDE 0.9% 50 ML IVPB ONE (12:15)
== END 2021-11-13 14:55 | disposition home or self-care (01) ==
LOC: EC 11:09
DX: U07.1 COVID-19 (principal); J45.909 Unspecified asthma, uncomplicated; E78.5 Hyperlipidemia, unspecified; I10 Essential (primary) hypertension; Z91.013 Allergy to seafood; Z91.018 Allergy to other foods; Z79.899 Other long term (current) drug therapy
CPT/HCPCS: 99283; J3490

== ENCOUNTER → 2022-03-19 | Outpatient (CLI) | payer OTHER ==
--- NOTE | 2022-03-19 11:29 | XR ---
EXAMINATION TYPE: XR knee complete RT DATE OF EXAM: 03/19/2022 COMPARISON: NONE HISTORY: Pain TECHNIQUE: Three views are submitted. FINDINGS: Diffuse osteopenia with narrowing of the medial compartment of the right knee. Hypertrophic spurring of the patella. Small amount of fluid in the suprapatellar bursa.. Osseous structures are intact. N o acute fracture seen. IMPRESSION: 1. No acute fracture or dislocation.
== END | disposition home or self-care (01) ==
LOC: RADXRMAIN 11:01
PROVIDERS: ATTEND Internal Medicine
DX: M25.561 Pain in right knee (principal)

== ENCOUNTER → 2022-05-07 | Outpatient (CLI) | payer OTHER ==
--- NOTE | 2022-05-07 11:26 | XR ---
EXAMINATION TYPE: XR Hip Bilateral Complete DATE OF EXAM: 05/07/2022 COMPARISON: NONE HISTORY: Pain TECHNIQUE: 2 views of each hip submitted FINDINGS: There is no evidence of erosive change or acute fracture. Diffuse osteopenia with mild axial narrowing of the hip joint bilaterally. Hypertrophic change acetabula bilaterally. IMPRESSION: 1. Diffuse osteopenia with arthropathy correlate for femoral acetabular impingement..
--- NOTE | 2022-05-07 11:27 | XR ---
EXAMINATION TYPE: XR knee complete bilateral DATE OF EXAM: 05/07/2022 COMPARISON: 12/23/2020, 04/16/2015 HISTORY: Pain TECHNIQUE: Three views are submitted. FINDINGS: Mild narrowing of the medial compartment of the knee joint bilaterally and patellofemoral joint.. Os seous structures are intact. No acute fracture seen. Mild osteopenia. IMPRESSION: 1. Mild bilateral arthropathy. 2. Mild osteopenia
--- NOTE | 2022-05-07 18:22 | US ---
EXAMINATION TYPE: US venous doppler duplex LE BI DATE OF EXAM: 05/07/2022 10:42 AM COMPARISON: NONE CLINICAL HISTORY: 61-year-old female PAIN AND SWELLING LEFT AND RIGHT LOWER LIMBS. Pt states pain vu ateral knees, no known prior DVT, not on blood thinners SIDE PERFORMED: Bilateral TECHNIQUE: The lower extremity deep venous system is examined utilizing real time linear array sonog kelle with graded compression, doppler sonography and color-flow sonography. FINDINGS: VESSELS IMAGED: Common Femoral Vein Deep Femoral Vein Greater Saphenous Vein * Femoral Vein Popliteal Vein Small Saphenous Vein * Proximal Calf Veins (* superficial vessels) Billing Department Supervisor notes:Morbidly obese pt, difficult exam Right Leg: Negative for DVT Left Leg: Negative for DVT IMPRESSION: No evidence for DVT within the bilateral lower extremities imaged from the groin to the upper calves.
== END | disposition home or self-care (01) ==
LOC: RADUSWWP 10:18
PROVIDERS: ATTEND Internal Medicine
DX: M79.661 Pain in right lower leg (principal); M79.662 Pain in left lower leg; R22.42 Localized swelling, mass and lump, left lower limb; R22.41 Localized swelling, mass and lump, right lower limb; M12.862 Other specific arthropathies, not elsewhere classified, left knee; M12.861 Other specific arthropathies, not elsewhere classified, right knee
CPT/HCPCS: 73521; 93970

== ENCOUNTER → 2022-05-23 | Outpatient (CLI) | payer OTHER ==
--- NOTE | 2022-05-27 12:25 | MM ---
Reason for Exam: Screening (asymptomatic). Last mammogram was performed 2 year(s) and 9 month(s) ago. Patient History: Menarche at age 11. First Full-Term at age 18. Hysterectomy at age 44. Postmenopausal. Breast cancer, age 52. 01/06/2020, Benign Core Biopsy on the right side. 08/23/2013, Bilateral Malignant Excisional Biopsy. 08/05/2013, Malignant Core Biopsy on the right side. Maternal grandmother had breast cancer. Prior Study Comparison: 07/12/2016 Bilateral Screening Mammogram, [facility]. 08/23/2019 Bilateral Screening Mammogram, [facility]. 09/02/2019 Right Diagnostic Mammogram, [facility]. Tissue Density: There are scattered fibroglandular densities. Findings: Analyzed By CAD. Multiple surgical clips are within the right breast. No suspicious groups of microcalcifications, spiculated or lobular masses, architectural distortion or other secondary signs of malignancy are mammographically apparent. Overall Assessment: Benign, BI-RAD 2 Management: Screening Mammogram of both breasts in 1 year. A negative mammogram report should not preclude additional follow up of suspicious palpable abnormalities. Patient should continue monthly self breast exam. A clinical breast exam by your physician is recommended on an annual basis and results should be correlated with mammographic findings. Electronically signed and approved by: Morgan Ortiz D.O. Radiologis
== END | disposition home or self-care (01) ==
LOC: RADMAMWWP 14:37
PROVIDERS: ATTEND Internal Medicine
DX: Z12.31 Encounter for screening mammogram for malignant neoplasm of breast (principal)
CPT/HCPCS: 77067

== ENCOUNTER 2022-07-27 22:02 | Emergency (ER) | payer OTHER ==
[2022-07-27 22:51] VITALS: TEMP 98.2
--- NOTE | 2022-07-27 23:40 | XR ---
EXAMINATION TYPE: XR chest 2V DATE OF EXAM: 07/27/2022 COMPARISON: 11/27/2020 HISTORY: Chest pain TECHNIQUE: 2 views FINDINGS: Heart and mediastinum are normal. Lungs are clear. Diaphragm is normal. Bony thorax is inta ct. IMPRESSION: No active cardiopulmonary disease. Normal heart. No change
--- NOTE | 2022-07-28 00:04 | ED ---
General Adult HPI - General Chief complaint: Upper Respiratory Infection Stated complaint: ABD Pain Time Seen by Provider: 07/27/22 23:35 Source: patient Mode of arrival: ambulatory Limitations: no limitations - History of Present Illness Initial comments: This patient is a 61-year-old woman who presents to have evaluation for constellation of symptoms that is been coming on over the past 2-3 days. She states she has had fevers, headache, myalgias, and a little bit of cough. She states that her son is also having similar symptoms. She denies dyspnea. She states that she had seen her doctor in clinic and had a coated test 3 days ago which she states she was told was positive but then he called later and said that the test was really negative. She has not had improvement and therefore presents for evaluation here Onset/Timin -: days(s) Quality: other Consistency: constant Improves with: none Worsens with: none Associated Symptoms: cough, fever/chills, malaise Treatments Prior to Arrival: none - Related Data Home Medications Medication Instructions Recorded Confirmed Nitroglycerin Sl Tabs [Nitrostat] 0.4 mg SUBLINGUAL Q5M PRN 12/10/16 11/27/20 Atorvastatin [Lipitor] 40 mg PO DAILY 02/03/18 11/27/20 Albuterol Sulfate [Proair Hfa] 2 puff INHALATION RT-Q4H PRN 11/27/20 11/27/20 Previous Rx's Medication Instructions Recorded amLODIPine [Norvasc] 5 mg PO DAILY tab 06/26/20 Aspirin 325 mg PO DAILY 30 Days #30 tab 11/29/20 Allergies Allergy/AdvReac Type Severity Reaction Status Date / Time shellfish derived [Shellfish] Allergy Severe Anaphylaxis Verified 07/27/22 22:51 sea salt Allergy Severe Anaphylaxis Uncoded 05/28/22 10:59 seafood Allergy Severe Anaphylaxis Uncoded 05/28/22 10:59 Review of Systems ROS Statement: Those systems with pertinent positive or pertinent negative responses have been documented in the HPI. ROS Other: All systems not noted in ROS Statement are negative. Constitutional: Reports: fever, chills. Denies: weakness ENT: Reports: congestion. Denies: throat pain Respiratory: Reports: cough. Denies: dyspnea Cardiovascular: Denies: chest pain, edema Gastrointestinal: Denies: abdominal pain, nausea, vomiting, diarrhea Genitourinary: Denies: dysuria, hematuria Musculoskeletal: Reports: myalgia. Denies: back pain Skin: Denies: rash Neurological: Reports: headache Past Medical History Past Medical History: Asthma, Cancer, Chest Pain / Angina, Hyperlipidemia, Hypertension, Osteoarthritis (OA), Renal Disease, Respiratory Disorder Additional Past Medical History / Comment(s): kidney stones-only one kidney functions (pt unsure laterallity), R breast cancer with surgery, migraines, Restless Leg Syndrome, gout bilateral feet, chronic back pain History of Any Multi-Drug Resistant Organisms: None Reported Past Surgical History: Breast Surgery, Section, Heart Catheterization, Hysterectomy, Orthopedic Surgery, Tonsillectomy Additional Past Surgical History / Comment(s): R breast lumpectomy 2006? R foot bone spurs removed, total hysterectomy with bilateral oopherectomy, x2, Past Anesthesia/Blood Transfusion Reactions: Postoperative Nausea & Vomiting (PONV) Additional Past Anesthesia/Blood Transfusion Reaction / Comment(s): No blood transfusion to date Past Psychological History: Anxiety, Depression Smoking Status: Never smoker Past Alcohol Use History: None Reported Past Drug Use History: None Reported - Past Family History Father Family Medical History: CVA/TIA, Renal Disease Additional Family Medical History / Comment(s): Father had a CVA then went into kidney failure and . Mother Family Medical History: Hypertension General Exam Limitations: no limitations General appearance: alert, in no apparent distress Head exam: Present: atraumatic, normocephalic Eye exam: Present: normal appearance. Absent: scleral icterus, conjunctival injection Neck exam: Present: normal inspection Respiratory exam: Present: normal lung sounds bilaterally. Absent: respiratory distress, wheezes, rales, rhonchi, stridor Cardiovascular Exam: Present: regular rate, normal rhythm, normal heart sounds. Absent: systolic murmur, diastolic murmur, rubs, gallop GI/Abdominal exam: Present: soft. Absent: distended, tenderness, guarding, rebound, rigid Extremities exam: Present: normal inspection, normal capillary refill. Absent: pedal edema, calf tenderness Back exam: Present: normal inspection. Absent: CVA tenderness (R), CVA tenderness (L) Neurological exam: Present: alert Skin exam: Present: warm, dry, intact, normal color. Absent: rash Course Vital Signs 07/27/22 07/28/22 22:44 01:31 Temperature 98.2 F Pulse Rate 82 76 Respiratory 20 18 Rate Blood Pressure 205/112 169/118 O2 Sat by Pulse 95 93 L Oximetry EKG Findings - EKG Results: EKG: interpreted by ERMD, sinus rhythm (Rate 66 bpm), normal axis - Blocks, [place], Hypertrophy, ST Abn: Chamber hypertrophy or enlargement: left ventricular hypertrophy or enlargement (LVE) Medical Decision Making - Lab Data Result diagrams: 07/27/22 23:24 07/27/22 23:24 Lab Results 07/27/22 07/27/22 07/27/22 Range/Units 23:24 23:24 23:24 WBC 5.3 (3.8-10.6) k/uL RBC 5.21 (3.80-5.40) m/uL Hgb 15.9 (11.4-16.0) gm/dL Hct 47.9 H (34.0-46.0) % MCV 91.8 (80.0-100.0) fL MCH 30.5 (25.0-35.0) pg MCHC 33.3 (31.0-37.0) g/dL RDW 14.1 (11.5-15.5) % Plt Count 198 (150-450) k/uL MPV 9.0 Neutrophils % 72 % Lymphocytes % 11 % Monocytes % 9 % Eosinophils % 3 % Basophils % 2 % Neutrophils # 3.8 (1.3-7.7) k/uL Lymphocytes # 0.6 L (1.0-4.8) k/uL Monocytes # 0.4 (0-1.0) k/uL Eosinophils # 0.1 (0-0.7) k/uL Basophils # 0.1 (0-0.2) k/uL PT 9.5 (9.0-12.0) sec INR 0.8 (<1.2) APTT 24.2 (22.0-30.0) sec Sodium 136 L (137-145) mmol/L Potassium 4.7 (3.5-5.1) mmol/L Chloride 103 (98-107) mmol/L Carbon Dioxide 24 (22-30) mmol/L Anion Gap 9 mmol/L BUN 26 H (7-17) mg/dL Creatinine 1.80 H (0.52-1.04) mg/dL Est GFR (CKD-EPI)AfAm 34 (>60 ml/min/1.73 sqM) Est GFR (CKD-EPI)NonAf 30 (>60 ml/min/1.73 sqM) Glucose 93 (74-99) mg/dL Calcium 9.7 (8.4-10.2) mg/dL Magnesium 2.1 (1.6-2.3) mg/dL Total Bilirubin 0.7 (0.2-1.3) mg/dL AST 37 H (14-36) U/L ALT 33 (4-34) U/L Alkaline Phosphatase 132 H (38-126) U/L Troponin I (0.000-0.034) ng/mL Total Protein 6.8 (6.3-8.2) g/dL Albumin 3.9 (3.5-5.0) g/dL Coronavirus (PCR) (Not Detectd) 07/27/22 07/27/22 Range/Units 23:24 23:58 WBC (3.8-10.6) k/uL RBC (3.80-5.40) m/uL Hgb (11.4-16.0) gm/dL Hct (34.0-46.0) % MCV (80.0-100.0) fL MCH (25.0-35.0) pg MCHC (31.0-37.0) g/dL RDW (11.5-15.5) % Plt Count (150-450) k/uL MPV Neutrophils % % Lymphocytes % % Monocytes % % Eosinophils % % Basophils % % Neutrophils # (1.3-7.7) k/uL Lymphocytes # (1.0-4.8) k/uL Monocytes # (0-1.0) k/uL Eosinophils # (0-0.7) k/uL Basophils # (0-0.2) k/uL PT (9.0-12.0) sec INR (<1.2) APTT (22.0-30.0) sec Sodium (137-145) mmol/L Potassium (3.5-5.1) mmol/L Chloride (98-107) mmol/L Carbon Dioxide (22-30) mmol/L Anion Gap mmol/L BUN (7-17) mg/dL Creatinine (0.52-1.04) mg/dL Est GFR (CKD-EPI)AfAm (>60 ml/min/1.73 sqM) Est GFR (CKD-EPI)NonAf (>60 ml/min/1.73 sqM) Glucose (74-99) mg/dL Calcium (8.4-10.2) mg/dL Magnesium (1.6-2.3) mg/dL Total Bilirubin (0.2-1.3) mg/dL AST (14-36) U/L ALT (4-34) U/L Alkaline Phosphatase (38-126) U/L Troponin I 0.026 (0.000-0.034) ng/mL Total Protein (6.3-8.2) g/dL Albumin (3.5-5.0) g/dL Coronavirus (PCR) Detected A (Not Detectd) Disposition Clinical Impression: COVID-19 Disposition: HOME SELF-CARE Condition: Good Instructions (If sedation given, give patient instructions): COVID-19 (Coronavirus Disease 2019) (ED) Is patient prescribed a controlled substance at d/c from ED?: No Referrals: Brian Chanel MD [Primary Care Provider] - 1-2 days
[2022-07-28 00:14] LABS: INR 0.8 (<1.2); Partial Thromboplastin Time 24.2 sec (22.0-30.0); Prothrombin Time 9.5 sec (9.0-12.0)
[2022-07-28 00:22] LABS: Basophils # (A) 0.1 k/uL (0-0.2); Basophils % (A) 2 %; Eosinophils # (A) 0.1 k/uL (0-0.7); Eosinophils % (A) 3 %; HCT 47.9 % (34.0-46.0); HGB 15.9 gm/dL (11.4-16.0); Lymphocytes # (A) 0.6 k/uL (1.0-4.8); Lymphocytes % (A) 11 %; MCH 30.5 pg (25.0-35.0); MCHC 33.3 g/dL (31.0-37.0); MCV 91.8 fL (80.0-100.0); Monocytes # (A) 0.4 k/uL (0-1.0); Monocytes % (A) 9 %; Neutrophils # (A) 3.8 k/uL (1.3-7.7); Neutrophils % (A) 72 %; Platelet Count 198 k/uL (150-450); RBC 5.21 m/uL (3.80-5.40); RDW 14.1 % (11.5-15.5); WBC 5.3 k/uL (3.8-10.6)
[2022-07-28 00:47] LABS: Albumin 3.9 g/dL (3.5-5.0); Calcium 9.7 mg/dL (8.4-10.2); Magnesium 2.1 mg/dL (1.6-2.3); Potassium 4.7 mmol/L (3.5-5.1); Total Bilirubin 0.7 mg/dL (0.2-1.3); Total Protein 6.8 g/dL (6.3-8.2)
[2022-07-28 01:32] VITALS: RESP 18
[2022-07-28] MEDS ORDERED: amLODIPine 10 MG TAB PO STA (02:06)
[2022-07-28] MEDS ORDERED: hydrALAZINE HCL 20 MG/ML 1 ML VIAL IVP STA (03:21)
[2022-07-28 04:31] VITALS: BP 177/131; PULSE 96
== END 2022-07-28 04:30 | disposition home or self-care (01) ==
LOC: EC 22:02
DX: U07.1 COVID-19 (principal); E78.5 Hyperlipidemia, unspecified; I10 Essential (primary) hypertension; Z91.013 Allergy to seafood
CPT/HCPCS: 36415; 93005; 80053; 83735; 84484; 85025; 85610; 85730; 87635; 71046; 99284; 96374; J0360

== ENCOUNTER 2022-11-02 16:37 | Emergency (ER) | payer OTHER ==
[2022-11-02] MEDS ORDERED: HYDROmorphone 0.5 MG/0.5 ML SYRINGE IVP STA (19:17)
[2022-11-02] MEDS ORDERED: ONDANSETRON 4 MG/2 ML VIAL IVP STA (19:17)
[2022-11-02 20:08] LABS: Basophils # (A) 0.1 k/uL (0-0.2); Basophils % (A) 1 %; Eosinophils # (A) 0.2 k/uL (0-0.7); Eosinophils % (A) 3 %; HCT 43.8 % (34.0-46.0); HGB 14.5 gm/dL (11.4-16.0); Lymphocytes # (A) 0.7 k/uL (1.0-4.8); Lymphocytes % (A) 11 %; MCH 30.9 pg (25.0-35.0); MCV 93.5 fL (80.0-100.0); Mean Platelet Volume 9.7; Monocytes # (A) 0.2 k/uL (0-1.0); Monocytes % (A) 4 %; Neutrophils # (A) 4.9 k/uL (1.3-7.7); Neutrophils % (A) 79 %; Platelet Count 185 k/uL (150-450); RBC 4.69 m/uL (3.80-5.40); RDW 13.6 % (11.5-15.5); WBC 6.1 k/uL (3.8-10.6)
[2022-11-02 20:18] LABS: Albumin 3.9 g/dL (3.5-5.0); Calcium 9.1 mg/dL (8.4-10.2); Total Bilirubin 0.6 mg/dL (0.2-1.3); Total Protein 6.5 g/dL (6.3-8.2)
[2022-11-02 20:37] VITALS: TEMP 97.6
[2022-11-02] MEDS ORDERED: SODIUM CHLORIDE 0.9% 2,000 ML IV STA (21:19)
[2022-11-02] MEDS ORDERED: ACETAMINOPHEN TAB 500 MG TAB PO STA (21:46)
--- NOTE | 2022-11-02 22:32 | US ---
EXAMINATION TYPE: US abdomen limited DATE OF EXAM: 11/02/2022 COMPARISON: NONE CLINICAL HISTORY: pancreatitis, r/o gallstones. Pain Exam limitations due to body habitus. Patient st ates right kidney i not functioning. TECHNIQUE: Multiple sonographic images of the right upper quadrant are obtained. FINDINGS: EXAM MEASUREMENTS: Liver Length: 16.3 cm Gallbladder Wall: Not well visualized. CBD: .5 cm Right Kidney: 6.3 x 2.5 x 1.7 cm ANIMAL SURGEON NOTES: Pancreas: Obscured by bowel gas Liver: Limited increased attentuation. Gallbladder: Not well visualized due to body habitus. Evidence for sonographic Nance's sign: No CBD: wnl Right Kidney: Atrophic. IMPRESSION: Gallbladder not well seen. No dilated ducts. No discrete liver mass. small right kidney consistent with atrophy. Limited exam.
--- NOTE | 2022-11-02 22:35 | ED ---
Abdominal Pain HPI - General Chief Complaint: Abdominal Pain Stated Complaint: abdominal pain Time Seen by Provider: 11/02/22 19:06 Source: patient Mode of arrival: ambulatory Limitations: no limitations - History of Present Illness Initial Comments: Patient is a 61-year-old female presents to the emergency department with a chief complaint abdominal pain. Patient states pain started around 4 PM today. Describes it as a constant aching pain in her upper abdomen. There is no radiation. Reports nausea without vomiting. Denies fever, chills, upper respiratory symptoms, chest pain, shortness of breath, diarrhea, blood in stool, burning with urination, increased urinary frequency/urgency, blood in the urine. Denies alcohol use. Denies use of new medications. - Related Data Home Medications Medication Instructions Recorded Confirmed Nitroglycerin Sl Tabs [Nitrostat] 0.4 mg SUBLINGUAL Q5M PRN 12/10/16 11/27/20 Atorvastatin [Lipitor] 40 mg PO DAILY 02/03/18 11/27/20 Albuterol Sulfate [Proair Hfa] 2 puff INHALATION RT-Q4H PRN 11/27/20 11/27/20 Previous Rx's Medication Instructions Recorded amLODIPine [Norvasc] 5 mg PO DAILY tab 06/26/20 Aspirin 325 mg PO DAILY 30 Days #30 tab 11/29/20 HYDROcodone/APAP 7.5-325MG [[place] 1 tab PO Q4H PRN #18 tab 11/02/22 7.5-325] Ondansetron Odt [Zofran Odt] 4 mg PO Q8HR PRN #12 tab 11/02/22 Allergies Allergy/AdvReac Type Severity Reaction Status Date / Time shellfish derived [Shellfish] Allergy Severe Anaphylaxis Verified 11/02/22 16:42 sea salt Allergy Severe Anaphylaxis Uncoded 11/02/22 16:42 seafood Allergy Severe Anaphylaxis Uncoded 11/02/22 16:42 Review of Systems ROS Statement: Those systems with pertinent positive or pertinent negative responses have been documented in the HPI. ROS Other: All systems not noted in ROS Statement are negative. Past Medical History Past Medical History: Asthma, Cancer, Chest Pain / Angina, Hyperlipidemia, Hypertension, Osteoarthritis (OA), Renal Disease, Respiratory Disorder Additional Past Medical History / Comment(s): kidney stones-only one kidney functions (pt unsure laterallity), R breast cancer with surgery, migraines, Restless Leg Syndrome, gout bilateral feet, chronic back pain History of Any Multi-Drug Resistant Organisms: None Reported Past Surgical History: Breast Surgery, Section, Heart Catheterization, Hysterectomy, Orthopedic Surgery, Tonsillectomy Additional Past Surgical History / Comment(s): R breast lumpectomy 2005? R foot bone spurs removed, total hysterectomy with bilateral oopherectomy, x2, Past Anesthesia/Blood Transfusion Reactions: Postoperative Nausea & Vomiting (PONV) Additional Past Anesthesia/Blood Transfusion Reaction / Comment(s): No blood transfusion to date Past Psychological History: Anxiety, Depression Smoking Status: Never smoker Past Alcohol Use History: None Reported Past Drug Use History: None Reported - Past Family History Father Family Medical History: CVA/TIA, Renal Disease Additional Family Medical History / Comment(s): Father had a CVA then went into kidney failure and . Mother Family Medical History: Hypertension General Exam Limitations: no limitations General appearance: alert, in no apparent distress Respiratory exam: Present: normal lung sounds bilaterally. Absent: respiratory distress, wheezes, rales, rhonchi, stridor Cardiovascular Exam: Present: regular rate, normal rhythm, normal heart sounds. Absent: systolic murmur, diastolic murmur, rubs, gallop, clicks GI/Abdominal exam: Present: soft, distended (mild), tenderness (epigastric), normal bowel sounds. Absent: guarding, rebound, rigid Neurological exam: Present: alert, oriented X3, CN II-XII intact Psychiatric exam: Present: normal affect, normal mood Skin exam: Present: warm, dry, intact, normal color. Absent: rash Course Vital Signs 11/02/22 11/02/22 11/02/22 16:40 20:35 23:09 Temperature 98.6 F 97.6 F Pulse Rate 65 50 L 65 Respiratory 22 18 16 Rate Blood Pressure 188/89 156/96 169/102 O2 Sat by Pulse 98 100 94 L Oximetry Medical Decision Making - Medical Decision Making This is a 61-year-old female presenting with abdominal pain and nausea. Vitals are within acceptable limits. Afebrile. The abdomen is mildly distended. There is tenderness in the epigastric region. Laboratory studies obtained. There is no leukocytosis. Creatinine is elevated at 1.69, consistent with patient's chronic kidney disease. Lipase is 1153, significantly increased from 57 on 11/27/2020. Dilaudid, Zofran, large fluid bolus given. Results discussed with patient. Patient denies history of pancreatitis. She does have history of hyperlipidemia which she takes a statin for. Ultrasound was obtained and interpreted by me. Gallbladder visualization was limited due to body habitus. There are no dilated ducts or discrete liver mass. Patient educated on pancreatitis in detail. She was offered admission for pain control however patient would like to manage symptoms at home. Patient looks well, no fever, no leukocytosis, no vomiting. It is reasonable for patient to go home with return parameters. Patient instructed to maintain a clear liquid diet with gradual transition to low fat. She will follow-up with primary care provider. Dr. Cruz is my attending. - Lab Data Result diagrams: 11/02/22 19:58 11/02/22 19:58 Lab Results 11/02/22 11/02/22 11/02/22 Range/Units 19:58 19:58 19:58 WBC 6.1 (3.8-10.6) k/uL RBC 4.69 (3.80-5.40) m/uL Hgb 14.5 (11.4-16.0) gm/dL Hct 43.8 (34.0-46.0) % MCV 93.5 (80.0-100.0) fL MCH 30.9 (25.0-35.0) pg MCHC 33.0 (31.0-37.0) g/dL RDW 13.6 (11.5-15.5) % Plt Count 185 (150-450) k/uL MPV 9.7 Neutrophils % 79 % Lymphocytes % 11 % Monocytes % 4 % Eosinophils % 3 % Basophils % 1 % Neutrophils # 4.9 (1.3-7.7) k/uL Lymphocytes # 0.7 L (1.0-4.8) k/uL Monocytes # 0.2 (0-1.0) k/uL Eosinophils # 0.2 (0-0.7) k/uL Basophils # 0.1 (0-0.2) k/uL Sodium 138 (137-145) mmol/L Potassium 5.0 (3.5-5.1) mmol/L Chloride 108 H (98-107) mmol/L Carbon Dioxide 24 (22-30) mmol/L Anion Gap 6 mmol/L BUN 29 H (7-17) mg/dL Creatinine 1.69 H (0.52-1.04) mg/dL Est GFR (CKD-EPI)AfAm 37 (>60 ml/min/1.73 sqM) Est GFR (CKD-EPI)NonAf 32 (>60 ml/min/1.73 sqM) Glucose 98 (74-99) mg/dL Plasma Lactic Acid Jimmy 0.8 (0.7-2.0) mmol/L Calcium 9.1 (8.4-10.2) mg/dL Total Bilirubin 0.6 (0.2-1.3) mg/dL AST 63 H (14-36) U/L ALT 44 H (4-34) U/L Alkaline Phosphatase 122 (38-126) U/L Total Protein 6.5 (6.3-8.2) g/dL Albumin 3.9 (3.5-5.0) g/dL Amylase 212 H (30-110) U/L Lipase 1153 H (23-300) U/L Urine Color Urine Appearance (Clear) Urine pH (5.0-8.0) Ur Specific [place] (1.001-1.035) Urine Protein (Negative) Urine Glucose (UA) (Negative) Urine Ketones (Negative) Urine Blood (Negative) Urine Nitrite (Negative) Urine Bilirubin (Negative) Urine Urobilinogen (<2.0) mg/dL Ur Leukocyte Esterase (Negative) Urine RBC (0-5) /hpf Urine WBC (0-5) /hpf Ur Squamous Epith Cells (0-4) /hpf Urine Bacteria (None) /hpf Hyaline Casts (0-2) /lpf Urine Mucus (None) /hpf 11/02/22 Range/Units 23:00 WBC (3.8-10.6) k/uL RBC (3.80-5.40) m/uL Hgb (11.4-16.0) gm/dL Hct (34.0-46.0) % MCV (80.0-100.0) fL MCH (25.0-35.0) pg MCHC (31.0-37.0) g/dL RDW (11.5-15.5) % Plt Count (150-450) k/uL MPV Neutrophils % % Lymphocytes % % Monocytes % % Eosinophils % % Basophils % % Neutrophils # (1.3-7.7) k/uL Lymphocytes # (1.0-4.8) k/uL Monocytes # (0-1.0) k/uL Eosinophils # (0-0.7) k/uL Basophils # (0-0.2) k/uL Sodium (137-145) mmol/L Potassium (3.5-5.1) mmol/L Chloride (98-107) mmol/L Carbon Dioxide (22-30) mmol/L Anion Gap mmol/L BUN (7-17) mg/dL Creatinine (0.52-1.04) mg/dL Est GFR (CKD-EPI)AfAm (>60 ml/min/1.73 sqM) Est GFR (CKD-EPI)NonAf (>60 ml/min/1.73 sqM) Glucose (74-99) mg/dL Plasma Lactic Acid Jimmy (0.7-2.0) mmol/L Calcium (8.4-10.2) mg/dL Total Bilirubin (0.2-1.3) mg/dL AST (14-36) U/L ALT (4-34) U/L Alkaline Phosphatase (38-126) U/L Total Protein (6.3-8.2) g/dL Albumin (3.5-5.0) g/dL Amylase (30-110) U/L Lipase (23-300) U/L Urine Color Yellow Urine Appearance Cloudy H (Clear) Urine pH 5.5 (5.0-8.0) Ur Specific [place] 1.026 (1.001-1.035) Urine Protein 2+ H (Negative) Urine Glucose (UA) Negative (Negative) Urine Ketones Negative (Negative) Urine Blood Negative (Negative) Urine Nitrite Negative (Negative) Urine Bilirubin Negative (Negative) Urine Urobilinogen 2.0 (<2.0) mg/dL Ur Leukocyte Esterase Negative (Negative) Urine RBC <1 (0-5) /hpf Urine WBC 3 (0-5) /hpf Ur Squamous Epith Cells 7 H (0-4) /hpf Urine Bacteria Rare H (None) /hpf Hyaline Casts 8 H (0-2) /lpf Urine Mucus Rare H (None) /hpf Disposition Clinical Impression: Pancreatitis, Abdominal pain, Nausea Disposition: HOME SELF-CARE Condition: Good Instructions (If sedation given, give patient instructions): Pancreatitis (ED), Low Fat Diet (ED), Clear Liquid Diet (ED) Additional Instructions: Continue clear liquid diet until significant improvement of symptoms. Then you may transition to low fat diet, gradually advance over 3-6 days as tolerated. Avoid drinking alcohol. Take medication as directed. Do not take Tylenol while taking [place]. Follow-up with primary care provider in one to 2 days. Return to the emergency department if you experience new, concerning, or worsening symptoms. Prescriptions: HYDROcodone/APAP 7.5-325MG [[place] 7.5-325] 1 tab PO Q4H PRN #18 tab PRN Reason: Pain Ondansetron Odt [Zofran Odt] 4 mg PO Q8HR PRN #12 tab PRN Reason: Nausea Is patient prescribed a controlled substance at d/c from ED?: No Referrals: Brian Chanel MD [Primary Care Provider] - 1-2 days
[2022-11-02] MEDS ORDERED: KETOROLAC 15 MG/ML 1 ML VIAL IVP STA (22:44)
[2022-11-02 23:10] VITALS: BP 169/102; PULSE 65; RESP 16
[2022-11-02 23:22] LABS: Appearance,Urine Cloudy (Clear); Bacteria,Urine Rare /hpf; Bilirubin,Urine Negative (Negative); Blood,Urine Negative (Negative); Color,Urine Yellow; Glucose,Urine (UA) Negative (Negative); Hyaline Casts,Urine 8 /lpf (0-2); Ketones,Urine Negative (Negative); Leukocyte Esterase,Urine Negative (Negative); Mucus,Urine Rare /hpf; Nitrite,Urine Negative (Negative); PH, Urine 5.5 (5.0-8.0); Protein,Urine 2+ (Negative); RBC,Urine <1 /hpf (0-5); Specific Gravity,Urine 1.026 (1.001-1.035); Squamous Epithelial Cell,Urine 7 /hpf (0-4); WBC,Urine 3 /hpf (0-5)
== END 2022-11-02 23:19 | disposition home or self-care (01) ==
LOC: EC 16:37
DX: K85.90 Acute pancreatitis without necrosis or infection, unspecified (principal); J45.909 Unspecified asthma, uncomplicated; E78.5 Hyperlipidemia, unspecified; M19.90 Unspecified osteoarthritis, unspecified site; I12.9 Hypertensive chronic kidney disease with stage 1 through stage 4 chronic kidney disease, or unspecified chronic kidney disease; N18.9 Chronic kidney disease, unspecified; F41.9 Anxiety disorder, unspecified; F32.A Depression, unspecified; Z91.013 Allergy to seafood; Z79.899 Other long term (current) drug therapy
CPT/HCPCS: 36415; 80053; 82150; 83605; 83690; 85025; 81001; 76705; 99284; 96374; 96375 ×2; 96361 ×2; J2405; J1885; J1170

== ENCOUNTER → 2022-12-12 | Outpatient (CLI) | payer OTHER ==
--- NOTE | 2022-12-12 20:19 | CT ---
EXAMINATION TYPE: CT abdomen pelvis wo con CT DLP: 1425.6 mGycm, Automated exposure control for dose reduction was used. DATE OF EXAM: 12/12/2022 6:55 PM COMPARISON: CT abdomen pelvis most recent from 11/29/2020 CLINICAL INDICATION:Female, 62 years old with history of R10.84 GENERALIZED ABDOMINAL PAIN; General ed abdominal pain. TECHNIQUE: Axial CT of the abdomen and pelvis. Sagittal and coronal reformats were created on a [employer] workstation. Contrast used: None Oral contrast used: with Oral Contrast FINDINGS: LOWER CHEST: Groundglass Airspace opacities in the right middle and left lingula more peripherally ar e noted. These are new from prior 11/29/2020 ABDOMEN LIVER: Unremarkable GALLBLADDER AND BILE DUCTS: The gallbladder surgically absent.e PANCREAS: Lipomatous pseudohypertrophy changes of the pancreas most pronounced in the uncinate proces s head and neck. SPLEEN: Unremarkable. ADRENAL GLANDS: Unremarkable. KIDNEYS AND URETERS: Atrophic right kidney. Left kidney demonstrates multiple peripelvic renal cysts. Overall these findings are similar to prior in 2019. No obstructive uropathy or renal calculi. PELVIS BLADDER: Unremarkable REPRODUCTIVE: The uterus is surgically absent. ABDOMEN & PELVIS STOMACH AND BOWEL: No evidence of bowel obstruction. Appendix appears normal. PERITONEUM/RETROPERITONEUM: No evidence of pneumoperitoneum or free fluid. . VASCULATURE: No evidence of aortic aneurysm. MUSCULOSKELETAL: No acute osseous abnormalities, mild scoliosis changes apex1 on the right L3-L4. Mil d degeneration changes throughout the spine. LYMPH NODES: No gross evidence for lymphadenopathy. SOFT TISSUE/ABDOMINAL WALL: Fat-containing umbilical hernia. IMPRESSION: 1. No evidence for acute abdominal process. 2. Airspace opacities in the right middle lobe and lingula, correlate for pneumonia. 3. Atrophic right kidney and left peripelvic renal cysts.
== END | disposition home or self-care (01) ==
LOC: RADCTMAIN 18:22
PROVIDERS: ATTEND Internal Medicine
DX: N26.1 Atrophy of kidney (terminal) (principal); N28.1 Cyst of kidney, acquired; R91.8 Other nonspecific abnormal finding of lung field
CPT/HCPCS: 74176

== ENCOUNTER 2023-03-12 22:49 | Observation (INO) | payer OTHER ==
[2023-03-12] MEDS ORDERED: NITROGLYCERIN SL TABS 0.4 MG TAB SUBLINGUAL STA (23:10)
[2023-03-12 23:26] LABS: Basophils % (A) 1 %; Eosinophils # (A) 0.2 k/uL (0-0.7); Eosinophils % (A) 4 %; HGB 14.2 gm/dL (11.4-16.0); Lymphocytes # (A) 0.9 k/uL (1.0-4.8); Lymphocytes % (A) 14 %; MCH 29.7 pg (25.0-35.0); MCHC 32.9 g/dL (31.0-37.0); MCV 90.3 fL (80.0-100.0); Mean Platelet Volume 9.8; Monocytes # (A) 0.3 k/uL (0-1.0); Monocytes % (A) 5 %; Neutrophils # (A) 4.8 k/uL (1.3-7.7); Neutrophils % (A) 76 %; Platelet Count 208 k/uL (150-450); RBC 4.77 m/uL (3.80-5.40); RDW 13.1 % (11.5-15.5); WBC 6.3 k/uL (3.8-10.6)
--- NOTE | 2023-03-12 23:27 | XR ---
EXAMINATION TYPE: XR chest 2V DATE OF EXAM: 03/12/2023 COMPARISON: NONE TECHNIQUE: PA and lateral views submitted. HISTORY: Chest pain FINDINGS: The lungs are clear and there is no pneumothorax, pleural effusion, or focal pneumonia. Heart size normal and no overt failure. Osseous structures intact. IMPRESSION: 1. No acute process.
[2023-03-12 23:57] LABS: INR 0.9 (<1.2); Prothrombin Time 9.5 sec (9.0-12.0)
[2023-03-13] LABS: Partial Thromboplastin Time 19.3 sec (22.0-30.0)
[2023-03-13 00:26] LABS: Calcium 9.1 mg/dL (8.4-10.2)
[2023-03-13 00:51] LABS: Albumin 3.8 g/dL (3.5-5.0); Magnesium 1.9 mg/dL (1.6-2.3); Potassium 5.7 mmol/L (3.5-5.1); Total Protein 7.1 g/dL (6.3-8.2)
--- NOTE | 2023-03-13 00:53 | ED ---
Chest Pain HPI - General Chief Complaint: Chest Pain Stated Complaint: chest pain Time Seen by Provider: 03/12/23 22:52 Source: patient, EMS, RN notes reviewed Mode of arrival: EMS Limitations: no limitations - History of Present Illness Initial Comments: 62-year-old female presents emergency Department chief complaint of chest pain. Patient states that started today though. Patient states she leg pain got worse tonight. Patient states she has a slight cough. No fevers or chills. Patient states she has history of hypertension, hyperlipidemia denies any history of diabetes. Patient has known renal disease. Patient states that she has pressure, feels like something sitting on her chest. Patient denies any prior cardiac stents. Patient does have nitro has not taken her nitro. - Related Data Home Medications Medication Instructions Recorded Confirmed Nitroglycerin Sl Tabs [Nitrostat] 0.4 mg SUBLINGUAL Q5M PRN 12/10/16 12/28/22 Atorvastatin [Lipitor] 40 mg PO DAILY 02/03/18 12/28/22 traMADol HCL 50 mg PO TID PRN 12/28/22 12/28/22 Previous Rx's Medication Instructions Recorded Apixaban [Eliquis] 5 mg PO BID tab 12/31/22 Metoprolol Tartrate [Lopressor] 12.5 mg PO BID tab 12/31/22 lisinopriL [Zestril] 2.5 mg PO DAILY tab 12/31/22 Allergies Allergy/AdvReac Type Severity Reaction Status Date / Time shellfish derived [Shellfish] Allergy Severe Anaphylaxis Verified 11/02/22 16:42 sea salt Allergy Severe Anaphylaxis Uncoded 11/02/22 16:42 seafood Allergy Severe Anaphylaxis Uncoded 11/02/22 16:42 Review of Systems ROS Statement: Those systems with pertinent positive or pertinent negative responses have been documented in the HPI. ROS Other: All systems not noted in ROS Statement are negative. EKG Findings - EKG Comments: EKG Findings:: EKG performed at 22:51 sinus rhythm rate of 78 AL 161 Over 78 QT/QTC 382/417 - EKG Results: EKG: interpreted by JAIMIE Past Medical History Past Medical History: Asthma, Cancer, Chest Pain / Angina, Hyperlipidemia, Hypertension, Osteoarthritis (OA), Renal Disease Additional Past Medical History / Comment(s): kidney stones-only one kidney functions (pt unsure laterallity), R breast cancer with surgery, migraines, Restless Leg Syndrome, gout bilateral feet, chronic back pain History of Any Multi-Drug Resistant Organisms: None Reported Past Surgical History: Breast Surgery, Section, Heart Catheterization, Hysterectomy, Orthopedic Surgery, Tonsillectomy Additional Past Surgical History / Comment(s): R breast lumpectomy 2005? R foot bone spurs removed, total hysterectomy with bilateral oopherectomy, x2, Past Anesthesia/Blood Transfusion Reactions: Postoperative Nausea & Vomiting (PONV) Additional Past Anesthesia/Blood Transfusion Reaction / Comment(s): No blood transfusion to date Past Psychological History: Anxiety, Depression Smoking Status: Never smoker Past Alcohol Use History: None Reported Past Drug Use History: None Reported - Past Family History Father Family Medical History: CVA/TIA, Renal Disease Additional Family Medical History / Comment(s): Father had a CVA then went into kidney failure and . Mother Family Medical History: Hypertension General Exam Limitations: no limitations General appearance: alert, in no apparent distress Head exam: Present: atraumatic, normocephalic, normal inspection Eye exam: Present: normal appearance, PERRL, EOMI. Absent: scleral icterus, conjunctival injection, periorbital swelling ENT exam: Present: normal exam, mucous membranes moist Neck exam: Present: normal inspection, full ROM. Absent: tenderness, meningismus, lymphadenopathy Respiratory exam: Present: normal lung sounds bilaterally. Absent: respiratory distress, wheezes, rales, rhonchi, stridor Cardiovascular Exam: Present: regular rate, normal rhythm, normal heart sounds. Absent: systolic murmur, diastolic murmur, rubs, gallop, clicks GI/Abdominal exam: Present: soft, normal bowel sounds. Absent: distended, tenderness, guarding, rebound, rigid Course Vital Signs 03/12/23 03/12/23 03/12/23 22:54 23:20 23:40 Temperature 98.1 F Pulse Rate 75 68 74 Respiratory 20 16 16 Rate Blood Pressure 192/131 195/129 157/121 O2 Sat by Pulse 95 95 95 Oximetry 03/12/23 03/13/23 03/13/23 23:50 00:00 00:40 Temperature Pulse Rate 59 L 62 Respiratory 20 21 Rate Blood Pressure 156/113 156/113 175/111 O2 Sat by Pulse 93 L 93 L Oximetry Chest Pain MDM - MDM Was pt. sent in by a medical professional or institution (, DOTTIE, CROOK OPERATOR, urgent care, hospital, or longterm...) When possible be specific @ -No Did you speak to anyone other than the patient for history (EMS, parent, family, police, friend...)? What history was obtained from this source @ -No Did you review nursing and triage notes (agree or disagree)? Why? @ -I reviewed and agree with nursing and triage notes Were old charts reviewed (outside hosp., previous admission, EMS record, old EKG, old radiological studies, urgent care reports/EKG's, longterm records)? Report findings @ -Review prior admission for chest pain including troponin, CBC, comp and EKG Differential Diagnosis (chest pain, altered mental status, abdominal pain women, abdominal pain men, vaginal bleeding, weakness, fever, dyspnea, syncope, headache, dizziness, GI bleed, back pain, seizure, CVA, palpatations, mental health, musculoskeletal)? @ -nDifferential Chest Pain: Stable Angina, Unstable Angina, STEMI, NSTEMI Aortic Dissection, Pneumothorax, Musculoskeletal, Esophageal Spasm GERD, Cholecystitis, Pancreatitis, Zoster, this is not meant to be an all-inclusive list. le EKG interpreted by me (3pts min.). @ -As above X-rays interpreted by me (1pt min.). @ -Chest x-ray shows no acute process CT interpreted by me (1pt min.). @ -None done U/S interpreted by me (1pt. min.). @ -None done What testing was considered but not performed or refused? (CT, X-rays, U/S, labs)? Why? @ -None What meds were considered but not given or refused? Why? @ -None Did you discuss the management of the patient with other professionals (professionals i.e. , DOTTIE, CROOK OPERATOR, lab, RT, psych nurse, nursing home social worker, operations intelligence, teacher, fundraising officer, case liner)? Give summary @ -[facility] for admission discuss laboratory findings EKG and consult cardiology Was smoking cessation discussed for >3mins.? @ -No Was critical care preformed (if so, how long)? @ -No Were there social determinants of health that impacted care today? How? (Homelessness, low income, unemployed, alcoholism, drug addiction, transportation, low edu. Level, literacy, decrease access to med. care, group home, rehab)? @ -No Was there de-escalation of care discussed even if they declined (Discuss DNR or withdrawal of care, Hospice)? DNR status @ -No What co-morbidities impacted this encounter? (DM, HTN, Smoking, COPD, CAD, Cancer, CVA, ARF, Chemo, Hep., AIDS, mental health diagnosis, sleep apnea, morbid obesity)? @ -Hypertension, hyperlipidemia Was patient admitted / discharged? Hospital course, mention meds given and route, prescriptions, significant lab abnormalities, going to OR and other pertinent info. @ -Admitted patient presented for chest pain patient's pain is improved after nitro she did have nitro paste placed. Patient is currently anticoagulated on L Lani that she has a history of HIV ablation. Patient will have cardiology evaluation, repeat troponin. Undiagnosed new problem with uncertain prognosis? @ -No Drug Therapy requiring intensive monitoring for toxicity (Heparin, Nitro, Insulin, Cardizem)? @ -No Were any procedures done? @ -No Diagnosis/symptom? @ -Chest pain Acute, or Chronic, or Acute on Chronic? @ -Acute Uncomplicated (without systemic symptoms) or Complicated (systemic symptoms)? @ -Complicated Side effects of treatment? @ -No Exacerbation, Progression, or Severe Exacerbation? @ -No Poses a threat to life or bodily function? How? (Chest pain, [place], [place], pneumonia, PE, COPD, DKA, ARF, appy, cholecystitis, CVA, Diverticulitis, Homicidal, Suicidal, threat to staff... and all critical care pts) @ -Yes patient has chest pain at risk for cardiac arrest Disposition Clinical Impression: Chest pain, Hypertension Disposition: ADMITTED IP TO THIS HOSP Condition: Fair Referrals: Brian Chanel MD [Primary Care Provider] - 1-2 days Time of Disposition: 01:06
[2023-03-13] MEDS ORDERED: NITROGLYCERIN OINT 1 INCH/GM PACKET TOPICAL STA (00:54)
[2023-03-13] MEDS ORDERED: hydrALAZINE HCL 20 MG/ML 1 ML VIAL IVP STA ×2 (01:23→02:54)
[2023-03-13] MEDS ORDERED: NITROGLYCERIN SL TABS 0.4 MG TAB SUBLINGUAL PRN (01:38)
[2023-03-13] MEDS ORDERED: MORPHINE SULFATE 4 MG/ML SYRINGE IVP STA (02:54)
[2023-03-13] MEDS ORDERED: hydrALAZINE HCL 20 MG/ML 1 ML VIAL IVP PRN (02:54)
[2023-03-13] MEDS ORDERED: ACETAMINOPHEN TAB 325 MG TAB PO PRN (08:51)
[2023-03-13] MEDS: ATORVASTATIN 40 MG TAB PO SCH ×2 (09:14→09:15)
[2023-03-13] MEDS: METOPROLOL TARTRATE 12.5 MG TAB PO SCH ×2 (09:15→20:22)
[2023-03-13] MEDS: APIXABAN 5 MG TAB PO SCH ×2 (09:16→20:22)
[2023-03-13] MEDS: amLODIPine 5 MG TAB PO SCH (12:26)
--- NOTE | 2023-03-13 13:24 | P.CRDCN ---
History of Present Illness Consult date: 03/13/23 Consult reason: chest pain History of present illness: This is a 62-year-old female patient of Dr. Glover with a history of hypertension, hyperlipidemia , paroxysmal atrial fibrillation, non-ST elevated myocardial infarction, chronic kidney disease with atrophic right kidney. We've been asked to evaluate the patient for chest pain. Patient presented to the emergency center due to sudden onset of chest pain started yesterday and got worse through the night with cough. She denies fever or chills. Pain was described as a pressure type in the center of her chest. Her initial blood pressure was found to be 192/131. Blood pressure the time of evaluation 132/96, patient is status post hydralazine 10 mg IV push 2, Nitro-Bid and morphine. EKG sinus rhythm with no acute ST changes Chest x-ray no acute process CBC unremarkable. INR 0.9. The sodium 136, potassium 5.7, BUN 32 creatinine 1.83. AST 46, ALT 42, troponin 0.0-7, 0.020 and 0.021. Home cardiac medications: Eliquis 5 mg twice daily, atorvastatin 40 mg daily, with several 2.5 g daily, Lopressor 12.5 mg twice daily, Nitrostat as needed Review Of Systems: At the time of my evaluation Constitutional: No fever, no chills. EENT: No headache. No sore throat. Lungs: No shortness of breath, cough, no sputum production. No wheezing. Cardiovascular: No chest pain, no lower extremity edema. No palpitations. No paroxysmal nocturnal dyspnea. No orthopnea. No lightheadedness or dizziness. No syncopal episodes. Abdominal: No abdominal pain. Neurologic: No aphasia. No facial droop. No change in mentation. No head injury. No headache. PHYSICAL EXAMINATION: She is a 62-year-old female alert and oriented, overweight, Blood pressure 143/80 heart rate 70 LUNGS: Clear to auscultation HEART: Regular rate and rhythm, S1, S2. No S3. systolic ejection murmur 2/6 at the base ABDOMEN: Soft, nontender, no organomegaly EXTREMETIES: No edema, intact distal pulses IMPRESSION: Chest pain or coronary syndrome ruled out Paroxysmal atrial fibrillation Chronic kidney disease with atrophic right kidney History of hypertension History of hyperlipidemia Obesity PLAN: Resume patient's home cardiac medications Patient on amlodipine 5 mg daily Consult with nephrology for chronic kidney disease Further recommendations as patient progresses Thank you kindly for this consultation Nurse practitioner note has been reviewed, I agree with the documented findings and plan of care. Patient was seen and examined. Past Medical History Past Medical History: Asthma, Cancer, Chest Pain / Angina, Hyperlipidemia, Hypertension, Osteoarthritis (OA), Renal Disease Additional Past Medical History / Comment(s): kidney stones-only one kidney functions (pt unsure laterallity), R breast cancer with surgery, migraines, Restless Leg Syndrome, gout bilateral feet, chronic back pain History of Any Multi-Drug Resistant Organisms: None Reported Past Surgical History: Breast Surgery, Section, Heart Catheterization, Hysterectomy, Orthopedic Surgery, Tonsillectomy Additional Past Surgical History / Comment(s): R breast lumpectomy 2005? R foot bone spurs removed, total hysterectomy with bilateral oopherectomy, x2, Past Anesthesia/Blood Transfusion Reactions: Postoperative Nausea & Vomiting (PONV) Additional Past Anesthesia/Blood Transfusion Reaction / Comment(s): No blood transfusion to date Past Psychological History: Anxiety, Depression Smoking Status: Never smoker Past Alcohol Use History: None Reported Past Drug Use History: None Reported - Past Family History Father Family Medical History: CVA/TIA, Renal Disease Additional Family Medical History / Comment(s): Father had a CVA then went into kidney failure and . Mother Family Medical History: Hypertension Medications and Allergies Home Medications Medication Instructions Recorded Confirmed Type Nitroglycerin Sl Tabs [Nitrostat] 0.4 mg SUBLINGUAL Q5M PRN 12/10/16 03/13/23 History Atorvastatin [Lipitor] 40 mg PO DAILY 02/03/18 03/13/23 History traMADol HCL 50 mg PO TID PRN 12/28/22 03/13/23 History Apixaban [Eliquis] 5 mg PO BID tab 12/31/22 03/13/23 Rx Metoprolol Tartrate [Lopressor] 12.5 mg PO BID tab 12/31/22 03/13/23 Rx lisinopriL [Zestril] 2.5 mg PO DAILY tab 12/31/22 03/13/23 Rx Allergies Allergy/AdvReac Type Severity Reaction Status Date / Time shellfish derived [Shellfish] Allergy Severe Anaphylaxis Verified 03/13/23 07:55 sea salt Allergy Severe Anaphylaxis Uncoded 03/13/23 07:55 seafood Allergy Severe Anaphylaxis Uncoded 03/13/23 07:55 Physical Exam Vitals: Vital Signs Temp Pulse Resp BP Pulse Ox 03/13/23 11:31 61 18 141/99 96 03/13/23 10:00 65 174/95 95 03/13/23 08:30 71 20 155/94 96 03/13/23 07:45 97.6 F 82 18 171/90 95 03/13/23 06:41 90 18 149/91 96 03/13/23 06:00 62 16 166/114 96 03/13/23 04:00 97.9 F 80 18 171/102 100 03/13/23 03:00 75 18 210/112 93 L 03/13/23 02:00 64 16 216/126 99 03/13/23 01:00 60 16 175/111 97 03/13/23 00:40 175/111 03/13/23 00:09 65 18 169/110 96 03/13/23 00:00 62 21 156/113 93 L 03/12/23 23:50 59 L 20 156/113 93 L 03/12/23 23:40 74 16 157/121 95 03/12/23 23:20 68 16 195/129 95 03/12/23 22:54 98.1 F 75 20 192/131 95 Intake and Output 03/12/23 03/13/23 03/13/23 22:59 06:59 14:59 Other: Weight 90.718 kg Results 03/12/23 23:07 03/12/23 23:07 Cardiac Enzymes 03/12/23 03/12/23 03/13/23 Range/Units 23:07 23:07 02:10 AST 46 H (14-36) U/L Troponin I 0.027 0.020 (0.000-0.034) ng/mL 03/13/23 Range/Units 06:41 AST (14-36) U/L Troponin I 0.021 (0.000-0.034) ng/mL Coagulation 03/12/23 Range/Units 23:07 PT 9.5 (9.0-12.0) sec APTT 19.3 L (22.0-30.0) sec CBC 03/12/23 Range/Units 23:07 WBC 6.3 (3.8-10.6) k/uL RBC 4.77 (3.80-5.40) m/uL Hgb 14.2 (11.4-16.0) gm/dL Hct 43.0 (34.0-46.0) % Plt Count 208 (150-450) k/uL Comprehensive Metabolic Panel 03/12/23 Range/Units 23:07 Sodium 136 L (137-145) mmol/L Potassium 5.7 H (3.5-5.1) mmol/L Chloride 106 (98-107) mmol/L Carbon Dioxide 25 (22-30) mmol/L BUN 32 H (7-17) mg/dL Creatinine 1.83 H (0.52-1.04) mg/dL Glucose 98 (74-99) mg/dL Calcium 9.1 (8.4-10.2) mg/dL AST 46 H (14-36) U/L ALT 42 H (4-34) U/L Alkaline Phosphatase 121 (38-126) U/L Total Protein 7.1 (6.3-8.2) g/dL Albumin 3.8 (3.5-5.0) g/dL Current Medications Generic Name Dose Route Start Last Admin Trade Name Freq PRN Reason Stop Dose Admin Acetaminophen 650 mg 03/13/23 08:51 03/13/23 09:16 Acetaminophen Tab 325 Mg Tab PO 650 mg Q6HR PRN Administration Fever and/ or Pain Apixaban 5 mg 03/13/23 09:00 03/13/23 09:16 Apixaban 5 Mg Tab PO 5 mg BID THIERRY Administration Protocol Atorvastatin Calcium 40 mg 03/13/23 09:00 03/13/23 09:15 Atorvastatin 40 Mg Tab PO 40 mg DAILY THIERRY Administration Hydralazine HCl 10 mg 03/13/23 02:54 Hydralazine Hcl 20 Mg/Ml 1 Ml Vial IVP Q4HR PRN Blood Pressure - High Lisinopril 2.5 mg 03/13/23 09:00 03/13/23 09:14 Lisinopril 2.5 Mg Tab PO 2.5 mg DAILY THIERRY Administration Metoprolol Tartrate 12.5 mg 03/13/23 09:00 03/13/23 09:15 Metoprolol Tartrate 12.5 Mg Tab PO 12.5 mg BID THIERRY Administration Nitroglycerin 0.4 mg 03/13/23 01:38 Nitroglycerin Sl Tabs 0.4 Mg Tab SUBLINGUAL Q5M PRN Chest Pain Intake and Output 03/12/23 03/13/23 03/13/23 22:59 06:59 14:59 Other: Weight 90.718 kg 03/12/23 23:07 03/12/23 23:07
--- NOTE | 2023-03-14 00:37 | P.HPIM ---
History of Present Illness H&P Date: 03/13/23 Chief Complaint: Chest pain Patient is a 62-year-old female with known history of hypertension, hyperlipidemia, paroxysmal atrial fibrillation, history of right breast cancer s/p surgery, migraine headaches and chronic back pain and prior history of cardiac catheterization, anxiety/depression presents to ER with complaints of chest pain. Patient states that she started having chest pain yesterday and got worse and overnight. Mainly pressure-like sensation in the center of the chest. Associate with mild nausea and mild cough. No vomiting. No radiation of the pain. No headache or dizziness or lightheadedness. Chest x-ray showed no acute process EKG showed sinus rhythm. Laboratory data showed WBC 6.3., Hemoglobin 14.1 platelets 208 Sodium 136 potassium 5.7 chloride 106 BUN 32 and creatinine 1.83 AST 43 ALT Pydrin alk phos 121 troponin x3 negative and albumin 3.8 Review of Systems Constitutional: Patient denies any fever or chills . no Generalized weakness. Abdomen: Patient denied any nausea or vomiting or abd. pain Cardiovascular: Patient denies any chest pain or short of breath no palpitations. Respiratory: patient denied any cough . no sputum production. No shortness of breath Neurologic: Patient denied any numbness or tingling headache. Musculoskeletal: Patient denies any complaints of joint swelling or deformity. Skin: Negative Psychiatric: Negative Endocrine: No heat or cold intolerance. No recent weight gain. Genitourinary: No dysuria or hematuria. All other 14 point ROS negative except the above Past Medical History Past Medical History: Asthma, Cancer, Chest Pain / Angina, Hyperlipidemia, Hypertension, Osteoarthritis (OA), Renal Disease Additional Past Medical History / Comment(s): kidney stones-only one kidney functions (pt unsure laterallity), R breast cancer with surgery, migraines, Restless Leg Syndrome, gout bilateral feet, chronic back pain History of Any Multi-Drug Resistant Organisms: None Reported Past Surgical History: Breast Surgery, Section, Heart Catheterization, Hysterectomy, Orthopedic Surgery, Tonsillectomy Additional Past Surgical History / Comment(s): R breast lumpectomy 2005? R foot bone spurs removed, total hysterectomy with bilateral oopherectomy, x2, Past Anesthesia/Blood Transfusion Reactions: Postoperative Nausea & Vomiting (PONV) Additional Past Anesthesia/Blood Transfusion Reaction / Comment(s): No blood transfusion to date Past Psychological History: Anxiety, Depression Smoking Status: Never smoker Past Alcohol Use History: None Reported Past Drug Use History: None Reported - Past Family History Father Family Medical History: CVA/TIA, Renal Disease Additional Family Medical History / Comment(s): Father had a CVA then went into kidney failure and . Mother Family Medical History: Hypertension Medications and Allergies Home Medications Medication Instructions Recorded Confirmed Type Nitroglycerin Sl Tabs [Nitrostat] 0.4 mg SUBLINGUAL Q5M PRN 12/10/16 03/13/23 History Atorvastatin [Lipitor] 40 mg PO DAILY 02/03/18 03/13/23 History traMADol HCL 50 mg PO TID PRN 12/28/22 03/13/23 History Apixaban [Eliquis] 5 mg PO BID tab 12/31/22 03/13/23 Rx Metoprolol Tartrate [Lopressor] 12.5 mg PO BID tab 12/31/22 03/13/23 Rx lisinopriL [Zestril] 2.5 mg PO DAILY tab 12/31/22 03/13/23 Rx Allergies Allergy/AdvReac Type Severity Reaction Status Date / Time shellfish derived [Shellfish] Allergy Severe Anaphylaxis Verified 03/13/23 07:55 sea salt Allergy Severe Anaphylaxis Uncoded 03/13/23 07:55 seafood Allergy Severe Anaphylaxis Uncoded 03/13/23 07:55 Physical Exam Vitals: Vital Signs Temp Pulse Resp BP Pulse Ox 03/13/23 14:00 71 20 145/81 100 03/13/23 13:00 52 L 20 122/83 99 03/13/23 12:00 50 L 18 132/96 100 03/13/23 11:31 61 18 141/99 96 03/13/23 10:00 65 174/95 95 03/13/23 08:30 71 20 155/94 96 03/13/23 07:45 97.6 F 82 18 171/90 95 03/13/23 06:41 90 18 149/91 96 03/13/23 06:00 62 16 166/114 96 03/13/23 04:00 97.9 F 80 18 171/102 100 03/13/23 03:00 75 18 210/112 93 L 03/13/23 02:00 64 16 216/126 99 04/13/23 01:00 60 16 175/111 97 03/13/23 00:40 175/111 03/13/23 00:09 65 18 169/110 96 03/13/23 00:00 62 21 156/113 93 L 03/12/23 23:50 59 L 20 156/113 93 L 03/12/23 23:40 74 16 157/121 95 03/12/23 23:20 68 16 195/129 95 03/12/23 22:54 98.1 F 75 20 192/131 95 Intake and Output 03/12/23 03/13/23 03/13/23 22:59 06:59 14:59 Other: Weight 90.718 kg PHYSICAL EXAMINATION: Patient is lying in the bed comfortably, no acute distress, awake alert and oriented.. Morbidly obese. HEENT: Normocephalic. Neck is supple. Pupils reactive. Nostrils clear. Oral cavity is moist. Neck reveals no JVD, carotid bruits, or thyromegaly. CHEST EXAMINATION: Trachea is central. Symmetrical expansion. Lung pickard clear to auscultation and percussion. Bibasilar diminished sounds. CARDIAC: Normal S1, S2 with no gallops. No murmurs ABDOMEN: Soft. Bowel sounds present. Nontender. No organomegaly. No abdominal bruits. Extremities: reveal no edema. No clubbing or cyanosis Neurologically awake, alert, oriented x3 with well-coordinated movements. No focal deficits noted Skin: No rash or skin lesions. Psychiatric: Coperative. Nonsuicidal, Musculoskeletal: No joint swelling or deformity. Normal range of motion. Results CBC & Chem 7: 03/12/23 23:07 03/12/23 23:07 Labs: Abnormal Lab Results - Last 24 Hours (Table) 03/12/23 03/12/23 03/12/23 Range/Units 23:07 23:07 23:07 Lymphocytes # 0.9 L (1.0-4.8) k/uL APTT 19.3 L (22.0-30.0) sec Sodium 136 L (137-145) mmol/L Potassium 5.7 H (3.5-5.1) mmol/L BUN 32 H (7-17) mg/dL Creatinine 1.83 H (0.52-1.04) mg/dL AST 46 H (14-36) U/L ALT 42 H (4-34) U/L Thrombosis Risk Factor Assmnt - DVT/VTE Prophylaxis DVT/VTE Prophylaxis: Pharmacologic Prophylaxis ordered Assessment and Plan Assessment: Atypical chest pain. Ruled out ACS. Uncontrolled hypertension on admission Chronic kidney disease stage III with baseline creatinine around 1.5 Mild transaminitis Hyperlipidemia Osteoarthritis History of right breast cancer s/p surgery Migraine headaches Restless leg syndrome Chronic back pain Morbid obesity BMI 41.8 Asthma not in exacerbation Anxiety/depression DVT prophylaxis patient is currently on Eliquis Plan: Patient will be continued on telemetry monitoring. Serial EKG and troponin x3 negative. Started back on home blood pressure medications metoprolol and lisinopril and patient was given a dose of IV hydralazine. Norvasc was added. Cardiology is on board. Currently patient is chest pain- free. Follow-up closely. Time with Patient: Greater than 30
[2023-03-14] MEDS: APIXABAN 5 MG TAB PO SCH (07:37)
[2023-03-14] MEDS: METOPROLOL TARTRATE 12.5 MG TAB PO SCH (07:37)
[2023-03-14] MEDS: ATORVASTATIN 40 MG TAB PO SCH (07:37)
[2023-03-14] MEDS: amLODIPine 5 MG TAB PO SCH (07:37)
[2023-03-14 08:45] VITALS: RESP 18
[2023-03-14 09:15] LABS: African American GFR (CKD) 40 (>60 ml/min/1.73 sqM); Anion Gap 4 mmol/L; Blood Urea Nitrogen 25 mg/dL (7-17); Carbon Dioxide 24 mmol/L (22-30); Chloride 108 mmol/L (98-107); Glucose 112 mg/dL (74-99); Non-African American GFR(CKD) 34 (>60 ml/min/1.73 sqM); Potassium 4.4 mmol/L (3.5-5.1); Sodium 136 mmol/L (137-145)
[2023-03-14] MEDS ORDERED: hydrALAZINE HCL 25 MG TAB PO SCH (09:45)
--- NOTE | 2023-03-14 09:55 | P.NPCON ---
History of Present Illness - Reason for Consult acute renal failure - History of Present Illness Patient is a 62-year-old female with history of hypertension, hyperlipidemia, paroxysmal A. fib, chronic kidney disease NKF stage IIIB secondary to nephrosclerosis with baseline creatinine of 1.5-1.7 mg/dL. Patient is admitted to the hospital with complaints of chest pain which was pressure-like, currently improved. Troponin is negative 3. Serum creatinine was 1.83 and decreased to 1.59. Blood pressure has not been low in fact it has been high with systolic in the 195 range on initial admission. Patient states she has been voiding well. Maintained on low-dose MOHIT inhibitor's. Potassium was elevated at 5.7 Review of Systems As per HPI Past Medical History Past Medical History: Asthma, Cancer, Chest Pain / Angina, Hyperlipidemia, H ypertension, Osteoarthritis (OA), Renal Disease Additional Past Medical History / Comment(s): kidney stones-only one kidney functions (pt unsure laterallity), R breast cancer with surgery, migraines, Restless Leg Syndrome, gout bilateral feet, chronic back pain History of Any Multi-Drug Resistant Organisms: None Reported Past Surgical History: Breast Surgery, Section, Heart Catheterization, Hysterectomy, Orthopedic Surgery, Tonsillectomy Additional Past Surgical History / Comment(s): R breast lumpectomy 2005? R foot bone spurs removed, total hysterectomy with bilateral oopherectomy, x2, Past Anesthesia/Blood Transfusion Reactions: Postoperative Nausea & Vomiting (PONV) Additional Past Anesthesia/Blood Transfusion Reaction / Comment(s): No blood transfusion to date Past Psychological History: Anxiety, Depression Smoking Status: Never smoker Past Alcohol Use History: None Reported Past Drug Use History: None Reported - Past Family History Father Family Medical History: CVA/TIA, Renal Disease Additional Family Medical History / Comment(s): Father had a CVA then went into kidney failure and . Mother Family Medical History: Hypertension Medications and Allergies Home Medications Medication Instructions Recorded Confirmed Type Nitroglycerin Sl Tabs [Nitrostat] 0.4 mg SUBLINGUAL Q5M PRN 12/10/16 03/13/23 History Atorvastatin [Lipitor] 40 mg PO DAILY 02/03/18 03/13/23 History traMADol HCL 50 mg PO TID PRN 12/28/22 03/13/23 History Apixaban [Eliquis] 5 mg PO BID tab 12/31/22 03/13/23 Rx Metoprolol Tartrate [Lopressor] 12.5 mg PO BID tab 12/31/22 03/13/23 Rx lisinopriL [Zestril] 2.5 mg PO DAILY tab 12/31/22 03/13/23 Rx Allergies Allergy/AdvReac Type Severity Reaction Status Date / Time shellfish derived [Shellfish] Allergy Severe Anaphylaxis Verified 03/13/23 07:55 sea salt Allergy Severe Anaphylaxis Uncoded 03/13/23 07:55 seafood Allergy Severe Anaphylaxis Uncoded 03/13/23 07:55 Physical Exam Vitals: Vital Signs Temp Pulse Pulse Resp BP BP Pulse Ox 03/14/23 08:00 97.9 F 63 18 152/100 93 L 03/14/23 04:00 67 16 166/93 94 L 03/14/23 00:00 58 L 16 133/80 93 L 03/13/23 20:00 98.2 F 54 L 20 161/87 97 03/13/23 17:11 97.6 F 55 L 20 148/93 95 03/13/23 16:18 50 L 20 147/92 100 03/13/23 15:00 53 L 20 123/79 99 03/13/23 14:00 71 20 145/81 100 03/13/23 13:00 52 L 20 122/83 99 03/13/23 12:00 50 L 18 132/96 100 03/13/23 11:31 61 18 141/99 96 03/13/23 10:00 65 174/95 95 Intake and Output 03/13/23 03/14/23 03/14/23 22:59 06:59 14:59 Intake Total 485 485 358 Balance 485 485 358 Intake: Oral 485 485 358 Other: Voiding Method Toilet Toilet Toilet # Voids 1 1 Weight 90.718 kg Patient is awake, comfortable, in no acute distress Alert oriented 3 Examination of the heart S1 and S2 Examination of the lungs bilateral breath sounds are heard Abdomen is soft nontender Examination lower extremities shows no significant edema [facility] [facility] exam grossly intact Results - Lab Results Most recent lab results Calcium 9.0 mg/dL (8.4-10.2) 03/14/23 08:34 Magnesium 1.9 mg/dL (1.6-2.3) 03/12/23:07 03/12/23 23:07 03/14/23 08:34 Assessment and Plan Assessment: 1. Chronic kidney disease NKF stage IIIB with baseline creatinine about 1.5-1.7 mg/dL secondary to nephrosclerosis. Mild acute kidney injury on initial admission currently improved. Etiology is uncontrolled hypertension 2. Hypertensive urgency with improvement in blood pressure. Blood pressure remains on the higher side. Norvasc has been restarted. Continue with the lisinopril 3. Chest pain with negative troponins 4. Mild hyperkalemia associated with acute kidney injury. Patient is maintained on low-dose of lisinopril which I will continue for now. Patient will be advised regarding low potassium diet. Plan: Continue with current dose of MOHIT inhibitor's Agree with increasing dose of Norvasc Continue follow-up as outpatient for CK D
--- NOTE | 2023-03-14 11:36 | P.DS ---
Providers Date of admission: 03/13/23 01:38 Expected date of discharge: 03/14/23 Attending physician: Brian Chanel Consults: 03/13/23 01:39 Consult Physician Urgent Consulting Provider: Andriy Borden Consult Reason/Comments: chest pain Do you want consulting provider notified?: Yes 03/13/23 11:43 Consult Physician Routine Consulting Provider: Maureen Retana Consult Reason/Comments: ckd Do you want consulting provider notified?: Yes Primary care physician: Brian Chanel [place] [facility] Course: Discharge diagnosis 1. Chest pain. Acute coronary syndrome ruled out per cardiology 2. Uncontrolled hypertension. Medications adjusted 3. Chronic kidney disease stage III baseline creatinine 1.5 4. History of hyperlipidemia 5. History of osteoarthritis 6. History of breast cancer 7. History of restless leg syndrome 8. History of chronic back pain 9. History of asthma 10. History of anxiety and depression Hospital course This is a 62-year-old patient who presented to the hospital with concerns of chest pain that started previous day. Patient has past medical history of hypertension, hyperlipidemia, paroxysmal atrial fibrillation, cancer, migraine headache and chronic back pain. Chest x-ray was completed showing no acute process. Blood pressure upon admission was elevated at 190-131 patient was given IV hydralazine. Patient was evaluated by cardiology and nephrology services. Coronary syndrome ruled out blood pressure medications adjusted amlodipine added. Hydralazine added. On 03/14/2023. Patient is alert and oriented times. At this time patient is resting comfortably in bed. Patient denies chest pain or shortness of breath. Patient denies nausea vomiting or diarrhea. Patient denies any urinary burning or frequency. Discussed case with cardiology nurse practitioner patient has been cleared for discharge. Blood pressure medications have been adjusted. Patient to follow-up with PCP consulting providers for further management Patient Condition at Discharge: Stable Plan - Discharge Summary Discharge Rx Participant: No New Discharge Prescriptions: New hydrALAZINE HCL [Apresoline] 25 mg PO BID 30 Days #60 tab amLODIPine [Norvasc] 5 mg PO BID 30 Days #60 tab Continue Nitroglycerin Sl Tabs [Nitrostat] 0.4 mg SUBLINGUAL Q5M PRN PRN Reason: Angina Atorvastatin [Lipitor] 40 mg PO DAILY Apixaban [Eliquis] 5 mg PO BID tab Metoprolol Tartrate [Lopressor] 12.5 mg PO BID tab lisinopriL [Zestril] 2.5 mg PO DAILY tab traMADol HCL 50 mg PO TID PRN PRN Reason: Pain Discharge Medication List Nitroglycerin Sl Tabs [Nitrostat] 0.4 mg SUBLINGUAL Q5M PRN 12/10/16 [History] Atorvastatin [Lipitor] 40 mg PO DAILY 02/03/18 [History] traMADol HCL 50 mg PO TID PRN 12/28/22 [History] Apixaban [Eliquis] 5 mg PO BID tab 12/31/22 [Rx] Metoprolol Tartrate [Lopressor] 12.5 mg PO BID tab 12/31/22 [Rx] lisinopriL [Zestril] 2.5 mg PO DAILY tab 12/31/22 [Rx] amLODIPine [Norvasc] 5 mg PO BID 30 Days #60 tab 03/14/23 [Rx] hydrALAZINE HCL [Apresoline] 25 mg PO BID 30 Days #60 tab 03/14/23 [Rx] Follow up Appointment(s)/Referral(s): Brian Chanel MD [Primary Care Provider] - 1-2 days Maureen Retana MD [STAFF PHYSICIAN] - 1 Week Forrest Omer MD [STAFF PHYSICIAN] - 1 Week Activity/Diet/Wound Care/Special Instructions: Activity as tolerated Diet heart healthy Discharge Disposition: HOME SELF-CARE
[2023-03-14 12:00] VITALS: BP 156/102; PULSE 67; TEMP 98
--- NOTE | 2023-03-14 14:37 | P.PN ---
Subjective Progress Note Date: 03/14/23 This is a 62-year-old female patient of Dr. Glover with a history of hypertension, hyperlipidemia , paroxysmal atrial fibrillation, non-ST elevated myocardial infarction, chronic kidney disease with atrophic right kidney. We've been asked to evaluate the patient for chest pain. Patient presented to the emergency center due to sudden onset of chest pain started yesterday and got worse through the night with cough. She denies fever or chills. Pain was described as a pressure type in the center of her chest. Her initial blood pressure was found to be 192/131. Blood pressure the time of evaluation 132/96, patient is status post hydralazine 10 mg IV push 2, Nitro-Bid and morphine. EKG sinus rhythm with no acute ST changes Chest x-ray no acute process CBC unremarkable. INR 0.9. The sodium 136, potassium 5.7, BUN 32 creatinine 1.83. AST 46, ALT 42, troponin 0.0-7, 0.020 and 0.021. Home cardiac medications: Eliquis 5 mg twice daily, atorvastatin 40 mg daily, with several 2.5 g daily, Lopressor 12.5 mg twice daily, Nitrostat as needed 03/14 Patient is seen today in follow-up on the cardiac stepdown unit. Blood pressure remains elevated 152/100 this morning. We will increase frequency of amlodipine 5 mg twice daily and added and hydralazine. Repeat blood work reveals sodium 136, potassium 4.4 and improvement of her kidney function with a BUN of 25 and creatinine 1.59. PHYSICAL EXAMINATION: She is a 62-year-old female alert and oriented, overweight LUNGS: Clear to auscultation HEART: Regular rate and rhythm, S1, S2. No S3. systolic ejection murmur 2/6 at the base ABDOMEN: Soft, nontender, no organomegaly EXTREMETIES: No edema, intact distal pulses IMPRESSION: Chest pain or coronary syndrome ruled out, chest pain possibly due to hypertension Accelerated hypertension Paroxysmal atrial fibrillation Chronic kidney disease with atrophic right kidney History of hypertension History of hyperlipidemia Obesity PLAN: Continue patient's home cardiac medications Increased frequency of amlodipine to 5 mg twice daily Add hydralazine 25 mg twice daily Patient is cleared from cardiology for discharge home. Patient to follow-up in the office in one to 2 weeks. Nurse practitioner note has been reviewed, I agree with the documented findings and plan of care. Patient was seen and examined. Objective - Vital Signs Vital signs: Vital Signs Temp 97.9 F 03/14/23 08:00 Pulse 63 03/14/23 08:00 Resp 18 03/14/23 08:00 BP 152/100 03/14/23 08:00 Pulse Ox 93 L 03/14/23 08:00 FiO2 Intake & Output 03/13/23 03/14/23 03/14/23 18:59 06:59 18:59 Intake Total 0 970 358 Balance 0 970 358 Weight 90.718 kg Intake: Oral 0 970 358 Other: Voiding Method Toilet Toilet # Voids 1 1 - Labs CBC & Chem 7: 03/12/23 23:07 03/14/23 08:34 Labs: Abnormal Lab Results - Last 24 Hours (Table) 03/14/23 Range/Units 08:34 Sodium 136 L (137-145) mmol/L Chloride 108 H (98-107) mmol/L BUN 25 H (7-17) mg/dL Creatinine 1.59 H (0.52-1.04) mg/dL Glucose 112 H (74-99) mg/dL
[2023-03-14 16:02] LABS: Chol/HDL Ratio 3.48 Ratio
[2023-03-14] MEDS ORDERED: amLODIPine 5 MG TAB PO SCH (21:00)
== END 2023-03-14 12:43 | disposition home or self-care (01) ==
LOC: EC 22:49 → INTOOBSV 03-13 01:38 → 3SCARD 03-13 01:38 → UNDODISIN 03-14 12:43
PROVIDERS: ADMIT Internal Medicine; ATTEND Internal Medicine
DX: R07.89 Other chest pain (principal); I12.9 Hypertensive chronic kidney disease with stage 1 through stage 4 chronic kidney disease, or unspecified chronic kidney disease; I16.0 Hypertensive urgency; N17.9 Acute kidney failure, unspecified; E87.5 Hyperkalemia; E78.5 Hyperlipidemia, unspecified; G25.81 Restless legs syndrome; I48.0 Paroxysmal atrial fibrillation; M10.9 Gout, unspecified; F41.9 Anxiety disorder, unspecified; E66.01 Morbid (severe) obesity due to excess calories; F32.A Depression, unspecified; N18.32 Chronic kidney disease, stage 3b; M54.9 Dorsalgia, unspecified; R74.01 Elevation of levels of liver transaminase levels; G89.29 Other chronic pain; I25.2 Old myocardial infarction; Z90.710 Acquired absence of both cervix and uterus; Z79.899 Other long term (current) drug therapy; Z87.442 Personal history of urinary calculi; Z85.3 Personal history of malignant neoplasm of breast; Z82.3 Family history of stroke; Z84.1 Family history of disorders of kidney and ureter; Z82.49 Family history of ischemic heart disease and other diseases of the circulatory system; Z63.4 Disappearance and death of family member; Z68.41 Body mass index [BMI] 40.0-44.9, adult; Z79.01 Long term (current) use of anticoagulants
CPT/HCPCS: 96376; 96374; 96375; 99285; 36415; 93005; 80061; 80053; 80048; 83735; 84484 ×2; 85025; 85610; 85730; 71046; G0378 ×2; J2270; J0360

== ENCOUNTER 2023-05-21 03:58 | Emergency (ER) | payer OTHER ==
[2023-05-21] MEDS ORDERED: METOCLOPRAMIDE 5 MG/ML 2 ML VIAL ONE (05:54)
[2023-05-21] MEDS ORDERED: diphenhydrAMINE 50 MG/ML 1 ML VIAL ONE (05:54)
[2023-05-21] MEDS ORDERED: KETOROLAC 15 MG/ML 1 ML VIAL ONE (05:54)
[2023-05-21] MEDS ORDERED: hydrALAZINE HCL 20 MG/ML 1 ML VIAL ONE (05:54)
[2023-05-21 06:35] LABS: ALT 41 U/L (4-34); AST 41 U/L (14-36); African American GFR (CKD) 39 (>60 ml/min/1.73 sqM); Albumin 3.7 g/dL (3.5-5.0); Alkaline Phosphatase 135 U/L (38-126); Anion Gap 6 mmol/L; Blood Urea Nitrogen 19 mg/dL (7-17); Calcium 9.1 mg/dL (8.4-10.2); Carbon Dioxide 25 mmol/L (22-30); Chloride 107 mmol/L (98-107); Glucose 108 mg/dL (74-99); Non-African American GFR(CKD) 34 (>60 ml/min/1.73 sqM); Potassium 4.4 mmol/L (3.5-5.1); Sodium 138 mmol/L (137-145); Total Protein 6.7 g/dL (6.3-8.2)
[2023-05-21 06:46] LABS: Basophils % (A) 1 %; Eosinophils # (A) 0.3 k/uL (0-0.7); Eosinophils % (A) 5 %; HGB 14.6 gm/dL (11.4-16.0); Lymphocytes # (A) 0.5 k/uL (1.0-4.8); Lymphocytes % (A) 8 %; MCH 29.9 pg (25.0-35.0); MCHC 33.1 g/dL (31.0-37.0); MCV 90.4 fL (80.0-100.0); Mean Platelet Volume 9.9; Monocytes # (A) 0.4 k/uL (0-1.0); Monocytes % (A) 5 %; Neutrophils # (A) 5.2 k/uL (1.3-7.7); Neutrophils % (A) 80 %; Platelet Count 163 k/uL (150-450); RBC 4.87 m/uL (3.80-5.40); RDW 13.6 % (11.5-15.5); WBC 6.5 k/uL (3.8-10.6)
[2023-05-21] MEDS ORDERED: predniSONE 20 MG TAB PO STA (07:56)
[2023-05-21] MEDS ORDERED: guaiFENesin 600 MG TABLET.ER PO STA (07:56)
[2023-05-21] MEDS ORDERED: methylPREDNISolone SOD SUCCI 125 MG/2 ML VIAL IV STA (08:06)
--- NOTE | 2023-05-21 08:26 | XR ---
EXAMINATION TYPE: XR chest 2V DATE OF EXAM: 05/21/2023 COMPARISON: NONE TECHNIQUE: PA and lateral views submitted. HISTORY: Shortness of breath FINDINGS: The lungs are clear and there is no pneumothorax, pleural effusion, or focal pneumonia. Heart size normal and no overt failure. Osseous structures demonstrate hypertrophic and degenerative changes of the spine. Chronic right-sided posterior rib deformity. Surgical clips upper abdomen. Limited inspira tion. IMPRESSION: 1. No acute process.
== END 2023-05-21 08:33 | disposition home or self-care (01) ==
LOC: EC 03:58
DX: J06.9 Acute upper respiratory infection, unspecified (principal); Z20.822 Contact with and (suspected) exposure to COVID-19
CPT/HCPCS: 36415; 80053; 84484; 85025; 87636; 71046; 99284; 96374; 96375 ×3; J0360; J1200; J2765; J1885; J7512

== ENCOUNTER 2023-06-10 14:26 | Emergency (ER) | payer OTHER ==
[2023-06-10] MEDS ORDERED: HYDROcodone/APAP 5-325MG 1 EACH TAB PO STA (16:27)
[2023-06-10] MEDS ORDERED: KETOROLAC 15 MG/ML 1 ML VIAL IM STA (16:27)
--- NOTE | 2023-06-10 16:38 | XR ---
EXAMINATION TYPE: XR knee 4V LT DATE OF EXAM: 06/10/2023 COMPARISON: NONE HISTORY: 62-year-old female with pain TECHNIQUE: 4 views FINDINGS: Extensor mechanism appears intact. No sizable knee joint effusion. No acute fracture, sublu xation, dislocation seen. The patella remains appropriately situated along the trochlear groove. Oste openia. IMPRESSION: Osteopenia. Large body habitus. No acute osseous abnormality seen.
[2023-06-10] MEDS ORDERED: IBUPROFEN 600 MG STARTER PACK 4 TAB BTL PO STA (17:39)
[2023-06-10] MEDS ORDERED: ACET/COD 300 MG/30 MG STARTER PACK 6 TAB BTL PO STA (17:39)
--- NOTE | 2023-06-10 17:41 | ED ---
Extremity Problem HPI - General Chief complaint: Extremity Problem,Nontraumatic Stated complaint: lt knee injury & pain Time Seen by Provider: 06/10/23 16:01 Source: patient, RN notes reviewed Mode of arrival: ambulatory Limitations: no limitations - History of Present Illness Initial comments: This is a 62-year-old female who presents to the emergency department for left knee pain. Patient states that she went to stand up from a chair yesterday, and heard a "pop" or "crack" in her left knee. She has since had pain to this area. Not taking anything for her pain. She is still able to ambulate. She has not noticed any swelling or bruising to the knee. Denies any fevers, chills, sore throat, cough, dyspnea, chest pain, palpitations, abdominal pain, nausea, vomiting, diarrhea, back pain, or headaches. MD Complaint: extremity pain Onset/Timin -: days(s) Location: left, lower extremity - Related Data Home Medications Medication Instructions Recorded Confirmed Nitroglycerin Sl Tabs [Nitrostat] 0.4 mg SUBLINGUAL Q5M PRN 12/10/16 03/13/23 Atorvastatin [Lipitor] 40 mg PO DAILY 02/03/18 03/13/23 traMADol HCL 50 mg PO TID PRN 12/28/22 03/13/23 Previous Rx's Medication Instructions Recorded Apixaban [Eliquis] 5 mg PO BID tab 12/31/22 Metoprolol Tartrate [Lopressor] 12.5 mg PO BID tab 12/31/22 lisinopriL [Zestril] 2.5 mg PO DAILY tab 12/31/22 amLODIPine [Norvasc] 5 mg PO BID 30 Days #60 tab 03/14/23 hydrALAZINE HCL [Apresoline] 25 mg PO BID 30 Days #60 tab 03/14/23 Allergies Allergy/AdvReac Type Severity Reaction Status Date / Time shellfish derived [Shellfish] Allergy Severe Anaphylaxis Verified 06/10/23 14:52 sea salt Allergy Severe Anaphylaxis Uncoded 06/10/23 14:52 seafood Allergy Severe Anaphylaxis Uncoded 06/10/23 14:52 Review of Systems ROS Statement: Those systems with pertinent positive or pertinent negative responses have been documented in the HPI. ROS Other: All systems not noted in ROS Statement are negative. Past Medical History Past Medical History: Asthma, Cancer, Chest Pain / Angina, Hyperlipidemia, Hypertension, Osteoarthritis (OA), Renal Disease Additional Past Medical History / Comment(s): kidney stones-only one kidney functions (pt unsure laterallity), R breast cancer with surgery, migraines, Restless Leg Syndrome, gout bilateral feet, chronic back pain History of Any Multi-Drug Resistant Organisms: None Reported Past Surgical History: Breast Surgery, Section, Heart Catheterization, Hysterectomy, Orthopedic Surgery, Tonsillectomy Additional Past Surgical History / Comment(s): R breast lumpectomy 2006? R foot bone spurs removed, total hysterectomy with bilateral oopherectomy, x2, Past Anesthesia/Blood Transfusion Reactions: Postoperative Nausea & Vomiting (PONV) Additional Past Anesthesia/Blood Transfusion Reaction / Comment(s): No blood transfusion to date Past Psychological History: Anxiety, Depression Smoking Status: Never smoker Past Alcohol Use History: None Reported Past Drug Use History: None Reported - Past Family History Father Family Medical History: CVA/TIA, Renal Disease Additional Family Medical History / Comment(s): Father had a CVA then went into kidney failure and . Mother Family Medical History: Hypertension General Exam Limitations: no limitations General appearance: alert, in no apparent distress Head exam: Present: atraumatic, normocephalic, normal inspection Respiratory exam: Present: normal lung sounds bilaterally. Absent: respiratory distress, wheezes, rales, rhonchi, stridor Cardiovascular Exam: Present: regular rate, normal rhythm, normal heart sounds. Absent: systolic murmur, diastolic murmur, rubs, gallop, clicks Extremities exam: Present: other (Tenderness to palpation of the left patella. Full active and passive range of motion. Negative anterior-posterior drawer test. Huseyin's elicits pain. 2+ DP and PT pulses. Capillary refill less than 1 second.). Absent: calf tenderness Neurological exam: Present: alert, oriented X3, CN II-XII intact Psychiatric exam: Present: normal affect, normal mood Skin exam: Present: warm, dry, intact, normal color. Absent: rash Course Vital Signs 06/10/23 06/10/23 14:53 18:04 Temperature 98.9 F 98.1 F Pulse Rate 82 71 Respiratory 18 16 Rate Blood Pressure 180/136 189/143 O2 Sat by Pulse 94 L 97 Oximetry Medical Decision Making - Medical Decision Making This is a 62-year-old female who presents to the emergency department for left knee pain. Was pt. sent in by a medical professional or institution? @ -No Did you speak to anyone other than the patient for history? @ -No Did you review nursing and triage notes? @ -Yes, and I agree, it is accurate with regards to the patient's symptoms. Were old charts reviewed? @ -No Differential Diagnosis? @ -Differential Knee Pain: Fracture, dislocation, sprain, contusion, meniscus injury, ACL/LCL/MCL/PCL injury, this is not meant to be an all-inclusive list. EKG interpreted by me (3pts min.)? @ -Not obtained X-rays interpreted by me (1pt min.)? @ -X-ray of the left knee obtained. My interpretation identifies no acute fractures or dislocations. CT interpreted by me (1pt min.)? @ -Not obtained U/S interpreted by me (1pt. min.)? @ -Not obtained What testing was considered but not performed? (CT, X-rays, U/S, labs)? Why? @ -None What meds were considered but not given? Why? @ -None Did you discuss the management of the patient with other professionals? @ -No Did you reconcile home meds? @ -No Was smoking cessation discussed for >3mins.? @ -No Was critical care preformed (if so, how long)? @ -No Were there social determinants of health that impacted care today? How? (Homelessness, low income, unemployed, alcoholism, drug addiction, transportation, low edu. Level, literacy, decrease access to med. care, [facility], rehab)? @ -No Was there de-escalation of care discussed even if they declined? (Discuss DNR or withdrawal of care, Hospice)? @ -No What co-morbidities impacted this encounter? (DM, HTN, Smoking, COPD, CAD, Cancer, CVA, Hep., AIDS, mental health diagnosis, sleep apnea, morbid obesity)? @ -Osteoarthritis, morbid obesity Was patient admitted / discharged? @ -Discharged. X-ray of the left knee obtained revealing no acute process. Pain was controlled in the emergency department. She was placed in a knee immobilizer, which she states was very beneficial. Advised she alternate with i buprofen and Tylenol as needed for pain relief and apply ice for 15-20 minutes every 2-3 hours. She is also instructed to follow-up with her orthopedic provider [facility] for reevaluation. Undiagnosed new problem with uncertain prognosis? @ -None Drug Therapy requiring intensive monitoring for toxicity (Heparin, Nitro, Insulin, Cardizem)? @ -None Were any procedures done? @ -None Diagnosis/symptom? @ -Left knee pain Acute, or Chronic, or Acute on Chronic? @ -Acute Uncomplicated (without systemic symptoms) or Complicated (systemic symptoms)? @ -Uncomplicated Side effects of treatment? @ -None Exacerbation, Progression, or Severe Exacerbation] @ -Not applicable Poses a threat to life or bodily function? @ -No Return precautions reviewed in depth, the patient is instructed to return to the emergency department with any new, worsening, or concerning symptoms. Patient verbalized understanding. This case was discussed in detail with the attending ED physician, Dr. Tarango. Presentation, findings, and treatment plan discussed in detail as well. - Radiology Data Radiology results: report reviewed, image reviewed Disposition Clinical Impression: Left knee pain Disposition: HOME SELF-CARE Instructions (If sedation given, give patient instructions): Knee Pain (ED), K nee Immobilizer (ED) Additional Instructions: Return to the emergency department with any new, worsening, or concerning symptoms. Alternate with ibuprofen and Tylenol as needed for pain relief. Apply ice for 15-20 minutes every 2-3 hours. Contact orthopedics for a follow- up appointment. Follow up with your primary care provider in 1-2 days. Is patient prescribed a controlled substance at d/c from ED?: No Referrals: Brian Chanel MD [Primary Care Provider] - 1-2 days
[2023-06-10 18:06] VITALS: BP 189/143; PULSE 71; RESP 16; TEMP 98.1
== END 2023-06-10 18:12 | disposition home or self-care (01) ==
LOC: EC 14:26
DX: M25.562 Pain in left knee (principal); J45.909 Unspecified asthma, uncomplicated; I10 Essential (primary) hypertension; M19.90 Unspecified osteoarthritis, unspecified site; F41.9 Anxiety disorder, unspecified; E78.5 Hyperlipidemia, unspecified; F32.A Depression, unspecified; Z79.899 Other long term (current) drug therapy; Z91.013 Allergy to seafood
CPT/HCPCS: 73564; 99283; 96372; L1830; J1885

== ENCOUNTER → 2023-11-03 | Outpatient (CLI) | payer OTHER ==
--- NOTE | 2023-11-04 20:42 | MM ---
Reason for Exam: Screening (asymptomatic). Last mammogram was performed 1 year(s) and 6 month(s) ago. Patient History: Menarche at age 11. First Full-Term at age 18. Hysterectomy at age 44. Postmenopausal. Breast cancer, age 52. 01/06/2020, Benign Core Biopsy on the right side. 08/23/2013, Bilateral Malignant Excisional Biopsy. 08/05/2013, Malignant Core Biopsy on the right side. Maternal grandmother had breast cancer. Prior Study Comparison: 08/23/2019 Bilateral Screening Mammogram, [facility]. 09/02/2019 Right Diagnostic Mammogram, [facility]. 05/23/2022 Bilateral MG screening mammo w CAD, [facility]. Tissue Density: There are scattered fibroglandular densities. Findings: Analyzed By CAD. Postsurgical and posttreatment change redemonstrated on the right. There is no suspicious group of microcalcifications or new suspicious mass in either breast. Overall Assessment: Benign, BI-RAD 2 Management: Screening Mammogram of both breasts in 1 year. . Patient should continue monthly self-breast exams. A clinical breast exam by your physician is recommended on an annual basis. This exam should not preclude additional follow-up of suspicious palpable abnormalities. Note on Agata scores and lifetime risk: 1. A Agata score greater than 3% is considered moderate risk. If this is the case, consider specialist referral to assess eligibility for a risk reducing agent. 2. If overall lifetime risk for the development of breast cancer is 20% or higher, the patient may qualify for future screening with alternating mammogram and breast MRI. Electronically signed and approved by: Paola Zapata M.D. Radiologist
== END | disposition home or self-care (01) ==
LOC: RADMAMWWP 15:30
PROVIDERS: ATTEND Family Medicine
DX: Z12.31 Encounter for screening mammogram for malignant neoplasm of breast (principal); Z78.0 Asymptomatic menopausal state; Z80.3 Family history of malignant neoplasm of breast
CPT/HCPCS: 77063; 77067

== ENCOUNTER → 2024-09-10 | Outpatient (CLI) | payer OTHER ==
--- NOTE | 2024-09-10 15:41 | US ---
EXAMINATION TYPE: US kidneys/renal and bladder DATE OF EXAM: 09/10/2024 COMPARISON: Renal US 2022, CT 2022 CLINICAL INDICATION: Female, 63 years old with history of N18.9 CHRONIC KIDNEY DISEASE R10.9 UNSPECIF IED ABD; CKD TECHNIQUE: Grayscale and color Doppler imaging of the bilateral kidneys and urinary bladder: FINDINGS: EXAM MEASUREMENTS: Right Kidney: 7.8 x 3.2 x 3.1 cm Left Kidney: 12.2 x 5.2 x 5.2 cm Right Kidney: Atrophic, difficult to visualize borders. Limited. Left Kidney: Question mild hydronephrosis? Anechoic areas seen at mid and lower, -question parapelvic cysts, largest measures 2.6 x 3.8 cm. Bladder: Appears anechoic. Bilateral Jets seen: Left jet seen. IMPRESSION: 1. Extremely limited evaluation of the right kidney. The exam is nondiagnostic for the right kidney. 2. Moderate left hydronephrosis. 3. Unremarkable urinary bladder [facility], , 09/10/2024 3:38 PM
--- NOTE | 2024-09-10 17:34 | CT ---
EXAMINATION TYPE: CT abdomen pelvis wo con CT DLP: 1094 mGycm, Automated exposure control for dose reduction was used. DATE OF EXAM: 09/10/2024 5:16 PM COMPARISON: Renal ultrasound 09/10/2024, CT abdomen and pelvis 12/12/2022 CLINICAL INDICATION:Female, 63 years old with history of R10.9 ABDOMINAL/PELVIS PAIN N18.9 CKD; Gener alized abdominal pain TECHNIQUE: Standard CT of the abdomen and pelvis without IV or oral contrast. Lack of IV or oral co ntrast limits evaluation of solid and hollow organ viscera. Coronal and sagittal reformats were perfo rmed. FINDINGS: LOWER CHEST: Lung bases are clear. Mild prominence of the heart. No pericardial effusion. ABDOMEN LIVER: Unremarkable noncontrast appearance GALLBLADDER AND BILE DUCTS: The gallbladder is surgically absent. No biliary ductal dilatation. PANCREAS: Mild fatty infiltration. SPLEEN: Unremarkable noncontrast appearance ADRENAL GLANDS: Unremarkable noncontrast appearance. KIDNEYS AND URETERS: No hydronephrosis. Marked atrophy of the right kidney with nonobstructive 4 mm c alcification. No left renal calculi. Redemonstration of left peripelvic cysts. PELVIS BLADDER: Unremarkable REPRODUCTIVE: The uterus is surgically absent. ABDOMEN & PELVIS STOMACH AND BOWEL: Stomach and duodenum are unremarkable. No focal bowel wall thickening or stranding inflammatory changes. Submucosal fat deposition within the ascending colon. The appendix is within n ormal limits. No evidence of bowel obstruction. PERITONEUM: No evidence of pneumoperitoneum or free fluid. VASCULATURE: Mild atherosclerotic calcifications are present throughout the abdominal aorta and its b ranches. No evidence of aortic aneurysm. MUSCULOSKELETAL: No acute osseous abnormalities. Degenerative disc disease at L4-L5. Similar minimal scoliosis changes. LYMPH NODES: No gross evidence for lymphadenopathy. SOFT TISSUE/ABDOMINAL WALL: Small fat filled umbilical hernia. Surgical clip identified within the an terior abdominal wall soft tissues in the epigastric region. Small fat filled inguinal hernias. IMPRESSION: 1. No acute abdominal/pelvic within the limitations of a noncontrast exam. 2. Redemonstration of atrophic right kidney and left renal peripelvic cysts. [facility], , 09/10/2024 5:32 PM
== END | disposition home or self-care (01) ==
LOC: RADUSWWP 14:32
PROVIDERS: ATTEND Family Medicine
CPT/HCPCS: 74176; 76770

== ENCOUNTER 2024-11-29 00:57 | Emergency (ER) | payer OTHER ==
[2024-11-29 01:03] VITALS: BP 199/134; PULSE 72; RESP 18; TEMP 98.3
--- NOTE | 2024-11-29 01:33 | ED ---
General Adult HPI - General Chief complaint: Extremity Injury, Lower Stated complaint: Left foot pain Time Seen by Provider: 11/29/24 01:04 Source: patient, RN notes reviewed, old records reviewed Mode of arrival: wheelchair - History of Present Illness Initial comments: 64-year-old female presents with pain in the left great toe after an injury which occurred several days ago. Patient states she accidentally kicked her bed and has had moderate pain since that time. She has been able to ambulate but has pain in the toe. No fever. No other complaints. - Related Data Home Medications Medication Instructions Recorded Confirmed Nitroglycerin Sl Tabs [Nitrostat] 0.4 mg SUBLINGUAL Q5M PRN 12/10/16 03/13/23 Atorvastatin [Lipitor] 40 mg PO DAILY 02/03/18 03/13/23 traMADol HCL 50 mg PO TID PRN 12/28/22 03/13/23 Previous Rx's Medication Instructions Recorded Apixaban [Eliquis] 5 mg PO BID tab 12/31/22 Metoprolol Tartrate [Lopressor] 12.5 mg PO BID tab 12/31/22 lisinopriL [Zestril] 2.5 mg PO DAILY tab 12/31/22 amLODIPine [Norvasc] 5 mg PO BID 30 Days #60 tab 03/14/23 hydrALAZINE HCL [Apresoline] 25 mg PO BID 30 Days #60 tab 03/14/23 Allergies Allergy/AdvReac Type Severity Reaction Status Date / Time shellfish derived [Shellfish] Allergy Severe Anaphylaxis Verified 11/29/24 01:03 sea salt Allergy Severe Anaphylaxis Uncoded 11/29/24 01:03 seafood Allergy Severe Anaphylaxis Uncoded 11/29/24 01:03 Review of Systems ROS Statement: Those systems with pertinent positive or pertinent negative responses have been documented in the HPI. ROS Other: All systems not noted in ROS Statement are negative. Past Medical History Past Medical History: Asthma, Cancer, Chest Pain / Angina, Hyperlipidemia, Hypertension, Osteoarthritis (OA), Renal Disease Additional Past Medical History / Comment(s): kidney stones-only one kidney functions (pt unsure laterallity), R breast cancer with surgery, migraines, Restless Leg Syndrome, gout bilateral feet, chronic back pain History of Any Multi-Drug Resistant Organisms: None Reported Past Surgical History: Breast Surgery, Section, Heart Catheterization, Hysterectomy, Orthopedic Surgery, Tonsillectomy Additional Past Surgical History / Comment(s): R breast lumpectomy 2006? R foot bone spurs removed, total hysterectomy with bilateral oopherectomy, x2, Past Anesthesia/Blood Transfusion Reactions: Postoperative Nausea & Vomiting (PONV) Additional Past Anesthesia/Blood Transfusion Reaction / Comment(s): No blood transfusion to date Past Psychological History: Anxiety, Depression Smoking Status: Never smoker Past Alcohol Use History: None Reported Past Drug Use History: None Reported - Past Family History Father Family Medical History: CVA/TIA, Renal Disease Additional Family Medical History / Comment(s): Father had a CVA then went into kidney failure and . Mother Family Medical History: Hypertension General Exam General appearance: alert, in no apparent distress Head exam: Present: atraumatic, normocephalic Eye exam: Present: normal appearance, PERRL ENT exam: Present: normal exam Neck exam: Present: normal inspection. Absent: tenderness, meningismus Respiratory exam: Present: normal lung sounds bilaterally. Absent: respiratory distress, wheezes Cardiovascular Exam: Present: regular rate, normal rhythm Extremities exam: Present: other (Erythema to the left great toe, no deformity) Course Vital Signs 11/29/24 01:00 Temperature 98.3 F Pulse Rate 72 Respiratory 18 Rate Blood Pressure 199/134 O2 Sat by Pulse 97 Oximetry Medical Decision Making - Medical Decision Making Was pt. sent in by a medical professional or institution (DOTTIE Carreno, E[employer] DATABASE DEVELOPER, urgent care, hospital, or half-way...) When possible be specific @ -No Did you speak to anyone other than the patient for history (EMS, parent, family, police, friend...)? What history was obtained from this source @ -No Did you review nursing and triage notes (agree or disagree)? Why? @ -I reviewed and agree with nursing and triage notes Were old charts reviewed (outside hosp., previous admission, EMS record, old EKG, old radiological studies, urgent care reports/EKG's, half-way records)? Report findings @ -No old charts were reviewed Differential Musculoskeletal Muscular strain, contusion, ligament sprain, fracture, arthritis, septic arthritis, bursitis, cellulitis, muscle spasm, nerve compression, DVT, arterial occlusion, herpes zoster, electrolyte abnormality, tumor.... This is not meant to be in all inclusive list EKG interpreted by me (3pts min.). @ -As above X-rays interpreted by me (1pt min.). @ -X-ray of the left foot, great toe is negative for displaced fracture or dislocation CT interpreted by me (1pt min.). @ -None done U/S interpreted by me (1pt. min.). @ -None done What testing was considered but not performed or refused? (CT, X-rays, U/S, lab s)? Why? @ -None What meds were considered but not given or refused? Why? @ -None Did you discuss the management of the patient with other professionals (professionals i.e. DrHali, PA, ETL DATABASE DEVELOPER, lab, RT, psych nurse, social services coordinator, physical therapy director, teacher, housing officer, pillowcase cleaner)? Give summary @ -No Was smoking cessation discussed for >3mins.? @ -No Was critical care preformed (if so, how long)? @ -No Were there social determinants of health that impacted care today? How? (Homelessness, low income, unemployed, alcoholism, drug addiction, transportation, low edu. Level, literacy, decrease access to med. care, alf, rehab)? @ -No Was there de-escalation of care discussed even if they declined (Discuss DNR or withdrawal of care, Hospice)? DNR status @ -No What co-morbidities impacted this encounter? (DM, HTN, Smoking, COPD, CAD, Cancer, CVA, ARF, Chemo, Hep., AIDS, mental health diagnosis, sleep apnea, morbid obesity)? @ -None Was patient admitted / discharged? Hospital course, mention meds given and route, prescriptions, significant lab abnormalities, going to OR and other pertinent info. @ -64-year-old female with left great toe injury which occurred several days prior, there is mild erythema, no deformity on exam. X-ray is negative for displaced fracture or dislocation. Patient will ice and elevate the toe. She will also monitor her elevated blood pressure and follow-up with her primary care provider. Undiagnosed new problem with uncertain prognosis? @ -No Drug Therapy requiring intensive monitoring for toxicity (Heparin, Nitro, Insulin, Cardizem)? @ -No Were any procedures done? @ -No Diagnosis/symptom? @Toe contusion Acute, or Chronic, or Acute on Chronic? @ -[Acute Uncomplicated (without systemic symptoms) or Complicated (systemic symptoms)? @ -Default Side effects of treatment? @ -No Exacerbation, Progression, or Severe Exacerbation? @ -No Poses a threat to life or bodily function? How? (Chest pain, [place], [place], pneumonia, PE, COPD, DKA, ARF, appy, cholecystitis, CVA, Diverticulitis, Homicidal, Suicidal, threat to staff... and all critical care pts) @ -No Disposition Clinical Impression: Toe contusion Disposition: HOME SELF-CARE Condition: Fair Instructions (If sedation given, give patient instructions): Foot Contusion (ED) Is patient prescribed a controlled substance at d/c from ED?: No Referrals: Roni Rivera MD [Primary Care Provider] - 1-2 days Time of Disposition: 01:33
[2024-11-29] MEDS: amLODIPine 5 MG TAB PO STA (01:46)
--- NOTE | 2024-11-29 03:14 | XR ---
EXAM: XR Left Foot Complete, 3 or More Views CLINICAL HISTORY: ITS.REASON XR Reason: trauma/pain TECHNIQUE: Frontal, lateral and oblique views of the left foot. COMPARISON: No relevant prior studies available. IMPRESSION: 1. No evidence of acutely displaced fracture or dislocation within the left foot. If there is further concern for Lisfranc injury, consider weightbearing imaging. 2. Enthesophyte formation at the Achilles tendon insertion and plantar fascia origin.
== END 2024-11-29 02:28 | disposition home or self-care (01) ==
LOC: EC 00:57
DX: S90.122A Contusion of left lesser toe(s) without damage to nail, initial encounter (principal); Z91.013 Allergy to seafood; Z91.018 Allergy to other foods; W22.03XA Walked into furniture, initial encounter
CPT/HCPCS: 99283